=== PATIENT | male | born 1955 | race Caucasian/White ===

== ENCOUNTER → 2020-01-27 | Outpatient (CLI) | payer MEDICARE | END | disposition home or self-care (01) | LOC: LABWHC1 12:41 | PROVIDERS: ATTEND Internal Medicine Cardiovascular Disease | DX: Z53.9 Procedure and treatment not carried out, unspecified reason (principal) ==

== ENCOUNTER → 2020-02-11 | Outpatient (CLI) | payer MEDICARE | END | disposition home or self-care (01) | LOC: LABWHC1 11:15 | PROVIDERS: ATTEND Internal Medicine Cardiovascular Disease | DX: Z11.59 Encounter for screening for other viral diseases (principal) ==

== ENCOUNTER 2020-02-13 06:25 | Day surgery (SDC) | payer MEDICARE ==
[~2020-02-13 06:25] MED LIST: ALPRAZolam 0.25 MG TAB PO PRN; ALPRAZolam 0.5 MG TAB PO PRN; NITROGLYCERIN SL TABS 0.4 MG TAB SUBLINGUAL PRN; SODIUM CHLORIDE 0.9% 1,000 ML in EMPTY BAG 1 BAG IV ONE
[2020-02-13 06:54] LABS: Glucose,Whole Blood 145 mg/dL (75-99)
[2020-02-13] MEDS ORDERED: ATORVASTATIN 80 MG TAB PO ONE (07:00)
[2020-02-13] MEDS ORDERED: ASPIRIN 325 MG TAB PO ONE (07:00)
[2020-02-13 07:05] LABS: Basophils % (A) 1 %; Eosinophils # (A) 0.3 k/uL (0-0.7); Eosinophils % (A) 6 %; HCT 46.1 % (39.0-53.0); HGB 15.1 gm/dL (13.0-17.5); Lymphocytes # (A) 1.5 k/uL (1.0-4.8); Lymphocytes % (A) 26 %; MCH 31.2 pg (25.0-35.0); MCHC 32.8 g/dL (31.0-37.0); MCV 95.1 fL (80.0-100.0); Mean Platelet Volume 7.6; Monocytes # (A) 0.4 k/uL (0-1.0); Monocytes % (A) 8 %; Neutrophils # (A) 3.1 k/uL (1.3-7.7); Neutrophils % (A) 57 %; Platelet Count 200 k/uL (150-450); RBC 4.85 m/uL (4.30-5.90); WBC 5.5 k/uL (3.8-10.6)
[2020-02-13 07:13] LABS: African American GFR (CKD) >90 (>60 ml/min/1.73 sqM); Anion Gap 4 mmol/L; Blood Urea Nitrogen 14 mg/dL (9-20); Calcium 9.2 mg/dL (8.4-10.2); Carbon Dioxide 26 mmol/L (22-30); Chloride 107 mmol/L (98-107); Glucose 143 mg/dL (74-99); Non-African American GFR(CKD) >90 (>60 ml/min/1.73 sqM); Sodium 137 mmol/L (137-145)
[2020-02-13] MEDS ORDERED: LIDOCAINE 1% INJ 10MG/ML (20 ML MDV) ONE (07:38)
[2020-02-13] MEDS ORDERED: fentaNYL (PF) 50 MCG/ML 2 ML AMP ONE (07:38)
[2020-02-13] MEDS ORDERED: fentaNYL (PF) 50 MCG/ML 2 ML AMP IV ONE (07:50)
[2020-02-13] MEDS ORDERED: MIDAZOLAM 2 MG/2 ML VIAL IV ONE (07:50)
[2020-02-13] MEDS ORDERED: LIDOCAINE 1% INJ 10MG/ML (20 ML MDV) SQ ONE (07:51)
[2020-02-13] MEDS ORDERED: CLOPIDOGREL 75 MG TAB ONE (08:17)
[2020-02-13] MEDS ORDERED: BIVALIRUDIN BOLUS 250 MG/50 ML IV ONE (08:55)
[2020-02-13] MEDS ORDERED: BIVALIRUDIN 250 MG in SODIUM CHLORIDE 0.9% 37 ML IV ONE (08:56)
[2020-02-13] MEDS ORDERED: CLOPIDOGREL 75 MG TAB PO ONE (08:56)
[2020-02-13] MEDS ORDERED: NITROGLYCERIN 1000MCG/10ML SYRINGE INTRACORON ONE (09:03)
[2020-02-13] MEDS ORDERED: IOPAMIDOL-370 125ML BTL INJ ONE (09:03)
[2020-02-13] MEDS ORDERED: IOPAMIDOL-370 100ML BTL INJ ONE ×2 (09:19→09:45)
--- NOTE | 2020-02-13 09:35 | LTR ---
DATE OF SERVICE: 02/13/2020 RE: Torin Daily Dear Adam; I performed cardiac catheterization on Torin Daily, a detailed catheterization note is enclosed for your records. In brief, the cardiac catheterization revealed severe 2-vessel coronary artery disease and patient will undergo angioplasty with stent placement of the same. Thank you for giving us the privilege of participate in the care of the aoy gentleman. Sincerely, MD MAURICIO Goodwin / RADHA: [id number] /
--- NOTE | 2020-02-13 09:35 | CC ---
CARDIAC CATHETERIZATION REPORT INDICATION: Ischemic cardiomyopathy in a patient with known CAD, status post prior angioplasty. PROCEDURE NOTE: After obtaining informed consent, left heart catheterization and coronary angiogram were performed with the right femoral artery using standard Liam catheters. Patient tolerated the procedure well without any obvious immediate complications. The patient has evidence of peripheral arterial disease and we had to use a Glidewire to traverse the iliac vessels. FINDINGS: 1. HEMODYNAMICS: Central aortic pressure is 130/70 mm. 2. LEFT VENTRICULOGRAM: Left ventriculogram is not performed. 3. ANGIOGRAPHIC DATA: LEFT MAIN CORONARY ARTERY: Left main coronary artery is a normal-sized vessel and is free of stenosis. Divides into left anterior descending coronary artery and circumflex coronary artery. LAD: LAD shows mild nonobstructive coronary artery disease. Circumflex coronary artery which is a codominant palpable shows a focal 95% stenosis. Right coronary artery shows a 70%-80% mid RCA stenosis. CONCLUSION: 1. Severe 2-vessel coronary artery disease. 2. Ischemic cardiomyopathy. PLAN: I am going to ask Dr. Singh to perform a two-vessel angioplasty. MMODL / IJN: [id number] /
[2020-02-13] MEDS ORDERED: ZOLPIDEM 5 MG TAB PO PRN (09:50)
[2020-02-13] MEDS ORDERED: ATROPINE SULFATE 0.1 MG/ML 10ML SYRINGE IV PRN (09:50)
[2020-02-13] MEDS ORDERED: NITROGLYCERIN SL TABS 0.4 MG TAB SUBLINGUAL PRN (09:50)
[2020-02-13] MEDS ORDERED: MAG HYDROX/AL HYDROX/SIMETH 30 ML CUP PO PRN (09:50)
[2020-02-13] MEDS ORDERED: RX INFO: IV CONTRAST WAS GIVEN 1 EACH MISC MISCELLANE PRN (09:50)
[2020-02-13] MEDS ORDERED: SODIUM CHLORIDE 0.9% 1,000 ML IV SCH (10:00)
--- NOTE | 2020-02-13 11:49 | PTCA ---
PERCUTANEOUSTRANS CORORONARY ANGIOGRAPHY Mr. Daily is a 64-year-old male who is followed by Dr. Singh, has a history of coronary artery disease, status post percutaneous revascularization in 2005 of the left circumflex, who recently was found to have evidence of cardiomyopathy. He underwent cardiac catheterization, was found to have subtotally occluded left circumflex and significant stenosis in the RCA. In view of that, recommendation made regarding angioplasty and stenting. The procedures, risks, and complication were discussed with the patient who is in full understanding and agreement PROCEDURE: A 6-Hungarian FR4 guiding catheter introduced into the system after cannulating the left main, a 0.014 balanced medium weight J-wire was advanced across the lesion positioned distally. Subsequently, 2.25 x 12 mm Trek balloon was advanced and multiple inflations were done at a maximum of 10 atmospheres. Following that, the balloon was removed and a 2.5 x 12 mm Trek balloon was advanced and multiple inflation at 8 atmospheres were done. Following that, the balloon was removed and a 3.0 x 23 mm Xience Michelle stent was deployed distally, postdilated at 16 atmospheres. After removing the balloon, a 3.0 x 33 mm Xience Michelle stent was deployed proximal to the first one postdilated at 16 atmospheres and after removing that balloon, a 3.25 x 15 mm Xience Michelle stent was deployed proximally, postdilated at 16 atmospheres. After removing the balloon, the last inflation, a 3.5 x 18mm NC Trek balloon was advanced and inflation of proximal stent was performed at a maximum 14 atmospheres. After the last inflation, after appropriate wait the balloon and the guidewire were withdrawn back in the guiding catheter. Images were obtained repeated those images reveal stable successful stenting. At that point, the guiding catheter, the balloon and the guidewire were removed. The sheath was sutured in place the patient was returned to his room in stable condition. Of note, the patient had no chest discomfort or EKG changes with the inflations. He received Angiomax per protocol as well as oral loading dose of clopidogrel. RESULTS: Successful stenting of a long segment of the mid and distal left circumflex with reduction of stenosis from 99% to 0%. RECOMMENDATION: Patient be continued on aspirin, Plavix, beta hanane, LINDSEY inhibitor, statin. He will be readmitted at a later time to undergo staged angioplasty and stenting of his right coronary artery. Those findings and recommendation were discussed with the patient and his family and they are in full understanding and agreement. Duration of procedure is 47 minutes. MAURICIO / STACYN: [id number] / DAVID
--- NOTE | 2020-02-13 12:28 | LTR ---
DATE OF SERVICE: 02/13/2020 RE: Abimbola Torin Dear Dr. Frazier; I had a pleasure to perform coronary angioplasty and stenting on Mr. Daily at [facility] on February 12 and a full copy of the procedure note will be forwarded to you. In brief, he was found to have significant disease involving the distal left circumflex, underwent successful stenting of that vessel using a 3 drug-eluting stent. He will be readmitted electively to undergo stenting of his right coronary artery. I will keep you updated on his progress and thank you again for allowing me to participate in this patient's care. Please feel free to call for any questions. Sincerely yours, MD HUANG PatrickL / RADHA: [id number] /
[2020-02-13 14:39] VITALS: BMI 29.1
[2020-02-13] MEDS: glipiZIDE 5 MG TAB PO SCH (17:09)
[2020-02-13 20:37] VITALS: RESP 16
[2020-02-14 07:15] LABS: African American GFR (CKD) >90 (>60 ml/min/1.73 sqM); Anion Gap 4 mmol/L; Blood Urea Nitrogen 10 mg/dL (9-20); Carbon Dioxide 27 mmol/L (22-30); Chloride 106 mmol/L (98-107); Glucose 106 mg/dL (74-99); Non-African American GFR(CKD) >90 (>60 ml/min/1.73 sqM); Potassium 4.4 mmol/L (3.5-5.1); Sodium 137 mmol/L (137-145)
[2020-02-14] MEDS ORDERED: amLODIPine 5 MG TAB PO SCH (09:00)
[2020-02-14] MEDS ORDERED: CLOPIDOGREL 75 MG TAB PO SCH (09:00)
[2020-02-14] MEDS ORDERED: METOPROLOL SUCCINATE (ER) 50 MG TAB.ER.24H PO SCH (09:00)
[2020-02-14] MEDS ORDERED: ATORVASTATIN 40 MG TAB PO SCH (09:00)
[2020-02-14] MEDS ORDERED: ASPIRIN 81 MG PO SCH (09:00)
[2020-02-14] MEDS ORDERED: LISINOPRIL 20 MG TAB PO SCH (09:00)
[2020-02-14] MEDS: glipiZIDE 5 MG TAB PO SCH (09:26)
[2020-02-14 09:33] VITALS: BP 132/73; PULSE 70; TEMP 98.7
--- NOTE | 2020-02-14 10:34 | DS ---
DISCHARGE SUMMARY DATE OF ADMISSION: 02/13/2020 DATE OF DISCHARGE: 02/14/2020. PROCEDURES PERFORMED: 1. Left heart catheterization. 2. Angioplasty of circumflex coronary artery. This is a 64-year-old gentleman who recently presented to us with ischemic cardiomyopathy and was advised to undergo cardiac catheterization. His cardiac catheterization revealed significant two-vessel coronary artery disease. He had a long and complex angioplasty of circumflex coronary artery with excellent angiographic outcome. Still has a lesion in the right coronary artery that will be addressed over the next 2 weeks. The patient has had a fairly uneventful night. Did not have chest pain, difficulty in breathing. His EKG shows sinus rhythm with nonspecific ST-T wave changes. The patient has had some mild oozing in the right groin and required a ( ), but this morning he does not have any hematoma or ecchymosis and his foot pulses are intact. CONDITION AT THE TIME OF DISCHARGE: Comfortable at rest. Vital signs are stable. Chest is clear to auscultation. Heart exam reveals first and second heart sounds. No gallop. Exam of extremities did not reveal any edema. Peripheral pulses are intact. Her groin is free of bleeding, bruit, hematoma. DISCHARGE MEDICATIONS: He will go home on all his home medications plus Plavix 75 mg daily. Follow up: He will be seen back in my office next week and will be scheduled for right coronary angioplasty. MMKRISTIL / IJN: [id number] /
== END 2020-02-14 11:20 | disposition home or self-care (01) ==
LOC: CATHCVL 06:25 → 3SCARD 10:37 → CATHCVL 02-14 11:20
PROVIDERS: ATTEND Internal Medicine Cardiovascular Disease
DX: I25.10 Atherosclerotic heart disease of native coronary artery without angina pectoris (principal); I25.5 Ischemic cardiomyopathy; I73.9 Peripheral vascular disease, unspecified; I10 Essential (primary) hypertension; E78.2 Mixed hyperlipidemia; I65.21 Occlusion and stenosis of right carotid artery; I25.2 Old myocardial infarction; E11.9 Type 2 diabetes mellitus without complications; Z95.5 Presence of coronary angioplasty implant and graft; Z72.0 Tobacco use; Z79.84 Long term (current) use of oral hypoglycemic drugs; Z79.899 Other long term (current) drug therapy; Z79.1 Long term (current) use of non-steroidal anti-inflammatories (NSAID); Z79.82 Long term (current) use of aspirin; Z79.02 Long term (current) use of antithrombotics/antiplatelets; R94.31 Abnormal electrocardiogram [ECG] [EKG]
CPT/HCPCS: 93454; 80048 ×2; 85025; C9600; C1769 ×4; C1887; C1725 ×3; C1894; C1874; J2250; J2001; J3010; J0583; Q9967 ×2

== ENCOUNTER → 2020-02-18 | Outpatient (CLI) | payer MEDICARE ==
--- NOTE | 2020-02-18 09:34 | CT ---
EXAMINATION TYPE: CT abdomen wo con DATE OF EXAM: 02/18/2020 COMPARISON: None HISTORY: 64-year-old male Left sided pain for 2-3 months TECHNIQUE: Contiguous axial scanning of the abdomen without IV contrast. Coronal and sagittal reconst ructions performed. CT DLP: 559 mGycm Automated exposure control for dose reduction was used. FINDINGS: Heart normal size without pericardial effusion. Aortic valvular calcifications and coronary artery ca lcifications. Lung bases are clear without pleural effusion. Small hiatal hernia. Liver mildly enlarged at 18.7 cm. Otherwise, noncontrast appearance of the liver, gallbladder, adrena l glands, left kidney, spleen, and pancreas appear within normal limits. 1 cm hyperdense lesion along the posterior cortex of the upper to mid pole right kidney. 2 mm nonobst ructive right upper pole renal calculus. No hydronephrosis on either side. No dilated small bowel, free fluid, or free air. Scattered mild to moderate stool. Mid descending colon diverticulosis. Of the visualized colon, no pe ricolonic inflammatory change is identified. Prominent but nonenlarged left external iliac chain lymph node measuring 7 mm. Moderate atherosclerotic calcifications infrarenal abdominal aorta and moderate within the visualized iliac arteries. Pelvis not imaged. Bones: Degenerative disc disease greatest at L1-L2 and L2-L3 and facet arthropathy mid to lower lumba r spine. IMPRESSION: 1. SMALL HIATAL HERNIA. 2. A 1 CM HYPERDENSE CORTICAL LESION POSTERIOR UPPER TO MIDPOLE RIGHT KIDNEY, PROBABLE HEMORRHAGIC CY ST. [address] MONTH FOLLOW-UP CT RECOMMENDED TO ENSURE STABILITY. 3. PUNCTATE 2 MM NONOBSTRUCTIVE RIGHT RENAL CALCULUS. 4. DESCENDING CLONIC DIVERTICULOSIS WITHOUT EVIDENCE FOR ACUTE DIVERTICULITIS. PELVIS NOT IMAGED.
== END | disposition home or self-care (01) ==
LOC: RADCTMAIN 08:20
PROVIDERS: ATTEND Internal Medicine
DX: K44.9 Diaphragmatic hernia without obstruction or gangrene (principal); K57.92 Diverticulitis of intestine, part unspecified, without perforation or abscess without bleeding
CPT/HCPCS: 74150

== ENCOUNTER 2020-03-03 07:57 | Day surgery (SDC) | payer MEDICARE ==
[2020-03-02 14:27] VITALS: BMI 29.7
[~2020-03-03 07:57] MED LIST changes: +ASPIRIN 325 MG TAB PO STA; +ATORVASTATIN 80 MG TAB PO STA
[2020-03-03 08:27] LABS: Basophils % (A) 1 %; Eosinophils # (A) 0.4 k/uL (0-0.7); Eosinophils % (A) 7 %; HCT 45.2 % (39.0-53.0); HGB 15.5 gm/dL (13.0-17.5); Lymphocytes # (A) 1.3 k/uL (1.0-4.8); Lymphocytes % (A) 23 %; MCH 32.7 pg (25.0-35.0); MCHC 34.2 g/dL (31.0-37.0); MCV 95.5 fL (80.0-100.0); Mean Platelet Volume 7.5; Monocytes # (A) 0.3 k/uL (0-1.0); Monocytes % (A) 6 %; Neutrophils # (A) 3.6 k/uL (1.3-7.7); Neutrophils % (A) 62 %; Platelet Count 180 k/uL (150-450); RBC 4.74 m/uL (4.30-5.90); RDW 13.2 % (11.5-15.5); WBC 5.8 k/uL (3.8-10.6)
[2020-03-03 08:28] VITALS: RESP 16; TEMP 98.8
[2020-03-03] MEDS ORDERED: SODIUM CHLORIDE 0.9% 1,000 ML IV ONE (08:35)
[2020-03-03 08:40] LABS: African American GFR (CKD) >90 (>60 ml/min/1.73 sqM); Anion Gap 7 mmol/L; Blood Urea Nitrogen 15 mg/dL (9-20); Calcium 9.2 mg/dL (8.4-10.2); Carbon Dioxide 28 mmol/L (22-30); Chloride 106 mmol/L (98-107); Glucose 161 mg/dL (74-99); Non-African American GFR(CKD) >90 (>60 ml/min/1.73 sqM); Potassium 4.2 mmol/L (3.5-5.1); Sodium 141 mmol/L (137-145)
[2020-03-03 08:40] LABS: Glucose,Whole Blood 157 mg/dL (75-99)
[2020-03-03] MEDS ORDERED: VERAPAMIL 2.5 MG/ML 2 ML AMP ONE (08:55)
[2020-03-03] MEDS ORDERED: fentaNYL (PF) 50 MCG/ML 2 ML AMP ONE (08:55)
[2020-03-03] MEDS ORDERED: LIDOCAINE 1% INJ 10MG/ML (20 ML MDV) ONE (08:55)
[2020-03-03] MEDS ORDERED: fentaNYL (PF) 50 MCG/ML 2 ML AMP IV ONE (09:32)
[2020-03-03] MEDS ORDERED: LIDOCAINE 1% INJ 10MG/ML (20 ML MDV) SQ ONE (09:33)
[2020-03-03] MEDS ORDERED: VERAPAMIL SYRINGE (5 MG/10 ML) INTRAARTER ONE (09:36)
[2020-03-03] MEDS ORDERED: BIVALIRUDIN BOLUS 250 MG/50 ML IV ONE (09:40)
[2020-03-03] MEDS ORDERED: BIVALIRUDIN 250 MG in SODIUM CHLORIDE 0.9% 50 ML IV ONE (09:41)
[2020-03-03] MEDS ORDERED: NITROGLYCERIN 1000MCG/10ML SYRINGE INTRACORON ONE (09:46)
[2020-03-03] MEDS ORDERED: IOPAMIDOL-370 125ML BTL INJ ONE ×2 (09:56)
[2020-03-03] MEDS ORDERED: ATROPINE SULFATE 0.1 MG/ML 10ML SYRINGE IV PRN (10:25)
[2020-03-03] MEDS ORDERED: MAG HYDROX/AL HYDROX/SIMETH 30 ML CUP PO PRN (10:25)
[2020-03-03] MEDS ORDERED: NITROGLYCERIN SL TABS 0.4 MG TAB SUBLINGUAL PRN ×2 (10:25→10:26)
[2020-03-03] MEDS ORDERED: RX INFO: IV CONTRAST WAS GIVEN 1 EACH MISC MISCELLANE PRN (10:25)
[2020-03-03] MEDS ORDERED: ZOLPIDEM 5 MG TAB PO PRN (10:25)
[2020-03-03] MEDS ORDERED: SODIUM CHLORIDE 0.9% 1,000 ML IV SCH (10:30)
--- NOTE | 2020-03-03 15:05 | PTCA ---
PERCUTANEOUSTRANS CORORONARY ANGIOGRAPHY Mr. Daily is a 64-year-old male with known history of coronary artery disease, status post percutaneous revascularization who was being followed by Dr. Singh, recently was found a significant decrease in his LV systolic function, underwent cardiac catheterization, was found to have significant disease in the left circumflex and the right coronary artery. He underwent stenting of the left circumflex and was admitted electively to undergo stenting of the right coronary artery. The procedures, risks, and complication were discussed with the patient who is in full understanding and agreement. PROCEDURE: Patient was brought to prosthetic lab technician in a fasting semi-sedated state after receiving fentanyl and Benadryl and achieving moderate conscious sedated state. Using Xylocaine anesthesia and Seldinger technique, a 6-Beninese sheath was introduced in the right radial artery, selective right and left coronary angiography performed using 6-Beninese FR4 guiding catheter, after cannulating the right coronary ostium a 0.014 balanced medium weight J-wire was advanced across the lesion, positioned distally, then a 2.5 x 12 mm Trek balloon was advanced and one inflation 8 atmospheres was done. Following that, the balloon was removed and a 2.5 x 15 mm Xience Michelle stent was deployed, postdilated at 16 atmospheres. Following that the balloon was removed and a 3.0 x 8 mm NC Trek balloon was advanced and two inflations at maximum 14 atmospheres was done. After the last inflation, after appropriate wait, the balloon and the guidewire were withdrawn back in the guiding catheter. Images were obtained and repeated. Those images reveal stable successful stenting. At that point, the guiding catheter, the balloon and the guidewire removed and a 5-Beninese FL 3.5 Liam catheter was introduced into the system and images of the left circumflex system was performed. Following that, catheter and sheath were removed. Hemostasis was obtained with deployment of a TR band. There was no immediate complication. Patient is returned to his room in stable condition. Of note, the patient received Angiomax per protocol and was continued on clopidogrel. RESULTS: 1. Successful stenting of the mid right coronary artery with reduction of stenosis from 80% to 0% in a diffusely diseased vessel. 2. Patent stented segment of the left circumflex with no evidence of thrombosis or artery stenosis. RECOMMENDATION: Patient will be continued on aspirin, Plavix and statin. The importance of dual antiplatelet treatment were discussed with the patient and his family and they are in full understanding and agreement. His LV systolic function will be followed by Dr. Singh for further evaluation. DURATION OF THE PROCEDURE: 33 minutes. MAURICIO / RADHA: [id number] /
--- NOTE | 2020-03-03 15:14 | LTR ---
DATE OF SERVICE: 03/03/2020 RE: Torin Daily Dear Dr. Frazier; I had the pleasure to perform coronary angioplasty and stenting on Mr. Daily at [facility] on March 03 and a full copy of the procedure note will be forwarded to you. In brief, he underwent successful stenting of his right coronary artery. His left coronary system remains patent. I am hopeful that this procedure will stabilize his status and will see improvement in the left ventricular systolic function. Thank you again for allowing me to participate in this patient's care. Please feel free to call for any questions. Sincerely yours, MD MAURICIO Patrick / STACYN: [id number] /
[2020-03-03 15:21] VITALS: BP 148/69; PULSE 69
[2020-03-03] MEDS ORDERED: AMLODIPINE BESYLATE PO SCH (21:00)
[2020-03-03] MEDS ORDERED: BENAZEPRIL PO SCH (21:00)
[2020-03-04] MEDS ORDERED: ATORVASTATIN 40 MG TAB PO SCH (09:00)
[2020-03-04] MEDS ORDERED: CLOPIDOGREL 75 MG TAB PO SCH (09:00)
[2020-03-04] MEDS ORDERED: METOPROLOL SUCCINATE (ER) 50 MG TAB.ER.24H PO SCH (09:00)
[2020-03-04] MEDS ORDERED: ASPIRIN 81 MG PO SCH (09:00)
[2020-03-04] MEDS ORDERED: glipiZIDE 5 MG TAB PO SCH (09:00)
== END 2020-03-03 15:45 | disposition home or self-care (01) ==
LOC: CATHCVL 07:57
PROVIDERS: ATTEND Internal Medicine Interventional Cardiology
DX: I25.10 Atherosclerotic heart disease of native coronary artery without angina pectoris (principal); I65.21 Occlusion and stenosis of right carotid artery; I10 Essential (primary) hypertension; Z72.0 Tobacco use; E78.2 Mixed hyperlipidemia; E11.9 Type 2 diabetes mellitus without complications; Z95.5 Presence of coronary angioplasty implant and graft; Z79.84 Long term (current) use of oral hypoglycemic drugs; Z79.02 Long term (current) use of antithrombotics/antiplatelets; Z79.82 Long term (current) use of aspirin; Z79.899 Other long term (current) drug therapy
CPT/HCPCS: 85347; 80048; 85025; C9600; C1769 ×2; C1887; C1725 ×2; C1874; C1894; J2001; J3010; J0583; Q9967

== ENCOUNTER → 2022-12-21 | Outpatient (CLI) | payer MEDICARE ==
[2022-12-21 18:14] LABS: Chol/HDL Ratio 2.79 Ratio; LDL Cholesterol,Calculated 57.1 mg/dL (0.0-131.0)
[2022-12-21 18:18] LABS: ALT 17 U/L (10-49); AST 19 U/L (14-35); African American GFR (CKD) 84.5 (60.0-200.0); Albumin 3.7 g/dL (3.8-4.9); Albumin/Globulin Ratio 0.92 (1.60-3.17); Alkaline Phosphatase 99 U/L (41-126); BUN/Creat Ratio 10.19 Ratio (12.00-20.00); Blood Urea Nitrogen 10.6 mg/dL (9.0-27.0); Calcium 9.2 mg/dL (8.7-10.3); Carbon Dioxide 20.7 mmol/L (20.0-27.5); Chloride 104 mmol/L (96-109); Globulin 4.1 g/dL (1.6-3.3); Glucose 218 mg/dL (70-110); Non-African American GFR(CKD) 72.9 (60.0-200.0); Potassium 4.3 mmol/L (3.5-5.5); Sodium 139 mmol/L (135-145); Total Protein 7.8 g/dL (6.2-8.2)
== END | disposition home or self-care (01) ==
LOC: LABWHC1 10:22
PROVIDERS: ATTEND Internal Medicine
DX: I10 Essential (primary) hypertension (principal); E11.9 Type 2 diabetes mellitus without complications; I25.10 Atherosclerotic heart disease of native coronary artery without angina pectoris; E78.5 Hyperlipidemia, unspecified; R60.9 Edema, unspecified
CPT/HCPCS: 36415; 80053; 80061; 83036; 83880; 84439; 84443

== ENCOUNTER 2023-01-04 05:51 | Day surgery (SDC) | payer MEDICARE ==
[2023-01-02 12:36] VITALS: BMI 34.4
[2023-01-04] MEDS ORDERED: ALPRAZolam 0.5 MG TAB PO PRN (05:54)
[2023-01-04] MEDS ORDERED: HEPARIN SODIUM,PORCINE 2,500 UNIT in SODIUM CHLORIDE 0.9% 250 ML IRRIGATION PRN (05:54)
[2023-01-04] MEDS ORDERED: SODIUM CHLORIDE 0.9% 1,000 ML in EMPTY BAG 1 BAG IV SCH (05:54)
[2023-01-04] MEDS ORDERED: ASPIRIN 325 MG TAB PO STA (05:54)
[2023-01-04] MEDS ORDERED: NITROGLYCERIN SL TABS 0.4 MG TAB SUBLINGUAL PRN (05:54)
[2023-01-04] MEDS ORDERED: ALPRAZolam 0.25 MG TAB PO PRN (05:54)
[2023-01-04] MEDS ORDERED: HEPARIN SODIUM,PORCINE 10,000 UNIT in SODIUM CHLORIDE 0.9% 1,000 ML IRRIGATION PRN (05:54)
[2023-01-04] MEDS ORDERED: ATORVASTATIN 80 MG TAB PO STA (05:54)
[2023-01-04] MEDS ORDERED: SODIUM CHLORIDE 0.9% 1,000 ML IV ONE (06:06)
[2023-01-04 06:22] LABS: Glucose,Whole Blood 152 mg/dL (70-110)
[2023-01-04 06:29] VITALS: RESP 16; TEMP 97.9
[2023-01-04 06:35] LABS: Basophils % (A) 0 %; Eosinophils # (A) 0.7 k/uL (0-0.7); Eosinophils % (A) 11 %; HCT 34.8 % (39.0-53.0); HGB 11.3 gm/dL (13.0-17.5); Hypochromasia Slight; Lymphocytes # (A) 1.1 k/uL (1.0-4.8); Lymphocytes % (A) 18 %; MCH 28.9 pg (25.0-35.0); MCHC 32.6 g/dL (31.0-37.0); MCV 88.8 fL (80.0-100.0); Mean Platelet Volume 7.9; Monocytes # (A) 0.5 k/uL (0-1.0); Monocytes % (A) 7 %; Neutrophils # (A) 3.8 k/uL (1.3-7.7); Neutrophils % (A) 61 %; Platelet Count 219 k/uL (150-450); Poikilocytosis Slight; RBC 3.92 m/uL (4.30-5.90); RDW 15.1 % (11.5-15.5); WBC 6.2 k/uL (3.8-10.6)
[2023-01-04] MEDS ORDERED: VERAPAMIL 2.5 MG/ML 2 ML AMP ONE (07:09)
[2023-01-04] MEDS ORDERED: fentaNYL (PF) 50 MCG/ML 2 ML AMP ONE (07:25)
[2023-01-04] MEDS ORDERED: IV FLUID CONTINUATION 1,000 ML IV ONE (07:29)
[2023-01-04] MEDS ORDERED: BENZOCAINE SPRAY 1 CAN MUCOUS MEM ONE (07:33)
[2023-01-04] MEDS ORDERED: fentaNYL (PF) 50 MCG/ML 2 ML AMP IV ONE (07:35)
[2023-01-04] MEDS ORDERED: MIDAZOLAM 2 MG/2 ML VIAL IV ONE (07:35)
[2023-01-04] MEDS ORDERED: LIDOCAINE 1% INJ 10MG/ML (5 ML VIAL-PF) SQ ONE (07:50)
[2023-01-04] MEDS ORDERED: LIDOCAINE 1% INJ 10MG/ML (20 ML MDV) ONE (07:59)
[2023-01-04] MEDS ORDERED: LIDOCAINE 2% (PF) 20 MG/ML 10 ML AMP SQ ONE (08:06)
[2023-01-04] MEDS ORDERED: IOPAMIDOL-370 100ML BTL INJ ONE (08:33)
[2023-01-04] MEDS ORDERED: RX INFO: IV CONTRAST WAS GIVEN 1 EACH MISC MISCELLANE PRN (12:17)
[2023-01-04 13:27] VITALS: BP 144/65; PULSE 71
[2023-01-04] MEDS ORDERED: hydrALAZINE HCL 50 MG TAB PO SCH (16:00)
--- NOTE | 2023-01-05 06:00 | ECHOT ---
TRANSESOPHAGEAL ECHOCARDIOGRAM INDICATION: Aortic stenosis. PROCEDURE NOTE: After obtaining informed consent, transesophageal echocardiogram was performed in left lateral position using an Omniplane probe. Local and IV sedation were obtained. Total sedation time was 12 minutes. FINDINGS: The aortic valve is a tricuspid valve that is heavily calcified with severe restriction in leaflet mobility. Ascending aorta appears mildly dilated. There is mild aortic regurgitation noted. By planimetry, the valve area is 0.6 squared centimeters. The tap and die maker technician helping with this study was inexperienced. He has not stored the measurement data. Mitral valve appears anatomically normal. There is mitral annular calcification with xdmj-of-ipqafuop mitral regurgitation. Tricuspid valve shows mild tricuspid regurgitation. There is no evidence of npdd-gb-rutzh shunt by color-flow Doppler or qzpuc-mp-gayx shunt by agitated saline contrast study. Left atrium appears enlarged. Left ventricle has normal size and systolic function. CONCLUSIONS: 1. Severe aortic stenosis involving a tricuspid aortic valve with a planimetry area of around 0.4 to 0.6 squared centimeters. 2. Normal LV systolic function. 3. Kwhz-fh-btbaeznp mitral regurgitation. 4. Technically suboptimal study secondary to inexperienced tap and die maker technician. MMODL / IJN: [id number] /
--- NOTE | 2023-01-05 08:16 | CC ---
CARDIAC CATHETERIZATION REPORT CARDIAC CATHETERIZATION: PROCEDURE NOTE: After obtaining informed consent, left heart catheterization, coronary angiogram and aortogram were performed via the left femoral artery using standard Liam catheters. The patient tolerated the procedure well without any obvious immediate complications. INDICATIONS: Aortic stenosis in the patient with known CAD. I initially attempted right radial artery access. I was unsuccessful. Right femoral pulses are weak. Hence, I performed the cardiac catheterization from the left side. Left femoral and iliac vessels have significant disease. Hence, Angio-Seal could not be done. FINDINGS: HEMODYNAMICS: 1. Central aortic pressure is 150/60 mm. 2. Left ventriculogram: Left ventriculogram was not performed. ANGIOGRAPHIC DATA: Right coronary artery: Right coronary artery is a codominant vessel that was previously stented extensively. The mid RCA shows a focal 90% stenosis. Left main coronary artery appears calcified but is free of significant stenosis. It divides into left anterior descending coronary artery and circumflex coronary artery. Circumflex coronary artery was previously stented. There is 80% to 90% ostial stenosis involving a large caliber, OM branch and AV groove circ also has an 80% stenosis. LAD shows kcnr-eb-xdlayjuy diffuse nonfocal atherosclerotic block. CONCLUSIONS: Severe 2-vessel coronary artery disease. Severe aortic stenosis based on the noninvasive studies. Known carotid stenosis and known peripheral arterial disease. PLAN: I will refer the patient to Dr. Jensen for evaluation for aortic valve replacement with 2-vessel bypass surgery. MMODL / IJN: [id number] /
== END 2023-01-04 15:29 | disposition home or self-care (01) ==
LOC: CATHCVL 05:51
PROVIDERS: ATTEND Internal Medicine Cardiovascular Disease
DX: I25.10 Atherosclerotic heart disease of native coronary artery without angina pectoris (principal); I35.0 Nonrheumatic aortic (valve) stenosis; I34.0 Nonrheumatic mitral (valve) insufficiency
CPT/HCPCS: 93312; 93320; 93325; 93458; 93567; 85025; C1769 ×3; C1894 ×2; J2250; J2001 ×2; J3010; Q9967

== ENCOUNTER → 2023-01-18 | Outpatient (CLI) | payer MEDICARE ==
--- NOTE | 2023-01-18 10:42 | CT ---
EXAMINATION TYPE: CT chest wo con DATE OF EXAM: 01/18/2023 COMPARISON: HISTORY: Nonrheumatic aortic valve replacement. CT DLP: 749 mGycm. Automated Exposure Control for Dose Reduction was Utilized. TECHNIQUE: CT scan of the thorax is performed without IV contrast. FINDINGS: LUNGS: No consolidative pneumonia. There is a 4 mm subpleural nodule superior segment right lower lob e axial image 26. Additional sub-5 mm subpleural nodularity noted.. There is no pleural effusion or pneumothorax seen. The tracheobronchial tree is patent. Subsegmental consolidation in both lung bas es most atelectasis mild hypertrophic and degenerative changes small hiatal hernia. Interlobular sept al thickening at the lung bases. MEDIASTINUM: Lack of IV contrast is noted to limit evaluation for mediastinal and especially hilar ad enopathy. There 1 cm subcarinal lymph node compatible with borderline adenopathy. There are numerous shotty lymph nodes within the mediastinum the largest measuring short axis IX mm. No cardiomegaly o r pericardial effusion is seen. There is dense calcification at the root of the aorta and at the leve l aortic valve. There is coronary artery calcification. OTHER: No additional significant abnormality is seen. IMPRESSION: 1. There is dense calcification at the level of the aortic valve, correlate clinically. 2. There is dense coronary artery calcifications 3. There is mediastinal borderline lymphadenopathy which is nonspecific. Correlate clinically. 4. Findings are suggestive of mild chronic interstitial pulmonary fibrosis at the lung bases, UIP typ e. 5. There is sub-5 mm subpleural nodularity is noted within the right lower lobe superior segment too small to characterize likely benign. 12 month follow up recommended
--- NOTE | 2023-01-18 13:28 | US ---
EXAMINATION TYPE: US carotid duplex BILAT DATE OF EXAM: 01/18/2023 COMPARISON: NONE CLINICAL INDICATION: Male, 67 years old with history of TAVR PROCEDURES; Pre op CABG. TECHNIQUE: Carotid duplex ultrasound examination. Indirect Doppler criteria was utilized. FINDINGS: EXAM MEASUREMENTS: RIGHT: Peak Systolic Velocity (PSV) cm/sec ----- Right CCA: 34.0 ----- Right ICA: no flow seen ----- Right ECA: 84.2 ICA/CCA ratio: RIGHT: End Diastole cm/sec ----- Right CCA: 0.0 ----- Right ICA: no flow seen ----- Right ECA: 7.3 LEFT: Peak Systolic Velocity (PSV) cm/sec ----- Left CCA: 61.6 ----- Left ICA: 168.6 ----- Left ECA: 113.4 ICA/CCA ratio: 2.7 LEFT: End Diastole cm/sec ----- Left CCA: 14.0 ----- Left ICA: 52.4 ----- Left ECA: 0.0 VERTEBRALS (direction of flow): Right Vertebral: Antegrade Left Vertebral: Antegrade Rhythm: Normal HOUSE REGISTRY RN NOTES: Unable to detect flow in the right ICA. Elevated velocities within the left ICA. Great amount of plaque seen within the left bifurcation. Called Dr. Jensen's office and was directed to Brennan Butler. Findings given to Brennan Butler at time of exam. IMPRESSION: 1. Nonvisualization of flow within the right internal carotid artery. Correlate for occlusion. Order ing provider was notified. 2. 50-69% stenosis of the left carotid bifurcation by peak systolic velocity and ratio. Criteria for Assigning % of Stenosis / Diameter reduction (Estimation based on the indirect measurements of the internal carotid artery velocities (ICA PSV). 1. Normal (no stenosis)=ICA PSV < 125 cm/s: ratio < 2.0: ICA EDV<40 cm/s. 2. Less than 50% stenosis=ICA PSV < 125 cm/s: ratio < 2.0: ICA EDV<40 cm/s. 3. 50 to 69% stenosis=ICA PSV of 125 to 230 cm/s: ration 2.0 ? 4.0: ICA EDV 40-100 cm/s. 4. Greater than 70% stenosis to near occlusion= ICA PSV > 230 cm/s: ratio > 4.0: ICA EDV > 100 cm/s. 5. Near occlusion= ICA PSV velocities may be low or undetectable: variable ratio and ICA EDV. 6. Total occlusion=unable to detect flow.
--- NOTE | 2023-01-19 07:27 | US ---
EXAMINATION TYPE: US vein mapping BILAT DATE OF EXAM: 01/18/2023 12:33 PM COMPARISON: NONE CLINICAL INDICATION: Male, 67 years old with history of TAVR PROCEDURES; No vein stripping. No hx of DVT. SIDE PERFORMED: Bilateral TECHNIQUE: Lower extremity saphenous vein is examined and measured utilizing real time linear array sonography. Patient History: Smoker: Yes Heart Disease: Previous DVT: No Vascular Surgery: No Discoloration: No Hypertension: Yes Diabetes: Yes Paralysis: Varicosities: Edema: Yes. Edema noted in imaging at left ankle DUPLEX FINDINGS: Greater Saphenous: Color flow seen Measurements in mm: Right Greater Saphenous: Groin: 9.7 x 8.0 mm High Thigh: 5.9 x 4.7 mm Mid Thigh: 4.4 x 4.0 mm Above Knee: 6.0 x 3.5 mm Knee: 4.9 x 3.0 mm Below Knee: 3.8 x 2.7 mm Mid Calf: 5.8 x 4.0 mm At Ankle: 5.3 x 4.1 mm Left Greater Saphenous: Groin: 8.8 x 6.6 mm High Thigh: 4.1 x 3.9 mm Mid Thigh: 5.3 x 3.9 mm Above Knee: 4.5 x 3.6 mm Knee: 3.7 x 3.1 mm Below Knee: 4.0 x 2.7 mm Mid Calf: 4.0 x 3.0 mm At Ankle: 4.9 x 3.4 mm IMPRESSION: 1. Bilateral GSV measurements listed above. 2. Performing surgeon to determine viability as conduit.
== END | disposition home or self-care (01) ==
LOC: LABWHC1 09:28
PROVIDERS: ATTEND Surgery
DX: Z01.818 Encounter for other preprocedural examination (principal); I35.1 Nonrheumatic aortic (valve) insufficiency; I25.10 Atherosclerotic heart disease of native coronary artery without angina pectoris; R91.8 Other nonspecific abnormal finding of lung field; I65.22 Occlusion and stenosis of left carotid artery
CPT/HCPCS: 71250; 93005; 93880; 93970; 94150

== ENCOUNTER 2023-02-20 11:39 | Inpatient (IN) | payer MEDICARE ==
[2023-02-20] MEDS ORDERED: IPRATROPIUM-ALBUTEROL 3 ML NEB INHALATION STA (12:12)
[2023-02-20] MEDS ORDERED: SODIUM CHLORIDE 0.9% 500 ML 500 ML IV ONE (12:12)
--- NOTE | 2023-02-20 12:14 | ED ---
General Adult HPI - General Chief complaint: Shortness of Breath Stated complaint: CLYDE,abd pain Time Seen by Provider: 02/20/23 12:03 Source: patient, RN notes reviewed Mode of arrival: wheelchair Limitations: no limitations - History of Present Illness Initial comments: 67-year-old male with a past medical history significant for hypertension, hyperlipidemia presents emergency department with a chief complaint of shortness of breath. Patient reports worsening shortness of breath upon exertion. He is also complaining of accompanying symptoms of nausea, vomiting, abdominal pain. she reports a bout of chest pain earlier however denies active chest pain during the time of obtaining the history. He describes his abdominal pain as generalized and dull ache. He reports that he takes Plavix. He is currently smoking tobacco. he reports that he did not take his hypertension medications this morning. - Related Data Home Medications Medication Instructions Recorded Confirmed hydrALAZINE HCL [Apresoline] 50 mg PO TID 01/02/23 02/20/23 Furosemide [Lasix] 20 mg PO DAILY 01/04/23 02/20/23 Levocetirizine Dihydrochloride 5 mg PO DAILY 01/04/23 02/20/23 Metoprolol Succinate (ER) [Toprol 100 mg PO DAILY 02/20/23 02/20/23 Xl] glipiZIDE XL [Glucotrol Xl] 10 mg PO BID 02/20/23 02/20/23 Previous Rx's Medication Instructions Recorded Aspirin 81 mg PO DAILY #30 chew 02/14/20 Atorvastatin [Lipitor] 40 mg PO DAILY #30 tab 02/14/20 Clopidogrel [Plavix] 75 mg PO DAILY #30 tab 02/14/20 metFORMIN HCL [Glucophage] 500 mg PO BID #0 02/14/20 Allergies Allergy/AdvReac Type Severity Reaction Status Date / Time No Known Allergies Allergy Verified 02/20/23 15:54 Review of Systems ROS Statement: Those systems with pertinent positive or pertinent negative responses have been documented in the HPI. ROS Other: All systems not noted in ROS Statement are negative. Past Medical History Past Medical History: Coronary Artery Disease (CAD), Diabetes Mellitus, Hyperlipidemia, Hypertension History of Any Multi-Drug Resistant Organisms: None Reported Past Surgical History: Appendectomy, Heart Catheterization With Stent, Orthopedic Surgery Additional Past Surgical History / Comment(s): ORIF RT TIB/FIB. COLONOSCOPY Past Anesthesia/Blood Transfusion Reactions: No Reported Reaction Date of Last Stent Placement:: 02/13/20 Past Psychological History: No Psychological Hx Reported Smoking Status: Current every day smoker Past Alcohol Use History: Occasional Past Drug Use History: Marijuana - Past Family History Father Family Medical History: Cancer General Exam - General Exam Comments Initial Comments: General: Alert, in no acute distress Head: atraumatic normocephalic. Eyes PERRL, EOMI intact, mucous membranes moist Respiratory: expiratory wheeze, patient is conversationally dyspneic upon initial history and physical exam Cardiovascular: rate regular rate and rhythm Abdominal: Soft without guarding or rebound Extremities: Normal inspection with full range of motion and normal capillary refill Neuroogic: alert and oriented 3, CN II-XII intact, able to ambulate with steady gait Skin: warm dry and intact with normal color Limitations: no limitations Course Vital Signs 02/20/23 02/20/23 02/20/23 11:51 12:11 12:18 Temperature 98.3 F 98.7 F Pulse Rate 73 70 Respiratory 24 25 H 24 Rate Blood Pressure 129/75 211/107 O2 Sat by Pulse 92 L 97 Oximetry 02/20/23 02/20/23 02/20/23 12:47 13:05 13:09 Temperature Pulse Rate 73 61 84 Respiratory 21 20 Rate Blood Pressure 213/102 197/103 O2 Sat by Pulse 97 98 Oximetry 02/20/23 02/20/23 02/20/23 13:22 14:33 15:15 Temperature 97.8 F 97.7 F Pulse Rate 84 77 80 Respiratory 20 19 Rate Blood Pressure 201/111 195/92 O2 Sat by Pulse 98 96 Oximetry 02/20/23 02/20/23 16:42 17:25 Temperature Pulse Rate 83 84 Respiratory 20 18 Rate Blood Pressure 186/90 180/95 O2 Sat by Pulse 97 98 Oximetry - Reevaluation(s) Reevaluation #1: 02/20/23 12:18 initial history and physical exam performed. patient's oxygen saturation 97% on 2 L. Reevaluation #2: 02/20/23 12:57 notified of elevated d-dimer result: D-dimer 2.63 Reevaluation #3: 02/20/23 18:25 case discussed with [facility] who agrees and accepts the patient for admission. EKG Findings - EKG Comments: EKG Findings:: 49.I interpreted the following: EKG at 12:02. rate 81 bpm normal sinus rhythm. LA interval 176, QRS duration 108, QT/QTc 426/494 Medical Decision Making - Medical Decision Making Was pt. sent in by a medical professional or institution (GIANLUCA Gomez, SUBSCRIPTION AGENT, urgent care, hospital, or long term...) When possible be specific @ -[No] Did you speak to anyone other than the patient for history (EMS, parent, family, police, friend...)? What history was obtained from this source @ -[No] Did you review nursing and triage notes (agree or disagree)? Why? @ -[I reviewed and agree with nursing and triage notes] Were old charts reviewed (outside hosp., previous admission, EMS record, old EKG, old radiological studies, urgent care reports/EKG's, long term records)? Report findings @ -[No old charts were reviewed] Differential Diagnosis (chest pain, altered mental status, abdominal pain women, abdominal pain men, vaginal bleeding, weakness, fever, dyspnea, syncope, headache, dizziness, GI bleed, back pain, seizure, CVA, palpatations, mental health, musculoskeletal)? @ -[not applicable] EKG interpreted by me (3pts min.). @ -[As above] X-rays interpreted by me (1pt min.). @ -[None done] CT interpreted by me (1pt min.). @ -[None done] U/S interpreted by me (1pt. min.). @ -[None done] What testing was considered but not performed or refused? (CT, X-rays, U/S, labs)? Why? @ -[None] What meds were considered but not given or refused? Why? @ -[None] Did you discuss the management of the patient with other professionals (professionals i.e. GIANLUCA Gomez, SUBSCRIPTION AGENT, lab, RT, psych nurse, psychologist social, flour tester, teacher, commanding officer traffic division, telephonic case manager)? Give summary @ -East discussed with [facility] who agrees and accepts the patient for admission. Was smoking cessation discussed for >3mins.? @ -yes Was critical care preformed (if so, how long)? @ -[No] Were there social determinants of health that impacted care today? How? (Homelessness, low income, unemployed, alcoholism, drug addiction, trans portation, low edu. Level, literacy, decrease access to med. care, retirement, rehab)? @ -[No] Was there de-escalation of care discussed even if they declined (Discuss DNR or withdrawal of care, Hospice)? DNR status @ -[No] What co-morbidities impacted this encounter? (DM, HTN, Smoking, COPD, CAD, Cancer, CVA, ARF, Chemo, Hep., AIDS, mental health diagnosis, sleep apnea, morbid obesity)? @ -[None] Was patient admitted / discharged? Hospital course, mention meds given and route, prescriptions, significant lab abnormalities, going to OR and other pertinent info. @ Admission. 67 -year-old male who presents to the emergency department with shortness of breath. Patient had a thorough history and physical exam performed on the ED. Physical exam reveals an obese male who upon initial physical is conversationally dyspneic. His oxygen saturation is 92% on room air. Patient was placed on 2 L oxygen and oxygen saturation ranging from 96-98%. Patient had an expiratory wheeze. Heart rate regular. Abdomen with generalized distention and tenderness. Walker sign negative. Patient had a lab work and imaging which revealed: WBC 6.0, hemoglobin 10.3 d-dimer 9.3 sodium 140, potassium 4.1 BUN 23, creatinine 1.30 initial lactic acid is 2.1 total bili 1.4 initial troponin is 0.12 secondary troponin 0.016 during negative. Covid influenza and RSV negativ e. CT angiogram of both negative for any evidence of PE. CT of the abdomen and pelvis reveals mild bladder wall thickening there is heterogeneous enhancement of the liver suggestive hepatocellular disease with a small amount of ascites. There is anasarca and nonobstructing right renal . Bilateral pleural effusions greater on the right.patient was given aspirin, Toradol, Zofran symptomatic relief. He was given 20 mg of hydralazine. He was given 20 mg of Lasix. I discussed the results in detail with the patient and the patient's family members who accompanied him verbalized understanding. All questions were addressed. They're agreeable with the plan for admission at this time. Case discussed with [facility] who agrees to accept the patient for admission with recommended cardiology consult. East discussed with [facility] who agrees with plan of care Undiagnosed new problem with uncertain prognosis? @ -[No] Drug Therapy requiring intensive monitoring for toxicity (Heparin, Nitro, Insulin, Cardizem)? @ -[No] Were any procedures done? @ -[No] Diagnosis/symptom? @ -Shortness of Breath - Abdominal Pain - Nausea and Vomiting - Hx of HTN - Pleural effusions Acute, or Chronic, or Acute on Chronic? @ -Acute Uncomplicated (without systemic symptoms) or Complicated (systemic symptoms)? @ Complicated Side effects of treatment? @ -[No] Exacerbation, Progression, or Severe Exacerbation? @ -[No] Poses a threat to life or bodily function? How? (Chest pain, USA, SD, pneumonia, PE, COPD, DKA, ARF, appy, cholecystitis, CVA, Diverticulitis, Homicidal, Suicidal, threat to staff... and all critical care pts) @ -High likelihood, respiratory arrest. - Lab Data Result diagrams: 02/20/23 12:14 02/20/23 12:14 Lab Results 02/20/23 02/20/23 02/20/23 Range/Units 12:14 12:14 12:14 WBC 6.0 (3.8-10.6) k/uL RBC 3.78 L (4.30-5.90) m/uL Hgb 10.3 L (13.0-17.5) gm/dL Hct 32.7 L (39.0-53.0) % MCV 86.7 (80.0-100.0) fL MCH 27.2 (25.0-35.0) pg MCHC 31.4 (31.0-37.0) g/dL RDW 16.8 H (11.5-15.5) % Plt Count 181 (150-450) k/uL MPV 9.3 Neutrophils % 79 % Lymphocytes % 12 % Monocytes % 7 % Eosinophils % 1 % Basophils % 0 % Neutrophils # 4.8 (1.3-7.7) k/uL Lymphocytes # 0.7 L (1.0-4.8) k/uL Monocytes # 0.4 (0-1.0) k/uL Eosinophils # 0.1 (0-0.7) k/uL Basophils # 0.0 (0-0.2) k/uL Hypochromasia Moderate Poikilocytosis Slight Anisocytosis Slight PT 13.0 H (9.0-12.0) sec INR 1.3 H (<1.2) APTT 24.5 (22.0-30.0) sec D-Dimer 2.93 H (<0.60) mg/L FEU Sodium 140 (137-145) mmol/L Potassium 4.1 (3.5-5.1) mmol/L Chloride 104 (98-107) mmol/L Carbon Dioxide 25 (22-30) mmol/L Anion Gap 11 mmol/L BUN 23 H (9-20) mg/dL Creatinine 1.30 H (0.66-1.25) mg/dL Est GFR (CKD-EPI)AfAm 65 (>60 ml/min/1.73 sqM) Est GFR (CKD-EPI)NonAf 56 (>60 ml/min/1.73 sqM) Glucose 186 H (74-99) mg/dL Lactic Ac Sepsis Rflx Plasma Lactic Acid Francisco (0.7-2.0) mmol/L Calcium 8.6 (8.4-10.2) mg/dL Total Bilirubin 1.4 H (0.2-1.3) mg/dL AST 34 (17-59) U/L ALT 26 (4-49) U/L Alkaline Phosphatase 96 (38-126) U/L Troponin I (0.000-0.034) ng/mL Total Protein 7.6 (6.3-8.2) g/dL Albumin 3.7 (3.5-5.0) g/dL Amylase 50 (30-110) U/L Urine Color Urine Appearance (Clear) Urine pH (5.0-8.0) Ur Specific [place] (1.001-1.035) Urine Protein (Negative) Urine Glucose (UA) (Negative) Urine Ketones (Negative) Urine Blood (Negative) Urine Nitrite (Negative) Urine Bilirubin (Negative) Urine Urobilinogen (<2.0) mg/dL Ur Leukocyte Esterase (Negative) Urine RBC (0-5) /hpf Urine WBC (0-5) /hpf Ur Squamous Epith Cells (0-4) /hpf Influenza Type A (PCR) (Not Detectd) Influenza Type B (PCR) (Not Detectd) RSV (PCR) (Not Detectd) SARS-CoV-2 (PCR) (Not Detectd) 06/03/0902/20/23 02/20/23 Range/Units 12:14 12:14 12:14 WBC (3.8-10.6) k/uL RBC (4.30-5.90) m/uL Hgb (13.0-17.5) gm/dL Hct (39.0-53.0) % MCV (80.0-100.0) fL MCH (25.0-35.0) pg MCHC (31.0-37.0) g/dL RDW (11.5-15.5) % Plt Count (150-450) k/uL MPV Neutrophils % % Lymphocytes % % Monocytes % % Eosinophils % % Basophils % % Neutrophils # (1.3-7.7) k/uL Lymphocytes # (1.0-4.8) k/uL Monocytes # (0-1.0) k/uL Eosinophils # (0-0.7) k/uL Basophils # (0-0.2) k/uL Hypochromasia Poikilocytosis Anisocytosis PT (9.0-12.0) sec INR (<1.2) APTT (22.0-30.0) sec D-Dimer (<0.60) mg/L FEU Sodium (137-145) mmol/L Potassium (3.5-5.1) mmol/L Chloride (98-107) mmol/L Carbon Dioxide (22-30) mmol/L Anion Gap mmol/L BUN (9-20) mg/dL Creatinine (0.66-1.25) mg/dL Est GFR (CKD-EPI)AfAm (>60 ml/min/1.73 sqM) Est GFR (CKD-EPI)NonAf (>60 ml/min/1.73 sqM) Glucose (74-99) mg/dL Lactic Ac Sepsis Rflx Plasma Lactic Acid Francisco 2.1 H* (0.7-2.0) mmol/L Calcium (8.4-10.2) mg/dL Total Bilirubin (0.2-1.3) mg/dL AST (17-59) U/L ALT (4-49) U/L Alkaline Phosphatase (38-126) U/L Troponin I 0.012 (0.000-0.034) ng/mL Total Protein (6.3-8.2) g/dL Albumin (3.5-5.0) g/dL Amylase (30-110) U/L Urine Color Light Yellow Urine Appearance Clear (Clear) Urine pH 7.5 (5.0-8.0) Ur Specific [place] 1.026 (1.001-1.035) Urine Protein 2+ H (Negative) Urine Glucose (UA) Negative (Negative) Urine Ketones Negative (Negative) Urine Blood Negative (Negative) Urine Nitrite Negative (Negative) Urine Bilirubin Negative (Negative) Urine Urobilinogen <2.0 (<2.0) mg/dL Ur Leukocyte Esterase Trace H (Negative) Urine RBC 2 (0-5) /hpf Urine WBC 4 (0-5) /hpf Ur Squamous Epith Cells 1 (0-4) /hpf Influenza Type A (PCR) (Not Detectd) Influenza Type B (PCR) (Not Detectd) RSV (PCR) (Not Detectd) SARS-CoV-2 (PCR) (Not Detectd) 02/20/23 02/20/23 02/20/23 Range/Units 12:46 12:48 14:05 WBC (3.8-10.6) k/uL RBC (4.30-5.90) m/uL Hgb (13.0-17.5) gm/dL Hct (39.0-53.0) % MCV (80.0-100.0) fL MCH (25.0-35.0) pg MCHC (31.0-37.0) g/dL RDW (11.5-15.5) % Plt Count (150-450) k/uL MPV Neutrophils % % Lymphocytes % % Monocytes % % Eosinophils % % Basophils % % Neutrophils # (1.3-7.7) k/uL Lymphocytes # (1.0-4.8) k/uL Monocytes # (0-1.0) k/uL Eosinophils # (0-0.7) k/uL Basophils # (0-0.2) k/uL Hypochromasia Poikilocytosis Anisocytosis PT (9.0-12.0) sec INR (<1.2) APTT (22.0-30.0) sec D-Dimer (<0.60) mg/L FEU Sodium (137-145) mmol/L Potassium (3.5-5.1) mmol/L Chloride (98-107) mmol/L Carbon Dioxide (22-30) mmol/L Anion Gap mmol/L BUN (9-20) mg/dL Creatinine (0.66-1.25) mg/dL Est GFR (CKD-EPI)AfAm (>60 ml/min/1.73 sqM) Est GFR (CKD-EPI)NonAf (>60 ml/min/1.73 sqM) Glucose (74-99) mg/dL Lactic Ac Sepsis Rflx Y Plasma Lactic Acid Francisco (0.7-2.0) mmol/L Calcium (8.4-10.2) mg/dL Total Bilirubin (0.2-1.3) mg/dL AST (17-59) U/L ALT (4-49) U/L Alkaline Phosphatase (38-126) U/L Troponin I 0.016 (0.000-0.034) ng/mL Total Protein (6.3-8.2) g/dL Albumin (3.5-5.0) g/dL Amylase (30-110) U/L Urine Color Urine Appearance (Clear) Urine pH (5.0-8.0) Ur Specific [place] (1.001-1.035) Urine Protein (Negative) Urine Glucose (UA) (Negative) Urine Ketones (Negative) Urine Blood (Negative) Urine Nitrite (Negative) Urine Bilirubin (Negative) Urine Urobilinogen (<2.0) mg/dL Ur Leukocyte Esterase (Negative) Urine RBC (0-5) /hpf Urine WBC (0-5) /hpf Ur Squamous Epith Cells (0-4) /hpf Influenza Type A (PCR) Not Detected (Not Detectd) Influenza Type B (PCR) Not Detected (Not Detectd) RSV (PCR) Not Detected (Not Detectd) SARS-CoV-2 (PCR) Not Detected (Not Detectd) Disposition Clinical Impression: HTN (hypertension), Shortness of breath, Abdominal pain, Pleural effusion Disposition: ADMITTED IP TO THIS HOSP Condition: Fair Is patient prescribed a controlled substance at d/c from ED?: No Time of Disposition: 13:01
[2023-02-20] MEDS ORDERED: ONDANSETRON 4 MG/2 ML VIAL IVP STA (12:19)
[2023-02-20] MEDS ORDERED: ASPIRIN 325 MG TAB PO STA (12:19)
[2023-02-20 12:32] LABS: Anisocytosis Slight; Basophils % (A) 0 %; Eosinophils # (A) 0.1 k/uL (0-0.7); Eosinophils % (A) 1 %; HCT 32.7 % (39.0-53.0); HGB 10.3 gm/dL (13.0-17.5); Hypochromasia Moderate; Lymphocytes # (A) 0.7 k/uL (1.0-4.8); Lymphocytes % (A) 12 %; MCH 27.2 pg (25.0-35.0); MCHC 31.4 g/dL (31.0-37.0); MCV 86.7 fL (80.0-100.0); Mean Platelet Volume 9.3; Monocytes # (A) 0.4 k/uL (0-1.0); Monocytes % (A) 7 %; Neutrophils # (A) 4.8 k/uL (1.3-7.7); Neutrophils % (A) 79 %; Platelet Count 181 k/uL (150-450); Poikilocytosis Slight; RBC 3.78 m/uL (4.30-5.90); RDW 16.8 % (11.5-15.5)
[2023-02-20 12:42] LABS: ALT 26 U/L (4-49); AST 34 U/L (17-59); African American GFR (CKD) 65 (>60 ml/min/1.73 sqM); Albumin 3.7 g/dL (3.5-5.0); Alkaline Phosphatase 96 U/L (38-126); Amylase 50 U/L (30-110); Anion Gap 11 mmol/L; Blood Urea Nitrogen 23 mg/dL (9-20); Calcium 8.6 mg/dL (8.4-10.2); Carbon Dioxide 25 mmol/L (22-30); Chloride 104 mmol/L (98-107); Glucose 186 mg/dL (74-99); Non-African American GFR(CKD) 56 (>60 ml/min/1.73 sqM); Potassium 4.1 mmol/L (3.5-5.1); Sodium 140 mmol/L (137-145); Total Bilirubin 1.4 mg/dL (0.2-1.3); Total Protein 7.6 g/dL (6.3-8.2)
[2023-02-20] MEDS ORDERED: hydrALAZINE HCL 20 MG/ML 1 ML VIAL IVP STA ×2 (12:44→14:34)
[2023-02-20] MEDS ORDERED: KETOROLAC 15 MG/ML 1 ML VIAL IVP STA (12:44)
[2023-02-20 12:50] LABS: INR 1.3 (<1.2); Partial Thromboplastin Time 24.5 sec (22.0-30.0)
--- NOTE | 2023-02-20 12:59 | XR ---
EXAMINATION TYPE: XR chest 2V DATE OF EXAM: 02/20/2023 COMPARISON: 12/24/2011 HISTORY: Shortness of breath TECHNIQUE: Frontal and lateral views of the chest are obtained. FINDINGS: Scattered senescent parenchymal changes noted. Hyperinflation compatible with COPD. No evidence for infiltrate. No evidence for atelectasis. Heart size is stable. Mediastinal structures are stable and grossly unremarkable. No evidence for hilar prominence. Degenerative changes dorsal spine. IMPRESSION: 1. No evidence for acute pulmonary disease.
--- NOTE | 2023-02-20 14:28 | CT ---
EXAMINATION TYPE: CT chest angio for PE DATE OF EXAM: 02/20/2023 COMPARISON: 01/18/2023 HISTORY: Elevated d-dimer, SOB. Pt states he is scheduled for heart sx. CT DLP: 597.5 mGycm CONTRAST: CT chest with contrast and 3D reconstruction with MIP imaging is performed with IV Contrast, patient injected with 80 mL of Isovue 370. Contrast-enhanced CT of the chest was performed through the course of the pulmonary arteries with finesse g and mediastinal window settings submitted. 3D reconstruction with MIP imaging was also performed. PULMONARY ARTERIES: The pulmonary arteries and their major tributaries are patent. I do not see sonia dence for sizable filling defect to suggest pulmonary embolic process. LUNGS: Interval bilateral pleural effusions right greater than left small in size. Mild basilar subpl eural fibrosis. MEDIASTINUM: Thoracic aorta is of normal caliber. The heart is mildly enlarged. Coronary artery jag cifications seen. Mediastinal adenopathy is unchanged with multiple enlarged lymph nodes measuring up to 1.4 cm. No evidence for mediastinal mass. No mediastinal lymph nodes greater than 1cm. HILAR STRUCTURES: No evidence for mass. No hilar lymph nodes greater than 1 cm. UPPER ABDOMEN: No significant abnormality is seen. IMPRESSION: 1. No evidence for Pulmonary embolism at this time. 2. Bilateral pleural effusions new finding since prior examination. 3. Mediastinal adenopathy which is nonspecific.
--- NOTE | 2023-02-20 14:42 | CT ---
EXAMINATION TYPE: CT abdomen pelvis w con DATE OF EXAM: 02/20/2023 COMPARISON: 02/18/2020 HISTORY: Abdominal pain and distension CT DLP: 2001.7 mGycm Automated exposure control for dose reduction was used. CONTRAST: CT scan of the abdomen pelvis is performed with IV Contrast, patient injected with 80 mL of Isovue 37 0. FINDINGS- LUNG BASES- there are bilateral pleural effusions with cardiomegaly. Coronary artery calcifications seen. There is calcification in the aortic valve. Correlate for venous congestion. LIVER/GB- there is reduced in attenuation. There is a small amount of fluid surrounding the gallbla dder. Gallbladder sludge not excluded. PANCREAS- No gross abnormality is seen. SPLEEN- No gross abnormality is seen. ADRENALS- No gross abnormality is seen. KIDNEYS/BLADDER-no hydronephrosis. There is a 3 mm nonobstructing right renal calculus. 3 mm indeterm inate right renal lesion too small to characterize but statistically most likely related to a cyst BOWEL- appendix not seen with certainty. There is diverticulosis of the colon. No evidence of bowel obstruction. LYMPH NODES- No greater than 1cm abdominal or pelvic lymph nodes are appreciated. OSSEOUS STRUCTURES- hypertrophic and degenerative changes of the spine. There is arthropathy of the hips. OTHER- There is a very small amount of ascites. Atherosclerotic changes aorta with no evidence of an eurysm. There is subcutaneous edema along the anterior abdominal wall correlate for anasarca There are small fat-containing inguinal hernias and there appears to be bladder wall thickening with increased attenuation surrounding the bladder. The prostate is also enlarged. Measuring 5.7 cm. IMPRESSION- 1. Bladder wall thickening with inflammatory changes surrounding the bladder, correlate for cystitis. Prostate is also enlarged correlate with PSA. 2. Heterogeneous enhancement of the liver suggesting hepatocellular disease and there is a small amou nt of ascites. 3. Small amount of pericholecystic fluid. Recommend correlation for acute cholecystitis. Intermediate density within the gallbladder could represent tiny stones or sludge. No obvious biliary obstruction 4. Anasarca. 5. Nonobstructing right renal calculus. 6. Bilateral pleural effusion greater on the right. Correlate for venous congestion and CHF.
[2023-02-20] MEDS ORDERED: FUROSEMIDE 10 MG/ML 2 ML VIAL IV ONE (15:09)
[2023-02-20 16:21] LABS: Appearance,Urine Clear (Clear); Bilirubin,Urine Negative (Negative); Blood,Urine Negative (Negative); Color,Urine Light Yellow; Glucose,Urine (UA) Negative (Negative); Ketones,Urine Negative (Negative); Leukocyte Esterase,Urine Trace (Negative); Nitrite,Urine Negative (Negative); PH, Urine 7.5 (5.0-8.0); Protein,Urine 2+ (Negative); RBC,Urine 2 /hpf (0-5); Specific Gravity,Urine 1.026 (1.001-1.035); Squamous Epithelial Cell,Urine 1 /hpf (0-4); Urobilinogen,Urine <2.0 mg/dL (<2.0); WBC,Urine 4 /hpf (0-5)
[2023-02-20] MEDS ORDERED: NALOXONE 0.4 MG/ML 1 ML VIAL IV PRN ×2 (16:21→16:50)
[2023-02-20] MEDS ORDERED: hydrALAZINE HCL 20 MG/ML 1 ML VIAL IVP PRN (16:44)
[2023-02-20] MEDS ORDERED: ONDANSETRON 4 MG/2 ML VIAL IVP PRN (16:50)
[2023-02-20] MEDS ORDERED: Acetaminophen-Codeine 300-30mg TAB PO PRN (16:50)
[2023-02-20] MEDS: CLOPIDOGREL 75 MG TAB PO SCH (17:23)
[2023-02-20] MEDS: hydrALAZINE HCL 50 MG TAB PO SCH ×2 (17:23→23:11)
[2023-02-20] MEDS: METOPROLOL SUCCINATE (ER) 100 MG TAB.ER.24H PO SCH (17:23)
[2023-02-20] MEDS: metFORMIN 500 MG TAB PO SCH (20:07)
[2023-02-20] MEDS: FUROSEMIDE 10 MG/ML 4 ML VIAL IV SCH (20:08)
[2023-02-20] MEDS: HEPARIN SODIUM,PORCINE/PF 5,000 UNIT/0.5 ML SYRINGE SQ SCH (23:10)
[2023-02-21 06:29] LABS: Glucose,Whole Blood 126 mg/dL (70-110)
[2023-02-21] MEDS ORDERED: CLOPIDOGREL 75 MG TAB PO SCH (09:00)
[2023-02-21] MEDS: hydrALAZINE HCL 50 MG TAB PO SCH ×3 (09:57→19:58)
[2023-02-21] MEDS: ASPIRIN 81 MG PO SCH (09:57)
[2023-02-21] MEDS: HEPARIN SODIUM,PORCINE/PF 5,000 UNIT/0.5 ML SYRINGE SQ SCH ×2 (09:57→17:06)
[2023-02-21] MEDS: METOPROLOL SUCCINATE (ER) 100 MG TAB.ER.24H PO SCH (09:57)
[2023-02-21] MEDS: ATORVASTATIN 40 MG TAB PO SCH (09:57)
[2023-02-21] MEDS: CLOPIDOGREL 75 MG TAB PO SCH (09:58)
[2023-02-21] MEDS: metFORMIN 500 MG TAB PO SCH ×2 (09:58→19:58)
[2023-02-21] MEDS: FUROSEMIDE 10 MG/ML 4 ML VIAL IV SCH ×2 (09:58→19:58)
--- NOTE | 2023-02-21 10:38 | CA ---
Transthoracic Echo Report Name: Torin Daily Age: 67 Gender: M : 1955 Exam Date: 02/21/2023 08:51 Exam Location: [facility] Ht (in): 67 Wt (lb): 236 Ordering Physician: Alexsandra Fischer MD Attending/Referring Phys: Control Systems Drafting Officer Mary Santamaria RDCS Procedure CPT: Indications: chf Cardiac Hx: Technical Quality: Technically difficult study Contrast 1: Lumason Total Dose (mL): 3 Contrast 2: Total Dose (mL): MEASUREMENTS (Male / Female) Normal Values 2D ECHO LV Diastolic Diameter PLAX 5.3 cm 4.2 - 5.9 / 3.9 - 5.3 cm LV Systolic Diameter PLAX 3.5 cm IVS Diastolic Thickness 1.6 cm 0.6 - 1.0 / 0.6 - 0.9 cm LVPW Diastolic Thickness 1.4 cm 0.6 - 1.0 / 0.6 - 0.9 cm LV Relative Wall Thickness 0.6 RV Internal Dim ED PLAX 4.4 cm LVOT Diameter 2.5 cm LA Systolic Diameter LX 4.1 cm 3.0 - 4.0 / 2.7 - 3.8 cm LV Diastolic Volume MOD BP 140.2 cm??? 67 - 155 / 56 - 104 cm??? LV Systolic Volume MOD BP 59.8 cm??? 22 - 58 / 19 - 49 cm??? LV Ejection Fraction MOD BP 57.3 % >= 55 % LV Diastolic Volume MOD 4C 156.8 cm??? LV Systolic Volume MOD 4C 49.8 cm??? LV Ejection Fraction MOD 4C 68.3 % LV Diastolic Length 4C 10.3 cm LV Systolic Length 4C 8.2 cm LV Diastolic Volume MOD 2C 125.9 cm??? LV Systolic Volume MOD 2C 66.8 cm??? LV Ejection Fraction MOD 2C 47.0 % LV Diastolic Length 2C 10.2 cm LV Systolic Length 2C 9.0 cm LA Volume 107.8 cm??? 18 - 58 / 22 - 52 cm??? M-MODE Aortic Root Diameter MM 3.6 cm MV E Point Septal Separation 0.9 cm DOPPLER AV Peak Velocity 357.9 cm/s AV Peak Gradient 51.2 mmHg AV Mean Velocity 273.1 cm/s AV Mean Gradient 32.0 mmHg AV Velocity Time Integral 93.2 cm LVOT Peak Velocity 113.5 cm/s LVOT Peak Gradient 5.1 mmHg AV Area Cont Eq pk 1.5 cm??? MV Peak Velocity 164.1 cm/s MV Peak Gradient 10.8 mmHg MV Mean Velocity 81.0 cm/s MV Mean Gradient 3.2 mmHg MV Velocity Time Integral 44.9 cm MV Area PHT 3.9 cm??? Mitral E Point Velocity 152.8 cm/s Mitral A Point Velocity 81.2 cm/s Mitral E to A Ratio 1.9 MV Deceleration Time 195.3 ms MV E' Velocity 7.1 cm/s Mitral E to MV E' Ratio 21.4 TR Peak Velocity 330.9 cm/s TR Peak Gradient 43.8 mmHg Right Ventricular Systolic Press 48.8 mmHg FINDINGS Left Ventricle Left ventricular ejection fraction is estimated at 40-45 %. Left ventricular cavity size normal. Moderately increased septal wall thickness. Mildly increased left ventricular systolic volume. Right Ventricle Severe right ventricular dilatation. Moderate pulmonary hypertension. Right Atrium Normal right atrial size. Left Atrium Severely increased left atrial volume. Mildly increased left atrial area. Mitral Valve Mitral valve thickened. Mild mitral annular calcification. Mild mitral regurgitation. Aortic Valve Severe Aortic valve sclerosis. [id number]-[id number] aortic stenosis with a peak gradient of 51 mmHg and a mean gradient of 32 mmHg. Tricuspid Valve Structurally normal tricuspid valve. [id number] tricuspid regurgitation. Pulmonic Valve Structurally normal pulmonic valve. Trace pulmonic regurgitation. Pericardium Normal pericardium. No pericardial effusion. Aorta Normal size aortic root and proximal ascending aorta. CONCLUSIONS Mildly impaired LV function with EF around 40-45% Moderate aortic stenosis. The mean gradient is 32 mmHg. The aortic valve is calcified and appears to be trileaflet Previewed by: Dr. Zhou Toure MD (Electronically Signed) Final Date: 21 February 2023 10:37
[2023-02-21 11:44] LABS: Anisocytosis Slight; HCT 31.8 % (39.0-53.0); HGB 9.6 gm/dL (13.0-17.5); Hypochromasia Marked; MCH 26.5 pg (25.0-35.0); MCHC 30.1 g/dL (31.0-37.0); Mean Platelet Volume 8.4; Platelet Count 165 k/uL (150-450); Poikilocytosis Slight; RBC 3.62 m/uL (4.30-5.90); RDW 16.7 % (11.5-15.5); WBC 5.9 k/uL (3.8-10.6)
[2023-02-21 11:57] LABS: Glucose,Whole Blood 101 mg/dL (70-110)
[2023-02-21 12:06] LABS: African American GFR (CKD) 49 (>60 ml/min/1.73 sqM); Anion Gap 11 mmol/L; Blood Urea Nitrogen 24 mg/dL (9-20); Calcium 8.3 mg/dL (8.4-10.2); Carbon Dioxide 29 mmol/L (22-30); Chloride 102 mmol/L (98-107); Glucose 125 mg/dL (74-99); Non-African American GFR(CKD) 43 (>60 ml/min/1.73 sqM); Potassium 4.3 mmol/L (3.5-5.1); Sodium 142 mmol/L (137-145)
--- NOTE | 2023-02-21 12:25 | P.HPIM ---
History of Present Illness H&P Date: 02/21/23 Chief Complaint: Shortness of breath * 67-year-old gentleman with past medical history significant for hypertension, hyperlipidemia, history of aortic stenosis presented to the emergency department with complaints of shortness of breath * Patient has previously followed up with cardiology for severe aortic stenosis and had a RAE completed. Patient said he had sudden onset of shortness of breath accompanied by nausea vomiting abdominal pain he also reported intermittent chest discomfort * Workup initiated in ER included comprehensive panel including renal profile which showed Normal 1.62. CBC obtained showed hemoglobin of 9.6 platelet count of 165 white cell count within normal limits * Patient had CT chest done which was negative for pulmonary embolism, CT abdomen and pelvis was done which showed bladder wall thickening, nonobstructive right renal calculus bilateral pleural effusions were noted as well * Patient to be admitted to medical floor with consultations from cardiology and workup initiated including repeat echo cardiac Review of Systems REVIEW OF SYSTEMS: Shortness of breath, chest pain CONSTITUTIONAL: No fever, no malaise, no fatigue. HEENT: No recent visual problems or hearing problems. Denied any sore throat. CARDIOVASCULAR: Positive for chest pain, shortness of breath, lower extremity edema PULMONARY: No shortness of breath, no cough, no hemoptysis. GASTROINTESTINAL: No diarrhea, no nausea, no vomiting, no abdominal pain. NEUROLOGICAL: No headaches, no weakness, no numbness. HEMATOLOGICAL: Denies any bleeding or petechiae. GENITOURINARY: Denies any burning micturition, frequency, or urgency. MUSCULOSKELETAL/RHEUMATOLOGICAL: Denies any joint pain, swelling, or any muscle pain. ENDOCRINE: Denies any polyuria or polydipsia. Past Medical History Past Medical History: Coronary Artery Disease (CAD), Heart Failure, Diabetes M ellitus, Hyperlipidemia, Hypertension History of Any Multi-Drug Resistant Organisms: None Reported Past Surgical History: Appendectomy, Heart Catheterization With Stent, Orthopedic Surgery Additional Past Surgical History / Comment(s): ORIF RT TIB/FIB. COLONOSCOPY Past Anesthesia/Blood Transfusion Reactions: No Reported Reaction Date of Last Stent Placement:: 02/13/20 Past Psychological History: No Psychological Hx Reported Smoking Status: Current every day smoker Past Alcohol Use History: Occasional Additional Past Alcohol Use History / Comment(s): SMOKES 1/2 PPD SINCE AGE 17 Past Drug Use History: Marijuana Additional Drug Use History / Comment(s): OCCASIONAL MARIJUANA USE - Past Family History Father Family Medical History: Cancer Medications and Allergies Home Medications Medication Instructions Recorded Confirmed Type Aspirin 81 mg PO DAILY #30 chew 02/14/20 02/20/23 Rx Atorvastatin [Lipitor] 40 mg PO DAILY #30 tab 02/14/20 02/20/23 Rx Clopidogrel [Plavix] 75 mg PO DAILY #30 tab 02/14/20 02/20/23 Rx metFORMIN HCL [Glucophage] 500 mg PO BID #0 02/14/20 02/20/23 Rx hydrALAZINE HCL [Apresoline] 50 mg PO TID 01/02/23 02/20/23 History Furosemide [Lasix] 20 mg PO DAILY 01/04/23 02/20/23 History Levocetirizine Dihydrochloride 5 mg PO DAILY 01/04/23 02/20/23 History Metoprolol Succinate (ER) [Toprol 100 mg PO DAILY 02/20/23 02/20/23 History Xl] glipiZIDE XL [Glucotrol Xl] 10 mg PO BID 02/20/23 02/20/23 History Allergies Allergy/AdvReac Type Severity Reaction Status Date / Time No Known Allergies Allergy Verified 02/20/23 15:54 Physical Exam Vitals: Vital Signs Temp Pulse Pulse Resp BP BP Pulse Ox 02/21/23 08:00 97.6 F 78 22 129/73 94 L 02/21/23 04:00 98.1 F 60 20 169/71 94 L 02/20/23 23:20 97.8 F 70 18 168/78 92 L 02/20/23 20:40 97.6 F 72 18 168/86 92 L 02/20/23 20:06 97.6 F 71 19 178/95 96 02/20/23 19:04 97.6 F 79 19 176/85 96 02/20/23 17:25 84 18 180/95 98 02/20/23 16:42 83 20 186/90 97 02/20/23 15:15 97.7 F 80 19 195/92 96 02/20/23 14:33 97.8 F 77 20 201/111 98 02/20/23 13:22 84 02/20/23 13:09 84 02/20/23 13:05 61 20 197/103 98 02/20/23 12:47 73 21 213/102 97 02/20/23 12:18 98.7 F 70 24 211/107 97 Intake and Output 02/20/23 02/21/23 02/21/23 22:59 06:59 14:59 Output Total 400 225 Balance -400 -225 Output: Urine 400 225 Other: Voiding Method Urinal Urinal Urinal Weight 102.058 kg 107.3 kg PHYSICAL EXAMINATION: GENERAL: The patient is alert and oriented x3, not in any acute distress. Well developed, well nourished. Obese, ill appearance HEENT: Pupils are round and equally reacting to light. EOMI. No scleral icterus. No conjunctival pallor. Normocephalic, atraumatic. No pharyngeal erythema. No thyromegaly. CARDIOVASCULAR: Systolic murmur appreciated lotion with edema noted bilaterally PULMONARY: Chest is clear to auscultation, no wheezing or crackles. ABDOMEN: Soft, nontender, nondistended, normoactive bowel sounds. No palpable organomegaly. MUSCULOSKELETAL: No joint swelling or deformity. EXTREMITIES: No cyanosis, clubbing, or pedal edema. NEUROLOGICAL: Gross neurological examination did not reveal any focal deficits. SKIN: No rashes. Results CBC & Chem 7: 02/21/23 11:06 02/21/23 11:06 Labs: Abnormal Lab Results - Last 24 Hours (Table) 02/20/23 02/20/23 02/20/23 Range/Units 12:14 12:14 12:14 RBC 3.78 L (4.30-5.90) m/uL Hgb 10.3 L (13.0-17.5) gm/dL Hct 32.7 L (39.0-53.0) % MCHC (31.0-37.0) g/dL RDW 16.8 H (11.5-15.5) % Lymphocytes # 0.7 L (1.0-4.8) k/uL PT 13.0 H (9.0-12.0) sec INR 1.3 H (<1.2) D-Dimer 2.93 H (<0.60) mg/L FEU BUN 23 H (9-20) mg/dL Creatinine 1.30 H (0.66-1.25) mg/dL Glucose 186 H (74-99) mg/dL POC Glucose (mg/dL) (70-110) mg/dL Plasma Lactic Acid Francisco (0.7-2.0) mmol/L Calcium (8.4-10.2) mg/dL Total Bilirubin 1.4 H (0.2-1.3) mg/dL Urine Protein (Negative) Ur Leukocyte Esterase (Negative) 02/20/23 02/20/23 02/21/23 Range/Units 12:14 12:14 06:18 RBC (4.30-5.90) m/uL Hgb (13.0-17.5) gm/dL Hct (39.0-53.0) % MCHC (31.0-37.0) g/dL RDW (11.5-15.5) % Lymphocytes # (1.0-4.8) k/uL PT (9.0-12.0) sec INR (<1.2) D-Dimer (<0.60) mg/L FEU BUN (9-20) mg/dL Creatinine (0.66-1.25) mg/dL Glucose (74-99) mg/dL POC Glucose (mg/dL) 126 H (70-110) mg/dL Plasma Lactic Acid Francisco 2.1 H* (0.7-2.0) mmol/L Calcium (8.4-10.2) mg/dL Total Bilirubin (0.2-1.3) mg/dL Urine Protein 2+ H (Negative) Ur Leukocyte Esterase Trace H (Negative) 02/21/23 02/21/23 Range/Units 11:06 11:06 RBC 3.62 L (4.30-5.90) m/uL Hgb 9.6 L (13.0-17.5) gm/dL Hct 31.8 L (39.0-53.0) % MCHC 30.1 L (31.0-37.0) g/dL RDW 16.7 H (11.5-15.5) % Lymphocytes # (1.0-4.8) k/uL PT (9.0-12.0) sec INR (<1.2) D-Dimer (<0.60) mg/L FEU BUN 24 H (9-20) mg/dL Creatinine 1.62 H (0.66-1.25) mg/dL Glucose 125 H (74-99) mg/dL POC Glucose (mg/dL) (70-110) mg/dL Plasma Lactic Acid Francisco (0.7-2.0) mmol/L Calcium 8.3 L (8.4-10.2) mg/dL Total Bilirubin (0.2-1.3) mg/dL Urine Protein (Negative) Ur Leukocyte Esterase (Negative) Thrombosis Risk Factor Assmnt - Choose All That Apply Each Risk Factor Represents 2 Points: Age 61-74 years Other congenital or acquired thrombophilia - If yes, enter type in comment: No Thrombosis Risk Factor Assessment Total Risk Factor Score: 2 Thrombosis Risk Factor Assessment Level: Low Risk Assessment and Plan Assessment: Assesement * Acute and chronic congestive heart failure systolic dysfunction * Severe aortic stenosis * Diabetes mellitus type 2 * Hypertension * Coronary artery disease status post PCI Plan * Cardiology consult and echocardiogram ordered continue patient on Lasix * In regards to coronary artery disease continue aspirin and Plavix, troponin obtained negative * Cardiology/cardiac surgery following course of aortic stenosis * In regards to diabetes mellitus continue patient on sequential insulin and glipizide * STATUS is full code Time with Patient: Greater than 30
[2023-02-21] MEDS: INSULIN ASPART (NovoLOG) 100 UNIT/ML VIAL SQ SCH ×3 (12:48→19:55)
[2023-02-21 12:55] VITALS: BMI 37.0
[2023-02-21 13:33] LABS: C Reactive Protein 1.7 mg/dL (<1.0)
--- NOTE | 2023-02-21 13:42 | P.GSCN ---
History of Present Illness Consult date: 02/21/23 Reason for Consult: Known history of aortic valve stenosis and coronary artery disease Requesting physician: Fernando Truong History of present illness: This is a 67-year-old gentleman who follows on an outpatient basis with Dr. Frazier for his primary care service and with Dr. Salvatore Singh for his cardiology care. He has a past medical history significant for severe aortic valve stenosis with history of lower extremity edema, coronary artery disease with previous PCI, on Plavix for anticoagulation, hypertension, hyperlipidemia, diabetes mellitus type 2, obesity with a BMI of 37.0 kg/m, chronic ongoing tobacco dependence, occasional marijuana use, EtOH use drinking 7-8 beers a week, and obstructive sleep apnea with no home CPAP use. On 02/20/2023 the patient presented to the emergency department here at [facility] with complaints of feeling bloated and shortness of breath. He denies any recent fever, chills, nausea, vomiting, diarrhea, constipation, palpitations, cough, chest pain/pressure pressure, presyncope or syncope. He also reports when taking his medications for the day he usually takes them all at once in the morning it does not take as directed if needed to be taken twice a day, or 3 times a day. Initial laboratory results showed a WBC count 6.0, hemoglobin 10.3, hematocrit 32.7, platelets 181, PT 13.0, INR 1.3, PTT 24.5, d-dimer 2.93, sodium 140, potassium 4.1, BUN 23, creatinine 1.30, glucose 186, plasma lactic acid 2.1, total bilirubin 1.4, and serial troponins were as high as 0.024. Due to the patient's presentation of shortness of breath a chest x-ray was completed which showed no evidence for acute pulmonary disease. Due to the patient's elevated d-dimer a CTA of the chest was completed which showed no evidence for pulmonary embolism, bilateral pleural effusions and nonspecific mediastinal adenopathy. Due to the patient's complaints of bloating a computed tomography scan of his abdomen/pelvis was completed which demonstrated bladder wall thickening with inflammatory changes surrounding the bladder, heterogeneous enhancement of the liver suggesting hepatocellular disease and a small amount of ascites, a small amount of pericholecystic fluid, possible acute only cystitis, anasarca, nonobstructing right renal calculus and bilateral pleural effusions greater on the right. Due to the patient's presenting symptoms and history of severe aortic valve stenosis and coronary artery disease a consult was placed to cardiology for further evaluation and treatment recommendations. A transthoracic 2-D echocardiogram was completed which demonstrated a mildly impaired LV function with an ejection fraction of around 40-45%, moderate aortic valve stenosis with a mean gradient of 32 mmHg, mild mitral valve regurgitation, trace pulmonic valve regurgitation and mild to moderate tricuspid valve regurgitation. The patient has a history of undergoing a transesophageal echocardiogram on 01/04/2023 which showed severe aortic valve stenosis involving a tricuspid aortic valve with a planimetry area of around 0.4-0.6 cm, normal LV systolic function, and [id number] mitral valve regurgitation. Also on 01/04/2023 the patient underwent a cardiac catheterization which showed a 90% focal stenosis to the mid right coronary artery, and 80-90% ostial stenosis involving a large caliber OM branch, and an 80%-90% stenosis involving the AV groove circumflex coronary artery, and mild to moderate diffuse nonfocal disease to the left anterior descending coronary artery. Subsequently, due to the findings on the RAE study and cardiac catheterization study completed on 01/04/2023 the patient was seen by Dr. Sung Jensen for further evaluation and treatment recommendations. Also of mention the patient on 01/18/2023 underwent a carotid duplex study which demonstrated nonvisualization of flow within the right internal carotid artery, and a 50-69% stenosis of the left carotid bifurcation by peak systolic velocity and ratio. During the office visit with Dr. Jensen the transesophageal echocardiogram and cardiac catheterization results were reviewed with the patient, treatment options were discussed including risks and benefits of surgical aortic valve replacement and coronary artery bypass grafting surgery. Knowing and understanding the risks of surgery the patient wished to proceed with the surgical option. Due to the findings on the carotid duplex study the patient has been scheduled for a CTA of the neck which is scheduled on 02/28/2023 for further evaluation of his carotid artery disease. It had been discussed with the patient once the preoperative workup had been completed he would be scheduled for surgery on an elective basis. He was also discussed with the patient that he would need to hold his Plavix for 5-7 days preoperatively. Review of Systems A 14 point review of systems was completed was negative except as mentioned in the HPI. Past Medical History Past Medical History: Coronary Artery Disease (CAD), Heart Failure, Diabetes Mellitus, Hyperlipidemia, Hypertension, Sleep Apnea/CPAP/BIPAP (Without home CPAP use) History of Any Multi-Drug Resistant Organisms: None Reported Past Surgical History: Appendectomy, Heart Catheterization With Stent, Orthopedic Surgery Additional Past Surgical History / Comment(s): ORIF RT TIB/FIB, right ankle surgery. COLONOSCOPY Past Anesthesia/Blood Transfusion Reactions: No Reported Reaction Date of Last Stent Placement:: 02/13/20 Past Psychological History: No Psychological Hx Reported Smoking Status: Current every day smoker Past Alcohol Use History: Occasional (Drinks 7-8 beers a week) Additional Past Alcohol Use History / Comment(s): SMOKES 1/2 PPD SINCE AGE 17 Past Drug Use History: Marijuana Additional Drug Use History / Comment(s): OCCASIONAL MARIJUANA USE, smokes 1 joint per week - Past Family History Father Family Medical History: Cancer Medications and Allergies Home Medications Medication Instructions Recorded Confirmed Type Aspirin 81 mg PO DAILY #30 chew 02/14/20 02/20/23 Rx Atorvastatin [Lipitor] 40 mg PO DAILY #30 tab 02/14/20 02/20/23 Rx Clopidogrel [Plavix] 75 mg PO DAILY #30 tab 02/14/20 02/20/23 Rx metFORMIN HCL [Glucophage] 500 mg PO BID #0 02/14/20 02/20/23 Rx hydrALAZINE HCL [Apresoline] 50 mg PO TID 01/02/23 02/20/23 History Furosemide [Lasix] 20 mg PO DAILY 01/04/23 02/20/23 History Levocetirizine Dihydrochloride 5 mg PO DAILY 01/04/23 02/20/23 History Metoprolol Succinate (ER) [Toprol 100 mg PO DAILY 02/20/23 02/20/23 History Xl] glipiZIDE XL [Glucotrol Xl] 10 mg PO BID 02/20/23 02/20/23 History Allergies Allergy/AdvReac Type Severity Reaction Status Date / Time No Known Allergies Allergy Verified 02/20/23 15:54 Surgical - Exam Vital Signs Temp Pulse Resp BP Pulse Ox 98.3 F 73 24 129/75 92 L 02/20/23 11:51 02/20/23 11:51 02/20/23 11:51 02/20/23 11:51 02/20/23 11:51 - General well developed, well nourished, no distress, no pain, obese - Eyes PERRL, normal ocular movement, no pale, no icteric - ENT normal pinna, normal nares, normal mucosa, no hearing loss, no congestion, poor senior care - Neck Neck is supple, no lymphadenopathy. no masses, no bruits, trachea midline, no venous distension - Respiratory Lung sounds essentially clear to his upper lobes bilaterally, few scattered crackles to his bilateral bases. Respirations are symmetrical and nonlabored. No wheezes or rhonchi. - Cardiovascular Regular rhythm and rate. S1 and S2 present, negative for S3, or gallop. Positive systolic murmur heard best to his left sternal border 3/6. +1-2 edema to his bilateral lower extremities. - Abdomen Abdomen is soft, nontender and nondistended. Active bowel sounds present in all 4 abdominal quadrants. No guarding or rigidity. No organomegaly appreciated. - Genitourinary Deferred - Rectum Deferred - Integumentary Skin is warm and dry. No clubbing or cyanosis is present. no rash, no growths, no abnormal pigmentation - Neurologic Cranial nerves II through XII intact. normal coordination, normal sensation - Musculoskeletal Moves all 4 extremities with equal strength bilaterally. normal gait, normal posture - Psychiatric oriented to time, oriented to person, oriented to place, speech is normal, mem ory intact Results - Labs 02/21/23 11:06 02/21/23 11:06 Abnormal Lab Results - Last 24 Hours (Table) 02/20/23 02/20/23 02/20/23 Range/Units 12:14 12:14 12:14 RBC (4.30-5.90) m/uL Hgb (13.0-17.5) gm/dL Hct (39.0-53.0) % MCHC (31.0-37.0) g/dL RDW (11.5-15.5) % PT 13.0 H (9.0-12.0) sec INR 1.3 H (<1.2) D-Dimer 2.93 H (<0.60) mg/L FEU BUN 23 H (9-20) mg/dL Creatinine 1.30 H (0.66-1.25) mg/dL Glucose 186 H (74-99) mg/dL POC Glucose (mg/dL) (70-110) mg/dL Plasma Lactic Acid Francisco (0.7-2.0) mmol/L Calcium (8.4-10.2) mg/dL Total Bilirubin 1.4 H (0.2-1.3) mg/dL Urine Protein 2+ H (Negative) Ur Leukocyte Esterase Trace H (Negative) 02/20/23 02/21/23 02/21/23 Range/Units 12:14 06:18 11:06 RBC 3.62 L (4.30-5.90) m/uL Hgb 9.6 L (13.0-17.5) gm/dL Hct 31.8 L (39.0-53.0) % MCHC 30.1 L (31.0-37.0) g/dL RDW 16.7 H (11.5-15.5) % PT (9.0-12.0) sec INR (<1.2) D-Dimer (<0.60) mg/L FEU BUN (9-20) mg/dL Creatinine (0.66-1.25) mg/dL Glucose (74-99) mg/dL POC Glucose (mg/dL) 126 H (70-110) mg/dL Plasma Lactic Acid Francisco 2.1 H* (0.7-2.0) mmol/L Calcium (8.4-10.2) mg/dL Total Bilirubin (0.2-1.3) mg/dL Urine Protein (Negative) Ur Leukocyte Esterase (Negative) 02/21/23 Range/Units 11:06 RBC (4.30-5.90) m/uL Hgb (13.0-17.5) gm/dL Hct (39.0-53.0) % MCHC (31.0-37.0) g/dL RDW (11.5-15.5) % PT (9.0-12.0) sec INR (<1.2) D-Dimer (<0.60) mg/L FEU BUN 24 H (9-20) mg/dL Creatinine 1.62 H (0.66-1.25) mg/dL Glucose 125 H (74-99) mg/dL POC Glucose (mg/dL) (70-110) mg/dL Plasma Lactic Acid Francisco (0.7-2.0) mmol/L Calcium 8.3 L (8.4-10.2) mg/dL Total Bilirubin (0.2-1.3) mg/dL Urine Protein (Negative) Ur Leukocyte Esterase (Negative) Diabetes panel 02/20/23 02/21/23 Range/Units 12:14 11:06 Sodium 140 142 (137-145) mmol/L Potassium 4.1 4.3 (3.5-5.1) mmol/L Chloride 104 102 (98-107) mmol/L Carbon Dioxide 25 29 (22-30) mmol/L BUN 23 H 24 H (9-20) mg/dL Creatinine 1.30 H 1.62 H (0.66-1.25) mg/dL Glucose 186 H 125 H (74-99) mg/dL Calcium 8.6 8.3 L (8.4-10.2) mg/dL AST 34 (17-59) U/L ALT 26 (4-49) U/L Alkaline Phosphatase 96 (38-126) U/L Total Protein 7.6 (6.3-8.2) g/dL Albumin 3.7 (3.5-5.0) g/dL Calcium panel 02/20/23 02/21/23 Range/Units 12:14 11:06 Calcium 8.6 8.3 L (8.4-10.2) mg/dL Albumin 3.7 (3.5-5.0) g/dL Pituitary panel 02/20/23 02/21/23 Range/Units 12:14 11:06 Sodium 140 142 (137-145) mmol/L Potassium 4.1 4.3 (3.5-5.1) mmol/L Chloride 104 102 (98-107) mmol/L Carbon Dioxide 25 29 (22-30) mmol/L BUN 23 H 24 H (9-20) mg/dL Creatinine 1.30 H 1.62 H (0.66-1.25) mg/dL Glucose 186 H 125 H (74-99) mg/dL Calcium 8.6 8.3 L (8.4-10.2) mg/dL Adrenal panel 02/20/23 02/21/23 Range/Units 12:14 11:06 Sodium 140 142 (137-145) mmol/L Potassium 4.1 4.3 (3.5-5.1) mmol/L Chloride 104 102 (98-107) mmol/L Carbon Dioxide 25 29 (22-30) mmol/L BUN 23 H 24 H (9-20) mg/dL Creatinine 1.30 H 1.62 H (0.66-1.25) mg/dL Glucose 186 H 125 H (74-99) mg/dL Calcium 8.6 8.3 L (8.4-10.2) mg/dL Total Bilirubin 1.4 H (0.2-1.3) mg/dL AST 34 (17-59) U/L ALT 26 (4-49) U/L Alkaline Phosphatase 96 (38-126) U/L Total Protein 7.6 (6.3-8.2) g/dL Albumin 3.7 (3.5-5.0) g/dL - Imaging Chest x-ray: report reviewed, image reviewed CT scan - abdomen: report reviewed CT scan - chest: report reviewed, image reviewed CT scan - pelvis: report reviewed EKG: image reviewed Assessment and Plan Assessment: Severe aortic valve stenosis Multivessel coronary artery disease with history of previous PCI, on Plavix for anticoagulation Hypertension Hyperlipidemia Diabetes mellitus type 2, with a recent hemoglobin A1c 6.6% Carotid stenosis with a recent carotid duplex study showing a 50-69% stenosis of the left carotid bifurcation by technique systolic velocity and ratio and nonvisualization of flow within the right internal carotid artery with CTA of th e neck scheduled on 02/28/2023 Chronic ongoing tobacco dependence Obstructive sleep apnea without home CPAP use Occasional marijuana use, smokes 1-2 joints per week Occasional EtOH use, drinks 7-8 beers per week Acute kidney injury with a creatinine of 1.62 Plan: The patient was seen and examined at his bedside on the cardiac stepdown unit. His chart and diagnostics were reviewed. His case was discussed in detail with Dr. Sung Jensen from cardiothoracic surgery. The patient is scheduled for a CTA of the carotids on 02/28/2023 at 10 AM. Once the CTA of the carotids has been completed timing of surgical aortic valve replacement and coronary artery bypass grafting surgery will be discussed. He will need to be off his Plavix for 5-7 days prior to surgery. The importance of risk modification including smoking cessation has been discussed in detail with the patient. Continue to optimize medical management with aspirin, statin and beta hanane. Discussed with the patient the importance of taking his medications as prescribed. Medical management and other comorbidities per primary care and cardiology services. More recommendations to follow based on patient's clinical course. Thank you for this consult Dr. Truong and we look for to working with you in the care of this patient. I have personally seen and examined the patient, performed the documentation and the assessment and plan as written. 30 minutes spent on the visit . Brennan HUMPHREYS
[2023-02-21] MEDS ORDERED: IPRATROPIUM-ALBUTEROL 3 ML NEB INHALATION PRN (15:22)
--- NOTE | 2023-02-21 16:19 | P.CRDCN ---
History of Present Illness Consult date: 02/21/23 Reason for Consult (text): SOB History of present illness: History of present illness: This is a 67-year-old male patient of Dr. Rachelle Singh with past medical history of congestive heart failure, severe aortic stenosis, known 2 vessel coronary artery disease, chronic occlusion of the right internal carotid artery and moderate stenosis involving the left carotid artery, diabetes, hypertension, hyperlipidemia. Patient recently underwent cardiac catheterization that revealed two-vessel CAD and RAE revealed severe aortic stenosis. Patient was subsequently referred to cardiothoracic surgeon for aortic valve replacement and bypass surgery. Patient and his state that he has been cleared by pulmonary medicine, 3TC been pulled in preparation for surgery and he is waiting for a carotid study. Patient states he developed shortness of breath increased weight and lower extremity edema and abdominal edema that started on Sunday. Patient's states that he was in the bathroom having dry heaves and finally agreed to come in the hospital for evaluation. He states he did not take his medications yesterday and he presented with a blood pressure of 211/107. Patient due to having teeth pulled, has been eating a lot of chicken noodle soup which is high in sodium. Patient was started on IV diuretics and feels some improvement at this time. Patient's also noticed that over the past month he has been very tired and worsening. EKG sinus rhythm Chest x-ray: No acute process CTA of the chest was negative for pulmonary embolism. WBC 5.9, hemoglobin 9.6, platelet count 165. Sodium 142, potassium 4.3, BUN 24 and creatinine 1.62. Patient presented with creatinine of 1.3. Influenza A, influenza B, RSV, Covid 19 not detected. Home cardiac medications: Aspirin 81 mg daily, atorvastatin 40 mg daily, Plavix 75 mg daily, Lasix 20 mg daily, hydralazine 50 mg 3 times daily, Toprol-XL 100 mg daily Echocardiogram 07/2021 revealed normal LV size with EF of 40%. Grade 3 diastolic dysfunction. Mild left ventricular hypertrophy. Mildly dilated left atrium. Trace aortic regurgitation and moderate aortic stenosis. Moderate m itral regurgitation. Myxomatous mitral valve. Mild tricuspid regurgitation. [id number] pulmonic regurgitation. Echocardiogram 02/21/2023 reveals mildly impaired LV function with EF of 40-45%. Moderate aortic stenosis with mean gradient 32 mmHg. Aortic valve is calcified and appears to be in leaflet. RAE 01/04/2023 reveals severe aortic stenosis involving a tricuspid aortic valve with planimetry area of around 0.4-0.6 squared centimeters. Normal LV systolic function. Mild to moderate mitral regurgitation. Cardiac catheterization 01/04/2023 reveals mid RCA 90% stenosis. Circumflex prev iously stented is 80-90% ostial stenosis involving a large caliber, OM branch and AV groove circumflex also has an 80% stenosis. LAD shows mild to moderate diffuse nonfocal atherosclerotic block. Review Of Systems: At the time of my evaluation: Constitutional: No fever, no chills. Reports weakness, Reports fatigue. EENT: No headache. No dizziness. Lungs: Reports shortness of breath, cough, no sputum production. No wheezing. Reports dyspnea on exertion Cardiovascular: No chest pain, Reports lower extremity edema. No palpitations. No paroxysmal nocturnal dyspnea. No orthopnea. No lightheadedness or dizziness. No syncopal episodes. Abdominal: No abdominal pain. No nausea, vomiting. No diarrhea. No constipation. No bloody or tarry stools. Genitourinary: No dysuria.. No urinary retention. Musculoskeletal: No myalgias. No muscle weakness, no frequent falls. No back pain. No neck pain. Integumentary: No wounds. No rash. No unusual bruising. Neurologic: No aphasia. No facial droop. No change in mentation. No head injury. No headache. Physical examination: Gen: This is a obese 67-year-old male. He is resting in bed and appears to be comfortable at rest. VS: reviewed HEENT: Head is atraumatic, normocephalic. Pupils equal, round. Sclerae is anicteric. NECK: Supple. No JVD. LUNGS: Clear to auscultation. No wheezes or rhonchi. No intercostal retractions. HEART: Regular rate and rhythm. Systolic murmur. ABDOMEN: Soft No tenderness. EXTREMITIES: 1+ right, trace left pedal edema. No calf tenderness. NEUROLOGICAL: Patient is awake, alert and oriented x3. Assessment: Acute on chronic systolic heart failure Coronary artery disease Severe aortic stenosis Carotid artery disease Diabetes Hypertension Hyperlipidemia Plan: Continue Lasix 40 mg IV every 12 hours Monitor I&O, daily weights electrolytes and renal function Continue home cardiac medications Add consult for cardiothoracic team Further recommendations to follow based upon clinical course Thank you kindly for this consultation. Nurse practitioner note has been reviewed, I agree with documented findings and plan of care. Patient was seen and examined. Past Medical History Past Medical History: Coronary Artery Disease (CAD), Heart Failure, Diabetes Mellitus, Hyperlipidemia, Hypertension History of Any Multi-Drug Resistant Organisms: None Reported Past Surgical History: Appendectomy, Heart Catheterization With Stent, Orthopedic Surgery Additional Past Surgical History / Comment(s): ORIF RT TIB/FIB. COLONOSCOPY Past Anesthesia/Blood Transfusion Reactions: No Reported Reaction Date of Last Stent Placement:: 02/13/20 Past Psychological History: No Psychological Hx Reported Smoking Status: Current every day smoker Past Alcohol Use History: Occasional Additional Past Alcohol Use History / Comment(s): SMOKES 1/2 PPD SINCE AGE 17 Past Drug Use History: Marijuana Additional Drug Use History / Comment(s): OCCASIONAL MARIJUANA USE - Past Family History Father Family Medical History: Cancer Medications and Allergies Home Medications Medication Instructions Recorded Confirmed Type Aspirin 81 mg PO DAILY #30 chew 02/14/20 02/20/23 Rx Atorvastatin [Lipitor] 40 mg PO DAILY #30 tab 02/14/20 02/20/23 Rx Clopidogrel [Plavix] 75 mg PO DAILY #30 tab 02/14/20 02/20/23 Rx metFORMIN HCL [Glucophage] 500 mg PO BID #0 02/14/20 02/20/23 Rx hydrALAZINE HCL [Apresoline] 50 mg PO TID 01/02/23 02/20/23 History Furosemide [Lasix] 20 mg PO DAILY 01/04/23 02/20/23 History Levocetirizine Dihydrochloride 5 mg PO DAILY 01/04/23 02/20/23 History Metoprolol Succinate (ER) [Toprol 100 mg PO DAILY 02/20/23 02/20/23 History Xl] glipiZIDE XL [Glucotrol Xl] 10 mg PO BID 02/20/23 02/20/23 History Allergies Allergy/AdvReac Type Severity Reaction Status Date / Time No Known Allergies Allergy Verified 02/20/23 15:54 Physical Exam Vitals: Vital Signs Temp Pulse Pulse Resp BP BP Pulse Ox 02/21/23 08:00 97.6 F 78 22 129/73 94 L 02/21/23 04:00 98.1 F 60 20 169/71 94 L 02/20/23 23:20 97.8 F 70 18 168/78 92 L 02/20/23 20:40 97.6 F 72 18 168/86 92 L 02/20/23 20:06 97.6 F 71 19 178/95 96 02/20/23 19:04 97.6 F 79 19 176/85 96 02/20/23 17:25 84 18 180/95 98 02/20/23 16:42 83 20 186/90 97 02/20/23 15:15 97.7 F 80 19 195/92 96 02/20/23 14:33 97.8 F 77 20 201/111 98 02/20/23 13:22 84 02/20/23 13:09 84 02/20/23 13:05 61 20 197/103 98 02/20/23 12:47 73 21 213/102 97 02/20/23 12:18 98.7 F 70 24 211/107 97 02/20/23 12:11 25 H 02/20/23 11:51 98.3 F 73 24 129/75 92 L Intake and Output 02/20/23 02/21/23 02/21/23 22:59 06:59 14:59 Output Total 400 225 Balance -400 -225 Output: Urine 400 225 Other: Voiding Method Urinal Urinal Weight 102.058 kg 107.3 kg Results 02/21/23 11:06 02/21/23 11:06 Cardiac Enzymes 02/20/23 02/20/23 02/20/23 Range/Units 12:14 12:14 14:05 AST 34 (17-59) U/L Troponin I 0.012 0.016 (0.000-0.034) ng/mL 02/20/23 02/20/23 Range/Units 16:46 19:40 AST (17-59) U/L Troponin I 0.024 0.026 (0.000-0.034) ng/mL Coagulation 02/20/23 Range/Units 12:14 PT 13.0 H (9.0-12.0) sec APTT 24.5 (22.0-30.0) sec CBC 02/20/23 Range/Units 12:14 WBC 6.0 (3.8-10.6) k/uL RBC 3.78 L (4.30-5.90) m/uL Hgb 10.3 L (13.0-17.5) gm/dL Hct 32.7 L (39.0-53.0) % Plt Count 181 (150-450) k/uL Comprehensive Metabolic Panel 02/20/23 Range/Units 12:14 Sodium 140 (137-145) mmol/L Potassium 4.1 (3.5-5.1) mmol/L Chloride 104 (98-107) mmol/L Carbon Dioxide 25 (22-30) mmol/L BUN 23 H (9-20) mg/dL Creatinine 1.30 H (0.66-1.25) mg/dL Glucose 186 H (74-99) mg/dL Calcium 8.6 (8.4-10.2) mg/dL AST 34 (17-59) U/L ALT 26 (4-49) U/L Alkaline Phosphatase 96 (38-126) U/L Total Protein 7.6 (6.3-8.2) g/dL Albumin 3.7 (3.5-5.0) g/dL Current Medications Generic Name Dose Route Start Last Admin Trade Name Freq PRN Reason Stop Dose Admin Acetaminophen/Codeine Phosphate 1 each 02/20/23 16:50 Acetaminophen-Codeine 300-30mg Tab PO Q4HR PRN Moderate Pain (Scale 4 to 6) Aspirin 81 mg 02/21/23 09:00 Aspirin 81 Mg PO DAILY [facility]1983 Atorvastatin Calcium 40 mg 02/21/23 09:00 Atorvastatin 40 Mg Tab PO DAILY [facility]1983 Clopidogrel Bisulfate 75 mg 02/20/23 17:30 02/20/23 17:23 Clopidogrel 75 Mg Tab PO 75 mg DAILY ANGELA Administration Furosemide 40 mg 02/20/23 21:00 02/20/23 20:08 Furosemide 10 Mg/Ml 4 Ml Vial IV 40 mg Q12HR ANGELA Administration Heparin Sodium (Porcine) 5,000 unit 02/21/23 00:00 02/20/23 23:10 Heparin Sodium,Porcine/Pf 5,000 Unit/0.5 Ml Syringe SQ 5,000 unit Q8HR ANGELA Administration Hydralazine HCl 50 mg 02/20/23 17:30 02/20/23 23:11 Hydralazine Hcl 50 Mg Tab PO 50 mg TID ANGELA Administration Hydralazine HCl 10 mg 02/20/23 16:44 Hydralazine Hcl 20 Mg/Ml 1 Ml Vial IVP Q4HR PRN Blood Pressure - High Metformin HCl 500 mg 02/20/23 21:00 02/20/23 20:07 Metformin 500 Mg Tab PO 500 mg BID ANGELA Administration Metoprolol Succinate 100 mg 02/20/23 17:30 02/20/23 17:23 Metoprolol Succinate (Er) 100 Mg Tab.Er.24h PO 100 mg DAILY ANGELA Administration Naloxone HCl 0.2 mg 02/20/23 16:21 Naloxone 0.4 Mg/Ml 1 Ml Vial IV Q2M PRN Opioid Reversal Ondansetron HCl 4 mg 02/20/23 16:50 Ondansetron 4 Mg/2 Ml Vial IVP Q8HR PRN Nausea And Vomiting Intake and Output 02/20/23 02/21/23 02/21/23 22:59 06:59 14:59 Output Total 400 225 Balance -400 -225 Output: Urine 400 225 Other: Voiding Method Urinal Urinal Weight 102.058 kg 107.3 kg 02/20/23 12:14 02/20/23 12:14
[2023-02-21 16:56] LABS: Glucose,Whole Blood 101 mg/dL (70-110)
[2023-02-21 19:54] LABS: Glucose,Whole Blood 154 mg/dL (70-110)
[2023-02-21] MEDS: glipiZIDE 10 MG TAB PO SCH (19:58)
[2023-02-22] MEDS: HEPARIN SODIUM,PORCINE/PF 5,000 UNIT/0.5 ML SYRINGE SQ SCH ×4 (00:16→23:48)
[2023-02-22 06:10] LABS: Glucose,Whole Blood 142 mg/dL (70-110)
[2023-02-22] MEDS: INSULIN ASPART (NovoLOG) 100 UNIT/ML VIAL SQ SCH ×4 (06:13→20:47)
[2023-02-22] MEDS: hydrALAZINE HCL 50 MG TAB PO SCH ×3 (09:09→20:46)
[2023-02-22] MEDS: CLOPIDOGREL 75 MG TAB PO SCH (09:09)
[2023-02-22] MEDS: ASPIRIN 81 MG PO SCH (09:09)
[2023-02-22] MEDS: metFORMIN 500 MG TAB PO SCH (09:09)
[2023-02-22] MEDS: glipiZIDE 10 MG TAB PO SCH ×2 (09:09→20:46)
[2023-02-22] MEDS: ATORVASTATIN 40 MG TAB PO SCH (09:09)
[2023-02-22] MEDS: METOPROLOL SUCCINATE (ER) 100 MG TAB.ER.24H PO SCH (09:09)
[2023-02-22] MEDS: FUROSEMIDE 10 MG/ML 4 ML VIAL IV SCH ×2 (09:10→20:46)
--- NOTE | 2023-02-22 09:34 | P.PN ---
Subjective Progress Note Date: 02/22/23 Principal diagnosis: Shortness of breath and bloating on admission, acute on chronic congestive heart failure systolic dysfunction. Past medical history significant for known hist ory of severe aortic valve stenosis and coronary artery disease with history of PCI and is on Plavix for anticoagulation, lower extremity edema, hypertension, hyperlipidemia, diabetes mellitus type 2, chronic anemia, obesity with a BMI of 37.0 kg/m, chronic ongoing tobacco dependence, occasional marijuana use, EtOH use drinking 7-8 beers a week, and obstructive sleep apnea with no home CPAP use. The patient was seen and examined in follow-up today 02/22/2023 at his bedside on the cardiac stepdown unit. Currently he is lying in bed, is awake, alert, oriented 3 and is in no acute apparent distress. Denies any complaints of pain or shortness of breath at this time and reports he feels somewhat improved today from when he came in to the hospital. Oxygen saturations are 97% on 2 L nasal cannula. Remote telemetry showing sinus bradycardia with heart rate of 58 BPM. He remained hemodynamically stable and is currently on no inotropic pressor support. The patient is scheduled for an outpatient CTA of his carotids on 02/28/2023 as part of his preoperative workup for surgical aortic valve replacement and myocardial revascularization surgery. Laboratory results yesterday 02/21/2023 showed a WBC count of 5.9, hemoglobin trending down at 9.6, hematocrit 31.8, platelets 165, sodium 142, potassium 4.3, BUN 24, creatinine 1.62, glucose 125, calcium 8.3 and C-reactive protein 1.7. Objective - Vital Signs Vital signs: Vital Signs Temp 98 F 02/22/23 08:00 Pulse 65 02/22/23 08:00 Resp 16 02/22/23 08:00 BP 179/81 02/22/23 08:00 Pulse Ox 96 02/22/23 08:00 FiO2 Intake & Output 02/21/23 02/22/23 02/22/23 18:59 06:59 18:59 Intake Total 240 590 Output Total 225 1000 Balance 15 -1000 590 Weight 107.3 kg 106.5 kg Intake: Oral 240 590 Output: Urine 225 1000 Other: Voiding Method Urinal Urinal # Voids 1 1 - Exam CONSTITUTIONAL: Sitting up in bed on the cardiac stepdown unit, appears comfo rtable, cooperative, no apparent acute distress. HEENT: Neck is supple, no JVD, no lymphadenopathy. RESPIRATORY: Lungs sounds essentially clear throughout, diminished to his bilateral bases, with few scattered crackles to his bilateral bases. Respirations are symmetrical and nonlabored. Currently on 2 L nasal cannula with oxygen saturations 97%. Strong cough. CARDIOVASCULAR: Regular rhythm and rate. S1 and S2 present, negative for S3, gallop or murmur. Palpable peripheral pulses bilaterally, +1 edema to his bilateral lower extremities, left leg greater than right. No calf pain or tend erness noted. GASTROINTESTINAL: Abdomen soft, nontender, nondistended. Active bowel sounds present 4 quadrants. Tolerating diet. Passing flatus. No guarding or rigidity. GENITOURINARY: Continues to void. INTEGUMENTARY: Skin is warm and dry with no evidence of clubbing or cyanosis. NEUROLOGIC: Cranial nerves II through XII intact. No focal deficits. MUSKULOSKELETAL: Able to move all extremities, strength equal bilaterally. PSYCHIATRIC: Alert and oriented to person place and time, appropriate affect, intact judgment and insight. - Allied health notes Allied health notes reviewed: nursing - Labs CBC & Chem 7: 02/21/23 11:06 02/21/23 11:06 Labs: Abnormal Lab Results - Last 24 Hours (Table) 02/21/23 02/21/23 02/21/23 Range/Units 11:06 11:06 19:53 RBC 3.62 L (4.30-5.90) m/uL Hgb 9.6 L (13.0-17.5) gm/dL Hct 31.8 L (39.0-53.0) % MCHC 30.1 L (31.0-37.0) g/dL RDW 16.7 H (11.5-15.5) % BUN 24 H (9-20) mg/dL Creatinine 1.62 H (0.66-1.25) mg/dL Glucose 125 H (74-99) mg/dL POC Glucose (mg/dL) 154 H (70-110) mg/dL Calcium 8.3 L (8.4-10.2) mg/dL C-Reactive Protein 1.7 H (<1.0) mg/dL 02/22/23 Range/Units 06:09 RBC (4.30-5.90) m/uL Hgb (13.0-17.5) gm/dL Hct (39.0-53.0) % MCHC (31.0-37.0) g/dL RDW (11.5-15.5) % BUN (9-20) mg/dL Creatinine (0.66-1.25) mg/dL Glucose (74-99) mg/dL POC Glucose (mg/dL) 142 H (70-110) mg/dL Calcium (8.4-10.2) mg/dL C-Reactive Protein (<1.0) mg/dL Assessment and Plan Assessment: Severe aortic valve stenosis Multivessel coronary artery disease with history of previous PCI, on Plavix for anticoagulation Hypertension Hyperlipidemia Diabetes mellitus type 2, with a recent hemoglobin A1c 6.6% Carotid stenosis with a recent carotid duplex study showing a 50-69% stenosis of the left carotid bifurcation by technique systolic velocity and ratio and nonvisualization of flow within the right internal carotid artery with CTA of the neck scheduled on 02/28/2023 Chronic ongoing tobacco dependence Obstructive sleep apnea without home CPAP use Occasional marijuana use, smokes 1-2 joints per week Occasional EtOH use, drinks 7-8 beers per week Acute kidney injury with a creatinine of 1.62 02/21/2023 Chronic anemia, hemoglobin 9.6 yesterday 02/21/2023. Plan: The patient is scheduled for a CTA of his carotids on 02/28/2023, continue to monitor BUN and creatinine. Incentive spirometry ordered, encourage use of incentive spirometry 10 times every hour while awake. Once his preoperative testing has been completed further discussion and timing regarding surgical aortic valve replacement and myocardial revascularization surgery will be discussed with the patient. The patient is also taking Plavix which will need to be held 5-7 days prior to surgery. Ferrous sulfate and vitamin C started for his hemoglobin of 9.6, follow CBC results. Importance of risk modification including smoking cessation and discussed with the patient. Importance of taking his medications as prescribed also discussed with the patient. Medical management and other comorbidities per primary care and urology services. More recommendations to follow based on patient's clinical course. Time with Patient: Greater than 30
[2023-02-22] MEDS: ASCORBIC ACID 500 MG TAB PO SCH ×2 (09:51→20:47)
[2023-02-22] MEDS: FERROUS SULFATE 325 MG TAB PO SCH ×2 (09:51→15:24)
[2023-02-22 11:00] LABS: Anisocytosis Slight; HCT 31.4 % (39.0-53.0); HGB 9.7 gm/dL (13.0-17.5); Hypochromasia Marked; MCH 27.6 pg (25.0-35.0); Mean Platelet Volume 8.4; Platelet Count 168 k/uL (150-450); RBC 3.53 m/uL (4.30-5.90); RDW 16.6 % (11.5-15.5); WBC 5.2 k/uL (3.8-10.6)
[2023-02-22 11:16] LABS: African American GFR (CKD) 60 (>60 ml/min/1.73 sqM); Anion Gap 9 mmol/L; Blood Urea Nitrogen 25 mg/dL (9-20); Calcium 8.2 mg/dL (8.4-10.2); Carbon Dioxide 29 mmol/L (22-30); Chloride 103 mmol/L (98-107); Glucose 160 mg/dL (74-99); Non-African American GFR(CKD) 52 (>60 ml/min/1.73 sqM); Potassium 4.1 mmol/L (3.5-5.1); Sodium 141 mmol/L (137-145)
[2023-02-22 11:42] LABS: Glucose,Whole Blood 158 mg/dL (70-110)
--- NOTE | 2023-02-22 12:41 | P.PN ---
Subjective Progress Note Date: 02/22/23 * 67-year-old male patient of Dr. Rachelle Singh with past medical history of congestive heart failure, severe aortic stenosis, known 2 vessel coronary artery disease, chronic occlusion of the right internal carotid artery and moderate stenosis involving the left carotid artery, diabetes, hypertension, hyperlipidemia. Patient recently underwent cardiac catheterization that revealed two-vessel CAD and RAE revealed severe aortic stenosis. Patient was subsequently referred to cardiothoracic surgeon for aortic valve replacement and bypass surgery. He presented with shortness of breath and chest pain * Consult obtained from cardiology, cardiac surgery * CTA of the chest was negative for pulmonary embolism. 02/22 >> patient seen and evaluated and bedside, patient appears on 2 L of oxygen states breathing has improved continue patient on diuresis, renal function elevated, discussed need for CTA neck that should be deferred to outpatient detail renal function is optimized. Transthoracic Echocardiogram shows ejection fraction of 40% moderate aortic stenosis REVIEW OF SYSTEMS: Shortness of breath CONSTITUTIONAL: No fever, no malaise, no fatigue. HEENT: No recent visual problems or hearing problems. Denied any sore throat. CARDIOVASCULAR: Lower symmetry edema, dizziness PULMONARY: No shortness of breath, no cough, no hemoptysis. GASTROINTESTINAL: No diarrhea, no nausea, no vomiting, no abdominal pain. NEUROLOGICAL: No headaches, no weakness, no numbness. HEMATOLOGICAL: Denies any bleeding or petechiae. GENITOURINARY: Denies any burning micturition, frequency, or urgency. MUSCULOSKELETAL/RHEUMATOLOGICAL: Denies any joint pain, swelling, or any muscle pain. ENDOCRINE: Denies any polyuria or polydipsia. Objective - Vital Signs Vital signs: Vital Signs Temp 97.8 F 02/22/23 12:00 Pulse 61 02/22/23 12:00 Resp 16 02/22/23 12:00 BP 154/70 02/22/23 12:00 Pulse Ox 98 02/22/23 12:00 FiO2 Intake & Output 02/21/23 02/22/23 02/22/23 18:59 06:59 18:59 Intake Total 240 590 Output Total 225 1000 850 Balance 15 -1000 -260 Weight 107.3 kg 106.5 kg Intake: Oral 240 590 Output: Urine 225 1000 850 Other: Voiding Method Urinal Urinal Urinal # Voids 1 1 - Labs CBC & Chem 7: 02/22/23 09:49 02/22/23 09:49 Labs: Abnormal Lab Results - Last 24 Hours (Table) 02/21/23 02/21/23 02/22/23 Range/Units 11:06 19:53 06:09 RBC (4.30-5.90) m/uL Hgb (13.0-17.5) gm/dL Hct (39.0-53.0) % RDW (11.5-15.5) % BUN (9-20) mg/dL Creatinine (0.66-1.25) mg/dL Glucose (74-99) mg/dL POC Glucose (mg/dL) 154 H 142 H (70-110) mg/dL Calcium (8.4-10.2) mg/dL C-Reactive Protein 1.7 H (<1.0) mg/dL 02/22/23 02/22/23 02/22/23 Range/Units 09:49 09:49 11:39 RBC 3.53 L (4.30-5.90) m/uL Hgb 9.7 L (13.0-17.5) gm/dL Hct 31.4 L (39.0-53.0) % RDW 16.6 H (11.5-15.5) % BUN 25 H (9-20) mg/dL Creatinine 1.38 H (0.66-1.25) mg/dL Glucose 160 H (74-99) mg/dL POC Glucose (mg/dL) 158 H (70-110) mg/dL Calcium 8.2 L (8.4-10.2) mg/dL C-Reactive Protein (<1.0) mg/dL Assessment and Plan Assessment: Assesement * Acute and chronic congestive heart failure systolic dysfunction * Severe aortic stenosis * History of carotid stenosis * Acute renal injury * Diabetes mellitus type 2 * Hypertension * Coronary artery disease status post PCI Plan * In regards to congestive heart failure and severe aortic stenosis >>Cardiology consulted and following>> continue patient on Lasix, further workup including CTA of neck focality stenosis to be deferred to outpatient * In regards to coronary artery disease continue aspirin and Plavix, troponin obtained negative * Cardiology/cardiac surgery following course of aortic stenosis * In regards to acute renal failure, monitor renal function while on diuresis. Patient had received contrast for CTA chest and CT abdomen and pelvis as well * In regards to diabetes mellitus continue patient on sequential insulin and glipizide, metformin on hold while renal function is impaired * STATUS is full code
--- NOTE | 2023-02-22 15:00 | P.PN ---
Subjective Progress Note Date: 02/22/23 History of present illness: This is a 67-year-old male patient of Dr. Rachelle Singh with past medical history of congestive heart failure, severe aortic stenosis, known 2 vessel coronary artery disease, chronic occlusion of the right internal carotid artery and moderate stenosis involving the left carotid artery, diabetes, hypertension, hyperlipidemia. Patient recently underwent cardiac catheterization that revealed two-vessel CAD and RAE revealed severe aortic stenosis. Patient was subsequently referred to cardiothoracic surgeon for aortic valve replacement and bypass surgery. Patient and his state that he has been cleared by pulmonary medicine, 3TC been pulled in preparation for surgery and he is waiting for a carotid study. Patient states he developed shortness of breath increased weight and lower extremity edema and abdominal edema that started on Sunday. Patient's states that he was in the bathroom having dry heaves and finally agreed to come in the hospital for evaluation. He states he did not take his medications yesterday and he presented with a blood pressure of 211/107. Patient due to having teeth pulled, has been eating a lot of chicken noodle soup which is high in sodium. Patient was started on IV diuretics and feels some improvement at this time. Patient's also noticed that over the past month he has been very tired and worsening. EKG sinus rhythm Chest x-ray: No acute process CTA of the chest was negative for pulmonary embolism. WBC 5.9, hemoglobin 9.6, platelet count 165. Sodium 142, potassium 4.3, BUN 24 and creatinine 1.62. Patient presented with creatinine of 1.3. Influenza A, influenza B, RSV, Covid 19 not detected. Home cardiac medications: Aspirin 81 mg daily, atorvastatin 40 mg daily, Plavix 75 mg daily, Lasix 20 mg daily, hydralazine 50 mg 3 times daily, Toprol-XL 100 mg daily Echocardiogram 07/2021 revealed normal LV size with EF of 40%. Grade 3 diastolic dysfunction. Mild left ventricular hypertrophy. Mildly dilated left atrium. Trace aortic regurgitation and moderate aortic stenosis. Moderate mitral regurgitation. Myxomatous mitral valve. Mild tricuspid regurgitation. [id number] pulmonic regurgitation. Echocardiogram 02/21/2023 reveals mildly impaired LV function with EF of 40-45%. Moderate aortic stenosis with mean gradient 32 mmHg. Aortic valve is calcified and appears to be in leaflet. RAE 01/04/2023 reveals severe aortic stenosis involving a tricuspid aortic valve with planimetry area of around 0.4-0.6 squared centimeters. Normal LV systolic function. Mild to moderate mitral regurgitation. Cardiac catheterization 01/04/2023 reveals mid RCA 90% stenosis. Circumflex previously stented is 80-90% ostial stenosis involving a large caliber, OM branch and AV groove circumflex also has an 80% stenosis. LAD shows mild to moderate diffuse nonfocal atherosclerotic block. 02/22 Patient is seen today in follow-up. He has been seen by cardiothoracic surgery and scheduled for carotid ultrasound on 02/28. He has been maintained on Lasix 40 mg IV every 12 hours. He states when he got up to the bathroom to take a shower and shave he was having some dizziness and weakness. Echocardiogram reveals EF of 40-45% moderate a with mean gradient 32, aortic valve calcified and appears trileaflet. Output is down 1 L and weight is down 0.8 kg. Patient states that today was a first time he has had dizziness and weakness. Physical examination: Gen: This is a obese 67-year-old male. He is resting in bed and appears to be comfortable at rest. VS: reviewed HEENT: Head is atraumatic, normocephalic. Pupils equal, round. Sclerae is anicteric. NECK: Supple. No JVD. LUNGS: Clear to auscultation. No wheezes or rhonchi. No intercostal retractions. HEART: Regular rate and rhythm. Systolic murmur. ABDOMEN: Soft No tenderness. EXTREMITIES: 1+ right, trace left pedal edema. No calf tenderness. NEUROLOGICAL: Patient is awake, alert and oriented x3. Assessment: Acute on chronic systolic heart failure Coronary artery disease Severe aortic stenosis Carotid artery disease Diabetes Hypertension Hyperlipidemia Plan: Continue Lasix 40 mg IV every 12 hours for another day Monitor I&O, daily weights electrolytes and renal function Continue home cardiac medications Further recommendations to follow based upon clinical course Nurse practitioner note has been reviewed, I agree with documented findings and plan of care. Patient was seen and examined. Objective - Vital Signs Vital signs: Vital Signs Temp 97.8 F 02/22/23 12:00 Pulse 61 02/22/23 12:00 Resp 16 02/22/23 12:00 BP 154/70 02/22/23 12:00 Pulse Ox 98 02/22/23 12:00 FiO2 Intake & Output 02/21/23 02/22/23 02/22/23 18:59 06:59 18:59 Intake Total 240 590 Output Total 225 1000 850 Balance 15 -1000 -260 Weight 107.3 kg 106.5 kg Intake: Oral 240 590 Output: Urine 225 1000 850 Other: Voiding Method Urinal Urinal Urinal # Voids 1 1 - Labs CBC & Chem 7: 02/22/23 09:49 02/22/23 09:49 Labs: Abnormal Lab Results - Last 24 Hours (Table) 02/21/23 02/21/23 02/22/23 Range/Units 11:06 19:53 06:09 RBC (4.30-5.90) m/uL Hgb (13.0-17.5) gm/dL Hct (39.0-53.0) % RDW (11.5-15.5) % BUN (9-20) mg/dL Creatinine (0.66-1.25) mg/dL Glucose (74-99) mg/dL POC Glucose (mg/dL) 154 H 142 H (70-110) mg/dL Calcium (8.4-10.2) mg/dL C-Reactive Protein 1.7 H (<1.0) mg/dL 02/22/23 02/22/23 02/22/23 Range/Units 09:49 09:49 11:39 RBC 3.53 L (4.30-5.90) m/uL Hgb 9.7 L (13.0-17.5) gm/dL Hct 31.4 L (39.0-53.0) % RDW 16.6 H (11.5-15.5) % BUN 25 H (9-20) mg/dL Creatinine 1.38 H (0.66-1.25) mg/dL Glucose 160 H (74-99) mg/dL POC Glucose (mg/dL) 158 H (70-110) mg/dL Calcium 8.2 L (8.4-10.2) mg/dL C-Reactive Protein (<1.0) mg/dL
[2023-02-22 16:32] LABS: Glucose,Whole Blood 90 mg/dL (70-110)
[2023-02-22 20:26] LABS: Glucose,Whole Blood 151 mg/dL (70-110)
[2023-02-23 05:57] LABS: Glucose,Whole Blood 149 mg/dL (70-110)
[2023-02-23] MEDS: FERROUS SULFATE 325 MG TAB PO SCH ×2 (05:57→17:12)
[2023-02-23] MEDS: INSULIN ASPART (NovoLOG) 100 UNIT/ML VIAL SQ SCH ×4 (06:01→20:47)
--- NOTE | 2023-02-23 08:48 | P.PN ---
Subjective Progress Note Date: 02/23/23 Principal diagnosis: Shortness of breath and bloating on admission, acute on chronic congestive heart failure systolic dysfunction. Past medical history significant for known hist ory of severe aortic valve stenosis and coronary artery disease with history of PCI and is on Plavix for anticoagulation, lower extremity edema, hypertension, hyperlipidemia, diabetes mellitus type 2, chronic anemia, obesity with a BMI of 37.0 kg/m, chronic ongoing tobacco dependence, occasional marijuana use, EtOH use drinking 7-8 beers a week, and obstructive sleep apnea with no home CPAP use. The patient was seen and examined in follow-up today 02/23/2023 at his bedside on the cardiac stepdown unit. He is sitting up to the bedside edge, is awake, alert, oriented 3 and is in no acute apparent distress. He is tolerating his breakfast, reports he feels better today and denies any complaints of pain or shortness of breath at this time. He continues to have some edema to his bilateral lower extremities left leg greater than the right leg. He continues to receive Lasix 40 mg IV every 12 hours managed by cardiology. The patient's blood pressure was elevated as high as 186/86 last evening. Oxygen saturations are 100% on 2 L nasal cannula, and he is achieving 2250 mL on his incentive spirometry with encouragement. Remote telemetry this morning showing normal sinus rhythm heart rate 65 BPM. He has been afebrile in the last 24 hours. No new concerns. Objective - Vital Signs Vital signs: Vital Signs Temp 98.5 F 02/23/23 05:00 Pulse 62 02/23/23 05:00 Resp 16 02/23/23 05:00 BP 178/88 02/23/23 05:00 Pulse Ox 100 02/23/23 05:00 FiO2 Intake & Output 02/22/23 02/23/23 02/23/23 18:59 06:59 18:59 Intake Total 700 480 240 Output Total 850 1150 Balance -150 -670 240 Weight 106.8 kg Intake: Oral 700 480 240 Output: Urine 850 1150 Other: Voiding Method Urinal Urinal - Exam CONSTITUTIONAL: Sitting up on the bedside edge on the cardiac stepdown unit, appears comfortable, cooperative, no apparent acute distress. HEENT: Neck is supple, no JVD, no lymphadenopathy. RESPIRATORY: Lungs sounds essentially clear throughout, diminished to his bilateral bases. Respirations are symmetrical and nonlabored. Currently on 2 L nasal cannula with oxygen saturations 100%. Strong cough. CARDIOVASCULAR: Regular rhythm and rate. S1 and S2 present, negative for S3, gallop or murmur. Palpable peripheral pulses bilaterally, +1 edema to his bilateral lower extremities, left leg greater than right. No calf pain or tenderness noted. GASTROINTESTINAL: Abdomen soft, nontender, nondistended. Active bowel sounds present 4 quadrants. Tolerating diet. Passing flatus. No guarding or rigi dity. GENITOURINARY: Continues to void. INTEGUMENTARY: Skin is warm and dry with no evidence of clubbing or cyanosis. NEUROLOGIC: Cranial nerves II through XII intact. No focal deficits. MUSKULOSKELETAL: Able to move all extremities, strength equal bilaterally. PSYCHIATRIC: Alert and oriented to person place and time, appropriate affect, intact judgment and insight. - Allied health notes Allied health notes reviewed: nursing - Labs CBC & Chem 7: 02/22/23 09:49 02/22/23 09:49 Labs: Abnormal Lab Results - Last 24 Hours (Table) 02/22/23 02/22/23 02/22/23 Range/Units 09:49 09:49 11:39 RBC 3.53 L (4.30-5.90) m/uL Hgb 9.7 L (13.0-17.5) gm/dL Hct 31.4 L (39.0-53.0) % RDW 16.6 H (11.5-15.5) % BUN 25 H (9-20) mg/dL Creatinine 1.38 H (0.66-1.25) mg/dL Glucose 160 H (74-99) mg/dL POC Glucose (mg/dL) 158 H (70-110) mg/dL Calcium 8.2 L (8.4-10.2) mg/dL 02/22/23 02/23/23 Range/Units 20:24 05:55 RBC (4.30-5.90) m/uL Hgb (13.0-17.5) gm/dL Hct (39.0-53.0) % RDW (11.5-15.5) % BUN (9-20) mg/dL Creatinine (0.66-1.25) mg/dL Glucose (74-99) mg/dL POC Glucose (mg/dL) 151 H 149 H (70-110) mg/dL Calcium (8.4-10.2) mg/dL Assessment and Plan Assessment: Severe aortic valve stenosis Multivessel coronary artery disease with history of previous PCI, on Plavix for anticoagulation Hypertension Hyperlipidemia Diabetes mellitus type 2, with a recent hemoglobin A1c 6.6% Carotid stenosis with a recent carotid duplex study showing a 50-69% stenosis of the left carotid bifurcation by technique systolic velocity and ratio and nonvisualization of flow within the right internal carotid artery with CTA of the neck scheduled on 02/28/2023 Chronic ongoing tobacco dependence Obstructive sleep apnea without home CPAP use Occasional marijuana use, smokes 1-2 joints per week Occasional EtOH use, drinks 7-8 beers per week Acute kidney injury with a creatinine trending down and was 1.38 yesterday 02/22/2023 Chronic anemia Plan: The patient is scheduled for a CTA of his carotids on 02/28/2023 as an outpatient, continue to monitor BUN and creatinine. Incentive spirometry ordered, encourage use of incentive spirometry 10 times every hour while awake. Once his preoperative testing has been completed further discussion and timing regarding surgical aortic valve replacement and myocardial revascularization surgery will be discussed with the patient. The patient is also taking Plavix which will need to be held 5-7 days prior to surgery. Continue Ferrous sulfate and vitamin C started for his hemoglobin of 9.7, follow CBC results. Importance of risk modification including smoking cessation and discussed with the patient. Importance of taking his medications as prescribed also discussed with the patient. Medical management and other comorbidities per primary care and cardiology services. More recommendations to follow based on patient's clinical course. Time with Patient: Greater than 30
[2023-02-23] MEDS: ASCORBIC ACID 500 MG TAB PO SCH ×2 (08:56→20:46)
[2023-02-23] MEDS: CLOPIDOGREL 75 MG TAB PO SCH (08:56)
[2023-02-23] MEDS: ATORVASTATIN 40 MG TAB PO SCH (08:56)
[2023-02-23] MEDS: FUROSEMIDE 10 MG/ML 4 ML VIAL IV SCH ×2 (08:56→20:46)
[2023-02-23] MEDS: HEPARIN SODIUM,PORCINE/PF 5,000 UNIT/0.5 ML SYRINGE SQ SCH ×2 (08:56→15:44)
[2023-02-23] MEDS: amLODIPine 5 MG TAB PO SCH (08:56)
[2023-02-23] MEDS: glipiZIDE 10 MG TAB PO SCH ×2 (08:56→20:46)
[2023-02-23] MEDS: ASPIRIN 81 MG PO SCH (08:56)
[2023-02-23] MEDS: METOPROLOL SUCCINATE (ER) 100 MG TAB.ER.24H PO SCH (08:56)
[2023-02-23] MEDS: hydrALAZINE HCL 25 MG TAB PO SCH ×3 (09:01→20:46)
[2023-02-23 09:09] LABS: Anisocytosis Slight; HCT 32.2 % (39.0-53.0); HGB 9.8 gm/dL (13.0-17.5); Hypochromasia Marked; MCH 26.8 pg (25.0-35.0); MCHC 30.5 g/dL (31.0-37.0); MCV 87.9 fL (80.0-100.0); Mean Platelet Volume 9.1; Platelet Count 170 k/uL (150-450); Poikilocytosis Slight; RBC 3.66 m/uL (4.30-5.90); RDW 16.6 % (11.5-15.5); WBC 5.4 k/uL (3.8-10.6)
--- NOTE | 2023-02-23 09:27 | P.PN ---
Subjective Progress Note Date: 02/23/23 History of present illness: This is a 67-year-old male patient of Dr. Rachelle Singh with past medical history of congestive heart failure, severe aortic stenosis, known 2 vessel coronary artery disease, chronic occlusion of the right internal carotid artery and moderate stenosis involving the left carotid artery, diabetes, hypertension, hyperlipidemia. Patient recently underwent cardiac catheterization that revealed two-vessel CAD and RAE revealed severe aortic stenosis. Patient was subsequently referred to cardiothoracic surgeon for aortic valve replacement and bypass surgery. Patient and his state that he has been cleared by pulmonary medicine, 3TC been pulled in preparation for surgery and he is waiting for a carotid study. Patient states he developed shortness of breath increased weight and lower extremity edema and abdominal edema that started on Sunday. Patient's states that he was in the bathroom having dry heaves and finally agreed to come in the hospital for evaluation. He states he did not take his medications yesterday and he presented with a blood pressure of 211/107. Patient due to having teeth pulled, has been eating a lot of chicken noodle soup which is high in sodium. Patient was started on IV diuretics and feels some improvement at this time. Patient's also noticed that over the past month he has been very tired and worsening. EKG sinus rhythm Chest x-ray: No acute process CTA of the chest was negative for pulmonary embolism. WBC 5.9, hemoglobin 9.6, platelet count 165. Sodium 142, potassium 4.3, BUN 24 and creatinine 1.62. Patient presented with creatinine of 1.3. Influenza A, influenza B, RSV, Covid 19 not detected. Home cardiac medications: Aspirin 81 mg daily, atorvastatin 40 mg daily, Plavix 75 mg daily, Lasix 20 mg daily, hydralazine 50 mg 3 times daily, Toprol-XL 100 mg daily Echocardiogram 07/2021 revealed normal LV size with EF of 40%. Grade 3 diastolic dysfunction. Mild left ventricular hypertrophy. Mildly dilated left atrium. Trace aortic regurgitation and moderate aortic stenosis. Moderate mitral regurgitation. Myxomatous mitral valve. Mild tricuspid regurgitation. [id number] pulmonic regurgitation. Echocardiogram 02/21/2023 reveals mildly impaired LV function with EF of 40-45%. Moderate aortic stenosis with mean gradient 32 mmHg. Aortic valve is calcified and appears to be in leaflet. RAE 01/04/2023 reveals severe aortic stenosis involving a tricuspid aortic valve with planimetry area of around 0.4-0.6 squared centimeters. Normal LV systolic function. Mild to moderate mitral regurgitation. Cardiac catheterization 01/04/2023 reveals mid RCA 90% stenosis. Circumflex previously stented is 80-90% ostial stenosis involving a large caliber, OM branch and AV groove circumflex also has an 80% stenosis. LAD shows mild to moderate diffuse nonfocal atherosclerotic block. 02/22 Patient is seen today in follow-up. He has been seen by cardiothoracic surgery and scheduled for carotid ultrasound on 02/28. He has been maintained on Lasix 40 mg IV every 12 hours. He states when he got up to the bathroom to take a shower and shave he was having some dizziness and weakness. Echocardiogram reveals EF of 40-45% moderate a with mean gradient 32, aortic valve calcified and appears trileaflet. Output is down 1 L and weight is down 0.8 kg. Patient states that today was a first time he has had dizziness and weakness. 02/23 Patient is seen today in follow-up. He states he has not had any more episodes of lightheadedness or dizziness. He has been walking in his room only to the bathroom and back. His breathing is okay. He is off oxygen and feeling much better in general. Blood pressure remains elevated. Lab work available this morning is hemoglobin of 9.8. Chemistry is pending. Physical examination: Gen: This is a obese 67-year-old male. He is resting in bed and appears to be comfortable at rest. VS: reviewed HEENT: Head is atraumatic, normocephalic. Pupils equal, round. Sclerae is anicteric. NECK: Supple. No JVD. LUNGS: Clear to auscultation. No wheezes or rhonchi. No intercostal retractions. HEART: Regular rate and rhythm. Systolic murmur. ABDOMEN: Soft No tenderness. EXTREMITIES: Minimal r pedal edema. No calf tenderness. NEUROLOGICAL: Patient is awake, alert and oriented x3. Assessment: Acute on chronic systolic heart failure Coronary artery disease Severe aortic stenosis Carotid artery disease Diabetes Hypertension Hyperlipidemia Plan: Transition IV Lasix to oral 40 mg daily If electrolytes and renal function are stable, patient is cleared for discharge from cardiology may follow-up in the office with Dr. Rachelle Singh in follow-up with cardiothoracic surgery as planned. Nurse practitioner note has been reviewed, I agree with documented findings and plan of care. Patient was seen and examined. Objective - Vital Signs Vital signs: Vital Signs Temp 98.5 F 02/23/23 05:00 Pulse 62 02/23/23 05:00 Resp 16 02/23/23 05:00 BP 178/88 02/23/23 05:00 Pulse Ox 100 02/23/23 05:00 FiO2 Intake & Output 02/22/23 02/23/23 02/23/23 18:59 06:59 18:59 Intake Total 700 480 Output Total 850 1150 Balance -150 -670 Weight 106.8 kg Intake: Oral 700 480 Output: Urine 850 1150 Other: Voiding Method Urinal Urinal - Labs CBC & Chem 7: 02/23/23 08:36 02/22/23 09:49 Labs: Abnormal Lab Results - Last 24 Hours (Table) 02/22/23 02/22/23 02/22/23 Range/Units 09:49 09:49 11:39 RBC 3.53 L (4.30-5.90) m/uL Hgb 9.7 L (13.0-17.5) gm/dL Hct 31.4 L (39.0-53.0) % RDW 16.6 H (11.5-15.5) % BUN 25 H (9-20) mg/dL Creatinine 1.38 H (0.66-1.25) mg/dL Glucose 160 H (74-99) mg/dL POC Glucose (mg/dL) 158 H (70-110) mg/dL Calcium 8.2 L (8.4-10.2) mg/dL 02/22/23 02/23/23 Range/Units 20:24 05:55 RBC (4.30-5.90) m/uL Hgb (13.0-17.5) gm/dL Hct (39.0-53.0) % RDW (11.5-15.5) % BUN (9-20) mg/dL Creatinine (0.66-1.25) mg/dL Glucose (74-99) mg/dL POC Glucose (mg/dL) 151 H 149 H (70-110) mg/dL Calcium (8.4-10.2) mg/dL
[2023-02-23 09:29] LABS: African American GFR (CKD) 63 (>60 ml/min/1.73 sqM); Anion Gap 9 mmol/L; Blood Urea Nitrogen 23 mg/dL (9-20); Calcium 8.7 mg/dL (8.4-10.2); Carbon Dioxide 34 mmol/L (22-30); Chloride 98 mmol/L (98-107); Glucose 174 mg/dL (74-99); Non-African American GFR(CKD) 55 (>60 ml/min/1.73 sqM); Sodium 141 mmol/L (137-145)
[2023-02-23 11:37] LABS: Glucose,Whole Blood 195 mg/dL (70-110)
--- NOTE | 2023-02-23 12:23 | P.PN ---
Subjective Progress Note Date: 02/23/23 * 67-year-old male patient of Dr. Rachelle Singh with past medical history of congestive heart failure, severe aortic stenosis, known 2 vessel coronary artery disease, chronic occlusion of the right internal carotid artery and moderate stenosis involving the left carotid artery, diabetes, hypertension, hyperlipidemia. Patient recently underwent cardiac catheterization that revealed two-vessel CAD and RAE revealed severe aortic stenosis. Patient was subsequently referred to cardiothoracic surgeon for aortic valve replacement and bypass surgery. He presented with shortness of breath and chest pain * Consult obtained from cardiology, cardiac surgery * CTA of the chest was negative for pulmonary embolism. * 02/22 >> patient seen and evaluated and bedside, patient appears on 2 L of oxygen states breathing has improved continue patient on diuresis, renal function elevated, discussed need for CTA neck that should be deferred to outpatient detail renal function is optimized. Transthoracic Echocardiogram shows ejection fraction of 40% moderate aortic stenosis * 02/23> Care plan discussed with cardiology at bedside from cardiology standpoint days. Patient is stable however Care plan discussed with patient and at bedside they would like to monitor for another day patient states he just got off oxygen and does complain of shortness of breath we will ambulate patient RN instructed, noted to have systolic blood pressure in 190's, not a safe discharge at this point does of hydralazine increased cardiology started amlodipine as well will monitor for another 24 hours REVIEW OF SYSTEMS: Shortness of breath improved CONSTITUTIONAL: No fever, no malaise, no fatigue. HEENT: No recent visual problems or hearing problems. Denied any sore throat. CARDIOVASCULAR: Lower symmetry edema, dizziness improved PULMONARY: No shortness of breath, no cough, no hemoptysis. GASTROINTESTINAL: No diarrhea, no nausea, no vomiting, no abdominal pain. NEUROLOGICAL: No headaches, no weakness, no numbness. HEMATOLOGICAL: Denies any bleeding or petechiae. GENITOURINARY: Denies any burning micturition, frequency, or urgency. MUSCULOSKELETAL/RHEUMATOLOGICAL: Denies any joint pain, swelling, or any muscle pain. ENDOCRINE: Denies any polyuria or polydipsia. Objective - Vital Signs Vital signs: Vital Signs Temp 98.2 F 02/23/23 12:00 Pulse 66 02/23/23 12:00 Resp 16 02/23/23 12:00 BP 175/89 02/23/23 12:00 Pulse Ox 97 02/23/23 12:00 FiO2 Intake & Output 02/22/23 02/23/23 02/23/23 18:59 06:59 18:59 Intake Total 700 480 240 Output Total 850 1150 950 Balance -150 670 -710 Weight 106.8 kg Intake: Oral 700 480 240 Output: Urine 850 1150 950 Other: Voiding Method Urinal Urinal Urinal - Exam GENERAL: The patient is alert and oriented x3, not in any acute distress. Well developed, well nourished. Obese, ill appearance, weaned off oxygen HEENT: Pupils are round and equally reacting to light. EOMI. No scleral icterus. No conjunctival pallor. Normocephalic, atraumatic. No pharyngeal erythema. No thyromegaly. CARDIOVASCULAR: Systolic murmur appreciated , bilateral, lower extremity edema noted PULMONARY: Chest is clear to auscultation, no wheezing or crackles. ABDOMEN: Soft, nontender, nondistended, normoactive bowel sounds. No palpable organomegaly. MUSCULOSKELETAL: No joint swelling or deformity. EXTREMITIES: No cyanosis, clubbing, or pedal edema. NEUROLOGICAL: Gross neurological examination did not reveal any focal deficits. - Labs CBC & Chem 7: 02/23/23 08:36 02/23/23 08:36 Labs: Abnormal Lab Results - Last 24 Hours (Table) 02/22/23 02/23/23 02/23/23 Range/Units 20:24 05:55 08:36 RBC 3.66 L (4.30-5.90) m/uL Hgb 9.8 L (13.0-17.5) gm/dL Hct 32.2 L (39.0-53.0) % MCHC 30.5 L (31.0-37.0) g/dL RDW 16.6 H (11.5-15.5) % Carbon Dioxide (22-30) mmol/L BUN (9-20) mg/dL Creatinine (0.66-1.25) mg/dL Glucose (74-99) mg/dL POC Glucose (mg/dL) 151 H 149 H (70-110) mg/dL 02/23/23 02/23/23 Range/Units 08:36 11:35 RBC (4.30-5.90) m/uL Hgb (13.0-17.5) gm/dL Hct (39.0-53.0) % MCHC (31.0-37.0) g/dL RDW (11.5-15.5) % Carbon Dioxide 34 H (22-30) mmol/L BUN 23 H (9-20) mg/dL Creatinine 1.33 H (0.66-1.25) mg/dL Glucose 174 H (74-99) mg/dL POC Glucose (mg/dL) 195 H (70-110) mg/dL Assessment and Plan Assessment: Assesement * Acute and chronic congestive heart failure systolic dysfunction * Severe aortic stenosis * History of carotid stenosis * Accelerated hypertension * Acute renal injury * Diabetes mellitus type 2 * Hypertension * Coronary artery disease status post PCI Plan * In regards to congestive heart failure and severe aortic stenosis >>Cardiology consulted and following>> continue patient on Lasix, further workup including CTA of neck for carotid stenosis to be deferred to outpatient, continue IV Lasix * In regards to coronary artery disease continue aspirin and Plavix, troponin obtained negative * Cardiology/cardiac surgery following course of aortic stenosis>> outpatient follow-up * In regards to acute renal failure, monitor renal function while on diuresis. Patient had received contrast for CTA chest and CT abdomen and pelvis as well * In regards to diabetes mellitus continue patient on sequential insulin and glipizide, metformin on hold while renal function is impaired * In regards to hypertension continue amlodipine, dose of hydralazine increased as well * Potential discharge in next 24 hour
[2023-02-23 16:23] LABS: Glucose,Whole Blood 121 mg/dL (70-110)
[2023-02-23 20:25] LABS: Glucose,Whole Blood 178 mg/dL (70-110)
[2023-02-24] MEDS: HEPARIN SODIUM,PORCINE/PF 5,000 UNIT/0.5 ML SYRINGE SQ SCH ×3 (00:36→16:25)
[2023-02-24 02:47] VITALS: TEMP 98
[2023-02-24 05:42] LABS: Anisocytosis Slight; HCT 32.9 % (39.0-53.0); Hypochromasia Marked; MCH 26.6 pg (25.0-35.0); MCHC 30.3 g/dL (31.0-37.0); Platelet Count 190 k/uL (150-450); Poikilocytosis Slight; RBC 3.74 m/uL (4.30-5.90); RDW 16.9 % (11.5-15.5); WBC 9.7 k/uL (3.8-10.6)
[2023-02-24 05:44] LABS: Glucose,Whole Blood 122 mg/dL (70-110)
[2023-02-24] MEDS: INSULIN ASPART (NovoLOG) 100 UNIT/ML VIAL SQ SCH ×2 (06:31→12:03)
[2023-02-24 06:33] LABS: African American GFR (CKD) 76 (>60 ml/min/1.73 sqM); Anion Gap 10 mmol/L; Blood Urea Nitrogen 20 mg/dL (9-20); Calcium 8.7 mg/dL (8.4-10.2); Carbon Dioxide 28 mmol/L (22-30); Chloride 102 mmol/L (98-107); Glucose 112 mg/dL (74-99); Magnesium 1.4 mg/dL (1.6-2.3); Non-African American GFR(CKD) 66 (>60 ml/min/1.73 sqM); Potassium 3.5 mmol/L (3.5-5.1); Sodium 140 mmol/L (137-145)
[2023-02-24] MEDS: FERROUS SULFATE 325 MG TAB PO SCH (06:36)
[2023-02-24] MEDS ORDERED: POTASSIUM CHLORIDE ER 20 MEQ TAB.ER PO SCH (08:00)
[2023-02-24] MEDS ORDERED: Potassium Replacement Protocol 1 EACH MISC MISCELLANE PRN (08:17)
[2023-02-24] MEDS: FUROSEMIDE 10 MG/ML 4 ML VIAL IV SCH (08:49)
[2023-02-24] MEDS: MAGNESIUM SULFATE-D5W PMX 1 GM in DEXTROSE/WATER 1 100ML.BAG IVPB SCH ×2 (08:49→10:38)
[2023-02-24] MEDS: CLOPIDOGREL 75 MG TAB PO SCH (08:50)
[2023-02-24] MEDS: POTASSIUM CHLORIDE ER 20 MEQ TAB.ER PO SCH ×2 (08:50→10:39)
[2023-02-24] MEDS: amLODIPine 5 MG TAB PO SCH (08:50)
[2023-02-24] MEDS: ASPIRIN 81 MG PO SCH (08:50)
[2023-02-24] MEDS: METOPROLOL SUCCINATE (ER) 100 MG TAB.ER.24H PO SCH (08:50)
[2023-02-24] MEDS: hydrALAZINE HCL 25 MG TAB PO SCH ×2 (08:50→16:29)
[2023-02-24] MEDS: glipiZIDE 10 MG TAB PO SCH (08:50)
[2023-02-24] MEDS: ATORVASTATIN 40 MG TAB PO SCH (08:50)
[2023-02-24] MEDS: ASCORBIC ACID 500 MG TAB PO SCH (08:51)
--- NOTE | 2023-02-24 09:54 | US ---
EXAMINATION TYPE: US venous doppler duplex LE RT DATE OF EXAM: 02/24/2023 9:14 AM COMPARISON: NONE CLINICAL INDICATION: Male, 67 years old with history of Rt calf pain; Pain in rt calf. SIDE PERFORMED: Right TECHNIQUE: The lower extremity deep venous system is examined utilizing real time linear array sonog jeromy with graded compression, doppler sonography and color-flow sonography. VESSELS IMAGED: Common Femoral Vein Deep Femoral Vein Greater Saphenous Vein * Femoral Vein Popliteal Vein Small Saphenous Vein * Proximal Calf Veins (* superficial vessels) Right Leg: Negative for DVT IMPRESSION: No evidence for DVT within the right lower extremity imaged from the groin to the upper calf.
--- NOTE | 2023-02-24 10:06 | P.PN ---
Subjective Progress Note Date: 02/24/23 Principal diagnosis: Shortness of breath and bloating on admission, acute on chronic congestive heart failure systolic dysfunction. Past medical history significant for known hist ory of severe aortic valve stenosis and coronary artery disease with history of PCI and is on Plavix for anticoagulation, lower extremity edema, hypertension, hyperlipidemia, diabetes mellitus type 2, chronic anemia, obesity with a BMI of 37.0 kg/m, chronic ongoing tobacco dependence, occasional marijuana use, EtOH use drinking 7-8 beers a week, and obstructive sleep apnea with no home CPAP use. Patient was seen and examined in follow-up today 02/24/2023 at his bedside on the cardiac stepdown unit. He is sitting up to bedside chair, is awake, alert, oriented 3 in no acute apparent distress. Denies any complaints of shortness of breath, although was complaining of some cramping to his right calf throughout the night states and feels his right calf feels tight. Oxygen saturations are 95% on room air and he is achieving 2500 mL on his incentive spirometry with encouragement. Remote telemetry showing normal sinus rhythm heart rate 63 BPM. His blood pressure throughout the night was as high as 189/90 mmHg and his blood pressure medications were adjusted yesterday by cardiology. The patient is scheduled for an outpatient CTA of his carotids on 02/28/2023. The patient has been receiving Lasix 40 mg IV every 12 hours and diuresed 2.2 L in the last 8 hours. Laboratory results reviewed. Objective - Vital Signs Vital signs: Vital Signs Temp 98 F 02/23/23 20:00 Pulse 63 02/24/23 02:00 Resp 16 02/24/23 02:00 BP 189/90 02/24/23 05:00 Pulse Ox 94 L 02/24/23 00:00 FiO2 Intake & Output 02/23/23 02/24/23 02/24/23 18:59 06:59 18:59 Intake Total 590 Output Total 1325 2275 Balance -735 -2275 Weight 105.1 kg Intake: Oral 590 Output: Urine 1325 2275 Other: Voiding Method Urinal Urinal - Exam CONSTITUTIONAL: Sitting up on the bedside chair on the cardiac stepdown unit, appears comfortable, cooperative, no apparent acute distress. HEENT: Neck is supple, no JVD, no lymphadenopathy. RESPIRATORY: Lungs sounds essentially clear throughout, diminished to his bilateral bases. Respirations are symmetrical and nonlabored. Currently on room air with oxygen saturations 95%. Strong cough. CARDIOVASCULAR: Regular rhythm and rate. S1 and S2 present, negative for S3, gallop or murmur. Palpable peripheral pulses bilaterally, +1 edema to his bilateral lower extremities, left leg greater than right. No calf pain or tenderness noted. GASTROINTESTINAL: Abdomen soft, nontender, nondistended. Active bowel sounds present 4 quadrants. Tolerating diet. Passing flatus. No guarding or rigidity. GENITOURINARY: Continues to void. INTEGUMENTARY: Skin is warm and dry with no evidence of clubbing or cyanosis. NEUROLOGIC: Cranial nerves II through XII intact. No focal deficits. MUSKULOSKELETAL: Able to move all extremities, strength equal bilaterally. PSYCHIATRIC: Alert and oriented to person place and time, appropriate affect, intact judgment and insight. - Allied health notes Allied health notes reviewed: nursing - Labs CBC & Chem 7: 02/24/23 05:27 02/24/23 05:27 Labs: Abnormal Lab Results - Last 24 Hours (Table) 02/23/23 02/23/23 02/23/23 Range/Units 08:36 08:36 11:35 RBC 3.66 L (4.30-5.90) m/uL Hgb 9.8 L (13.0-17.5) gm/dL Hct 32.2 L (39.0-53.0) % MCHC 30.5 L (31.0-37.0) g/dL RDW 16.6 H (11.5-15.5) % Carbon Dioxide 34 H (22-30) mmol/L BUN 23 H (9-20) mg/dL Creatinine 1.33 H (0.66-1.25) mg/dL Glucose 174 H (74-99) mg/dL POC Glucose (mg/dL) 195 H (70-110) mg/dL Magnesium (1.6-2.3) mg/dL 02/23/23 02/23/23 02/24/23 Range/Units 16:21 20:24 05:27 RBC 3.74 L (4.30-5.90) m/uL Hgb 10.0 L (13.0-17.5) gm/dL Hct 32.9 L (39.0-53.0) % MCHC 30.3 L (31.0-37.0) g/dL RDW 16.9 H (11.5-15.5) % Carbon Dioxide (22-30) mmol/L BUN (9-20) mg/dL Creatinine (0.66-1.25) mg/dL Glucose (74-99) mg/dL POC Glucose (mg/dL) 121 H 178 H (70-110) mg/dL Magnesium (1.6-2.3) mg/dL 02/24/23 02/24/23 Range/Units 05:27 05:43 RBC (4.30-5.90) m/uL Hgb (13.0-17.5) gm/dL Hct (39.0-53.0) % MCHC (31.0-37.0) g/dL RDW (11.5-15.5) % Carbon Dioxide (22-30) mmol/L BUN (9-20) mg/dL Creatinine (0.66-1.25) mg/dL Glucose 112 H (74-99) mg/dL POC Glucose (mg/dL) 122 H (70-110) mg/dL Magnesium 1.4 L (1.6-2.3) mg/dL - Imaging and Cardiology Venous duplex ultrasound results reviewed. Negative for DVT. Assessment and Plan Assessment: Severe aortic valve stenosis Multivessel coronary artery disease with history of previous PCI, on Plavix for anticoagulation Hypertension Hyperlipidemia Diabetes mellitus type 2, with a recent hemoglobin A1c 6.6% Carotid stenosis with a recent carotid duplex study showing a 50-69% stenosis of the left carotid bifurcation by technique systolic velocity and ratio and nonvisualization of flow within the right internal carotid artery with CTA of the neck scheduled on 02/28/2023 Chronic ongoing tobacco dependence Obstructive sleep apnea without home CPAP use Occasional marijuana use, smokes 1-2 joints per week Occasional EtOH use, drinks 7-8 beers per week Acute kidney injury with a creatinine trending down and was 1.38 yesterday 02/22/2023 Chronic anemia Plan: The patient is scheduled for a CTA of his carotids on 02/28/2023 as an outpatient, continue to monitor BUN and creatinine. BUN 20 and creatinine 1.1 for today continue to trend down. Incentive spirometry ordered, encourage use of incentive spirometry 10 times every hour while awake. Once his preoperative testing has been completed further discussion and timing regarding surgical aortic valve replacement and myocardial revascularization surgery will be discussed with the patient. The patient is also taking Plavix which will need to be held 5-7 days prior to surgery. Continue Ferrous sulfate and vitamin C started for his hemoglobin of 10.0 today, continue to follow CBC results. Importance of risk modification including smoking cessation and discussed with the patient. Importance of taking his medications as prescribed also discussed with the patient. Medical management and other comorbidities per primary care and cardiology services. Venous duplex study of his right leg has been ordered stat due to his complaints of pain and tightness to his right lower extremity, rule out DVT. More recommendations to follow based on patient's clinical course. Time with Patient: Greater than 30
[2023-02-24 11:39] LABS: Glucose,Whole Blood 300 mg/dL (70-110)
[2023-02-24 13:32] VITALS: BP 179/87; PULSE 69; RESP 18
[2023-02-24] MEDS ORDERED: MAGNESIUM OXIDE 400 MG TAB PO STA (14:49)
[2023-02-24] MEDS ORDERED: FUROSEMIDE 40 MG TAB PO SCH (16:00)
[2023-02-24 16:22] LABS: Glucose,Whole Blood 115 mg/dL (70-110)
--- NOTE | 2023-02-24 16:34 | P.PN ---
Subjective Progress Note Date: 02/24/23 History of present illness: This is a 67-year-old male patient of Dr. Rachelle Singh with past medical history of congestive heart failure, severe aortic stenosis, known 2 vessel coronary artery disease, chronic occlusion of the right internal carotid artery and moderate stenosis involving the left carotid artery, diabetes, hypertension, hyperlipidemia. Patient recently underwent cardiac catheterization that revealed two-vessel CAD and RAE revealed severe aortic stenosis. Patient was subsequently referred to cardiothoracic surgeon for aortic valve replacement and bypass surgery. Patient and his state that he has been cleared by pulmonary medicine, 3TC been pulled in preparation for surgery and he is waiting for a carotid study. Patient states he developed shortness of breath increased weight and lower extremity edema and abdominal edema that started on Sunday. Patient's states that he was in the bathroom having dry heaves and finally agreed to come in the hospital for evaluation. He states he did not take his medications yesterday and he presented with a blood pressure of 211/107. Patient due to having teeth pulled, has been eating a lot of chicken noodle soup which is high in sodium. Patient was started on IV diuretics and feels some improvement at this time. Patient's also noticed that over the past month he has been very tired and worsening. EKG sinus rhythm Chest x-ray: No acute process CTA of the chest was negative for pulmonary embolism. WBC 5.9, hemoglobin 9.6, platelet count 165. Sodium 142, potassium 4.3, BUN 24 and creatinine 1.62. Patient presented with creatinine of 1.3. Influenza A, influenza B, RSV, Covid 19 not detected. Home cardiac medications: Aspirin 81 mg daily, atorvastatin 40 mg daily, Plavix 75 mg daily, Lasix 20 mg daily, hydralazine 50 mg 3 times daily, Toprol-XL 100 mg daily Echocardiogram 07/2021 revealed normal LV size with EF of 40%. Grade 3 diastolic dysfunction. Mild left ventricular hypertrophy. Mildly dilated left atrium. Trace aortic regurgitation and moderate aortic stenosis. Moderate mitral regurgitation. Myxomatous mitral valve. Mild tricuspid regurgitation. [id number] pulmonic regurgitation. Echocardiogram 02/21/2023 reveals mildly impaired LV function with EF of 40-45%. Moderate aortic stenosis with mean gradient 32 mmHg. Aortic valve is calcified and appears to be in leaflet. RAE 01/04/2023 reveals severe aortic stenosis involving a tricuspid aortic valve with planimetry area of around 0.4-0.6 squared centimeters. Normal LV systolic function. Mild to moderate mitral regurgitation. Cardiac catheterization 01/04/2023 reveals mid RCA 90% stenosis. Circumflex previously stented is 80-90% ostial stenosis involving a large caliber, OM branch and AV groove circumflex also has an 80% stenosis. LAD shows mild to moderate diffuse nonfocal atherosclerotic block. 02/22 Patient is seen today in follow-up. He has been seen by cardiothoracic surgery and scheduled for carotid ultrasound on 02/28. He has been maintained on Lasix 40 mg IV every 12 hours. He states when he got up to the bathroom to take a shower and shave he was having some dizziness and weakness. Echocardiogram reveals EF of 40-45% moderate a with mean gradient 32, aortic valve calcified and appears trileaflet. Output is down 1 L and weight is down 0.8 kg. Patient states that today was a first time he has had dizziness and weakness. 02/23 Patient is seen today in follow-up. He states he has not had any more episodes of lightheadedness or dizziness. He has been walking in his room only to the bathroom and back. His breathing is okay. He is off oxygen and feeling much better in general. Blood pressure remains elevated. Lab work available this morning is hemoglobin of 9.8. Chemistry is pending. 02/24 Patient seen and examined. He is doing well, ambulatory in the room. Venous Doppler ultrasound was negative for right lower extremity DVT. Creatinine improved to 1.14. Denies any lightheadedness or dizziness. Physical examination: Gen: This is a obese 67-year-old male. He is resting in bed and appears to be comfortable at rest. VS: reviewed HEENT: Head is atraumatic, normocephalic. Pupils equal, round. Sclerae is anicteric. NECK: Supple. No JVD. LUNGS: Clear to auscultation. No wheezes or rhonchi. No intercostal retractions. HEART: Regular rate and rhythm. Systolic murmur. ABDOMEN: Soft No tenderness. EXTREMITIES: Minimal r pedal edema. No calf tenderness. NEUROLOGICAL: Patient is awake, alert and oriented x3. Assessment: Acute on chronic systolic heart failure Coronary artery disease Severe aortic stenosis Carotid artery disease Diabetes Hypertension Hyperlipidemia Plan: Continue Lasix 40mg BID. Patient is cleared for discharge from cardiology standpoint, follow-up in the office with Dr. Rachelle Singh and follow-up with cardiothoracic surgery as planned. Nurse practitioner note has been reviewed, I agree with documented findings and plan of care. Patient was seen and examined. Objective - Vital Signs Vital signs: Vital Signs Temp 98 F 02/23/23 20:00 Pulse 69 02/24/23 13:59 Resp 18 02/24/23 13:59 BP 179/87 02/24/23 12:00 Pulse Ox 98 02/24/23 12:00 FiO2 21 02/24/23 08:33 Intake & Output 02/23/23 02/24/23 02/24/23 18:59 06:59 18:59 Intake Total 590 358 Output Total 1325 2275 1375 Balance -195 -8986 -1011 Weight 105.1 kg Intake: Oral 590 358 Output: Urine 1325 2275 1375 Other: Voiding Method Urinal Urinal Urinal # Voids 2 - Labs CBC & Chem 7: 02/24/23 05:27 02/24/23 05:27 Labs: Abnormal Lab Results - Last 24 Hours (Table) 02/23/23 02/24/23 02/24/23 Range/Units 20:24 05:27 05:27 RBC 3.74 L (4.30-5.90) m/uL Hgb 10.0 L (13.0-17.5) gm/dL Hct 32.9 L (39.0-53.0) % MCHC 30.3 L (31.0-37.0) g/dL RDW 16.9 H (11.5-15.5) % Glucose 112 H (74-99) mg/dL POC Glucose (mg/dL) 178 H (70-110) mg/dL Magnesium 1.4 L (1.6-2.3) mg/dL 02/24/23 02/24/23 02/24/23 Range/Units 05:43 11:37 16:19 RBC (4.30-5.90) m/uL Hgb (13.0-17.5) gm/dL Hct (39.0-53.0) % MCHC (31.0-37.0) g/dL RDW (11.5-15.5) % Glucose (74-99) mg/dL POC Glucose (mg/dL) 122 H 300 H 115 H (70-110) mg/dL Magnesium (1.6-2.3) mg/dL
== END 2023-02-24 18:11 | disposition home or self-care (01) | DRG 291 ==
LOC: EC 11:39 → 3SCARD 15:20 → OBSVTOIN 02-24 06:35 → UNDODISOB 02-24 18:11
PROVIDERS: ADMIT Internal Medicine; ATTEND Internal Medicine
DX: I11.0 Hypertensive heart disease with heart failure (principal); I50.23 Acute on chronic systolic (congestive) heart failure; N17.9 Acute kidney failure, unspecified; I25.10 Atherosclerotic heart disease of native coronary artery without angina pectoris; E78.5 Hyperlipidemia, unspecified; E11.9 Type 2 diabetes mellitus without complications; D64.9 Anemia, unspecified; E66.9 Obesity, unspecified; R79.1 Abnormal coagulation profile; Z68.36 Body mass index [BMI] 36.0-36.9, adult; G47.33 Obstructive sleep apnea (adult) (pediatric); N20.0 Calculus of kidney; I08.3 Combined rheumatic disorders of mitral, aortic and tricuspid valves; F17.210 Nicotine dependence, cigarettes, uncomplicated; Z20.822 Contact with and (suspected) exposure to COVID-19; Z95.5 Presence of coronary angioplasty implant and graft; Z79.02 Long term (current) use of antithrombotics/antiplatelets; Z79.84 Long term (current) use of oral hypoglycemic drugs; Z79.899 Other long term (current) drug therapy; Z79.82 Long term (current) use of aspirin; Z71.6 Tobacco abuse counseling
CPT/HCPCS: 36415; 71046; 71275; 74177; 80048; 80053; 81001; 82150; 83605; 83735; 83880; 84484; 85025; 85027; 85379; 85610; 85730; 86140; 87636; 93005; 93306; 94640; 94760; 96361; 96375; 96376; 99285; 99406

== ENCOUNTER → 2023-02-28 | Outpatient (CLI) | payer MEDICARE ==
[2023-02-28 10:51] LABS: African American GFR (CKD) 70 (>60 ml/min/1.73 sqM); Blood Urea Nitrogen 13 mg/dL (9-20); Non-African American GFR(CKD) 61 (>60 ml/min/1.73 sqM)
--- NOTE | 2023-02-28 13:35 | CT ---
EXAMINATION TYPE: CT angio neck DATE OF EXAM: 02/28/2023 COMPARISON: HISTORY: carotid stenosis CT DLP: 372.5 mGycm CONTRAST: CTA cervical carotids is performed and with IV Contrast, patient injected with 100 mL of Isovue 370. Contrast CTA of the cervical carotids was performed 3-D reconstruction imaging obtained at a separate workstation. Right carotid system: Mild plaque is seen of the right common carotid artery. There is occlusion of t he right internal carotid artery from the carotid bulb ECA is patent. Right vertebral artery appears unremarkable. Left carotid system: Mild plaque is seen of the left common carotid artery. There is mild to moderat e soft and calcific plaque also noted at the carotid bulb. Estimated diameter reduction is 60%. EC A is patent. Left vertebral artery appears unremarkable. There is nonspecific mediastinal adenopathy with prevascular space lymph node measuring 1.5 cm in mike rt axis in right paratracheal lymph node measuring 1.4 cm. IMPRESSION: 1. Occlusion right ICA. 2. Estimated diameter reduction Left ICA 60% NASCET criteria was used in interpretation of this exam?
== END | disposition home or self-care (01) ==
LOC: RADCTMAIN 09:55
PROVIDERS: ATTEND Surgery
DX: I65.21 Occlusion and stenosis of right carotid artery (principal)
CPT/HCPCS: 82565; 84520; 70498; 36415; Q9967

== ENCOUNTER → 2023-03-14 | Outpatient (CLI) | payer MEDICARE ==
[2023-03-14 09:30] LABS: INR 1.1 (<1.2); Partial Thromboplastin Time 25.1 sec (22.0-30.0); Prothrombin Time 11.2 sec (9.0-12.0)
--- NOTE | 2023-03-14 09:51 | P.PN ---
Progress Note - Text Progress Note Date: 03/14/23 5 meter walk test completed: #1 3.70 sec #2 3.27 sec #3 3.28 sec STS risk score was calculated and discussed with the patient and his family.
[2023-03-14 16:01] LABS: HCT 39.6 % (39.6-50.0); HGB 11.5 d/dL (12.0-15.0); MCH 26.7 pg (27.0-32.0); MCV 91.9 FL (80.0-97.0); Mean Platelet Volume 10.1 FL (9.5-12.2); NRBC Per 100 WBC 0 X 10*3/uL (0.00-0.01); Platelet Count 201 X 10*3/uL (140-440); RBC 4.31 X 10*6/uL (4.40-5.60); RDW 18.9 % (11.5-14.5); WBC 5.25 X 10*3/uL (4.50-10.00)
[2023-03-14 16:36] LABS: Magnesium 1.6 mg/dL (1.5-2.4)
[2023-03-14 16:37] LABS: ALT 20 U/L (10-49); AST 23 U/L (14-35); Albumin 4.1 d/dL (3.8-4.9); Albumin/Globulin Ratio 1.02 Ratio (1.60-3.17); Alkaline Phosphatase 91 U/L (41-126); BUN/Creat Ratio 12.33 Ratio (12.00-20.00); Blood Urea Nitrogen 14.8 mg/dL (9.0-27.0); Calcium 9.2 mg/dL (8.7-10.3); Carbon Dioxide 24.8 mmol/L (21.6-31.8); Chloride 101 mmol/L (96-109); Glucose 163 mg/dL (70-110); Potassium 4.4 mmol/L (3.5-5.5); Sodium 139 mmol/L (135-145); Total Bilirubin 0.6 mg/dL (0.3-1.2); Total Protein 8.1 d/dL (6.2-8.2)
[2023-03-14 17:52] LABS: Hepatitis A Antibody IgM Nonreactive; Hepatitis B Core IgM Nonreactive; Hepatitis B Surface Antigen Nonreactive; Hepatitis C IgG Antibody Nonreactive
[2023-03-14 21:09] LABS: Appearance,Urine Clear (Clear); Bilirubin,Urine Negative (Negative); Blood,Urine Negative (Negative); Color,Urine Yellow (Yellow); Ketones,Urine Negative (Negative); Nitrite,Urine Negative (Negative); PH, Urine 7.5; Specific Gravity,Urine 1.008 (1.001-1.030); Urobilinogen,Urine 0.2 E.U./DL
== END | disposition home or self-care (01) ==
LOC: LABWHC1 08:59
PROVIDERS: ATTEND Surgery
DX: I35.0 Nonrheumatic aortic (valve) stenosis (principal)
CPT/HCPCS: 36415; 80053; 80074; 81001; 83735; 85027; 85610; 85730; 87070; 87086

== ENCOUNTER 2023-03-22 05:35 | Inpatient (IN) | payer MEDICARE ==
[~2023-03-22 05:35] MED LIST changes: +ALBUMIN HUMAN 25% 50 ML IV ONE; +ALBUMIN HUMAN 5% 500 ML IVPB ONE; -ALPRAZolam 0.25 MG TAB PO PRN; -ALPRAZolam 0.5 MG TAB PO PRN; +ASPIRIN 325 MG TAB PO ONE; -ASPIRIN 325 MG TAB PO STA; +ATORVASTATIN 10 MG TAB PO ONE; -ATORVASTATIN 80 MG TAB PO STA; +CALCIUM CHLORIDE 100 MG/ML 10 ML SYRINGE IV ONE; +CHLORHEXIDINE GLUCONATE 15 ML CUP MUCOUS MEM ONE; +CLEVIDIPINE BUTYRATE 25 MG in EMPTY BAG 1 BAG IV ONE; +DILTIAZEM 125 MG in SODIUM CHLORIDE 0.9% 100 ML IV ONE; +ELECTROLYTE-A SOLUTION 1,000 ML with POTASSIUM CHLORIDE 100 MEQ, MAGNESIUM SULFATE 16 M... IV ONE; +ELECTROLYTE-A SOLUTION 1,000 ML with POTASSIUM CHLORIDE 40 MEQ, MAGNESIUM SULFATE 16 ME... IV ONE; +HEPARIN SODIUM 1,000 UN/ML (10ML VL) IV ONE; +HEPARIN SODIUM,PORCINE 5,000 UNIT in SODIUM CHLORIDE 0.9% 500 ML 500 ML IV ONE; +INSULIN REGULAR 100 UNIT in SODIUM CHLORIDE 0.9% 100 ML IV ONE; +LACTATED RINGERS 1,000 ML IV ONE; +MAGNESIUM SULFATE 16.24 MEQ in EMPTY SYRINGE 1 SYR IV ONE; +MANNITOL 25% 12.5 GM/50 ML VIAL IV ONE; +METOPROLOL TARTRATE 12.5 MG TAB PO ONE; +NITROGLYCERIN SL TABS 0.4 MG TAB SUBLINGUAL ONE; -NITROGLYCERIN SL TABS 0.4 MG TAB SUBLINGUAL PRN; +NITROGLYCERIN-D5W PMX 25 MG/250 ML BTL IV ONE; +NITROGLYCERIN-D5W PMX 50 MG in DEXTROSE/WATER 1 250ML.BAG IV ONE; +NOREPINEPHRINE 4 MG in SODIUM CHLORIDE 0.9% 250 ML IV ONE; +PAPAVERINE 360 MG in SODIUM CHLORIDE 0.9% 90 ML IV ONE; +PHENYLEPHRINE 10 MG/ML VIAL IV ONE; +PHENYLEPHRINE 40 MG in SODIUM CHLORIDE 0.9% 250 ML IV ONE; +PROTAMINE SULFATE 10 MG/ML 25 ML VIAL IV ONE; +PROTAMINE SULFATE 250 MG in EMPTY BAG 1 BAG IV ONE; +SODIUM BICARB 8.4% 50 ML SYR (1 MEQ/ML) IV ONE; +SODIUM CHLORIDE 0.9% 1,000 ML IV ONE; -SODIUM CHLORIDE 0.9% 1,000 ML in EMPTY BAG 1 BAG IV ONE; +TRANEXAMIC ACID 2,000 MG in SODIUM CHLORIDE 0.9% 80 ML IV ONE; +ceFAZolin 1,000 MG in SODIUM CHLORIDE 0.9% IRRIGATIO 1,000 ML IRRIGATION ONE; +propofoL 1,000 MG/100 ML VIAL IV ONE
[2023-03-22 06:24] LABS: Glucose,Whole Blood 123 mg/dL (70-110)
[2023-03-22] MEDS ORDERED: PROPOFOL 10 MG/ML 20 ML VIAL IV ONE (07:36)
[2023-03-22] MEDS ORDERED: fentaNYL (PF) 50 MCG/ML 50 ML VIAL ONE (07:36)
[2023-03-22] MEDS ORDERED: WATER FOR INJECTION, STERILE 10 ML VIAL IV ONE (07:36)
[2023-03-22] MEDS ORDERED: PROTAMINE SULFATE 10 MG/ML 25 ML VIAL IV ONE (07:36)
[2023-03-22] MEDS ORDERED: ELECTROLYTE-R (PH 7.4) 1,000 ML IV.SOLN IV ONE (07:36)
[2023-03-22] MEDS ORDERED: MIDAZOLAM HCL 10 MG/10 ML VIAL ONE (07:36)
[2023-03-22] MEDS ORDERED: MAGNESIUM SULFATE 4 MEQ/ML 10ML VIAL ONE (07:36)
[2023-03-22] MEDS ORDERED: MILRINONE 1 MG/ML 20 ML VIAL IV ONE (07:36)
[2023-03-22] MEDS ORDERED: ePHEDrine 50 MG/ML 1 ML VIAL ONE (07:36)
[2023-03-22] MEDS ORDERED: SODIUM CHLORIDE 0.9% IRRIG 1,000 ML BTL IRRIGATION ONE (07:36)
[2023-03-22] MEDS ORDERED: HEPARIN SODIUM,PORCINE 10,000 UNIT/ML 1 ML VIAL ONE (07:36)
[2023-03-22] MEDS ORDERED: VECURONIUM 10 MG VIAL IV ONE (07:36)
[2023-03-22] MEDS ORDERED: HEPARIN SODIUM,PORCINE 5,000 UNIT/ML 1 ML VIAL ONE (07:36)
[2023-03-22] MEDS ORDERED: LIDOCAINE 2% SYG (PF) 100 MG/5 ML ONE (07:36)
[2023-03-22 08:40] LABS: ABG Base Excess 1.8 mmol/L; ABG Glucose Whole Blood 126 mg/dL (75-99); ABG HCO3 27 mmol/L (21-25); ABG Hematocrit 34 % (34.0-46.0); ABG Ionized Calcium 4.6 mg/dL (4.5-5.3); ABG Lactic Acid Whole Blood 1.4 mmol/L (0.5-1.6); ABG Oxygen Saturation 98.1 % (94-97); ABG PCO2 44 mmHg (35-45); ABG PO2 104 mmHg (83-108); ABG Potassium Whole Blood 3.8 mmol/L (3.4-4.5); ABG Sodium Whole Blood 143 mmol/L (135-146); ABG TCO2 28 mmol/L (19-24)
[2023-03-22 09:40] LABS: ABG Base Excess 0.7 mmol/L; ABG Glucose Whole Blood 144 mg/dL (75-99); ABG HCO3 27 mmol/L (21-25); ABG Hematocrit 33 % (34.0-46.0); ABG Ionized Calcium 4.6 mg/dL (4.5-5.3); ABG Lactic Acid Whole Blood 1.5 mmol/L (0.5-1.6); ABG Oxygen Saturation 99.6 % (94-97); ABG PCO2 47 mmHg (35-45); ABG PH 7.36 (7.35-7.45); ABG PO2 222 mmHg (83-108); ABG Sodium Whole Blood 142 mmol/L (135-146); ABG TCO2 28 mmol/L (19-24)
--- NOTE | 2023-03-22 10:07 | P.ANPRN ---
Procedure Note - Anesthesia - RAE Intraop Pre Bypass RAE Intraop - Anesthesia Indication: aortic stenosis, AVR, CABG Date of Procedure: 03/22/23 Pre-operative Diagnosis: aortic stenosis, CAD Post-operative Diagnosis: same Surgeon: Sung Jensen Left Ventricle: wnl Ejection Fraction: Normal Regional Wall Motion Abnormalities: None Left Ventricle Hypertrophy: No R. Ventricle Function: Normal Aortic Valve: area 0.4-0.6cm2, LVOT 24mm, Annulus 24mm. peak mid fifties and mean low thirties Anatomy: Trileaflet (with) Aortic Stenosis: Severe Aortic Regurgitation: Trace Mitral Stenosis: None Mitral Regurgitation: Trace Tricuspid Stenosis: None Tricuspid Regurgitation: None Pulmonic Stenosis: None Pulmonic Regurgitation: None R. Atrial Dilation: No R. Atrial PFO: No L. Atrial Dilation: No Aortic Dissection: No Aortic Calcification: None Plural Effusion: None
[2023-03-22 10:28] LABS: ABG Base Excess 0.5 mmol/L; ABG Glucose Whole Blood 135 mg/dL (75-99); ABG HCO3 26 mmol/L (21-25); ABG Hematocrit 25 % (34.0-46.0); ABG Lactic Acid Whole Blood 1.6 mmol/L (0.5-1.6); ABG PCO2 43 mmHg (35-45); ABG PH 7.38 (7.35-7.45); ABG PO2 373 mmHg (83-108); ABG Potassium Whole Blood 4.8 mmol/L (3.4-4.5); ABG Sodium Whole Blood 139 mmol/L (135-146); ABG TCO2 27 mmol/L (19-24)
--- NOTE | 2023-03-22 10:57 | P.ANPRN ---
Procedure Note - Anesthesia - Invasive Line Right [place] Rosa Time Out Performed: Yes Date of Procedure: 03/22/23 Time of Procedure: 07:36 Location of Patient: PreOp Preparation: Sterile Prep, Sterile Dressing Central Line Location: Internal Jugular Ultrasound Used: No Purpose - Visualization and Identification of Vasculature: No Image Stored and Saved: No Narrative: Central line placement per sterile protocol utilized.
[2023-03-22 11:00] LABS: ABG Base Excess 0.7 mmol/L; ABG Glucose Whole Blood 145 mg/dL (75-99); ABG HCO3 26 mmol/L (21-25); ABG Hematocrit 26 % (34.0-46.0); ABG Ionized Calcium 4.2 mg/dL (4.5-5.3); ABG Lactic Acid Whole Blood 1.9 mmol/L (0.5-1.6); ABG PCO2 47 mmHg (35-45); ABG PH 7.36 (7.35-7.45); ABG PO2 384 mmHg (83-108); ABG Potassium Whole Blood 4.5 mmol/L (3.4-4.5); ABG Sodium Whole Blood 140 mmol/L (135-146); ABG TCO2 28 mmol/L (19-24)
[2023-03-22 11:27] LABS: ABG Base Excess 0.2 mmol/L; ABG Glucose Whole Blood 150 mg/dL (75-99); ABG HCO3 27 mmol/L (21-25); ABG Hematocrit 26 % (34.0-46.0); ABG Ionized Calcium 4.2 mg/dL (4.5-5.3); ABG PCO2 52 mmHg (35-45); ABG PH 7.32 (7.35-7.45); ABG PO2 315 mmHg (83-108); ABG Potassium Whole Blood 4.6 mmol/L (3.4-4.5); ABG Sodium Whole Blood 141 mmol/L (135-146); ABG TCO2 28 mmol/L (19-24)
[2023-03-22 11:52] LABS: ABG Base Excess 0.4 mmol/L; ABG Glucose Whole Blood 147 mg/dL (75-99); ABG HCO3 26 mmol/L (21-25); ABG Hematocrit 26 % (34.0-46.0); ABG Ionized Calcium 4.2 mg/dL (4.5-5.3); ABG PCO2 44 mmHg (35-45); ABG PH 7.37 (7.35-7.45); ABG PO2 391 mmHg (83-108); ABG Potassium Whole Blood 4.6 mmol/L (3.4-4.5); ABG Sodium Whole Blood 140 mmol/L (135-146); ABG TCO2 27 mmol/L (19-24)
[2023-03-22 12:20] LABS: ABG Base Excess 0.5 mmol/L; ABG Glucose Whole Blood 139 mg/dL (75-99); ABG HCO3 25 mmol/L (21-25); ABG Hematocrit 26 % (34.0-46.0); ABG Ionized Calcium 4.2 mg/dL (4.5-5.3); ABG PCO2 41 mmHg (35-45); ABG PO2 362 mmHg (83-108); ABG Potassium Whole Blood 4.8 mmol/L (3.4-4.5); ABG Sodium Whole Blood 141 mmol/L (135-146); ABG TCO2 27 mmol/L (19-24)
[2023-03-22 13:05] LABS: Allen Test Performed? No
[2023-03-22] MEDS ORDERED: IPRATROPIUM-ALBUTEROL 3 ML NEB INHALATION PRN (13:07)
[2023-03-22] MEDS ORDERED: DEXTROSE 5% IN WATER 100 ML with AMIODARONE 150 MG IV PRN (13:07)
[2023-03-22] MEDS ORDERED: DILTIAZEM 125 MG in SODIUM CHLORIDE 0.9% 100 ML IV SCH (13:07)
[2023-03-22] MEDS ORDERED: hydrALAZINE HCL 20 MG/ML 1 ML VIAL IVP PRN (13:07)
[2023-03-22] MEDS ORDERED: DEXMEDETOMIDINE/0.9% NACL(PMX) 400 MCG in EMPTY BAG 1 BAG IV SCH (13:07)
[2023-03-22] MEDS ORDERED: NITROGLYCERIN-D5W PMX 50 MG in DEXTROSE/WATER 1 250ML.BAG IV SCH (13:07)
[2023-03-22] MEDS ORDERED: diphenhydrAMINE 2% CREAM 28.4 GM TUBE TOPICAL PRN (13:07)
[2023-03-22] MEDS ORDERED: DEXTROSE 50% SYRINGE 50 ML IVP PRN ×3 (13:07→16:17)
[2023-03-22] MEDS ORDERED: Potassium Replacement Protocol 1 EACH MISC MISCELLANE PRN (13:07)
[2023-03-22] MEDS ORDERED: Magnesium Replacement Protocol 1 EACH MISC MISCELLANE PRN (13:07)
[2023-03-22] MEDS ORDERED: ONDANSETRON 4 MG/2 ML VIAL IVP PRN (13:07)
[2023-03-22] MEDS ORDERED: LORazepam 2 MG/ML INJ IV PRN ×3 (13:07)
[2023-03-22] MEDS ORDERED: AMIODARONE 450 MG in DEXTROSE 5% IN WATER 250 ML IV PRN ×2 (13:07)
[2023-03-22] MEDS ORDERED: METOCLOPRAMIDE 5 MG/ML 2 ML VIAL IVP PRN (13:07)
[2023-03-22] MEDS ORDERED: AMIODARONE 360 MG in DEXTROSE 5% IN WATER 200 ML IV PRN ×2 (13:07)
[2023-03-22 13:08] LABS: ABG Lactic Acid Whole Blood 2.2 mmol/L (0.5-1.6)
[2023-03-22 13:09] LABS: ABG Lactic Acid Whole Blood 2.2 mmol/L (0.5-1.6)
[2023-03-22 13:10] LABS: ABG Lactic Acid Whole Blood 2.4 mmol/L (0.5-1.6)
[2023-03-22] MEDS ORDERED: CLEVIDIPINE BUTYRATE 25 MG in EMPTY BAG 1 BAG IV SCH (13:30)
[2023-03-22 14:14] LABS: Glucose,Whole Blood 108 mg/dL (70-110)
[2023-03-22] MEDS: MILRINONE-D5W PMX 20 MG in DEXTROSE/WATER 1 100ML.BAG IV SCH (14:15)
[2023-03-22] MEDS: ALBUMIN HUMAN 5% 250 ML in EMPTY BAG 1 BAG IVPB PRN ×5 (14:15→16:54)
[2023-03-22] MEDS: NOREPINEPHRINE 4 MG in SODIUM CHLORIDE 0.9% 250 ML IV SCH ×2 (14:25→19:45)
[2023-03-22] MEDS: LACTATED RINGERS 1,000 ML IV SCH (14:30)
[2023-03-22 14:36] LABS: Ionized Calcium 4.8 mg/dL (4.5-5.3)
--- NOTE | 2023-03-22 14:40 | XR ---
EXAMINATION TYPE: XR chest 1V portable DATE OF EXAM: 03/22/2023 COMPARISON: 02/20/2023 HISTORY: Postop TECHNIQUE: Single frontal view of the chest is obtained. FINDINGS: ET tube approximately 3.5 cm above the dari. NG tube course in the abdomen. Mediastinal drain and chest tube seen with no sizable pneumothorax. Heart size is normal there is postsurgical changes with aortic valve replacement surgery. Mild inters titial prominence and there is bilateral lower lobe infiltrate and small effusion greater on the left . Chronic deformity of the right clavicle. IMPRESSION: 1. Postoperative changes with no sizable pneumothorax. 2. Correlate for mild venous congestion with bilateral infiltrate and small effusion.
[2023-03-22 14:41] LABS: ABG Base Excess 0.4 mmol/L; ABG HCO3 25 mmol/L (21-25); ABG Oxygen Saturation 92.1 % (94-97); ABG PCO2 41 mmHg (35-45); ABG PO2 64 mmHg (83-108); ABG TCO2 27 mmol/L (19-24); Allen Test Performed? Yes
[2023-03-22 14:41] LABS: ALT 18 U/L (4-49); AST 43 U/L (17-59); African American GFR (CKD) 69 (>60 ml/min/1.73 sqM); Albumin 2.6 g/dL (3.5-5.0); Alkaline Phosphatase 59 U/L (38-126); Anion Gap 6 mmol/L; Blood Urea Nitrogen 21 mg/dL (9-20); Calcium 7.4 mg/dL (8.4-10.2); Carbon Dioxide 24 mmol/L (22-30); Chloride 108 mmol/L (98-107); Glucose 111 mg/dL (74-99); INR 1.2 (<1.2); Magnesium 2.5 mg/dL (1.6-2.3); Non-African American GFR(CKD) 60 (>60 ml/min/1.73 sqM); Partial Thromboplastin Time 27.7 sec (22.0-30.0); Potassium 4.3 mmol/L (3.5-5.1); Prothrombin Time 12.5 sec (9.0-12.0); Sodium 138 mmol/L (137-145); Total Bilirubin 0.7 mg/dL (0.2-1.3); Total Protein 5.3 g/dL (6.3-8.2)
[2023-03-22] MEDS ORDERED: MUPIROCIN 2% OINT 22 GM TUBE NASAL ONE (14:45)
[2023-03-22 14:46] LABS: Anisocytosis Slight; Basophils % (A) 0 %; Eosinophils # (A) 0.1 k/uL (0-0.7); Eosinophils % (A) 1 %; HCT 32.8 % (39.0-53.0); HGB 10.4 gm/dL (13.0-17.5); Hypochromasia Slight; Lymphocytes # (A) 0.6 k/uL (1.0-4.8); Lymphocytes % (A) 8 %; MCH 28.4 pg (25.0-35.0); MCHC 31.9 g/dL (31.0-37.0); MCV 89.2 fL (80.0-100.0); Mean Platelet Volume 9.4; Monocytes # (A) 0.5 k/uL (0-1.0); Monocytes % (A) 6 %; Neutrophils # (A) 7.2 k/uL (1.3-7.7); Neutrophils % (A) 85 %; Platelet Count 105 k/uL (150-450); RBC 3.67 m/uL (4.30-5.90); RDW 18.4 % (11.5-15.5); WBC 8.5 k/uL (3.8-10.6)
[2023-03-22] MEDS: IPRATROPIUM-ALBUTEROL 3 ML NEB INHALATION SCH ×2 (14:55→20:20)
[2023-03-22 15:25] LABS: Glucose,Whole Blood 111 mg/dL (70-110)
[2023-03-22 16:08] LABS: Glucose,Whole Blood 138 mg/dL (70-110)
[2023-03-22 16:48] LABS: ABG Base Excess -2.2 mmol/L; ABG HCO3 23 mmol/L (21-25); ABG Oxygen Saturation 90.5 % (94-97); ABG PCO2 43 mmHg (35-45); ABG PH 7.35 (7.35-7.45); ABG PO2 65 mmHg (83-108); ABG TCO2 25 mmol/L (19-24); Allen Test Performed? Yes
[2023-03-22] MEDS: VASOPRESSIN 60 UNIT in SODIUM CHLORIDE 0.9% 150 ML IV SCH (16:52)
[2023-03-22] MEDS ORDERED: SODIUM BICARB 8.4% 50 ML SYR (1 MEQ/ML) IV STA (16:56)
[2023-03-22] MEDS: INSULIN REGULAR 100 UNIT in SODIUM CHLORIDE 0.9% 100 ML IV SCH (17:00)
[2023-03-22 17:23] LABS: Glucose,Whole Blood 181 mg/dL (70-110)
[2023-03-22 17:23] LABS: Anisocytosis Slight; Basophils % (A) 0 %; Eosinophils % (A) 0 %; HCT 26.6 % (39.0-53.0); Hypochromasia Moderate; Lymphocytes # (A) 0.8 k/uL (1.0-4.8); Lymphocytes % (A) 6 %; MCH 30.8 pg (25.0-35.0); MCHC 33.9 g/dL (31.0-37.0); MCV 90.9 fL (80.0-100.0); Mean Platelet Volume 9.8; Monocytes # (A) 0.8 k/uL (0-1.0); Monocytes % (A) 6 %; Neutrophils # (A) 11.4 k/uL (1.3-7.7); Neutrophils % (A) 87 %; RBC 2.93 m/uL (4.30-5.90); RDW 18.4 % (11.5-15.5); WBC 13.1 k/uL (3.8-10.6)
[2023-03-22 17:34] LABS: African American GFR (CKD) 61 (>60 ml/min/1.73 sqM); Anion Gap 8 mmol/L; Blood Urea Nitrogen 21 mg/dL (9-20); Calcium 7.3 mg/dL (8.4-10.2); Carbon Dioxide 23 mmol/L (22-30); Chloride 107 mmol/L (98-107); Glucose 175 mg/dL (74-99); Magnesium 2.1 mg/dL (1.6-2.3); Non-African American GFR(CKD) 53 (>60 ml/min/1.73 sqM); Potassium 4.4 mmol/L (3.5-5.1); Sodium 138 mmol/L (137-145)
[2023-03-22 17:45] LABS: Platelet Count 98 k/uL (150-450)
[2023-03-22 18:03] LABS: Glucose,Whole Blood 164 mg/dL (70-110)
[2023-03-22] MEDS: ACETAMINOPHEN IV (For NPO) 1,000 MG in EMPTY BAG 1 BAG IVPB SCH (18:13)
[2023-03-22 19:04] LABS: Glucose,Whole Blood 180 mg/dL (70-110)
[2023-03-22] MEDS ORDERED: [UNRECOGNIZED DRUG - OTHER] IV SCH ×2 (20:00)
[2023-03-22] MEDS ORDERED: HUMAN IV SCH ×2 (20:00)
[2023-03-22] MEDS ORDERED: SODIUM CHLORIDE 0.9% IV SCH ×2 (20:00)
[2023-03-22 20:08] LABS: ABG Base Excess -2.1 mmol/L; ABG HCO3 23 mmol/L (21-25); ABG PCO2 40 mmHg (35-45); ABG PH 7.37 (7.35-7.45); ABG PO2 90 mmHg (83-108); ABG TCO2 25 mmol/L (19-24); Allen Test Performed? Yes
[2023-03-22 20:14] LABS: Glucose,Whole Blood 203 mg/dL (70-110)
[2023-03-22 20:29] LABS: Anisocytosis Slight; Basophils % (A) 0 %; Eosinophils % (A) 0 %; HCT 26.7 % (39.0-53.0); HGB 8.7 gm/dL (13.0-17.5); Hypochromasia Moderate; Lymphocytes # (A) 0.4 k/uL (1.0-4.8); Lymphocytes % (A) 3 %; MCH 29.7 pg (25.0-35.0); MCHC 32.5 g/dL (31.0-37.0); MCV 91.6 fL (80.0-100.0); Monocytes # (A) 0.6 k/uL (0-1.0); Monocytes % (A) 5 %; Neutrophils # (A) 10.4 k/uL (1.3-7.7); Neutrophils % (A) 91 %; Platelet Count 93 k/uL (150-450); RBC 2.91 m/uL (4.30-5.90); RDW 18.5 % (11.5-15.5); WBC 11.5 k/uL (3.8-10.6)
[2023-03-22] MEDS ORDERED: DESMOPRESSIN ACETATE 32 MCG in SODIUM CHLORIDE 0.9% 50 ML IVPB ONE (20:30)
[2023-03-22] MEDS: HEPARIN SODIUM,PORCINE/PF 5,000 UNIT/0.5 ML SYRINGE SQ SCH (20:41)
[2023-03-22] MEDS ORDERED: Kcentra PER PHARMACY 1 EACH MISC MISCELLANE PRN ×2 (21:02→22:33)
[2023-03-22 21:10] LABS: Glucose,Whole Blood 196 mg/dL (70-110)
[2023-03-22] MEDS ORDERED: HUMAN PROTHROMBIN COMPLX 500 UNIT/16 ML VIAL IV ONE ×2 (21:16→23:21)
--- NOTE | 2023-03-22 21:21 | OP ---
OPERATIVE REPORT DATE OF SERVICE : 03/22/2023 PREOPERATIVE DIAGNOSES: 1. Coronary artery disease. 2. Severe aortic valve stenosis. POSTOPERATIVE DIAGNOSES: 1. Coronary artery disease. 2. Severe aortic valve stenosis. PROCEDURES PERFORMED: 1. Coronary artery bypass grafting x2 vessels (radial artery to obtuse marginal artery, saphenous vein graft to posterior descending artery). 2. Endoscopic harvest of left greater saphenous vein. 3. Endoscopic harvest of left radial artery. 4. Ligation of left atrial appendage using 35 mm AtriClip. 5. Aortic valve replacement using 25 mm Rosario Inspiris bioprosthetic valve. 6. Epiaortic ultrasound. 7. Transesophageal echocardiogram. ASSISTANTS: 1. Nishant Yang PA-C. 2. Delmer Butler NP. ANESTHESIOLOGIST: Dr. Paul. SPECIMEN: Aortic valve leaflets. COMPLICATIONS: None. INDICATIONS FOR PROCEDURE: The patient is a 67-year-old male with a past medical history significant for lower extremity edema, coronary artery disease status post previous PCI on Plavix, hypertension, hyperlipidemia, diabetes mellitus, obesity, alcohol use, obstructive sleep apnea, and ongoing tobacco dependence, who presented to the emergency department originally with shortness of breath and bloating. Echocardiogram was performed and revealed severe aortic valve stenosis. Cardiac catheterization revealed multivessel coronary artery disease including a mid RCA lesion and ostial OM lesion. Coronary artery bypass along with aortic valve replacement were recommended. The risks, benefits, alternatives to these procedures were discussed with the patient. All of his questions were answered. Consent was obtained. Of note, as part of his preoperative workup, he was found to have nonvisualization of flow in the right internal carotid artery. Followup CTA did reveal complete occlusion of this vessel with the contralateral side having 50% to 69% stenosis. FINDINGS: The radial artery was a good conduit. The saphenous vein was a good conduit. The obtuse marginal artery measured 1.5 mm. The PDA measured 1.5 mm. The aortic valve was trileaflet in nature and heavily calcified. DESCRIPTION OF PROCEDURE: The patient was taken to the operating room and placed supine on the operating table. After the induction of the general anesthesia, he was prepped and draped in the usual sterile fashion. His pulmonary artery pressures were significantly elevated upon induction. Preoperative transesophageal cardiogram confirmed severe aortic valve stenosis with an ejection fraction of about 40%. There was [id number] central mitral regurgitation as well as [id number] tricuspid valve regurgitation. A median sternotomy was performed. A pericardial cradle was created. Intravenous heparin was administered. The ascending aorta was palpated. There was no significant calcific plaque noted. Epiaortic ultrasound was also performed on the ascending aorta. Again, no significant calcific plaque or atheromatous disease was identified. An arterial cannula was placed in the distal ascending aorta. A venous cannula was placed through the right atrial appendage and directed into the IVC. Both antegrade and retrograde catheters were placed as well. Simultaneously, radial artery was harvested from the left upper extremity using endoscopic technique. All branches were tied. In addition, saphenous vein was harvested from the left lower extremity using endoscopic technique. All branches were tied. The patient was then placed on cardiopulmonary bypass with good decompression of the heart. The aortic cross-clamp was applied. Cold blood potassium cardioplegia was delivered in both antegrade and retrograde fashion to achieve arrest of the heart. Of note, cardioplegia was delivered every 15 to 20 minutes while the patient remained under crossclamp. An LV sump was placed into the left ventricle via the right superior pulmonary vein. I began by identifying the left atrial appendage. A 35 mm AtriClip was placed across its base to ensure ligation. Next, attention was turned to the inferior wall. The posterior descending artery was identified and dissected free. A small arteriotomy was created. This vessel accepted a 1.5 mm probe. Using saphenous vein in a reverse fashion, an end-to-side anastomosis was created. This was performed using a running 7-0 Prolene suture. The graft was hemostatic and had great flow. Next, attention was turned to the lateral wall. The obtuse marginal artery was identified. A small arteriotomy was created. This vessel accepted a 1.5 mm probe. Using the radial artery, an end-to-side anastomosis was created. This was performed using a running 7-0 Prolene suture. The graft was hemostatic and had great flow. Attention was then turned to the aortic valve. A standard hockey-stick incision was created in the proximal ascending aorta. CO2 was delivered across the operative field. The aortic valve was identified. It appeared to be trileaflet in nature and heavily calcified. Both the left and right coronary ostia were identified and appeared to be remote from the annulus. The aortic valve leaflets were then sharply excised using scissors. Residual calcium was removed using a rongeur. The aortic root was copiously irrigated with cold saline solution. Using a sizing device, a 25 mm Rosario Inspiris bioprosthetic valve was chosen. Interrupted pledgeted sutures were placed circumferentially around the annulus. The sutures were then passed through the sewing ring of the bioprosthetic valve. The valve was then lowered into position and appeared to seat nicely. The sutures were tied using Cor-Knots. Again, both coronary ostia appeared to be free of obstruction. All 3 leaflets opened and closed without obstruction. The aortotomy was then closed in 2 layers using a running 4-0 Prolene suture. Attention was then turned to the proximal anastomoses. These were both performed in end-to-side fashion using running 6-0 Prolene suture. 1 L of warm blood was delivered in retrograde fashion. Both lidocaine and magnesium were administered as well. Standard de-airing maneuvers were performed. The aortic cross-clamp was removed. Distal anastomoses were inspected and appeared to be hemostatic. Temporary atrial and ventricular pacing wires were placed and brought through the skin. Transesophageal echocardiogram confirmed no evidence of intracardiac air. The patient was then weaned off cardioplegia bypass. He without difficulty. Followup RAE confirmed that the bioprosthetic valve was seated well. There was no evidence of perivalvular leak. All 3 leaflets opened and closed without obstruction. Protamine was administered. There were no adverse reactions. The remaining cannulas were removed. The mediastinum was then copiously irrigated with warm saline solution. All surgical sites were inspected and appeared to be hemostatic. Soft tissue was reapproximated over the ascending aorta as well as over the apex of the heart. A chest tube was placed in the left pleural space. A chest tube and a Griffin drain were placed in the mediastinum. The Griffin drain was directed behind the heart. A Griffin drain was placed in the right pleural space. All drains were secured to the skin using sutures. The sternum was then reapproximated using the Flushing cable system. The cables were placed in a [id number] fashion. At the completion of closure, the sternum was well aligned. The remainder of the wound was closed in multiple layers. A sterile dressing was applied. The patient appeared to tolerate the procedure well. There were no immediate complications. He returned to the ICU in critical but stable condition. He did not receive any intraoperative blood products. MMODL / IJN: [id number] / MTDD
[2023-03-22] MEDS ORDERED: HUMAN PROTHROMBIN COMPLX IV ONE ×2 (21:30→23:15)
[2023-03-22 22:15] LABS: ABG Base Excess -2.2 mmol/L; ABG HCO3 23 mmol/L (21-25); ABG Oxygen Saturation 99.7 % (94-97); ABG PCO2 40 mmHg (35-45); ABG PH 7.37 (7.35-7.45); ABG PO2 150 mmHg (83-108); ABG TCO2 24 mmol/L (19-24); Allen Test Performed? Yes
[2023-03-22 22:24] LABS: Glucose,Whole Blood 182 mg/dL (70-110)
--- NOTE | 2023-03-22 22:31 | XR ---
EXAM: XR Chest, 1 View CLINICAL HISTORY: ITS.REASON XR Reason: new chest tube air leak TECHNIQUE: Frontal view of the chest. COMPARISON: CXR, March 22, 2023. FINDINGS: Lungs: Unremarkable. No consolidation. Pleural space: Unremarkable. No pneumothorax. Heart: Atrial appendage clip. Prosthetic aortic valve. Mediastinum: Unremarkable. Bones/joints: Unremarkable. Tubes, lines and devices: Endotracheal tube terminates 4 cm above the dari. Feeding tube terminates in the stomach. [place]Rosa catheter terminates in the main home in the artery. Bilateral chest tubes. IMPRESSION: Pneumothorax.
[2023-03-22 22:40] LABS: Anisocytosis Slight; Basophils % (A) 0 %; Eosinophils % (A) 0 %; HCT 23.7 % (39.0-53.0); HGB 7.6 gm/dL (13.0-17.5); Hypochromasia Moderate; Lymphocytes # (A) 0.5 k/uL (1.0-4.8); Lymphocytes % (A) 5 %; MCH 29.1 pg (25.0-35.0); MCHC 31.9 g/dL (31.0-37.0); MCV 91.3 fL (80.0-100.0); Mean Platelet Volume 9.9; Monocytes # (A) 0.6 k/uL (0-1.0); Monocytes % (A) 6 %; Neutrophils # (A) 8.9 k/uL (1.3-7.7); Neutrophils % (A) 89 %; Platelet Count 120 k/uL (150-450); RDW 18.5 % (11.5-15.5)
[2023-03-22 22:56] LABS: Partial Thromboplastin Time 24.4 sec (22.0-30.0); Prothrombin Time 10.7 sec (9.0-12.0)
--- NOTE | 2023-03-22 23:00 | P.CONS ---
History of Present Illness - Reason for Consult Consult date: 03/22/23 Medical management - Chief Complaint Status post aortic valve replacement and two-vessel coronary artery bypass - History of Present Illness Patient is a 65-year-old male with a known history of hypertension, hyperlipidemia, diabetes type 2 [id number], obstructive sleep apnea not on CPAP, coronary artery disease, severe aortic stenosis, chronic occlusion of the right ICA and moderate stenosis involving the left ICA was to the hospital for elective aortic valve replacement and myocardial revascularization. Patient underwent IL-12 replacement and two-vessel bypass LRA to OM and SVG to PDA. Patient had RAE on 01/05/2023 showed severe aortic stenosis involving tricuspid aortic valve with planimetry area of around 0.4 2.6 cm. Normal LV systolic function. Mild to moderate MR. Patient had cardiac catheterization on 01/04/2023 showed right coronary artery is a codominant vessel that was previously stented extensively. Mid RCA showed focal 90% stenosis. Left main coronary artery appears to be calcified but is free of significant stenosis. Circumflex artery showed 80 to 90% ostial stenosis, LAD showed mild to moderate diffuse mild nonfocal atherosclerotic block. Severe two-vessel coronary disease. Patient was referred to Dr. Jensen for evaluation of aortic valve replacement with two-vessel bypass surgery. Patient was intubated perioperatively and was transferred to MICU postprocedure. Laboratory data showed WBC 8.5 hemoglobin 10.4 and platelets 105. ABG showed pH 7.4 PCO2 41 PO2 64. Sodium 138 potassium 4.3 chloride 108 bicarb is 24 BUN 21 creatinine 1.23 and blood sugar is 111. Patient is currently on milrinone drip, Cardizem and norepinephrine. Patient is also on insulin drip. Review of Systems ROS unobtainable: due to endotracheal tube Past Medical History Past Medical History: Coronary Artery Disease (CAD), Heart Failure, Diabetes Mellitus, Hyperlipidemia, Hypertension, Sleep Apnea/CPAP/BIPAP Additional Past Medical History / Comment(s): aortic stenosis,carotid stenosis,no cpap History of Any Multi-Drug Resistant Organisms: None Reported Past Surgical History: Appendectomy, Heart Catheterization, Heart Catheterization With Stent, Orthopedic Surgery Additional Past Surgical History / Comment(s): ORIF RT TIB/FIB,COLONOSCOPY,heartcath 2-has ? 4 stents Past Anesthesia/Blood Transfusion Reactions: No Reported Reaction Additional Past Anesthesia/Blood Transfusion Reaction / Comm: no hx blood transfusion Date of Last Stent Placement:: 02/13/20 Smoking Status: Current every day smoker - Past Family History Father Family Medical History: Cancer Medications and Allergies Home Medications Medication Instructions Recorded Confirmed Type Atorvastatin [Lipitor] 40 mg PO DAILY #30 tab 02/14/20 03/22/23 Rx Clopidogrel [Plavix] 75 mg PO DAILY #30 tab 02/14/20 03/22/23 Rx metFORMIN HCL [Glucophage] 500 mg PO BID #0 02/14/20 03/22/23 Rx Levocetirizine Dihydrochloride 5 mg PO DAILY 01/04/23 03/22/23 History Metoprolol Succinate (ER) [Toprol 100 mg PO DAILY 02/20/23 03/22/23 History XL] glipiZIDE XL [Glucotrol XL] 10 mg PO BID 02/20/23 03/22/23 History Ferrous Sulfate [Iron (65 MG 325 mg PO BID-W/MEALS 30 Days #60 02/24/23 03/22/23 Rx Elemental)] tab amLODIPine [Norvasc] 5 mg PO DAILY 30 Days #30 tab 02/24/23 03/22/23 Rx hydrALAZINE HCL [Apresoline] 75 mg PO TID 30 Days #90 tab 02/24/23 03/22/23 Rx Furosemide [Lasix] 40 mg PO DAILY 03/14/23 03/22/23 History diphenhydrAMINE & Zinc Cream 1 applic TOPICAL TID PRN 03/21/23 03/22/23 History [Benadryl Cream] diphenhydrAMINE [Benadryl] 25 - 50 mg PO QID PRN 03/21/23 03/22/23 History Aspirin 324 mg PO DAILY 03/22/23 03/22/23 History Allergies Allergy/AdvReac Type Severity Reaction Status Date / Time No Known Allergies Allergy Verified 03/22/23 06:14 Physical Exam Vitals: Vital Signs Temp Pulse Pulse Resp BP BP BP 03/22/23 22:17 03/22/23 21:38 99.5 F 87 16 115/53 03/22/23 21:31 99.5 F 86 16 113/54 03/22/23 20:47 99.7 F H 85 16 108/51 03/22/23 20:39 99.7 F H 84 16 105/51 03/22/23 20:31 82 03/22/23 20:22 82 03/22/23 20:12 03/22/23 20:00 03/22/23 19:00 81 18 03/22/23 18:30 83 17 03/22/23 18:15 82 16 03/22/23 18:00 80 18 03/22/23 17:47 03/22/23 17:45 81 16 03/22/23 17:30 83 22 03/22/23 17:20 03/22/23 17:15 81 16 03/22/23 17:00 79 16 88/50 03/22/23 16:45 79 16 87/51 03/22/23 16:30 79 17 03/22/23 16:25 03/22/23 16:15 74 16 03/22/23 16:00 98.1 F 73 75 22 03/22/23 15:49 03/22/23 15:45 72 16 03/22/23 15:30 71 16 03/22/23 15:16 03/22/23 15:15 97.7 F 71 16 03/22/23 15:06 68 03/22/23 15:00 69 16 03/22/23 14:58 67 03/22/23 14:45 67 16 03/22/23 14:30 69 16 03/22/23 14:20 68 17 03/22/23 14:17 03/22/23 06:13 97.6 F 75 16 170/77 164/65 Pulse Ox FiO2 03/22/23 22:17 60 03/22/23 21:38 100 03/22/23 21:31 100 03/22/23 20:47 99 03/22/23 20:39 03/22/23 20:31 03/22/23 20:22 03/22/23 20:12 80 03/22/23 20:00 80 03/22/23 19:00 96 80 03/22/23 18:30 94 L 80 03/22/23 18:15 03/22/23 18:00 03/22/23 17:47 80 03/22/23 17:45 03/22/23 17:30 91 L 70 03/22/23 17:20 70 03/22/23 17:15 70 03/22/23 17:00 90 L 60 03/22/23 16:45 03/22/23 16:30 94 L 60 03/22/23 16:25 60 03/22/23 16:15 03/22/23 16:00 97 80 03/22/23 15:49 80 03/22/23 15:45 96 80 03/22/23 15:30 99 100 03/22/23 15:16 100 03/22/23 15:15 03/22/23 15:06 03/22/23 15:00 97 100 03/22/23 14:58 03/22/23 14:45 97 100 03/22/23 14:30 03/22/23 14:20 100 03/22/23 14:17 100 03/22/23 06:13 96 Intake and Output 03/22/23 03/22/23 03/22/23 06:59 14:59 22:59 Intake Total 086 028 0601.854 Output Total 2009 1250 Balance 100 -1378 430.854 Intake: IV 100 132 519.0 .9NS Pressure Bag 9 36 Angiotensin II Acetate, 50 Human 0.5 mg In Sodium Chloride 0.9% 50 ml @ 10 NG/KG/MIN 6.024 mls/hr IV .Q8H18M [facility] Rx#: [id number] Cardiac Output .9NS 20 80 Desmopressin Acetate 32 50 mcg In Sodium Chloride 0. 9% 50 ml @ 200 mls/hr IVPB ONCE ONE Rx#: [id number] Lactated Ringers 1,000 ml 50 300 @ 50 mls/hr IV .Q20H [facility] Rx#:[id number] Nitroglycerin-D5w Pmx 50 3.0 mg In Dextrose/Water 1 250ml.bag @ Per Protocol IV ONCE ONE Rx#:[id number] Intake, IV Titration 500 510.854 Amount ACETAMINOPHEN IV (For NPO 100 ) 1,000 mg In Empty Bag 1 bag @ 400 mls/hr IVPB Q6HR [facility] Rx#:[id number] Albumin Human 5% 250 ml 500 In Empty Bag 1 bag @ 250 mls/hr IVPB Q1HR PRN Rx#: [id number] Insulin Regular 100 unit 17.961 In Sodium Chloride 0.9% 100 ml @ Per Protocol IV .Q0M [facility] Rx#:[id number] Norepinephrine 4 mg In 237.484 Sodium Chloride 0.9% 250 ml @ 0.03 MCG/KG/MIN 11. 476 mls/hr IV .Q22H8M [facility] Rx#:[id number] Vasopressin 60 unit In 2.499 Sodium Chloride 0.9% 150 ml @ 0.02 UNITS/MIN 3.06 mls/hr IV .Q24H [facility] Rx#: [id number] ceFAZolin 2 gm In Sodium 50 Chloride 0.9% 50 ml @ 100 mls/hr IVPB Q8HR [facility] Rx# :[id number] propofoL 1,000 mg In 90.862 Empty Bag 1 bag @ 50 MCG/ KG/MIN 30.12 mls/hr IV . Q3H20M [facility] Rx#:[id number] propofoL 1,000 mg In 12.048 Empty Bag 1 bag @ Titrate IV .Q0M [facility] Rx#: [id number] Blood Product 651 Platelet Pheresis Pas 286 Psoralen Unit [id number] Pooled Cryoprecipitate 0 Unit [id number] Output: Chest Tube Drainage 400 1010 Mediastinal X 2 180 420 Right and Left Pleural 220 590 Urine 410 240 Estimated Blood Loss 1200 Other: Voiding Method Indwelling Catheter Weight 100.4 kg ABP, PAP, CO, CI - Last 8 Hours Arterial Blood Pressure 102/47 Arterial Blood Pressure 90/46 Arterial Blood Pressure 88/44 Arterial Blood Pressure 92/43 Arterial Blood Pressure 86/45 Arterial Blood Pressure 91/46 Arterial Blood Pressure 96/45 Arterial Blood Pressure 82/43 Arterial Blood Pressure 91/47 Arterial Blood Pressure 89/44 Arterial Blood Pressure 104/50 Arterial Blood Pressure 99/49 Arterial Blood Pressure 98/49 Arterial Blood Pressure 101/49 Arterial Blood Pressure 92/47 Arterial Blood Pressure 101/49 Pulmonary Artery Pressure 48/29 Pulmonary Artery Pressure 59/27 Pulmonary Artery Pressure 50/28 Pulmonary Artery Pressure 56/25 Pulmonary Artery Pressure 57/31 Pulmonary Artery Pressure 54/30 Pulmonary Artery Pressure 63/30 Pulmonary Artery Pressure 59/31 Pulmonary Artery Pressure 61/33 Pulmonary Artery Pressure 60/32 Pulmonary Artery Pressure 58/30 Pulmonary Artery Pressure 55/28 Pulmonary Artery Pressure 57/30 Pulmonary Artery Pressure 48/27 Pulmonary Artery Pressure 53/27 Pulmonary Artery Pressure 50/28 Pulmonary Artery Pressure 52/28 Cardiac Output 8.2 Cardiac Output 8.3 Cardiac Output 8.4 Cardiac Output 6.4 Cardiac Output 6.4 Cardiac Output 6.4 Cardiac Output 5.6 Cardiac Output 5.4 Cardiac Output 5.4 Cardiac Output 5.4 Cardiac Output 4.5 Cardiac Index 3.9 Cardiac Index 3.9 Cardiac Index 4 Cardiac Index 3 Cardiac Index 3 Cardiac Index 3.0 Cardiac Index 2.7 Cardiac Index 2.6 Cardiac Index 2.6 Cardiac Index 2.6 Cardiac Index 2.1 PHYSICAL EXAMINATION: Patient is on mechanical ventilator. Sedated. HEENT: Normocephalic. Neck is supple. Pupils reactive. Nostrils clear. Oral cavity is moist. Neck reveals no JVD, carotid bruits, or thyromegaly. CHEST EXAMINATION: Trachea is central. Symmetrical expansion. ET tube in place. No wheezing or rhonchi. Mediastinal and pleural chest tubes in place. CARDIAC: Normal S1, S2 with no gallops. No murmurs ABDOMEN: Soft. Bowel sounds present. No organomegaly. No abdominal bruits. Extremities: reveal no edema. No clubbing or cyanosis Neurologically patient is on mechanical ventilator. Sedated.. No gross focal deficits noted Skin: No rash or skin lesions. Psychiatric: Could not be assessed at this time., Musculoskeletal: No joint swelling or deformity Results CBC & Chem 7: 03/22/23 22:20 03/22/23 17:10 Labs: Abnormal Lab Results - Last 24 Hours (Table) 03/14/23 03/22/23 03/22/23 Range/Units 09:00 06:20 08:43 WBC (3.8-10.6) k/uL RBC (4.30-5.90) m/uL Hgb (13.0-17.5) gm/dL Hct (39.0-53.0) % RDW (11.5-15.5) % Plt Count (150-450) k/uL Neutrophils # (1.3-7.7) k/uL Lymphocytes # (1.0-4.8) k/uL PT (9.0-12.0) sec INR (<1.2) ABG pH (7.35-7.45) ABG pCO2 (35-45) mmHg ABG pO2 (83-108) mmHg ABG HCO3 27 H (21-25) mmol/L ABG Total CO2 28 H (19-24) mmol/L ABG O2 Saturation 98.1 H (94-97) % ABG Hematocrit (34.0-46.0) % ABG Potassium (3.4-4.5) mmol/L ABG Ionized Calcium (4.5-5.3) mg/dL ABG Glucose 126 H (75-99) mg/dL ABG Lactic Acid (0.5-1.6) mmol/L Hemoglobin 11.2 L (13.0-17.5) gm/dL Chloride (98-107) mmol/L BUN (9-20) mg/dL Creatinine (0.66-1.25) mg/dL Glucose (74-99) mg/dL POC Glucose (mg/dL) 123 H (70-110) mg/dL Calcium (8.4-10.2) mg/dL Magnesium (1.6-2.3) mg/dL Total Protein (6.3-8.2) g/dL Albumin (3.5-5.0) g/dL Arterial Blood Potassium (3.4-4.5) mmol/L Arterial Blood Glucose 126 H (75-99) mg/dL Crossmatch See Detail 03/22/23 03/22/23 03/22/23 Range/Units 08:43 09:43 10:31 WBC (3.8-10.6) k/uL RBC (4.30-5.90) m/uL Hgb (13.0-17.5) gm/dL Hct (39.0-53.0) % RDW (11.5-15.5) % Plt Count (150-450) k/uL Neutrophils # (1.3-7.7) k/uL Lymphocytes # (1.0-4.8) k/uL PT (9.0-12.0) sec INR (<1.2) ABG pH (7.35-7.45) ABG pCO2 47 H 47 H (35-45) mmHg ABG pO2 222 H 373 H 384 H (83-108) mmHg ABG HCO3 27 H 26 H 26 H (21-25) mmol/L ABG Total CO2 28 H 27 H 28 H (19-24) mmol/L ABG O2 Saturation 99.6 H 100.0 H 100.0 H (94-97) % ABG Hematocrit 33 L 25 L 26 L (34.0-46.0) % ABG Potassium 4.8 H (3.4-4.5) mmol/L ABG Ionized Calcium 4.0 L 4.2 L (4.5-5.3) mg/dL ABG Glucose 144 H 135 H 145 H (75-99) mg/dL ABG Lactic Acid 1.9 H (0.5-1.6) mmol/L Hemoglobin 10.8 L 8.1 L 8.5 L (13.0-17.5) gm/dL Chloride (98-107) mmol/L BUN (9-20) mg/dL Creatinine (0.66-1.25) mg/dL Glucose (74-99) mg/dL POC Glucose (mg/dL) (70-110) mg/dL Calcium (8.4-10.2) mg/dL Magnesium (1.6-2.3) mg/dL Total Protein (6.3-8.2) g/dL Albumin (3.5-5.0) g/dL Arterial Blood Potassium 4.8 H (3.4-4.5) mmol/L Arterial Blood Glucose 144 H 135 H 145 H (75-99) mg/dL Crossmatch 03/22/23 03/22/23 03/22/23 Range/Units 11:03 11:31 11:55 WBC (3.8-10.6) k/uL RBC (4.30-5.90) m/uL Hgb (13.0-17.5) gm/dL Hct (39.0-53.0) % RDW (11.5-15.5) % Plt Count (150-450) k/uL Neutrophils # (1.3-7.7) k/uL Lymphocytes # (1.0-4.8) k/uL PT (9.0-12.0) sec INR (<1.2) ABG pH 7.32 L (7.35-7.45) ABG pCO2 52 H (35-45) mmHg ABG pO2 315 H 391 H 362 H (83-108) mmHg ABG HCO3 27 H 26 H (21-25) mmol/L ABG Total CO2 28 H 27 H 27 H (19-24) mmol/L ABG O2 Saturation 100.0 H 100.0 H 100.0 H (94-97) % ABG Hematocrit 26 L 26 L 26 L (34.0-46.0) % ABG Potassium 4.6 H 4.6 H 4.8 H (3.4-4.5) mmol/L ABG Ionized Calcium 4.2 L 4.2 L 4.2 L (4.5-5.3) mg/dL ABG Glucose 150 H 147 H 139 H (75-99) mg/dL ABG Lactic Acid 2.2 H* 2.2 H* 2.4 H* (0.5-1.6) mmol/L Hemoglobin 8.4 L 8.3 L 8.3 L (13.0-17.5) gm/dL Chloride (98-107) mmol/L BUN (9-20) mg/dL Creatinine (0.66-1.25) mg/dL Glucose (74-99) mg/dL POC Glucose (mg/dL) (70-110) mg/dL Calcium (8.4-10.2) mg/dL Magnesium (1.6-2.3) mg/dL Total Protein (6.3-8.2) g/dL Albumin (3.5-5.0) g/dL Arterial Blood Potassium 4.6 H 4.6 H 4.8 H (3.4-4.5) mmol/L Arterial Blood Glucose 150 H 147 H 139 H (75-99) mg/dL Crossmatch 03/22/23 03/22/23 03/22/23 Range/Units 14:15 14:15 14:15 WBC (3.8-10.6) k/uL RBC 3.67 L (4.30-5.90) m/uL Hgb 10.4 L (13.0-17.5) gm/dL Hct 32.8 L (39.0-53.0) % RDW 18.4 H (11.5-15.5) % Plt Count 105 L (150-450) k/uL Neutrophils # (1.3-7.7) k/uL Lymphocytes # 0.6 L (1.0-4.8) k/uL PT 12.5 H (9.0-12.0) sec INR 1.2 H (<1.2) ABG pH (7.35-7.45) ABG pCO2 (35-45) mmHg ABG pO2 (83-108) mmHg ABG HCO3 (21-25) mmol/L ABG Total CO2 (19-24) mmol/L ABG O2 Saturation (94-97) % ABG Hematocrit (34.0-46.0) % ABG Potassium (3.4-4.5) mmol/L ABG Ionized Calcium (4.5-5.3) mg/dL ABG Glucose (75-99) mg/dL ABG Lactic Acid (0.5-1.6) mmol/L Hemoglobin (13.0-17.5) gm/dL Chloride 108 H (98-107) mmol/L BUN 21 H (9-20) mg/dL Creatinine (0.66-1.25) mg/dL Glucose 111 H (74-99) mg/dL POC Glucose (mg/dL) (70-110) mg/dL Calcium 7.4 L (8.4-10.2) mg/dL Magnesium 2.5 H (1.6-2.3) mg/dL Total Protein 5.3 L (6.3-8.2) g/dL Albumin 2.6 L (3.5-5.0) g/dL Arterial Blood Potassium (3.4-4.5) mmol/L Arterial Blood Glucose (75-99) mg/dL Crossmatch 03/22/23 03/22/23 03/22/23 Range/Units 14:39 15:14 16:06 WBC (3.8-10.6) k/uL RBC (4.30-5.90) m/uL Hgb (13.0-17.5) gm/dL Hct (39.0-53.0) % RDW (11.5-15.5) % Plt Count (150-450) k/uL Neutrophils # (1.3-7.7) k/uL Lymphocytes # (1.0-4.8) k/uL PT (9.0-12.0) sec INR (<1.2) ABG pH (7.35-7.45) ABG pCO2 (35-45) mmHg ABG pO2 64 L (83-108) mmHg ABG HCO3 (21-25) mmol/L ABG Total CO2 27 H (19-24) mmol/L ABG O2 Saturation 92.1 L (94-97) % ABG Hematocrit (34.0-46.0) % ABG Potassium (3.4-4.5) mmol/L ABG Ionized Calcium (4.5-5.3) mg/dL ABG Glucose (75-99) mg/dL ABG Lactic Acid (0.5-1.6) mmol/L Hemoglobin (13.0-17.5) gm/dL Chloride (98-107) mmol/L BUN (9-20) mg/dL Creatinine (0.66-1.25) mg/dL Glucose (74-99) mg/dL POC Glucose (mg/dL) 111 H 138 H (70-110) mg/dL Calcium (8.4-10.2) mg/dL Magnesium (1.6-2.3) mg/dL Total Protein (6.3-8.2) g/dL Albumin (3.5-5.0) g/dL Arterial Blood Potassium (3.4-4.5) mmol/L Arterial Blood Glucose (75-99) mg/dL Crossmatch 03/22/23 03/22/23 03/22/23 Range/Units 16:45 17:10 17:10 WBC 13.1 H (3.8-10.6) k/uL RBC 2.93 L (4.30-5.90) m/uL Hgb 9.0 L (13.0-17.5) gm/dL Hct 26.6 L (39.0-53.0) % RDW 18.4 H (11.5-15.5) % Plt Count 98 L (150-450) k/uL Neutrophils # 11.4 H (1.3-7.7) k/uL Lymphocytes # 0.8 L (1.0-4.8) k/uL PT (9.0-12.0) sec INR (<1.2) ABG pH (7.35-7.45) ABG pCO2 (35-45) mmHg ABG pO2 65 L (83-108) mmHg ABG HCO3 (21-25) mmol/L ABG Total CO2 25 H (19-24) mmol/L ABG O2 Saturation 90.5 L (94-97) % ABG Hematocrit (34.0-46.0) % ABG Potassium (3.4-4.5) mmol/L ABG Ionized Calcium (4.5-5.3) mg/dL ABG Glucose (75-99) mg/dL ABG Lactic Acid (0.5-1.6) mmol/L Hemoglobin (13.0-17.5) gm/dL Chloride (98-107) mmol/L BUN 21 H (9-20) mg/dL Creatinine 1.36 H (0.66-1.25) mg/dL Glucose 175 H (74-99) mg/dL POC Glucose (mg/dL) (70-110) mg/dL Calcium 7.3 L (8.4-10.2) mg/dL Magnesium (1.6-2.3) mg/dL Total Protein (6.3-8.2) g/dL Albumin (3.5-5.0) g/dL Arterial Blood Potassium (3.4-4.5) mmol/L Arterial Blood Glucose (75-99) mg/dL Crossmatch 03/22/23 03/22/23 03/22/23 Range/Units 17:11 18:02 19:03 WBC (3.8-10.6) k/uL RBC (4.30-5.90) m/uL Hgb (13.0-17.5) gm/dL Hct (39.0-53.0) % RDW (11.5-15.5) % Plt Count (150-450) k/uL Neutrophils # (1.3-7.7) k/uL Lymphocytes # (1.0-4.8) k/uL PT (9.0-12.0) sec INR (<1.2) ABG pH (7.35-7.45) ABG pCO2 (35-45) mmHg ABG pO2 (83-108) mmHg ABG HCO3 (21-25) mmol/L ABG Total CO2 (19-24) mmol/L ABG O2 Saturation (94-97) % ABG Hematocrit (34.0-46.0) % ABG Potassium (3.4-4.5) mmol/L ABG Ionized Calcium (4.5-5.3) mg/dL ABG Glucose (75-99) mg/dL ABG Lactic Acid (0.5-1.6) mmol/L Hemoglobin (13.0-17.5) gm/dL Chloride (98-107) mmol/L BUN (9-20) mg/dL Creatinine (0.66-1.25) mg/dL Glucose (74-99) mg/dL POC Glucose (mg/dL) 181 H 164 H 180 H (70-110) mg/dL Calcium (8.4-10.2) mg/dL Magnesium (1.6-2.3) mg/dL Total Protein (6.3-8.2) g/dL Albumin (3.5-5.0) g/dL Arterial Blood Potassium (3.4-4.5) mmol/L Arterial Blood Glucose (75-99) mg/dL Crossmatch 03/22/23 03/22/23 03/22/23 Range/Units 20:03 20:03 20:21 WBC 11.5 H (3.8-10.6) k/uL RBC 2.91 L (4.30-5.90) m/uL Hgb 8.7 L (13.0-17.5) gm/dL Hct 26.7 L (39.0-53.0) % RDW 18.5 H (11.5-15.5) % Plt Count 93 L (150-450) k/uL Neutrophils # 10.4 H (1.3-7.7) k/uL Lymphocytes # 0.4 L (1.0-4.8) k/uL PT (9.0-12.0) sec INR (<1.2) ABG pH (7.35-7.45) ABG pCO2 (35-45) mmHg ABG pO2 (83-108) mmHg ABG HCO3 (21-25) mmol/L ABG Total CO2 25 H (19-24) mmol/L ABG O2 Saturation (94-97) % ABG Hematocrit (34.0-46.0) % ABG Potassium (3.4-4.5) mmol/L ABG Ionized Calcium (4.5-5.3) mg/dL ABG Glucose (75-99) mg/dL ABG Lactic Acid (0.5-1.6) mmol/L Hemoglobin (13.0-17.5) gm/dL Chloride (98-107) mmol/L BUN (9-20) mg/dL Creatinine (0.66-1.25) mg/dL Glucose (74-99) mg/dL POC Glucose (mg/dL) 203 H (70-110) mg/dL Calcium (8.4-10.2) mg/dL Magnesium (1.6-2.3) mg/dL Total Protein (6.3-8.2) g/dL Albumin (3.5-5.0) g/dL Arterial Blood Potassium (3.4-4.5) mmol/L Arterial Blood Glucose (75-99) mg/dL Crossmatch 03/22/23 03/22/23 03/22/23 Range/Units 20:59 22:12 22:14 WBC (3.8-10.6) k/uL RBC (4.30-5.90) m/uL Hgb (13.0-17.5) gm/dL Hct (39.0-53.0) % RDW (11.5-15.5) % Plt Count (150-450) k/uL Neutrophils # (1.3-7.7) k/uL Lymphocytes # (1.0-4.8) k/uL PT (9.0-12.0) sec INR (<1.2) ABG pH (7.35-7.45) ABG pCO2 (35-45) mmHg ABG pO2 150 H (83-108) mmHg ABG HCO3 (21-25) mmol/L ABG Total CO2 (19-24) mmol/L ABG O2 Saturation 99.7 H (94-97) % ABG Hematocrit (34.0-46.0) % ABG Potassium (3.4-4.5) mmol/L ABG Ionized Calcium (4.5-5.3) mg/dL ABG Glucose (75-99) mg/dL ABG Lactic Acid (0.5-1.6) mmol/L Hemoglobin (13.0-17.5) gm/dL Chloride (98-107) mmol/L BUN (9-20) mg/dL Creatinine (0.66-1.25) mg/dL Glucose (74-99) mg/dL POC Glucose (mg/dL) 196 H 182 H (70-110) mg/dL Calcium (8.4-10.2) mg/dL Magnesium (1.6-2.3) mg/dL Total Protein (6.3-8.2) g/dL Albumin (3.5-5.0) g/dL Arterial Blood Potassium (3.4-4.5) mmol/L Arterial Blood Glucose (75-99) mg/dL Crossmatch Assessment and Plan Assessment: Status post elective aortic valve replacement and two-vessel coronary artery bypass graft, LRA to OM and SVG to PDA. Postoperative day 0 Patient is intubated and on mechanical ventilator perioperatively. Severe aortic stenosis Severe two-vessel coronary disease Chronic CHF with preserved ejection fraction Coronary artery disease with history of multiple stent placement Diabetes type 2 [id number] Hypertension Hyperlipidemia Obstructive sleep apnea not on CPAP Obesity with BMI 34.7 Currently everyday smoker GI and DVT prophylaxis. On PPI and heparin subcu Plan: Patient is currently in the MICU. Patient is intubated and sedated. Chest x- ray showed postoperative changes and correlate for mild vascular congestion with bilateral infiltrate and small effusion. Patient is being continued on milrinone drip, Cardizem drip and norepinephrine. Patient is also on insulin drip for better blood sugar control. Critical care team is on board. Patient will be continued on aspirin, statins and metoprolol, Plavix. will continue to follow closely and further recommendations based on clinical course. Thank you for your consult.. Time with Patient: Greater than 30
[2023-03-22 23:05] LABS: Glucose,Whole Blood 182 mg/dL (70-110)
[2023-03-23 00:17] LABS: Glucose,Whole Blood 173 mg/dL (70-110)
[2023-03-23] MEDS: ACETAMINOPHEN IV (For NPO) 1,000 MG in EMPTY BAG 1 BAG IVPB SCH ×3 (00:18→21:31)
[2023-03-23 01:10] LABS: Glucose,Whole Blood 163 mg/dL (70-110)
[2023-03-23] MEDS: HEPARIN SODIUM,PORCINE/PF 5,000 UNIT/0.5 ML SYRINGE SQ SCH ×3 (01:33→16:59)
[2023-03-23] MEDS: MILRINONE-D5W PMX 20 MG in DEXTROSE/WATER 1 100ML.BAG IV SCH ×2 (01:35→12:29)
[2023-03-23 02:13] LABS: Glucose,Whole Blood 153 mg/dL (70-110)
[2023-03-23 03:05] LABS: Glucose,Whole Blood 149 mg/dL (70-110)
[2023-03-23] MEDS: INSULIN REGULAR 100 UNIT in SODIUM CHLORIDE 0.9% 100 ML IV SCH ×2 (03:25→17:33)
[2023-03-23 03:36] LABS: Anisocytosis Slight; Basophils % (A) 0 %; Eosinophils % (A) 0 %; HCT 24.9 % (39.0-53.0); HGB 8.1 gm/dL (13.0-17.5); Hypochromasia Slight; Lymphocytes # (A) 0.9 k/uL (1.0-4.8); Lymphocytes % (A) 9 %; MCH 29.4 pg (25.0-35.0); MCHC 32.4 g/dL (31.0-37.0); MCV 90.5 fL (80.0-100.0); Mean Platelet Volume 9.2; Monocytes # (A) 0.7 k/uL (0-1.0); Monocytes % (A) 7 %; Neutrophils # (A) 8.2 k/uL (1.3-7.7); Neutrophils % (A) 83 %; Platelet Count 123 k/uL (150-450); RBC 2.76 m/uL (4.30-5.90); RDW 17.8 % (11.5-15.5); WBC 9.9 k/uL (3.8-10.6)
[2023-03-23 03:40] LABS: Partial Thromboplastin Time 25.2 sec (22.0-30.0); Prothrombin Time 10.8 sec (9.0-12.0)
[2023-03-23 03:42] LABS: Ionized Calcium 4.4 mg/dL (4.5-5.3)
[2023-03-23 03:47] LABS: ALT 15 U/L (4-49); AST 41 U/L (17-59); African American GFR (CKD) 39 (>60 ml/min/1.73 sqM); Albumin 2.7 g/dL (3.5-5.0); Alkaline Phosphatase 34 U/L (38-126); Anion Gap 7 mmol/L; Blood Urea Nitrogen 24 mg/dL (9-20); Calcium 7.2 mg/dL (8.4-10.2); Carbon Dioxide 22 mmol/L (22-30); Chloride 108 mmol/L (98-107); Glucose 135 mg/dL (74-99); Non-African American GFR(CKD) 33 (>60 ml/min/1.73 sqM); Potassium 4.5 mmol/L (3.5-5.1); Sodium 137 mmol/L (137-145); Total Bilirubin 0.9 mg/dL (0.2-1.3); Total Protein 4.8 g/dL (6.3-8.2)
[2023-03-23 04:23] LABS: Glucose,Whole Blood 137 mg/dL (70-110)
[2023-03-23] MEDS: NOREPINEPHRINE 4 MG in SODIUM CHLORIDE 0.9% 250 ML IV SCH ×3 (04:31→21:32)
[2023-03-23 05:10] LABS: Glucose,Whole Blood 138 mg/dL (70-110)
[2023-03-23 05:58] LABS: Glucose,Whole Blood 141 mg/dL (70-110)
[2023-03-23 05:59] LABS: ABG Base Excess -2.8 mmol/L; ABG HCO3 22 mmol/L (21-25); ABG Oxygen Saturation 99.9 % (94-97); ABG PCO2 37 mmHg (35-45); ABG PH 7.39 (7.35-7.45); ABG PO2 206 mmHg (83-108); ABG TCO2 23 mmol/L (19-24); Allen Test Performed? Yes
[2023-03-23 06:55] LABS: Glucose,Whole Blood 139 mg/dL (70-110)
[2023-03-23] MEDS ORDERED: FERROUS SULFATE 325 MG TAB PO SCH (07:30)
[2023-03-23] MEDS ORDERED: CALCIUM GLUCONATE IN NACL 1 GM in SALINE 1 100ML.BAG IVPB ONE (07:35)
[2023-03-23] MEDS: PANTOPRAZOLE 40 MG/10 ML VIAL IVP SCH (07:48)
[2023-03-23 08:32] LABS: Glucose,Whole Blood 128 mg/dL (70-110)
--- NOTE | 2023-03-23 08:37 | XR ---
EXAMINATION TYPE: XR chest 1V portable DATE OF EXAM: 03/23/2023 COMPARISON: 03/22/2023 HISTORY: Postop TECHNIQUE: Single frontal view of the chest is obtained. FINDINGS: ET tube approximately 3.5 cm above the dari. NG tube course in the abdomen. Mediastinal drain and chest tube seen with no sizable pneumothorax. Heart size is normal there is postsurgical ch anges with aortic valve replacement surgery. Mild interstitial prominence and there is bilateral lowe r lobe infiltrate and small effusion greater on the left. Chronic deformity of the right clavicle. Sw an-Rosa catheter seen with the tip overlying the proximal pulmonary tract. IMPRESSION: 1. Postoperative changes with stable areas of consolidation tiny bilateral effusion. Correlate for mi ld venous congestion.
[2023-03-23] MEDS: IPRATROPIUM-ALBUTEROL 3 ML NEB INHALATION SCH ×4 (08:57→20:36)
[2023-03-23] MEDS: THIAMINE 100 MG TAB PO SCH (08:59)
[2023-03-23] MEDS: FOLIC ACID 1 MG TAB PO SCH (08:59)
[2023-03-23] MEDS: MULTIVITAMINS, THERA 1 EACH TAB PO SCH (08:59)
[2023-03-23] MEDS: ATORVASTATIN 40 MG TAB PO SCH (09:00)
[2023-03-23] MEDS ORDERED: bisacodyL 10 MG SUPP RECTAL PRN (09:00)
[2023-03-23 09:37] LABS: Glucose,Whole Blood 126 mg/dL (70-110)
--- NOTE | 2023-03-23 10:23 | P.PN ---
Subjective Progress Note Date: 03/23/23 Principal diagnosis: Severe aortic valve stenosis, coronary artery disease. Past medical history significant for coronary artery disease with previous PCI, on Plavix for anticoagulation as an outpatient, hypertension, hyperlipidemia, diabetes mellitus type 2, obesity with a BMI of 35.2 kg/m, chronic ongoing tobacco dependence, occasional marijuana use, EtOH use drinking 7-8 beers a week, noncompliance with proper medication use and obstructive sleep apnea with noncompliance with home CPAP use. POD #1 coronary artery bypass grafting 2 vessels with radial artery to the ob tuse marginal coronary artery, and a saphenous vein graft to the posterior descending coronary artery. Endoscopic harvesting of the left greater saphenous vein, endoscopic harvesting of the left radial artery, ligation of the left atrial appendage using a 35 mm Atriclip, aortic valve replacement using a 25 mm Rosario Inspiris bioprosthetic valve, epi-aortic ultrasound and intraoperative transesophageal echocardiogram. Postoperative acute blood loss anemia, expected given hemodilution and cardi opulmonary bypass. The patient was seen and examined in follow-up today 03/23/2023 at his bedside i n the intensive care unit. Currently the patient is lying in bed, remain sedated on propofol drip at 50 mcg/kg/m, remains intubated with mechanical ventilator support, current mechanical ventilator settings are assist control 16, TV 600, FiO2 40% and a PEEP of 10. Oxygen saturations on current mechanical ventilator settings are 100%. ABG results this morning show a pH of 7.39, pCO2 37, pO2 206, HCO3 22, oxygen saturation 99.9% and a base excess of -2.8. Right IJ Cordis and [place]-Rosa catheter remains in place with current hemodynamic showing a cardiac output of 3.7, cardiac index 1.8, PA pressures 39/26 and a CVP of 13 mmHg. Primacor drip has been increased to 0.03 mcg/kg/m, and the patient also remains on norepinephrine drip at 0.08 mcg/kg/m and vasopressin 0.04 units per minute for blood pressure support. Mediastinal and left/right pleural chest tubes remain in place to low continuous wall suction -20 cm H2O. Draining thin serosanguineous drainage with the mediastinal chest tubes draining 345 mL of serosanguineous drainage in the last 8 hours and 900 mL since surgery. The ri ght/left pleural chest tubes draining 925 mL of serosanguineous drainage in the last 8 hours and 2925 mL of output since surgery. The patient has received 3 units of packed red blood cells, 1 unit of platelets and 1 unit of pooled cryoprecipitate. Chest x-ray and laboratory results reviewed. Objective - Vital Signs Vital signs: Vital Signs Temp 99.0 F 03/23/23 08:41 Pulse 82 03/23/23 09:07 Resp 17 03/23/23 09:00 BP 98/53 03/23/23 08:41 Pulse Ox 100 03/23/23 08:41 FiO2 40 03/23/23 09:00 Intake & Output 03/22/23 03/23/23 03/23/23 18:59 06:59 18:59 Intake Total 2754.026 0070.950 408.912 Output Total 2555 2375 45 Balance -997.308 0622.950 363.912 Weight 102 kg Intake: IV 1140 1030.0 138 .9NS Pressure Bag 27 108 18 Albumin Human 5% 250 ml 750 In Empty Bag 1 bag @ 250 mls/hr IVPB Q1HR PRN Rx#: [id number] Angiotensin II Acetate, 50 Human 0.5 mg In Sodium Chloride 0.9% 50 ml @ 10 NG/KG/MIN 6.024 mls/hr IV .Q8H18M [facility] Rx#: [id number] Cardiac Output .9NS 60 260 30 Desmopressin Acetate 32 50 mcg In Sodium Chloride 0. 9% 50 ml @ 200 mls/hr IVPB ONCE ONE Rx#: [id number] Lactated Ringers 1,000 ml 250 550 90 @ 50 mls/hr IV .Q20H [facility] Rx#:[id number] Nitroglycerin-D5w Pmx 50 12.0 mg In Dextrose/Water 1 250ml.bag @ Per Protocol IV ONCE ONE Rx#:[id number] Intake, IV Titration 684.476 849.950 270.912 Amount ACETAMINOPHEN IV (For NPO 100 ) 1,000 mg In Empty Bag 1 bag @ 400 mls/hr IVPB Q6HR [facility] Rx#:[id number] Albumin Human 5% 250 ml 500 In Empty Bag 1 bag @ 250 mls/hr IVPB Q1HR PRN Rx#: [id number] Calcium Gluconate in NaCl 100 1 gm In Saline 1 100ml. bag @ 100 mls/hr IVPB ONCE ONE Rx#:[id number] Insulin Regular 100 unit 4.309 69.168 30.401 In Sodium Chloride 0.9% 100 ml @ Per Protocol IV .Q0M [facility] Rx#:[id number] Lactated Ringers 1,000 ml 50 @ 50 mls/hr IV .Q20H [facility] Rx#:[id number] Norepinephrine 4 mg In 15.62 399.360 Sodium Chloride 0.9% 250 ml @ 0.03 MCG/KG/MIN 11. 476 mls/hr IV .Q22H8M [facility] Rx#:[id number] Vasopressin 60 unit In 2.499 Sodium Chloride 0.9% 150 ml @ 0.02 UNITS/MIN 3.06 mls/hr IV .Q24H [facility] Rx#: [id number] ceFAZolin 2 gm In Sodium 50 50 Chloride 0.9% 50 ml @ 100 mls/hr IVPB Q8HR [facility] Rx# :[id number] propofoL 1,000 mg In 331.422 90.511 Empty Bag 1 bag @ 50 MCG/ KG/MIN 30.12 mls/hr IV . Q3H20M [facility] Rx#:[id number] propofoL 1,000 mg In 12.048 Empty Bag 1 bag @ Titrate IV .Q0M [facility] Rx#: [id number] Blood Product 1960 0 Unit 0 Platelet Pheresis Pas 286 Psoralen Unit [id number] Pooled Cryoprecipitate 79 Unit [id number] Rc As-1 Unit 310 [id number] Rc As-1 Unit 310 [id number] Output: Chest Tube Drainage 800 2060 20 Mediastinal X 2 470 515 10 Right and Left Pleural 330 1545 10 Urine 555 315 25 Estimated Blood Loss 1200 Other: Voiding Method Indwelling Catheter Indwelling Catheter ABP, PAP, CO, CI - Last Documented Arterial Blood Pressure 102/53 Pulmonary Artery Pressure 41/27 Cardiac Output 3.7 Cardiac Index 1.8 - Exam CONSTITUTIONAL: Laying in bed in the intensive care unit, remain sedated on propofol drip, remains intubated with mechanical ventilator support. HEENT: Neck is supple, no JVD, no lymphadenopathy. Right IJ Cordis and [place]- Rosa catheter in place and functioning. RESPIRATORY: Lungs sounds essentially clear throughout, diminished to his bilateral bases, few scattered crackles to his bilateral bases. Respirations are symmetrical and nonlabored with mechanical ventilator support. Mechanical ventilator settings are assist control 16, TV 600, FiO2 40% and PEEP of 10 with oxygen saturations 100%. Strong cough. CARDIOVASCULAR: Regular rhythm and rate. S1 and S2 present, negative for S3, gallop or murmur. Sternum is stable. Palpable peripheral pulses bilaterally, +1 edema to his bilateral lower extremities. Heart hugger in place. Knee-high ESTEFANI hose and sequential compression devices in place to his bilateral lower extremities. GASTROINTESTINAL: Abdomen soft, nontender, nondistended. Hypoactive bowel sounds present 4 quadrants. OG tube in place to low intermittent wall suction. No guarding or rigidity. GENITOURINARY: Pavon present draining clear, yellow urine. Urine Output 200 mL in the last 8 hours INTEGUMENTARY: Skin is warm and dry with no evidence of clubbing or cyanosis. Midline sternal incision clean dry and well approximated, covered with dry intact dressing. lower extremity EVH sites well approximated without redness or drainage. Left arm radial artery harvest sites clean, dry and approximated. No drainage or redness is present. NEUROLOGIC: Unable to accurately assess at this time as the patient remains sedated on propofol drip. MUSKULOSKELETAL: Unable to accurately assess at this time as the patient remains sedated on propofol drip. PSYCHIATRIC: Unable to accurately assess at this time as the patient remains sedated on propofol drip. INVASIVE LINES AND TUBES: Mediastinal/left/right pleural chest tubes present and connected to low continuous wall suction, no air leaks present. Mediastinal tube with 345 mL of thin serosanguineous drainage overnight, 900 mL output in the last 24 hours. Left/right pleural chest tube with 925 mL of thin serosanguineous drainage overnight, 2925 mL output in the last 24 hours. Atrial and ventricular epicardial pacemaker wires present, connected to generator, VVI backup rate 50 bpm. Right internal jugular Louisburg/Cordis, right radial arterial line present. Current CO 3.7, CI 1.8, PA 39/26 and CVP 13 mmHg. - Allied health notes Allied health notes reviewed: nursing - Labs CBC & Chem 7: 03/23/23 03:00 03/23/23 03:00 Labs: Abnormal Lab Results - Last 24 Hours (Table) 03/14/23 03/22/23 03/22/23 Range/Units 09:00 08:43 08:43 WBC (3.8-10.6) k/uL RBC (4.30-5.90) m/uL Hgb (13.0-17.5) gm/dL Hct (39.0-53.0) % RDW (11.5-15.5) % Plt Count (150-450) k/uL Neutrophils # (1.3-7.7) k/uL Lymphocytes # (1.0-4.8) k/uL PT (9.0-12.0) sec INR (<1.2) ABG pH (7.35-7.45) ABG pCO2 47 H (35-45) mmHg ABG pO2 222 H (83-108) mmHg ABG HCO3 27 H 27 H (21-25) mmol/L ABG Total CO2 28 H 28 H (19-24) mmol/L ABG O2 Saturation 98.1 H 99.6 H (94-97) % ABG Hematocrit 33 L (34.0-46.0) % ABG Potassium (3.4-4.5) mmol/L ABG Ionized Calcium (4.5-5.3) mg/dL ABG Glucose 126 H 144 H (75-99) mg/dL ABG Lactic Acid (0.5-1.6) mmol/L Hemoglobin 11.2 L 10.8 L (13.0-17.5) gm/dL Chloride (98-107) mmol/L BUN (9-20) mg/dL Creatinine (0.66-1.25) mg/dL Glucose (74-99) mg/dL POC Glucose (mg/dL) (70-110) mg/dL Calcium (8.4-10.2) mg/dL Ionized Calcium Wojciech (4.5-5.3) mg/dL Magnesium (1.6-2.3) mg/dL Alkaline Phosphatase (38-126) U/L Total Protein (6.3-8.2) g/dL Albumin (3.5-5.0) g/dL Arterial Blood Potassium (3.4-4.5) mmol/L Arterial Blood Glucose 126 H 144 H (75-99) mg/dL Crossmatch See Detail 07/06/23 07/06/23 07/06/23 Range/Units 09:43 10:31 11:03 WBC (3.8-10.6) k/uL RBC (4.30-5.90) m/uL Hgb (13.0-17.5) gm/dL Hct (39.0-53.0) % RDW (11.5-15.5) % Plt Count (150-450) k/uL Neutrophils # (1.3-7.7) k/uL Lymphocytes # (1.0-4.8) k/uL PT (9.0-12.0) sec INR (<1.2) ABG pH 7.32 L (7.35-7.45) ABG pCO2 47 H 52 H (35-45) mmHg ABG pO2 373 H 384 H 315 H (83-108) mmHg ABG HCO3 26 H 26 H 27 H (21-25) mmol/L ABG Total CO2 27 H 28 H 28 H (19-24) mmol/L ABG O2 Saturation 100.0 H 100.0 H 100.0 H (94-97) % ABG Hematocrit 25 L 26 L 26 L (34.0-46.0) % ABG Potassium 4.8 H 4.6 H (3.4-4.5) mmol/L ABG Ionized Calcium 4.0 L 4.2 L 4.2 L (4.5-5.3) mg/dL ABG Glucose 135 H 145 H 150 H (75-99) mg/dL ABG Lactic Acid 1.9 H 2.2 H* (0.5-1.6) mmol/L Hemoglobin 8.1 L 8.5 L 8.4 L (13.0-17.5) gm/dL Chloride (98-107) mmol/L BUN (9-20) mg/dL Creatinine (0.66-1.25) mg/dL Glucose (74-99) mg/dL POC Glucose (mg/dL) (70-110) mg/dL Calcium (8.4-10.2) mg/dL Ionized Calcium Wojciech (4.5-5.3) mg/dL Magnesium (1.6-2.3) mg/dL Alkaline Phosphatase (38-126) U/L Total Protein (6.3-8.2) g/dL Albumin (3.5-5.0) g/dL Arterial Blood Potassium 4.8 H 4.6 H (3.4-4.5) mmol/L Arterial Blood Glucose 135 H 145 H 150 H (75-99) mg/dL Crossmatch 03/22/23 03/22/23 03/22/23 Range/Units 11:31 11:55 14:15 WBC (3.8-10.6) k/uL RBC 3.67 L (4.30-5.90) m/uL Hgb 10.4 L (13.0-17.5) gm/dL Hct 32.8 L (39.0-53.0) % RDW 18.4 H (11.5-15.5) % Plt Count 105 L (150-450) k/uL Neutrophils # (1.3-7.7) k/uL Lymphocytes # 0.6 L (1.0-4.8) k/uL PT (9.0-12.0) sec INR (<1.2) ABG pH (7.35-7.45) ABG pCO2 (35-45) mmHg ABG pO2 391 H 362 H (83-108) mmHg ABG HCO3 26 H (21-25) mmol/L ABG Total CO2 27 H 27 H (19-24) mmol/L ABG O2 Saturation 100.0 H 100.0 H (94-97) % ABG Hematocrit 26 L 26 L (34.0-46.0) % ABG Potassium 4.6 H 4.8 H (3.4-4.5) mmol/L ABG Ionized Calcium 4.2 L 4.2 L (4.5-5.3) mg/dL ABG Glucose 147 H 139 H (75-99) mg/dL ABG Lactic Acid 2.2 H* 2.4 H* (0.5-1.6) mmol/L Hemoglobin 8.3 L 8.3 L (13.0-17.5) gm/dL Chloride (98-107) mmol/L BUN (9-20) mg/dL Creatinine (0.66-1.25) mg/dL Glucose (74-99) mg/dL POC Glucose (mg/dL) (70-110) mg/dL Calcium (8.4-10.2) mg/dL Ionized Calcium Wojciech (4.5-5.3) mg/dL Magnesium (1.6-2.3) mg/dL Alkaline Phosphatase (38-126) U/L Total Protein (6.3-8.2) g/dL Albumin (3.5-5.0) g/dL Arterial Blood Potassium 4.6 H 4.8 H (3.4-4.5) mmol/L Arterial Blood Glucose 147 H 139 H (75-99) mg/dL Crossmatch 03/22/23 03/22/23 03/22/23 Range/Units 14:15 14:15 14:39 WBC (3.8-10.6) k/uL RBC (4.30-5.90) m/uL Hgb (13.0-17.5) gm/dL Hct (39.0-53.0) % RDW (11.5-15.5) % Plt Count (150-450) k/uL Neutrophils # (1.3-7.7) k/uL Lymphocytes # (1.0-4.8) k/uL PT 12.5 H (9.0-12.0) sec INR 1.2 H (<1.2) ABG pH (7.35-7.45) ABG pCO2 (35-45) mmHg ABG pO2 64 L (83-108) mmHg ABG HCO3 (21-25) mmol/L ABG Total CO2 27 H (19-24) mmol/L ABG O2 Saturation 92.1 L (94-97) % ABG Hematocrit (34.0-46.0) % ABG Potassium (3.4-4.5) mmol/L ABG Ionized Calcium (4.5-5.3) mg/dL ABG Glucose (75-99) mg/dL ABG Lactic Acid (0.5-1.6) mmol/L Hemoglobin (13.0-17.5) gm/dL Chloride 108 H (98-107) mmol/L BUN 21 H (9-20) mg/dL Creatinine (0.66-1.25) mg/dL Glucose 111 H (74-99) mg/dL POC Glucose (mg/dL) (70-110) mg/dL Calcium 7.4 L (8.4-10.2) mg/dL Ionized Calcium Wojciech (4.5-5.3) mg/dL Magnesium 2.5 H (1.6-2.3) mg/dL Alkaline Phosphatase (38-126) U/L Total Protein 5.3 L (6.3-8.2) g/dL Albumin 2.6 L (3.5-5.0) g/dL Arterial Blood Potassium (3.4-4.5) mmol/L Arterial Blood Glucose (75-99) mg/dL Crossmatch 03/22/23 03/22/23 03/22/23 Range/Units 15:14 16:06 16:45 WBC (3.8-10.6) k/uL RBC (4.30-5.90) m/uL Hgb (13.0-17.5) gm/dL Hct (39.0-53.0) % RDW (11.5-15.5) % Plt Count (150-450) k/uL Neutrophils # (1.3-7.7) k/uL Lymphocytes # (1.0-4.8) k/uL PT (9.0-12.0) sec INR (<1.2) ABG pH (7.35-7.45) ABG pCO2 (35-45) mmHg ABG pO2 65 L (83-108) mmHg ABG HCO3 (21-25) mmol/L ABG Total CO2 25 H (19-24) mmol/L ABG O2 Saturation 90.5 L (94-97) % ABG Hematocrit (34.0-46.0) % ABG Potassium (3.4-4.5) mmol/L ABG Ionized Calcium (4.5-5.3) mg/dL ABG Glucose (75-99) mg/dL ABG Lactic Acid (0.5-1.6) mmol/L Hemoglobin (13.0-17.5) gm/dL Chloride (98-107) mmol/L BUN (9-20) mg/dL Creatinine (0.66-1.25) mg/dL Glucose (74-99) mg/dL POC Glucose (mg/dL) 111 H 138 H (70-110) mg/dL Calcium (8.4-10.2) mg/dL Ionized Calcium Wojicech (4.5-5.3) mg/dL Magnesium (1.6-2.3) mg/dL Alkaline Phosphatase (38-126) U/L Total Protein (6.3-8.2) g/dL Albumin (3.5-5.0) g/dL Arterial Blood Potassium (3.4-4.5) mmol/L Arterial Blood Glucose (75-99) mg/dL Crossmatch 03/22/23 03/22/23 03/22/23 Range/Units 17:10 17:10 17:11 WBC 13.1 H (3.8-10.6) k/uL RBC 2.93 L (4.30-5.90) m/uL Hgb 9.0 L (13.0-17.5) gm/dL Hct 26.6 L (39.0-53.0) % RDW 18.4 H (11.5-15.5) % Plt Count 98 L (150-450) k/uL Neutrophils # 11.4 H (1.3-7.7) k/uL Lymphocytes # 0.8 L (1.0-4.8) k/uL PT (9.0-12.0) sec INR (<1.2) ABG pH (7.35-7.45) ABG pCO2 (35-45) mmHg ABG pO2 (83-108) mmHg ABG HCO3 (21-25) mmol/L ABG Total CO2 (19-24) mmol/L ABG O2 Saturation (94-97) % ABG Hematocrit (34.0-46.0) % ABG Potassium (3.4-4.5) mmol/L ABG Ionized Calcium (4.5-5.3) mg/dL ABG Glucose (75-99) mg/dL ABG Lactic Acid (0.5-1.6) mmol/L Hemoglobin (13.0-17.5) gm/dL Chloride (98-107) mmol/L BUN 21 H (9-20) mg/dL Creatinine 1.36 H (0.66-1.25) mg/dL Glucose 175 H (74-99) mg/dL POC Glucose (mg/dL) 181 H (70-110) mg/dL Calcium 7.3 L (8.4-10.2) mg/dL Ionized Calcium Wojciech (4.5-5.3) mg/dL Magnesium (1.6-2.3) mg/dL Alkaline Phosphatase (38-126) U/L Total Protein (6.3-8.2) g/dL Albumin (3.5-5.0) g/dL Arterial Blood Potassium (3.4-4.5) mmol/L Arterial Blood Glucose (75-99) mg/dL Crossmatch 03/22/23 03/22/23 03/22/23 Range/Units 18:02 19:03 20:03 WBC (3.8-10.6) k/uL RBC (4.30-5.90) m/uL Hgb (13.0-17.5) gm/dL Hct (39.0-53.0) % RDW (11.5-15.5) % Plt Count (150-450) k/uL Neutrophils # (1.3-7.7) k/uL Lymphocytes # (1.0-4.8) k/uL PT (9.0-12.0) sec INR (<1.2) ABG pH (7.35-7.45) ABG pCO2 (35-45) mmHg ABG pO2 (83-108) mmHg ABG HCO3 (21-25) mmol/L ABG Total CO2 25 H (19-24) mmol/L ABG O2 Saturation (94-97) % ABG Hematocrit (34.0-46.0) % ABG Potassium (3.4-4.5) mmol/L ABG Ionized Calcium (4.5-5.3) mg/dL ABG Glucose (75-99) mg/dL ABG Lactic Acid (0.5-1.6) mmol/L Hemoglobin (13.0-17.5) gm/dL Chloride (98-107) mmol/L BUN (9-20) mg/dL Creatinine (0.66-1.25) mg/dL Glucose (74-99) mg/dL POC Glucose (mg/dL) 164 H 180 H (70-110) mg/dL Calcium (8.4-10.2) mg/dL Ionized Calcium Wojciech (4.5-5.3) mg/dL Magnesium (1.6-2.3) mg/dL Alkaline Phosphatase (38-126) U/L Total Protein (6.3-8.2) g/dL Albumin (3.5-5.0) g/dL Arterial Blood Potassium (3.4-4.5) mmol/L Arterial Blood Glucose (75-99) mg/dL Crossmatch 03/22/23 03/22/23 03/22/23 Range/Units 20:03 20:21 20:59 WBC 11.5 H (3.8-10.6) k/uL RBC 2.91 L (4.30-5.90) m/uL Hgb 8.7 L (13.0-17.5) gm/dL Hct 26.7 L (39.0-53.0) % RDW 18.5 H (11.5-15.5) % Plt Count 93 L (150-450) k/uL Neutrophils # 10.4 H (1.3-7.7) k/uL Lymphocytes # 0.4 L (1.0-4.8) k/uL PT (9.0-12.0) sec INR (<1.2) ABG pH (7.35-7.45) ABG pCO2 (35-45) mmHg ABG pO2 (83-108) mmHg ABG HCO3 (21-25) mmol/L ABG Total CO2 (19-24) mmol/L ABG O2 Saturation (94-97) % ABG Hematocrit (34.0-46.0) % ABG Potassium (3.4-4.5) mmol/L ABG Ionized Calcium (4.5-5.3) mg/dL ABG Glucose (75-99) mg/dL ABG Lactic Acid (0.5-1.6) mmol/L Hemoglobin (13.0-17.5) gm/dL Chloride (98-107) mmol/L BUN (9-20) mg/dL Creatinine (0.66-1.25) mg/dL Glucose (74-99) mg/dL POC Glucose (mg/dL) 203 H 196 H (70-110) mg/dL Calcium (8.4-10.2) mg/dL Ionized Calcium Wojciech (4.5-5.3) mg/dL Magnesium (1.6-2.3) mg/dL Alkaline Phosphatase (38-126) U/L Total Protein (6.3-8.2) g/dL Albumin (3.5-5.0) g/dL Arterial Blood Potassium (3.4-4.5) mmol/L Arterial Blood Glucose (75-99) mg/dL Crossmatch 03/22/23 03/22/23 03/22/23 Range/Units 22:12 22:14 22:20 WBC (3.8-10.6) k/uL RBC 2.60 L (4.30-5.90) m/uL Hgb 7.6 L (13.0-17.5) gm/dL Hct 23.7 L (39.0-53.0) % RDW 18.5 H (11.5-15.5) % Plt Count 120 L (150-450) k/uL Neutrophils # 8.9 H (1.3-7.7) k/uL Lymphocytes # 0.5 L (1.0-4.8) k/uL PT (9.0-12.0) sec INR (<1.2) ABG pH (7.35-7.45) ABG pCO2 (35-45) mmHg ABG pO2 150 H (83-108) mmHg ABG HCO3 (21-25) mmol/L ABG Total CO2 (19-24) mmol/L ABG O2 Saturation 99.7 H (94-97) % ABG Hematocrit (34.0-46.0) % ABG Potassium (3.4-4.5) mmol/L ABG Ionized Calcium (4.5-5.3) mg/dL ABG Glucose (75-99) mg/dL ABG Lactic Acid (0.5-1.6) mmol/L Hemoglobin (13.0-17.5) gm/dL Chloride (98-107) mmol/L BUN (9-20) mg/dL Creatinine (0.66-1.25) mg/dL Glucose (74-99) mg/dL POC Glucose (mg/dL) 182 H (70-110) mg/dL Calcium (8.4-10.2) mg/dL Ionized Calcium Wojciech (4.5-5.3) mg/dL Magnesium (1.6-2.3) mg/dL Alkaline Phosphatase (38-126) U/L Total Protein (6.3-8.2) g/dL Albumin (3.5-5.0) g/dL Arterial Blood Potassium (3.4-4.5) mmol/L Arterial Blood Glucose (75-99) mg/dL Crossmatch 03/22/23 03/23/23 03/23/23 Range/Units 23:04 00:10 01:09 WBC (3.8-10.6) k/uL RBC (4.30-5.90) m/uL Hgb (13.0-17.5) gm/dL Hct (39.0-53.0) % RDW (11.5-15.5) % Plt Count (150-450) k/uL Neutrophils # (1.3-7.7) k/uL Lymphocytes # (1.0-4.8) k/uL PT (9.0-12.0) sec INR (<1.2) ABG pH (7.35-7.45) ABG pCO2 (35-45) mmHg ABG pO2 (83-108) mmHg ABG HCO3 (21-25) mmol/L ABG Total CO2 (19-24) mmol/L ABG O2 Saturation (94-97) % ABG Hematocrit (34.0-46.0) % ABG Potassium (3.4-4.5) mmol/L ABG Ionized Calcium (4.5-5.3) mg/dL ABG Glucose (75-99) mg/dL ABG Lactic Acid (0.5-1.6) mmol/L Hemoglobin (13.0-17.5) gm/dL Chloride (98-107) mmol/L BUN (9-20) mg/dL Creatinine (0.66-1.25) mg/dL Glucose (74-99) mg/dL POC Glucose (mg/dL) 182 H 173 H 163 H (70-110) mg/dL Calcium (8.4-10.2) mg/dL Ionized Calcium Wojciech (4.5-5.3) mg/dL Magnesium (1.6-2.3) mg/dL Alkaline Phosphatase (38-126) U/L Total Protein (6.3-8.2) g/dL Albumin (3.5-5.0) g/dL Arterial Blood Potassium (3.4-4.5) mmol/L Arterial Blood Glucose (75-99) mg/dL Crossmatch 03/23/23 03/23/23 03/23/23 Range/Units 02:11 02:54 03:00 WBC (3.8-10.6) k/uL RBC 2.76 L (4.30-5.90) m/uL Hgb 8.1 L (13.0-17.5) gm/dL Hct 24.9 L (39.0-53.0) % RDW 17.8 H (11.5-15.5) % Plt Count 123 L (150-450) k/uL Neutrophils # 8.2 H (1.3-7.7) k/uL Lymphocytes # 0.9 L (1.0-4.8) k/uL PT (9.0-12.0) sec INR (<1.2) ABG pH (7.35-7.45) ABG pCO2 (35-45) mmHg ABG pO2 (83-108) mmHg ABG HCO3 (21-25) mmol/L ABG Total CO2 (19-24) mmol/L ABG O2 Saturation (94-97) % ABG Hematocrit (34.0-46.0) % ABG Potassium (3.4-4.5) mmol/L ABG Ionized Calcium (4.5-5.3) mg/dL ABG Glucose (75-99) mg/dL ABG Lactic Acid (0.5-1.6) mmol/L Hemoglobin (13.0-17.5) gm/dL Chloride (98-107) mmol/L BUN (9-20) mg/dL Creatinine (0.66-1.25) mg/dL Glucose (74-99) mg/dL POC Glucose (mg/dL) 153 H 149 H (70-110) mg/dL Calcium (8.4-10.2) mg/dL Ionized Calcium Wojciech (4.5-5.3) mg/dL Magnesium (1.6-2.3) mg/dL Alkaline Phosphatase (38-126) U/L Total Protein (6.3-8.2) g/dL Albumin (3.5-5.0) g/dL Arterial Blood Potassium (3.4-4.5) mmol/L Arterial Blood Glucose (75-99) mg/dL Crossmatch 03/23/23 03/23/23 03/23/23 Range/Units 03:00 04:13 05:06 WBC (3.8-10.6) k/uL RBC (4.30-5.90) m/uL Hgb (13.0-17.5) gm/dL Hct (39.0-53.0) % RDW (11.5-15.5) % Plt Count (150-450) k/uL Neutrophils # (1.3-7.7) k/uL Lymphocytes # (1.0-4.8) k/uL PT (9.0-12.0) sec INR (<1.2) ABG pH (7.35-7.45) ABG pCO2 (35-45) mmHg ABG pO2 (83-108) mmHg ABG HCO3 (21-25) mmol/L ABG Total CO2 (19-24) mmol/L ABG O2 Saturation (94-97) % ABG Hematocrit (34.0-46.0) % ABG Potassium (3.4-4.5) mmol/L ABG Ionized Calcium (4.5-5.3) mg/dL ABG Glucose (75-99) mg/dL ABG Lactic Acid (0.5-1.6) mmol/L Hemoglobin (13.0-17.5) gm/dL Chloride 108 H (98-107) mmol/L BUN 24 H (9-20) mg/dL Creatinine 1.98 H (0.66-1.25) mg/dL Glucose 135 H (74-99) mg/dL POC Glucose (mg/dL) 137 H 138 H (70-110) mg/dL Calcium 7.2 L (8.4-10.2) mg/dL Ionized Calcium Wojciech 4.4 L (4.5-5.3) mg/dL Magnesium (1.6-2.3) mg/dL Alkaline Phosphatase 34 L (38-126) U/L Total Protein 4.8 L (6.3-8.2) g/dL Albumin 2.7 L (3.5-5.0) g/dL Arterial Blood Potassium (3.4-4.5) mmol/L Arterial Blood Glucose (75-99) mg/dL Crossmatch 03/23/23 03/23/23 03/23/23 Range/Units 05:55 05:57 06:54 WBC (3.8-10.6) k/uL RBC (4.30-5.90) m/uL Hgb (13.0-17.5) gm/dL Hct (39.0-53.0) % RDW (11.5-15.5) % Plt Count (150-450) k/uL Neutrophils # (1.3-7.7) k/uL Lymphocytes # (1.0-4.8) k/uL PT (9.0-12.0) sec INR (<1.2) ABG pH (7.35-7.45) ABG pCO2 (35-45) mmHg ABG pO2 206 H (83-108) mmHg ABG HCO3 (21-25) mmol/L ABG Total CO2 (19-24) mmol/L ABG O2 Saturation 99.9 H (94-97) % ABG Hematocrit (34.0-46.0) % ABG Potassium (3.4-4.5) mmol/L ABG Ionized Calcium (4.5-5.3) mg/dL ABG Glucose (75-99) mg/dL ABG Lactic Acid (0.5-1.6) mmol/L Hemoglobin (13.0-17.5) gm/dL Chloride (98-107) mmol/L BUN (9-20) mg/dL Creatinine (0.66-1.25) mg/dL Glucose (74-99) mg/dL POC Glucose (mg/dL) 141 H 139 H (70-110) mg/dL Calcium (8.4-10.2) mg/dL Ionized Calcium Wojciech (4.5-5.3) mg/dL Magnesium (1.6-2.3) mg/dL Alkaline Phosphatase (38-126) U/L Total Protein (6.3-8.2) g/dL Albumin (3.5-5.0) g/dL Arterial Blood Potassium (3.4-4.5) mmol/L Arterial Blood Glucose (75-99) mg/dL Crossmatch 03/23/23 Range/Units 08:30 WBC (3.8-10.6) k/uL RBC (4.30-5.90) m/uL Hgb (13.0-17.5) gm/dL Hct (39.0-53.0) % RDW (11.5-15.5) % Plt Count (150-450) k/uL Neutrophils # (1.3-7.7) k/uL Lymphocytes # (1.0-4.8) k/uL PT (9.0-12.0) sec INR (<1.2) ABG pH (7.35-7.45) ABG pCO2 (35-45) mmHg ABG pO2 (83-108) mmHg ABG HCO3 (21-25) mmol/L ABG Total CO2 (19-24) mmol/L ABG O2 Saturation (94-97) % ABG Hematocrit (34.0-46.0) % ABG Potassium (3.4-4.5) mmol/L ABG Ionized Calcium (4.5-5.3) mg/dL ABG Glucose (75-99) mg/dL ABG Lactic Acid (0.5-1.6) mmol/L Hemoglobin (13.0-17.5) gm/dL Chloride (98-107) mmol/L BUN (9-20) mg/dL Creatinine (0.66-1.25) mg/dL Glucose (74-99) mg/dL POC Glucose (mg/dL) 128 H (70-110) mg/dL Calcium (8.4-10.2) mg/dL Ionized Calcium Wojciech (4.5-5.3) mg/dL Magnesium (1.6-2.3) mg/dL Alkaline Phosphatase (38-126) U/L Total Protein (6.3-8.2) g/dL Albumin (3.5-5.0) g/dL Arterial Blood Potassium (3.4-4.5) mmol/L Arterial Blood Glucose (75-99) mg/dL Crossmatch - Imaging and Cardiology Chest x-ray: report reviewed, image reviewed Assessment and Plan Assessment: Severe aortic valve stenosis, status post aortic valve replacement with a 25 mm Rosario Inspiris bioprosthetic valve Coronary artery disease with history of previous PCI, on Plavix for anticoagulation as an outpatient, status post 2 vessel coronary artery bypass grafting surgery Hypertension, currently hypotensive requiring norepinephrine and vasopressin support Hyperlipidemia Diabetes mellitus type 2, with a preoperative hemoglobin A1c 6.6% Carotid stenosis with a recent carotid duplex study showing a 50-69% stenosis of the left carotid bifurcation by technique systolic velocity and ratio and nonvisualization of flow within the right internal carotid artery with CTA of the neck showing occlusion of the right ICA and an estimated diameter reduction of 60% to the left ICA Chronic ongoing tobacco dependence Obstructive sleep apnea with noncompliance of home CPAP use Occasional marijuana use, smokes 1-2 joints per week Occasional EtOH use, drinks 7-8 beers per week History of noncompliance with taking his medications History of Acute kidney injury with a creatinine of 1.62 on 02/21/2023 Postoperative acute blood loss anemia, expected given hemodilution and cardiopulmonary bypass Plan: Continue to maximize medical therapy with aspirin, statin, Plavix, and beta hanane. Will increase beta hanane therapy as tolerated, hold parameters on beta hanane. Discontinue nitroglycerin drip We will start calcium channel hanane for radial artery spasm prophylaxis when blood pressure is able to tolerate. Wean to extubate per protocol. Mechanical ventilator management per pulmonary medicine/critical care recommendations. Once extubated encourage incentive spirometry use 10 times every hour while awake. Bronchodilators per pulmonology/critical care recommendations. Wean propofol drip to help wean patient from mechanical ventilator. Once extubated increase activity, ambulate as tolerated. PT/OT/cardiac rehab consulted. Will monitor daily labs and chest x-rays. Electrolyte replacement per protocol. Calcium gluconate 1 g IV piggyback 1 now. GI/DVT prophylaxis. Pain control per current medication regimen. Insulin management per internal medicine. Patient is diabetic with hemoglobin A1c 6.6%, needs tight blood sugar control to prevent infection and promote healing Continue Cordis/[place]-Rosa catheter, continue to record hemodynamics. Continue mediastinal/left/right pleural chest tubes for another 24 hours. Continue Pavon catheter for another 24 hours for strict accurate intake and output Daily weights. Once the patient is extubated we will discussed risks modifications including smoking cessation counseling and education. Wean norepinephrine and vasopressin drips as tolerated to maintain a map of 70 mmHg. Transfuse 1 unit of packed red blood cells 1 now. Keep atrial and ventricular epicardial pacemaker wires in place and connected to backup bedside pacemaker generator on a VVI 50 BPM. Keep Primacor drip infusing at 0.03 mcg/kg/m. More recommendations to follow based on patient's clinical course. Time with Patient: Greater than 30
[2023-03-23] MEDS: CLOPIDOGREL 75 MG TAB PO SCH ×2 (10:28→13:02)
[2023-03-23] MEDS: ASPIRIN 325 MG TAB PO SCH ×2 (10:28→10:42)
[2023-03-23 11:07] LABS: Glucose,Whole Blood 130 mg/dL (70-110)
[2023-03-23 11:40] LABS: ALT 12 U/L (4-49); AST 46 U/L (17-59); African American GFR (CKD) 30 (>60 ml/min/1.73 sqM); Albumin 2.5 g/dL (3.5-5.0); Alkaline Phosphatase 38 U/L (38-126); Anion Gap 8 mmol/L; Blood Urea Nitrogen 27 mg/dL (9-20); Calcium 7.1 mg/dL (8.4-10.2); Carbon Dioxide 21 mmol/L (22-30); Chloride 109 mmol/L (98-107); Glucose 132 mg/dL (74-99); Non-African American GFR(CKD) 26 (>60 ml/min/1.73 sqM); Potassium 4.6 mmol/L (3.5-5.1); Sodium 138 mmol/L (137-145); Total Protein 4.6 g/dL (6.3-8.2)
[2023-03-23 11:43] LABS: INR 1.1 (<1.2); Partial Thromboplastin Time 25.3 sec (22.0-30.0); Prothrombin Time 11.2 sec (9.0-12.0)
[2023-03-23 11:52] LABS: Anisocytosis Slight; Basophils % (A) 0 %; Eosinophils % (A) 0 %; HCT 27.6 % (39.0-53.0); HGB 8.7 gm/dL (13.0-17.5); Hypochromasia Slight; Lymphocytes # (A) 1.2 k/uL (1.0-4.8); Lymphocytes % (A) 10 %; MCH 28.2 pg (25.0-35.0); MCHC 31.5 g/dL (31.0-37.0); MCV 89.5 fL (80.0-100.0); Monocytes # (A) 0.9 k/uL (0-1.0); Monocytes % (A) 8 %; Neutrophils # (A) 9.6 k/uL (1.3-7.7); Neutrophils % (A) 81 %; Poikilocytosis Slight; RBC 3.08 m/uL (4.30-5.90); RDW 17.8 % (11.5-15.5); WBC 11.9 k/uL (3.8-10.6)
[2023-03-23 11:53] LABS: Mean Platelet Volume 9.6; Platelet Count 99 k/uL (150-450)
--- NOTE | 2023-03-23 11:59 | P.CNPUL ---
History of Present Illness Consult date: 03/23/23 Requesting physician: Sung Jensen Reason for consult: other (Ventilator/critical care management) Chief complaint: Severe aortic stenosis, multivessel coronary artery disease History of present illness: This is a 67-year-old male patient with a known history of hypertension, hyperlipidemia, diabetes mellitus, carotid stenosis, chronic tobacco dependence, obstructive sleep apnea not utilizing CPAP, marijuana use, alcohol use. He was recently found to have multivessel coronary artery disease and history of previous PCI and was on Plavix. He was also noted to have severe aortic valve stenosis. He was brought in yesterday electively for coronary artery bypass grafting 2 utilizing a radial artery to the obtuse marginal artery, saphenous vein graft to the posterior descending artery. Aortic valve replacement using a 25 mm Rosario Inspiris bioprosthetic valve. He is seen today in consultation in the intensive care unit. He remains intubated on mechanical ventilator and assist control mode with a rate of 16, tidal volume 600, FiO2 40% and a PEEP of 10. Arterial blood gases revealed a pO2 of 206, pCO2 37 and a PEEP age of 7.39 on 60% FiO2. The patient did have a significant amount of hypotension and output from his sternal chest tube was a combined total of 2.8 L since surgery. Including the mediastinal, right and left pleural chest tubes. This has slowed down significantly and stabilized. He remains on nitroglycerin drip at 5 mcg/m. Primacor at 0.3 mcg/kg/m. Vasopressin at 0.04 units per minute. Norepinephrine at 8 mcg/m. Insulin drip at 6.5 units per hour. Propofol at 50 mcg/kg/m. Lactated Ringer's at 50 MLS per hour. Heparin for DVT prophylaxis. Remains on bronchodilators. He has received 3 unit of packed red blood cells. One unit of platelets. 1 pooled cryoprecipitate. Current cardiac output 4.2. Cardiac index 2.0. PA pressures 38/26. CVP 13 mmHg. Blood pressure 101/55. White count 9.9. Hemoglobin 8.1. Platelets 123. Sodium 138. Potassium 4.6. Bicarb 21. BUN 27. Creatinine 2.44. Glucose 132. Total protein 4.6. Albumin 2.5. Magnesium 2.0. Ionized calcium 4.4 which has been replaced. His x-ray reveals postoperative changes with stable areas of consolidation with tiny bilateral effusions. Mild venous congestion. He is currently in a positive balance. Review of Systems ROS unobtainable: due to endotracheal tube Past Medical History Past Medical History: Coronary Artery Disease (CAD), Heart Failure, Diabetes Mellitus, Hyperlipidemia, Hypertension, Sleep Apnea/CPAP/BIPAP Additional Past Medical History / Comment(s): aortic stenosis,carotid stenosis,no cpap History of Any Multi-Drug Resistant Organisms: None Reported Past Surgical History: Appendectomy, Heart Catheterization, Heart Catheterization With Stent, Orthopedic Surgery Additional Past Surgical History / Comment(s): ORIF RT TIB/FIB,COLONOSCOPY,heartcath 2-has ? 4 stents Past Anesthesia/Blood Transfusion Reactions: No Reported Reaction Additional Past Anesthesia/Blood Transfusion Reaction / Comment(s): no hx blood transfusion Date of Last Stent Placement:: 02/13/20 Smoking Status: Current every day smoker - Past Family History Father Family Medical History: Cancer Medications and Allergies Home Medications Medication Instructions Recorded Confirmed Type Atorvastatin [Lipitor] 40 mg PO DAILY #30 tab 02/14/20 03/22/23 Rx Clopidogrel [Plavix] 75 mg PO DAILY #30 tab 02/14/20 03/22/23 Rx metFORMIN HCL [Glucophage] 500 mg PO BID #0 02/14/20 03/22/23 Rx Levocetirizine Dihydrochloride 5 mg PO DAILY 01/04/23 03/22/23 History Metoprolol Succinate (ER) [Toprol 100 mg PO DAILY 02/20/23 03/22/23 History XL] glipiZIDE XL [Glucotrol XL] 10 mg PO BID 02/20/23 03/22/23 History Ferrous Sulfate [Iron (65 MG 325 mg PO BID-W/MEALS 30 Days #60 02/24/23 03/22/23 Rx Elemental)] tab amLODIPine [Norvasc] 5 mg PO DAILY 30 Days #30 tab 02/24/23 03/22/23 Rx hydrALAZINE HCL [Apresoline] 75 mg PO TID 30 Days #90 tab 02/24/23 03/22/23 Rx Furosemide [Lasix] 40 mg PO DAILY 03/14/23 03/22/23 History diphenhydrAMINE & Zinc Cream 1 applic TOPICAL TID PRN 03/21/23 03/22/23 History [Benadryl Cream] diphenhydrAMINE [Benadryl] 25 - 50 mg PO QID PRN 03/21/23 03/22/23 History Aspirin 324 mg PO DAILY 03/22/23 03/22/23 History Allergies Allergy/AdvReac Type Severity Reaction Status Date / Time No Known Allergies Allergy Verified 03/22/23 06:14 Physical Exam Vitals: Vital Signs Temp Pulse Pulse Resp BP Pulse Ox FiO2 03/23/23 11:00 92 18 99 40 03/23/23 10:43 40 03/23/23 10:30 91 18 03/23/23 10:20 98.8 F 90 19 113/50 99 03/23/23 10:00 92 16 100 40 03/23/23 09:30 93 17 03/23/23 09:07 82 03/23/23 09:00 94 17 40 03/23/23 08:57 82 03/23/23 08:41 99.0 F 95 17 98/53 100 03/23/23 08:30 96 17 40 03/23/23 08:21 99.1 F 95 17 97/51 100 03/23/23 08:11 99.1 F 96 16 101/54 99 03/23/23 08:00 95 17 99 40 03/23/23 07:31 40 03/23/23 07:30 92 18 03/23/23 07:01 99.1 F 92 16 112/57 100 03/23/23 07:00 92 16 103/60 100 03/23/23 06:30 90 17 03/23/23 06:02 40 03/23/23 06:00 89 16 03/23/23 05:43 99.3 F 88 18 97/52 99 03/23/23 05:30 89 19 03/23/23 05:23 37.5 F L 89 18 104/54 100 03/23/23 05:14 99.7 F H 91 17 94/55 100 03/23/23 05:00 91 16 03/23/23 04:30 90 16 03/23/23 04:14 60 03/23/23 04:00 99.7 F H 90 17 100 03/23/23 03:56 89 17 60 03/23/23 03:30 89 16 117/61 03/23/23 03:00 88 16 117/61 03/23/23 02:30 89 16 117/61 03/23/23 02:00 89 16 117/61 03/23/23 01:45 99.4 F 87 17 102/58 100 03/23/23 01:30 89 16 03/23/23 01:00 87 16 03/23/23 00:30 87 17 03/23/23 00:00 99.3 F 88 87 17 60 03/22/23 23:56 60 03/22/23 23:42 99.5 F 89 17 97/51 100 03/22/23 23:36 99.5 F 89 17 101/51 100 03/22/23 23:30 89 16 03/22/23 23:00 88 17 03/22/23 22:30 88 16 60 03/22/23 22:17 60 03/22/23 22:00 99.5 F 86 16 117/61 100 03/22/23 21:38 99.5 F 87 16 115/53 100 03/22/23 21:31 99.5 F 86 16 113/54 100 03/22/23 21:30 86 16 03/22/23 21:00 86 16 03/22/23 20:47 99.7 F H 85 16 108/51 99 03/22/23 20:39 99.7 F H 84 16 105/51 03/22/23 20:31 82 03/22/23 20:30 82 16 88/50 03/22/23 20:22 82 03/22/23 20:12 80 03/22/23 20:00 99.7 F H 84 85 16 88/50 80 03/22/23 19:30 81 17 03/22/23 19:00 81 18 96 80 03/22/23 18:30 83 17 94 L 80 03/22/23 18:15 82 16 03/22/23 18:00 80 18 03/22/23 17:47 80 03/22/23 17:45 81 16 03/22/23 17:30 83 22 91 L 70 03/22/23 17:20 70 03/22/23 17:15 81 16 70 03/22/23 17:00 79 16 88/50 90 L 60 03/22/23 16:45 79 16 87/51 03/22/23 16:30 79 17 94 L 60 03/22/23 16:25 60 03/22/23 16:15 74 16 07/06/23 16:00 98.1 F 73 75 22 97 80 03/22/23 15:49 80 03/22/23 15:45 72 16 96 80 03/22/23 15:30 71 16 99 100 03/22/23 15:16 100 03/22/23 15:15 97.7 F 71 16 03/22/23 15:06 68 03/22/23 15:00 69 16 97 100 03/22/23 14:58 67 03/22/23 14:45 67 16 97 100 03/22/23 14:30 69 16 03/22/23 14:20 68 17 100 03/22/23 14:17 100 Intake and Output 03/22/23 03/23/23 03/23/23 22:59 06:59 14:59 Intake Total 2590.354 2442.072 1200.309 Output Total 1475 1445 175 Balance 1115.354 808.976 6198.309 Intake: IV 1349.5 688.5 266 .9NS Pressure Bag 45 81 36 Albumin Human 5% 250 ml 750 In Empty Bag 1 bag @ 250 mls/hr IVPB Q1HR PRN Rx#: [id number] Angiotensin II Acetate, 50 Human 0.5 mg In Sodium Chloride 0.9% 50 ml @ 10 NG/KG/MIN 6.024 mls/hr IV .Q8H18M [facility] Rx#: [id number] Cardiac Output .9NS 100 200 50 Desmopressin Acetate 32 50 mcg In Sodium Chloride 0. 9% 50 ml @ 200 mls/hr IVPB ONCE ONE Rx#: [id number] Lactated Ringers 1,000 ml 350 400 180 @ 50 mls/hr IV .Q20H [facility] Rx#:[id number] Nitroglycerin-D5w Pmx 50 4.5 7.5 mg In Dextrose/Water 1 250ml.bag @ Per Protocol IV ONCE ONE Rx#:[id number] Intake, IV Titration 510.854 523.572 624.309 Amount ACETAMINOPHEN IV (For NPO 100 ) 1,000 mg In Empty Bag 1 bag @ 400 mls/hr IVPB Q6HR [facility] Rx#:[id number] Calcium Gluconate in NaCl 100 1 gm In Saline 1 100ml. bag @ 100 mls/hr IVPB ONCE ONE Rx#:[id number] Insulin Regular 100 unit 17.961 55.516 30.401 In Sodium Chloride 0.9% 100 ml @ Per Protocol IV .Q0M [facility] Rx#:[id number] Lactated Ringers 1,000 ml 50 @ 50 mls/hr IV .Q20H [facility] Rx#:[id number] Norepinephrine 4 mg In 237.484 177.496 195.024 Sodium Chloride 0.9% 250 ml @ 0.03 MCG/KG/MIN 11. 476 mls/hr IV .Q22H8M [facility] Rx#:[id number] Vasopressin 60 unit In 2.499 101.898 Sodium Chloride 0.9% 150 ml @ 0.02 UNITS/MIN 3.06 mls/hr IV .Q24H [facility] Rx#: [id number] ceFAZolin 2 gm In Sodium 50 50 Chloride 0.9% 50 ml @ 100 mls/hr IVPB Q8HR [facility] Rx# :[id number] propofoL 1,000 mg In 90.862 240.560 146.986 Empty Bag 1 bag @ 50 MCG/ KG/MIN 30.12 mls/hr IV . Q3H20M [facility] Rx#:[id number] propofoL 1,000 mg In 12.048 Empty Bag 1 bag @ Titrate IV .Q0M [facility] Rx#: [id number] Blood Product 730 1230 310 Platelet Pheresis Pas 286 Psoralen Unit [id number] Pooled Cryoprecipitate 79 Unit [id number] Rc As-1 Unit 310 [id number] Rc As-1 Unit 310 [id number] Rc As-1 Unit 310 [id number] Output: Chest Tube Drainage 1190 1270 110 Mediastinal Chest Tube X 20 1 Mediastinal X 2 460 345 10 Right and Left Pleural 730 925 80 Urine 285 175 65 Other: Voiding Method Indwelling Catheter Indwelling Catheter Weight 102 kg 102 kg ABP, PAP, CO, CI - Last 8 Hours Arterial Blood Pressure 109/50 Arterial Blood Pressure 113/53 Arterial Blood Pressure 100/55 Arterial Blood Pressure 119/58 Arterial Blood Pressure 102/53 Arterial Blood Pressure 94/52 Arterial Blood Pressure 89/51 Arterial Blood Pressure 103/55 Arterial Blood Pressure 109/58 Arterial Blood Pressure 113/58 Arterial Blood Pressure 106/56 Arterial Blood Pressure 96/53 Arterial Blood Pressure 105/57 Arterial Blood Pressure 90/52 Arterial Blood Pressure 98/54 Pulmonary Artery Pressure 36/22 Pulmonary Artery Pressure 37/24 Pulmonary Artery Pressure 39/26 Pulmonary Artery Pressure 39/26 Pulmonary Artery Pressure 41/27 Pulmonary Artery Pressure 38/25 Pulmonary Artery Pressure 37/25 Pulmonary Artery Pressure 38/25 Pulmonary Artery Pressure 40/27 Pulmonary Artery Pressure 41/28 Pulmonary Artery Pressure 40/26 Pulmonary Artery Pressure 40/27 Pulmonary Artery Pressure 39/27 Pulmonary Artery Pressure 41/27 Cardiac Output 4.5 Cardiac Output 4.5 Cardiac Output 3.7 Cardiac Output 4.0 Cardiac Output 3.7 Cardiac Output 3.7 Cardiac Output 3.6 Cardiac Output 3.5 Cardiac Output 3.4 Cardiac Output 3.6 Cardiac Index 2.1 Cardiac Index 2.1 Cardiac Index 1.8 Cardiac Index 2.0 Cardiac Index 1.8 Cardiac Index 1.8 Cardiac Index 1.7 Cardiac Index 1.7 Cardiac Index 1.6 Cardiac Index 1.7 GENERAL EXAM: Intubated, sedated 67-year-old male patient, comfortable in no apparent distress. HEAD: Normocephalic. EYES: Sluggish reaction of pupils, equal size. NOSE: Clear with pink turbinates. THROAT: Oral endotracheal and gastric tube secured in place. No erythema or exudates. NECK: Right [place]-Rosa catheter in place. No masses, no JVD. CHEST: Sternal dressing dry and intact. Mediastinal right and left pleural chest tubes in place to Pleur-evac and low continuous suction. No air leaks noted. AV epicardial pacemaker wires present. Back up pacing at 50 bpm. LUNGS: Equal air entry with crackles in the bilateral bases. CVS: S1 and S2 normal with no audible murmur, regular rhythm. ABDOMEN: No hepatosplenomegaly, hypoactive bowel sounds, no guarding or rigidity. SPINE: No scoliosis or deformity SKIN: No rashes CENTRAL NERVOUS SYSTEM: No focal deficits, tone is normal in all 4 extremities. EXTREMITIES: Right radial arterial line in place. There is no peripheral edema. No clubbing, no cyanosis. Peripheral pulses are intact. Results - Laboratory Findings CBC and BMP: 03/23/23 03:00 03/23/23 03:00 ABG ABG pH 7.39 (7.35-7.45) 03/23/23 05:55 ABG pCO2 37 mmHg (35-45) 03/23/23 05:55 ABG pO2 206 mmHg (83-108) H 03/23/23 05:55 ABG O2 Saturation 99.9 % (94-97) H 03/23/23 05:55 PT/INR, D-dimer PT 10.8 sec (9.0-12.0) 03/23/23 03:00 INR 1.0 (<1.2) 03/23/23 03:00 Abnormal lab findings: Abnormal Labs 03/14/23 03/22/23 03/22/23 09:00 06:20 08:43 WBC RBC Hgb Hct RDW Plt Count Neutrophils # Lymphocytes # PT INR ABG pH ABG pCO2 ABG pO2 ABG HCO3 27 H ABG Total CO2 28 H ABG O2 Saturation 98.1 H ABG Hematocrit ABG Potassium ABG Ionized Calcium ABG Glucose 126 H ABG Lactic Acid Hemoglobin 11.2 L Chloride BUN Creatinine Glucose POC Glucose (mg/dL) 123 H Calcium Ionized Calcium Wojciech Magnesium Alkaline Phosphatase Total Protein Albumin Arterial Blood Potassium Arterial Blood Glucose 126 H Crossmatch See Detail 03/22/23 03/22/23 03/22/23 08:43 09:43 10:31 WBC RBC Hgb Hct RDW Plt Count Neutrophils # Lymphocytes # PT INR ABG pH ABG pCO2 47 H 47 H ABG pO2 222 H 373 H 384 H ABG HCO3 27 H 26 H 26 H ABG Total CO2 28 H 27 H 28 H ABG O2 Saturation 99.6 H 100.0 H 100.0 H ABG Hematocrit 33 L 25 L 26 L ABG Potassium 4.8 H ABG Ionized Calcium 4.0 L 4.2 L ABG Glucose 144 H 135 H 145 H ABG Lactic Acid 1.9 H Hemoglobin 10.8 L 8.1 L 8.5 L Chloride BUN Creatinine Glucose POC Glucose (mg/dL) Calcium Ionized Calcium Wojciech Magnesium Alkaline Phosphatase Total Protein Albumin Arterial Blood Potassium 4.8 H Arterial Blood Glucose 144 H 135 H 145 H Crossmatch 03/22/23 03/22/23 03/22/23 11:03 11:31 11:55 WBC RBC Hgb Hct RDW Plt Count Neutrophils # Lymphocytes # PT INR ABG pH 7.32 L ABG pCO2 52 H ABG pO2 315 H 391 H 362 H ABG HCO3 27 H 26 H ABG Total CO2 28 H 27 H 27 H ABG O2 Saturation 100.0 H 100.0 H 100.0 H ABG Hematocrit 26 L 26 L 26 L ABG Potassium 4.6 H 4.6 H 4.8 H ABG Ionized Calcium 4.2 L 4.2 L 4.2 L ABG Glucose 150 H 147 H 139 H ABG Lactic Acid 2.2 H* 2.2 H* 2.4 H* Hemoglobin 8.4 L 8.3 L 8.3 L Chloride BUN Creatinine Glucose POC Glucose (mg/dL) Calcium Ionized Calcium Wojciech Magnesium Alkaline Phosphatase Total Protein Albumin Arterial Blood Potassium 4.6 H 4.6 H 4.8 H Arterial Blood Glucose 150 H 147 H 139 H Crossmatch 03/22/23 03/22/23 03/22/23 14:15 14:15 14:15 WBC RBC 3.67 L Hgb 10.4 L Hct 32.8 L RDW 18.4 H Plt Count 105 L Neutrophils # Lymphocytes # 0.6 L PT 12.5 H INR 1.2 H ABG pH ABG pCO2 ABG pO2 ABG HCO3 ABG Total CO2 ABG O2 Saturation ABG Hematocrit ABG Potassium ABG Ionized Calcium ABG Glucose ABG Lactic Acid Hemoglobin Chloride 108 H BUN 21 H Creatinine Glucose 111 H POC Glucose (mg/dL) Calcium 7.4 L Ionized Calcium Wojciech Magnesium 2.5 H Alkaline Phosphatase Total Protein 5.3 L Albumin 2.6 L Arterial Blood Potassium Arterial Blood Glucose Crossmatch 03/22/23 03/22/23 03/22/23 14:39 15:14 16:06 WBC RBC Hgb Hct RDW Plt Count Neutrophils # Lymphocytes # PT INR ABG pH ABG pCO2 ABG pO2 64 L ABG HCO3 ABG Total CO2 27 H ABG O2 Saturation 92.1 L ABG Hematocrit ABG Potassium ABG Ionized Calcium ABG Glucose ABG Lactic Acid Hemoglobin Chloride BUN Creatinine Glucose POC Glucose (mg/dL) 111 H 138 H Calcium Ionized Calcium Wojciech Magnesium Alkaline Phosphatase Total Protein Albumin Arterial Blood Potassium Arterial Blood Glucose Crossmatch 03/22/23 03/22/23 03/22/23 16:45 17:10 17:10 WBC 13.1 H RBC 2.93 L Hgb 9.0 L Hct 26.6 L RDW 18.4 H Plt Count 98 L Neutrophils # 11.4 H Lymphocytes # 0.8 L PT INR ABG pH ABG pCO2 ABG pO2 65 L ABG HCO3 ABG Total CO2 25 H ABG O2 Saturation 90.5 L ABG Hematocrit ABG Potassium ABG Ionized Calcium ABG Glucose ABG Lactic Acid Hemoglobin Chloride BUN 21 H Creatinine 1.36 H Glucose 175 H POC Glucose (mg/dL) Calcium 7.3 L Ionized Calcium Wojciech Magnesium Alkaline Phosphatase Total Protein Albumin Arterial Blood Potassium Arterial Blood Glucose Crossmatch 03/22/23 03/22/23 03/22/23 17:11 18:02 19:03 WBC RBC Hgb Hct RDW Plt Count Neutrophils # Lymphocytes # PT INR ABG pH ABG pCO2 ABG pO2 ABG HCO3 ABG Total CO2 ABG O2 Saturation ABG Hematocrit ABG Potassium ABG Ionized Calcium ABG Glucose ABG Lactic Acid Hemoglobin Chloride BUN Creatinine Glucose POC Glucose (mg/dL) 181 H 164 H 180 H Calcium Ionized Calcium Wojciech Magnesium Alkaline Phosphatase Total Protein Albumin Arterial Blood Potassium Arterial Blood Glucose Crossmatch 03/22/23 03/22/23 03/22/23 20:03 20:03 20:21 WBC 11.5 H RBC 2.91 L Hgb 8.7 L Hct 26.7 L RDW 18.5 H Plt Count 93 L Neutrophils # 10.4 H Lymphocytes # 0.4 L PT INR ABG pH ABG pCO2 ABG pO2 ABG HCO3 ABG Total CO2 25 H ABG O2 Saturation ABG Hematocrit ABG Potassium ABG Ionized Calcium ABG Glucose ABG Lactic Acid Hemoglobin Chloride BUN Creatinine Glucose POC Glucose (mg/dL) 203 H Calcium Ionized Calcium Wojciech Magnesium Alkaline Phosphatase Total Protein Albumin Arterial Blood Potassium Arterial Blood Glucose Crossmatch 03/22/23 03/22/23 03/22/23 20:59 22:12 22:14 WBC RBC Hgb Hct RDW Plt Count Neutrophils # Lymphocytes # PT INR ABG pH ABG pCO2 ABG pO2 150 H ABG HCO3 ABG Total CO2 ABG O2 Saturation 99.7 H ABG Hematocrit ABG Potassium ABG Ionized Calcium ABG Glucose ABG Lactic Acid Hemoglobin Chloride BUN Creatinine Glucose POC Glucose (mg/dL) 196 H 182 H Calcium Ionized Calcium Wojciech Magnesium Alkaline Phosphatase Total Protein Albumin Arterial Blood Potassium Arterial Blood Glucose Crossmatch 03/22/23 03/22/23 03/23/23 22:20 23:04 00:10 WBC RBC 2.60 L Hgb 7.6 L Hct 23.7 L RDW 18.5 H Plt Count 120 L Neutrophils # 8.9 H Lymphocytes # 0.5 L PT INR ABG pH ABG pCO2 ABG pO2 ABG HCO3 ABG Total CO2 ABG O2 Saturation ABG Hematocrit ABG Potassium ABG Ionized Calcium ABG Glucose ABG Lactic Acid Hemoglobin Chloride BUN Creatinine Glucose POC Glucose (mg/dL) 182 H 173 H Calcium Ionized Calcium Wojciech Magnesium Alkaline Phosphatase Total Protein Albumin Arterial Blood Potassium Arterial Blood Glucose Crossmatch 03/23/23 03/23/23 03/23/23 01:09 02:11 02:54 WBC RBC Hgb Hct RDW Plt Count Neutrophils # Lymphocytes # PT INR ABG pH ABG pCO2 ABG pO2 ABG HCO3 ABG Total CO2 ABG O2 Saturation ABG Hematocrit ABG Potassium ABG Ionized Calcium ABG Glucose ABG Lactic Acid Hemoglobin Chloride BUN Creatinine Glucose POC Glucose (mg/dL) 163 H 153 H 149 H Calcium Ionized Calcium Wojciech Magnesium Alkaline Phosphatase Total Protein Albumin Arterial Blood Potassium Arterial Blood Glucose Crossmatch 03/23/23 03/23/23 03/23/23 03:00 03:00 04:13 WBC RBC 2.76 L Hgb 8.1 L Hct 24.9 L RDW 17.8 H Plt Count 123 L Neutrophils # 8.2 H Lymphocytes # 0.9 L PT INR ABG pH ABG pCO2 ABG pO2 ABG HCO3 ABG Total CO2 ABG O2 Saturation ABG Hematocrit ABG Potassium ABG Ionized Calcium ABG Glucose ABG Lactic Acid Hemoglobin Chloride 108 H BUN 24 H Creatinine 1.98 H Glucose 135 H POC Glucose (mg/dL) 137 H Calcium 7.2 L Ionized Calcium Wojciech 4.4 L Magnesium Alkaline Phosphatase 34 L Total Protein 4.8 L Albumin 2.7 L Arterial Blood Potassium Arterial Blood Glucose Crossmatch 03/23/23 03/23/23 03/23/23 05:06 05:55 05:57 WBC RBC Hgb Hct RDW Plt Count Neutrophils # Lymphocytes # PT INR ABG pH ABG pCO2 ABG pO2 206 H ABG HCO3 ABG Total CO2 ABG O2 Saturation 99.9 H ABG Hematocrit ABG Potassium ABG Ionized Calcium ABG Glucose ABG Lactic Acid Hemoglobin Chloride BUN Creatinine Glucose POC Glucose (mg/dL) 138 H 141 H Calcium Ionized Calcium Wojciech Magnesium Alkaline Phosphatase Total Protein Albumin Arterial Blood Potassium Arterial Blood Glucose Crossmatch 03/23/23 03/23/23 03/23/23 06:54 08:30 09:31 WBC RBC Hgb Hct RDW Plt Count Neutrophils # Lymphocytes # PT INR ABG pH ABG pCO2 ABG pO2 ABG HCO3 ABG Total CO2 ABG O2 Saturation ABG Hematocrit ABG Potassium ABG Ionized Calcium ABG Glucose ABG Lactic Acid Hemoglobin Chloride BUN Creatinine Glucose POC Glucose (mg/dL) 139 H 128 H 126 H Calcium Ionized Calcium Wojciech Magnesium Alkaline Phosphatase Total Protein Albumin Arterial Blood Potassium Arterial Blood Glucose Crossmatch 03/23/23 11:05 WBC RBC Hgb Hct RDW Plt Count Neutrophils # Lymphocytes # PT INR ABG pH ABG pCO2 ABG pO2 ABG HCO3 ABG Total CO2 ABG O2 Saturation ABG Hematocrit ABG Potassium ABG Ionized Calcium ABG Glucose ABG Lactic Acid Hemoglobin Chloride BUN Creatinine Glucose POC Glucose (mg/dL) 130 H Calcium Ionized Calcium Wojciech Magnesium Alkaline Phosphatase Total Protein Albumin Arterial Blood Potassium Arterial Blood Glucose Crossmatch - Diagnostic Findings Chest x-ray: image reviewed Assessment and Plan Assessment: Coronary artery disease status post two-vessel coronary artery bypass grafting. Postoperative day #1 Severe aortic stenosis, status post aortic valve replacement with a 25 mm Rosario expressed bioprosthetic valve. Postoperative day #1 Postoperative hypotension requiring norepinephrine and vasopressin Acute kidney injury, current creatinine 2.44 History of coronary artery disease with previous PCI History of hypertension Hyperlipidemia Diabetes mellitus Chronic and ongoing tobacco dependence Carotid stenosis History of marijuana use Obstructive sleep apnea not utilizing CPAP History of alcohol use Plan: The patient was seen and evaluated Chest x-ray, ABGs, labs and medications reviewed Titrated down the FiO2 to 40% Continue bronchodilators Continue heparin for DVT prophylaxis Continue pressor support Continue the current ventilator settings for now No plans for weaning trials at this point We will continue to follow and make further recommendations based on his clinical status I have personally seen and examined the patient, performed the documentation and the assessment and plan as written. Number of minutes spent on the visit: 20.
[2023-03-23 12:02] LABS: Glucose,Whole Blood 127 mg/dL (70-110)
[2023-03-23] MEDS: ALBUMIN HUMAN 5% 250 ML in EMPTY BAG 1 BAG IVPB PRN ×4 (12:20→17:20)
[2023-03-23] MEDS: LACTATED RINGERS 1,000 ML IV SCH (13:02)
[2023-03-23] MEDS: METOPROLOL TARTRATE 12.5 MG TAB PO SCH ×2 (13:02→20:30)
[2023-03-23 13:59] LABS: Glucose,Whole Blood 142 mg/dL (70-110)
[2023-03-23] MEDS: VASOPRESSIN 60 UNIT in SODIUM CHLORIDE 0.9% 150 ML IV SCH (14:12)
[2023-03-23 15:58] LABS: Glucose,Whole Blood 149 mg/dL (70-110)
[2023-03-23 16:20] LABS: ABG Base Excess -2.1 mmol/L; ABG HCO3 23 mmol/L (21-25); ABG PCO2 37 mmHg (35-45); ABG PO2 73 mmHg (83-108); ABG TCO2 24 mmol/L (19-24)
[2023-03-23 16:21] LABS: Anisocytosis Slight; Basophils % (A) 0 %; Eosinophils # (A) 0.1 k/uL (0-0.7); Eosinophils % (A) 0 %; HGB 7.6 gm/dL (13.0-17.5); Hypochromasia Slight; Lymphocytes % (A) 9 %; MCH 29.6 pg (25.0-35.0); MCHC 33.1 g/dL (31.0-37.0); MCV 89.4 fL (80.0-100.0); Mean Platelet Volume 9.5; Monocytes # (A) 0.9 k/uL (0-1.0); Monocytes % (A) 8 %; Neutrophils # (A) 9.3 k/uL (1.3-7.7); Neutrophils % (A) 81 %; Poikilocytosis Slight; RBC 2.57 m/uL (4.30-5.90); RDW 18.3 % (11.5-15.5); WBC 11.5 k/uL (3.8-10.6)
[2023-03-23 16:22] LABS: Allen Test Performed? no
[2023-03-23 16:59] LABS: Platelet Count 81 k/uL (150-450)
[2023-03-23] MEDS: FERROUS SULFATE ORAL ELIXIR 300 MG/5 ML CUP PO SCH (16:59)
[2023-03-23 17:30] LABS: Glucose,Whole Blood 141 mg/dL (70-110)
[2023-03-23 18:06] LABS: Glucose,Whole Blood 149 mg/dL (70-110)
[2023-03-23 19:03] LABS: Glucose,Whole Blood 136 mg/dL (70-110)
[2023-03-23 20:20] LABS: Glucose,Whole Blood 142 mg/dL (70-110)
[2023-03-23] MEDS: SENNOSIDES-DOCUSATE SODIUM 1 EACH TAB PO SCH (21:30)
[2023-03-23 22:01] LABS: Glucose,Whole Blood 143 mg/dL (70-110)
[2023-03-23 23:10] LABS: Glucose,Whole Blood 136 mg/dL (70-110)
--- NOTE | 2023-03-23 23:32 | P.PN ---
Subjective Progress Note Date: 03/23/23 Patient is a 65-year-old male with a known history of hypertension, hyperlipidemia, diabetes type 2 [id number]-useurgihn, obstructive sleep apnea not on CPAP, coronary artery disease, severe aortic stenosis, chronic occlusion of the right ICA and moderate stenosis involving the left ICA was to the [facility] for elective aortic valve replacement and myocardial revascularization. Patient underwent IL-12 replacement and two-vessel bypass LRA to OM and SVG to PDA. Patient had RAE on 01/05/2023 showed severe aortic stenosis involving tricuspid aortic valve with planimetry area of around 0.4 2.6 cm. Normal LV systolic function. Mild to moderate MR. Patient had cardiac catheterization on 01/04/2023 showed right coronary artery is a codominant vessel that was previously stented extensively. Mid RCA showed focal 90% stenosis. Left main coronary artery appears to be calcified but is free of significant stenosis. Circumflex artery showed 80 to 90% ostial stenosis, LAD showed mild to moderate diffuse mild nonfocal atherosclerotic block. Severe two-vessel coronary disease. Patient was referred to Dr. Jensen for evaluation of aortic valve replacement with two-vessel bypass surgery. Patient was intubated perioperatively and was transferred to MICU postprocedure. Laboratory data showed WBC 8.5 hemoglobin 10.4 and platelets 105. ABG showed pH 7.4 PCO2 41 PO2 64. Sodium 138 potassium 4.3 chloride 108 bicarb is 24 BUN 21 creatinine 1.23 and blood sugar is 111. Patient is currently on milrinone drip, Cardizem and norepinephrine. Patient is also on insulin drip. 03/23/2023 Patient is currently in the MICU. Remains on mechanical ventilator. Patient is also sedated with propofol. On assist control 16 with FiO2 40% and PEEP of 10 and tidal volume 600. ABGs this morning showed pH 7.39 PCO2 37 PO2 206 bicarb is 22 Patient is being cannula pressor support with norepinephrine and vasopressin. Patient is also IV albumin. Mediastinal and right and left pleural chest tubes in place with low suction. Was also noted to have serosanguineous drainage from the mediastinal chest tubes. Hemoglobin 8.7 today dropped to 7.6. Patient did receive 3 units of PRBCs and 1 unit of platelet and 1 L of fold cryoprecipitate. Chest x-ray this morning showed postoperative changes with stable areas of c onsolidation tiny bilateral effusion. Correlate for mild venous congestion. Other laboratory data showed WBC 11.9 hemoglobin 8.7 and platelets 99 sodium 138 potassium 4.6 chloride 109 bicarb is 21 BUN 27 creatinine 2.44 and blood sugar is 133. Patient remained on insulin drip. Current medications reviewed. Objective - Vital Signs Vital signs: Vital Signs Temp 99.3 F 03/23/23 17:00 Pulse 93 03/23/23 23:00 Resp 17 03/23/23 23:00 BP 135/59 03/23/23 23:00 Pulse Ox 98 03/23/23 22:00 FiO2 40 03/23/23 20:28 Intake & Output 03/23/23 03/23/23 03/24/23 06:59 18:59 06:59 Intake Total 3939.950 3007.395 749.238 Output Total 2375 645 386 Balance 5601.905 5197.395 363.238 Weight 102 kg 102 kg Intake: IV 1030.0 1719 495 .9NS Pressure Bag 108 99 45 ACETAMINOPHEN IV (For NPO 100 ) 1,000 mg In Empty Bag 1 bag @ 400 mls/hr IVPB Q6H [facility] Rx#:[id number] Albumin Human 5% 250 ml 1000 In Empty Bag 1 bag @ 250 mls/hr IVPB Q1HR PRN Rx#: [id number] Angiotensin II Acetate, 50 Human 0.5 mg In Sodium Chloride 0.9% 50 ml @ 10 NG/KG/MIN 6.024 mls/hr IV .Q8H18M [facility] Rx#: [id number] Cardiac Output .9NS 260 100 100 Desmopressin Acetate 32 50 mcg In Sodium Chloride 0. 9% 50 ml @ 200 mls/hr IVPB ONCE ONE Rx#: [id number] Lactated Ringers 1,000 ml 550 520 250 @ 50 mls/hr IV .Q20H [facility] Rx#:[id number] Nitroglycerin-D5w Pmx 50 12.0 mg In Dextrose/Water 1 250ml.bag @ Per Protocol IV ONCE ONE Rx#:[id number] Intake, IV Titration 949.950 978.395 254.238 Amount Calcium Gluconate in NaCl 100 1 gm In Saline 1 100ml. bag @ 100 mls/hr IVPB ONCE ONE Rx#:[id number] Dexmedetomidine/0.9% NaCl 1.966 (Pmx) 400 mcg In Empty Bag 1 bag @ Titrate IV . Q0M [facility] Rx#:[id number] Insulin Regular 100 unit 69.168 97.179 34.231 In Sodium Chloride 0.9% 100 ml @ Per Protocol IV .Q0M [facility] Rx#:[id number] Lactated Ringers 1,000 ml 50 @ 50 mls/hr IV .Q20H [facility] Rx#:[id number] Milrinone-D5w Pmx 20 mg 100 46.234 9.739 In Dextrose/Water 1 100ml .bag @ 0.3 MCG/KG/MIN 9. 036 mls/hr IV .Q11H5M [facility] Rx#:[id number] Norepinephrine 4 mg In 399.360 361.294 50.430 Sodium Chloride 0.9% 250 ml @ 0.03 MCG/KG/MIN 11. 476 mls/hr IV .Q22H8M [facility] Rx#:[id number] Vasopressin 60 unit In 140.199 Sodium Chloride 0.9% 150 ml @ 0.02 UNITS/MIN 3.06 mls/hr IV .Q24H [facility] Rx#: [id number] ceFAZolin 2 gm In Sodium 50 Chloride 0.9% 50 ml @ 100 mls/hr IVPB Q8HR [facility] Rx# :[id number] propofoL 1,000 mg In 331.422 181.523 159.838 Empty Bag 1 bag @ 50 MCG/ KG/MIN 30.12 mls/hr IV . Q3H20M [facility] Rx#:[id number] Blood Product 1960 310 Platelet Pheresis Pas 286 Psoralen Unit [id number] Pooled Cryoprecipitate 79 Unit [id number] Rc As-1 Unit 310 [id number] Rc As-1 Unit 310 [id number] Rc As-1 Unit 310 [id number] Output: Chest Tube Drainage 2060 330 176 Mediastinal Chest Tube X 110 76 1 Mediastinal X 2 515 10 Right and Left Pleural 1545 210 100 Urine 315 315 210 Other: Voiding Method Indwelling Catheter Indwelling Catheter Indwelling Catheter ABP, PAP, CO, CI - Last Documented Arterial Blood Pressure 129/52 Pulmonary Artery Pressure 44/20 Cardiac Output 9.6 Cardiac Index 4.1 - Exam PHYSICAL EXAMINATION: Patient is on mechanical ventilator. Sedated. HEENT: Normocephalic. Neck is supple. Pupils reactive. Nostrils clear. Oral cavity is moist. Neck reveals no JVD, carotid bruits, or thyromegaly. CHEST EXAMINATION: Trachea is central. Symmetrical expansion. ET tube in place. No wheezing or rhonchi. Mediastinal and pleural chest tubes in place. CARDIAC: Normal S1, S2 with no gallops. No murmurs ABDOMEN: Soft. Bowel sounds present. No organomegaly. No abdominal bruits. Extremities: reveal no edema. No clubbing or cyanosis Neurologically patient is on mechanical ventilator. Sedated.. No gross focal deficits noted Skin: No rash or skin lesions. Psychiatric: Could not be assessed at this time., Musculoskeletal: No joint swelling or deformity - Labs CBC & Chem 7: 03/23/23 15:57 03/23/23 11:02 Labs: Abnormal Lab Results - Last 24 Hours (Table) 03/14/23 03/23/23 03/23/23 Range/Units 09:00 00:10 01:09 WBC (3.8-10.6) k/uL RBC (4.30-5.90) m/uL Hgb (13.0-17.5) gm/dL Hct (39.0-53.0) % RDW (11.5-15.5) % Plt Count (150-450) k/uL Neutrophils # (1.3-7.7) k/uL Lymphocytes # (1.0-4.8) k/uL ABG pO2 (83-108) mmHg ABG O2 Saturation (94-97) % Chloride (98-107) mmol/L Carbon Dioxide (22-30) mmol/L BUN (9-20) mg/dL Creatinine (0.66-1.25) mg/dL Glucose (74-99) mg/dL POC Glucose (mg/dL) 173 H 163 H (70-110) mg/dL Calcium (8.4-10.2) mg/dL Ionized Calcium Wojciech (4.5-5.3) mg/dL Alkaline Phosphatase (38-126) U/L Total Protein (6.3-8.2) g/dL Albumin (3.5-5.0) g/dL Crossmatch See Detail 03/23/23 03/23/23 03/23/23 Range/Units 02:11 02:54 03:00 WBC (3.8-10.6) k/uL RBC 2.76 L (4.30-5.90) m/uL Hgb 8.1 L (13.0-17.5) gm/dL Hct 24.9 L (39.0-53.0) % RDW 17.8 H (11.5-15.5) % Plt Count 123 L (150-450) k/uL Neutrophils # 8.2 H (1.3-7.7) k/uL Lymphocytes # 0.9 L (1.0-4.8) k/uL ABG pO2 (83-108) mmHg ABG O2 Saturation (94-97) % Chloride (98-107) mmol/L Carbon Dioxide (22-30) mmol/L BUN (9-20) mg/dL Creatinine (0.66-1.25) mg/dL Glucose (74-99) mg/dL POC Glucose (mg/dL) 153 H 149 H (70-110) mg/dL Calcium (8.4-10.2) mg/dL Ionized Calcium Wojciech (4.5-5.3) mg/dL Alkaline Phosphatase (38-126) U/L Total Protein (6.3-8.2) g/dL Albumin (3.5-5.0) g/dL Crossmatch 03/23/23 03/23/23 03/23/23 Range/Units 03:00 04:13 05:06 WBC (3.8-10.6) k/uL RBC (4.30-5.90) m/uL Hgb (13.0-17.5) gm/dL Hct (39.0-53.0) % RDW (11.5-15.5) % Plt Count (150-450) k/uL Neutrophils # (1.3-7.7) k/uL Lymphocytes # (1.0-4.8) k/uL ABG pO2 (83-108) mmHg ABG O2 Saturation (94-97) % Chloride 108 H (98-107) mmol/L Carbon Dioxide (22-30) mmol/L BUN 24 H (9-20) mg/dL Creatinine 1.98 H (0.66-1.25) mg/dL Glucose 135 H (74-99) mg/dL POC Glucose (mg/dL) 137 H 138 H (70-110) mg/dL Calcium 7.2 L (8.4-10.2) mg/dL Ionized Calcium Wojciech 4.4 L (4.5-5.3) mg/dL Alkaline Phosphatase 34 L (38-126) U/L Total Protein 4.8 L (6.3-8.2) g/dL Albumin 2.7 L (3.5-5.0) g/dL Crossmatch 03/23/23 03/23/23 03/23/23 Range/Units 05:55 05:57 06:54 WBC (3.8-10.6) k/uL RBC (4.30-5.90) m/uL Hgb (13.0-17.5) gm/dL Hct (39.0-53.0) % RDW (11.5-15.5) % Plt Count (150-450) k/uL Neutrophils # (1.3-7.7) k/uL Lymphocytes # (1.0-4.8) k/uL ABG pO2 206 H (83-108) mmHg ABG O2 Saturation 99.9 H (94-97) % Chloride (98-107) mmol/L Carbon Dioxide (22-30) mmol/L BUN (9-20) mg/dL Creatinine (0.66-1.25) mg/dL Glucose (74-99) mg/dL POC Glucose (mg/dL) 141 H 139 H (70-110) mg/dL Calcium (8.4-10.2) mg/dL Ionized Calcium Wojciech (4.5-5.3) mg/dL Alkaline Phosphatase (38-126) U/L Total Protein (6.3-8.2) g/dL Albumin (3.5-5.0) g/dL Crossmatch 03/23/23 03/23/23 03/23/23 Range/Units 08:30 09:31 11:02 WBC 11.9 H (3.8-10.6) k/uL RBC 3.08 L (4.30-5.90) m/uL Hgb 8.7 L (13.0-17.5) gm/dL Hct 27.6 L (39.0-53.0) % RDW 17.8 H (11.5-15.5) % Plt Count 99 L (150-450) k/uL Neutrophils # 9.6 H (1.3-7.7) k/uL Lymphocytes # (1.0-4.8) k/uL ABG pO2 (83-108) mmHg ABG O2 Saturation (94-97) % Chloride (98-107) mmol/L Carbon Dioxide (22-30) mmol/L BUN (9-20) mg/dL Creatinine (0.66-1.25) mg/dL Glucose (74-99) mg/dL POC Glucose (mg/dL) 128 H 126 H (70-110) mg/dL Calcium (8.4-10.2) mg/dL Ionized Calcium Wojciech (4.5-5.3) mg/dL Alkaline Phosphatase (38-126) U/L Total Protein (6.3-8.2) g/dL Albumin (3.5-5.0) g/dL Crossmatch 03/23/23 03/23/23 03/23/23 Range/Units 11:02 11:05 12:00 WBC (3.8-10.6) k/uL RBC (4.30-5.90) m/uL Hgb (13.0-17.5) gm/dL Hct (39.0-53.0) % RDW (11.5-15.5) % Plt Count (150-450) k/uL Neutrophils # (1.3-7.7) k/uL Lymphocytes # (1.0-4.8) k/uL ABG pO2 (83-108) mmHg ABG O2 Saturation (94-97) % Chloride 109 H (98-107) mmol/L Carbon Dioxide 21 L (22-30) mmol/L BUN 27 H (9-20) mg/dL Creatinine 2.44 H (0.66-1.25) mg/dL Glucose 132 H (74-99) mg/dL POC Glucose (mg/dL) 130 H 127 H (70-110) mg/dL Calcium 7.1 L (8.4-10.2) mg/dL Ionized Calcium Wojciech (4.5-5.3) mg/dL Alkaline Phosphatase (38-126) U/L Total Protein 4.6 L (6.3-8.2) g/dL Albumin 2.5 L (3.5-5.0) g/dL Crossmatch 03/23/23 03/23/23 03/23/23 Range/Units 13:58 15:55 15:57 WBC 11.5 H (3.8-10.6) k/uL RBC 2.57 L (4.30-5.90) m/uL Hgb 7.6 L (13.0-17.5) gm/dL Hct 23.0 L (39.0-53.0) % RDW 18.3 H (11.5-15.5) % Plt Count 81 L (150-450) k/uL Neutrophils # 9.3 H (1.3-7.7) k/uL Lymphocytes # (1.0-4.8) k/uL ABG pO2 (83-108) mmHg ABG O2 Saturation (94-97) % Chloride (98-107) mmol/L Carbon Dioxide (22-30) mmol/L BUN (9-20) mg/dL Creatinine (0.66-1.25) mg/dL Glucose (74-99) mg/dL POC Glucose (mg/dL) 142 H 149 H (70-110) mg/dL Calcium (8.4-10.2) mg/dL Ionized Calcium Wojciech (4.5-5.3) mg/dL Alkaline Phosphatase (38-126) U/L Total Protein (6.3-8.2) g/dL Albumin (3.5-5.0) g/dL Crossmatch 03/23/23 03/23/23 03/23/23 Range/Units 16:18 17:28 18:05 WBC (3.8-10.6) k/uL RBC (4.30-5.90) m/uL Hgb (13.0-17.5) gm/dL Hct (39.0-53.0) % RDW (11.5-15.5) % Plt Count (150-450) k/uL Neutrophils # (1.3-7.7) k/uL Lymphocytes # (1.0-4.8) k/uL ABG pO2 73 L (83-108) mmHg ABG O2 Saturation (94-97) % Chloride (98-107) mmol/L Carbon Dioxide (22-30) mmol/L BUN (9-20) mg/dL Creatinine (0.66-1.25) mg/dL Glucose (74-99) mg/dL POC Glucose (mg/dL) 141 H 149 H (70-110) mg/dL Calcium (8.4-10.2) mg/dL Ionized Calcium Wojciech (4.5-5.3) mg/dL Alkaline Phosphatase (38-126) U/L Total Protein (6.3-8.2) g/dL Albumin (3.5-5.0) g/dL Crossmatch 03/23/23 03/23/23 03/23/23 Range/Units 19:01 20:19 21:59 WBC (3.8-10.6) k/uL RBC (4.30-5.90) m/uL Hgb (13.0-17.5) gm/dL Hct (39.0-53.0) % RDW (11.5-15.5) % Plt Count (150-450) k/uL Neutrophils # (1.3-7.7) k/uL Lymphocytes # (1.0-4.8) k/uL ABG pO2 (83-108) mmHg ABG O2 Saturation (94-97) % Chloride (98-107) mmol/L Carbon Dioxide (22-30) mmol/L BUN (9-20) mg/dL Creatinine (0.66-1.25) mg/dL Glucose (74-99) mg/dL POC Glucose (mg/dL) 136 H 142 H 143 H (70-110) mg/dL Calcium (8.4-10.2) mg/dL Ionized Calcium Wojciech (4.5-5.3) mg/dL Alkaline Phosphatase (38-126) U/L Total Protein (6.3-8.2) g/dL Albumin (3.5-5.0) g/dL Crossmatch 03/23/23 Range/Units 23:09 WBC (3.8-10.6) k/uL RBC (4.30-5.90) m/uL Hgb (13.0-17.5) gm/dL Hct (39.0-53.0) % RDW (11.5-15.5) % Plt Count (150-450) k/uL Neutrophils # (1.3-7.7) k/uL Lymphocytes # (1.0-4.8) k/uL ABG pO2 (83-108) mmHg ABG O2 Saturation (94-97) % Chloride (98-107) mmol/L Carbon Dioxide (22-30) mmol/L BUN (9-20) mg/dL Creatinine (0.66-1.25) mg/dL Glucose (74-99) mg/dL POC Glucose (mg/dL) 136 H (70-110) mg/dL Calcium (8.4-10.2) mg/dL Ionized Calcium Wojciech (4.5-5.3) mg/dL Alkaline Phosphatase (38-126) U/L Total Protein (6.3-8.2) g/dL Albumin (3.5-5.0) g/dL Crossmatch Assessment and Plan Assessment: Status post elective aortic valve replacement with bioprosthetic and two-vessel coronary artery bypass graft, LRA to OM and SVG to PDA. On 03/22/2023. Patient is intubated and on mechanical ventilator perioperatively. Postoperative hypotension requiring pressor support Acute blood loss anemia from the mediastinal chest tube requiring blood transfusion. Acute kidney injury possible ATN due to hemodynamic changes. Severe aortic stenosis Severe two-vessel coronary disease Chronic CHF with preserved ejection fraction Coronary artery disease with history of multiple stent placement Diabetes type 2 ucu-xwzvnau-xkqjrwyka Hypertension Hyperlipidemia Obstructive sleep apnea not on CPAP Obesity with BMI 34.7 Currently everyday smoker GI and DVT prophylaxis. On PPI and heparin subcu Plan: Patient is currently in the MICU. Patient is intubated and sedated. Patient is maintaining pressor support with norepinephrine and vasopressin. No plans for extubation today. Patient was given 3 units of PRBC and platelets and cryoprecipitate. Continue to monitor CBC. Patient is also on insulin drip for better blood sugar control. Critical care team and CT surgery is on board. Patient will be continued on aspirin, statins and metoprolol, Plavix. Continue with supportive care. Continue monitor renal function. Will continue to follow closely and further recommendations based on clinical course. Time with Patient: Greater than 30
[2023-03-24 00:06] LABS: Glucose,Whole Blood 125 mg/dL (70-110)
[2023-03-24 01:06] LABS: Glucose,Whole Blood 108 mg/dL (70-110)
[2023-03-24 02:19] LABS: Glucose,Whole Blood 144 mg/dL (70-110)
[2023-03-24 03:15] LABS: Glucose,Whole Blood 143 mg/dL (70-110)
[2023-03-24] MEDS: HYDROcodone/APAP 10-325MG 1 EACH TAB PO PRN ×3 (03:16→20:39)
[2023-03-24 04:07] LABS: Glucose,Whole Blood 134 mg/dL (70-110)
--- NOTE | 2023-03-24 04:10 | XR ---
EXAMINATION TYPE: XR chest 1V portable DATE OF EXAM: 03/24/2023 4:02 AM COMPARISON: Chest radiographs from 03/23/2023 TECHNIQUE: XR chest 1V portable Portable AP radiograph of the chest. CLINICAL INDICATION:Male, 67 years old with history of Post Operative Cardiac Surgery; FINDINGS: Lungs/Pleura: No pneumothorax. Bibasilar patchy airspace disease redemonstrated. Small left pleural e ffusion suggested. Pulmonary vascularity: Pulmonary vascular congestion. Heart/mediastinum: Cardiomediastinal silhouette is enlarged and stable. Atherosclerotic calcificatio ns are seen in the aorta. Postsurgical changes. Musculoskeletal: No acute osseous pathology. Midline sternotomy wires are noted and stable. Chronic d eformity of the right clavicle. Other findings: None Lines/Tubes: Endotracheal tube with distal tip 4.6 cm above the dari Nasogastric tube with its distal tip and side-port projecting under the diaphragm. Left thoracotomy tube is present without evidence of pneumothorax. Right IJ [place] catheter with distal tip in the region of the main pulmonary artery. Mediastinal drain and similar position. IMPRESSION: 1. Postoperative changes with stable areas of bibasilar airspace opacities which may represent infil trates versus atelectasis. Small left pleural effusion suggested. 2. Pulmonary vascular congestion. 3. Stable support lines and tubes.
[2023-03-24 05:06] LABS: Glucose,Whole Blood 129 mg/dL (70-110)
[2023-03-24 05:15] LABS: Anisocytosis Slight; Basophils % (A) 0 %; Eosinophils % (A) 0 %; Hypochromasia Slight; Lymphocytes # (A) 0.7 k/uL (1.0-4.8); Lymphocytes % (A) 8 %; MCH 28.8 pg (25.0-35.0); MCHC 32.8 g/dL (31.0-37.0); MCV 87.6 fL (80.0-100.0); Mean Platelet Volume 11.4; Monocytes # (A) 0.6 k/uL (0-1.0); Monocytes % (A) 6 %; Neutrophils # (A) 7.3 k/uL (1.3-7.7); Neutrophils % (A) 83 %; Poikilocytosis Slight; RBC 2.26 m/uL (4.30-5.90); RDW 19.1 % (11.5-15.5); WBC 8.8 k/uL (3.8-10.6)
[2023-03-24 05:19] LABS: HCT 19.8 % (39.0-53.0); HGB 6.5 gm/dL (13.0-17.5); Platelet Count 54 k/uL (150-450)
[2023-03-24 06:10] LABS: Glucose,Whole Blood 129 mg/dL (70-110)
[2023-03-24 06:22] LABS: Partial Thromboplastin Time 26.5 sec (22.0-30.0); Prothrombin Time 10.9 sec (9.0-12.0)
[2023-03-24 06:29] LABS: ABG Base Excess -1.6 mmol/L; ABG HCO3 23 mmol/L (21-25); ABG Oxygen Saturation 98.8 % (94-97); ABG PCO2 36 mmHg (35-45); ABG PH 7.41 (7.35-7.45); ABG PO2 107 mmHg (83-108); ABG TCO2 24 mmol/L (19-24); Allen Test Performed? Yes
[2023-03-24 06:53] LABS: Ionized Calcium 4.4 mg/dL (4.5-5.3)
[2023-03-24] MEDS: INSULIN REGULAR 100 UNIT in SODIUM CHLORIDE 0.9% 100 ML IV SCH (06:56)
[2023-03-24] MEDS: MILRINONE-D5W PMX 20 MG in DEXTROSE/WATER 1 100ML.BAG IV SCH ×3 (06:59→22:15)
[2023-03-24] MEDS: LACTATED RINGERS 1,000 ML IV SCH (07:00)
[2023-03-24 07:01] LABS: Glucose,Whole Blood 108 mg/dL (70-110)
[2023-03-24 07:02] LABS: ALT 12 U/L (4-49); AST 45 U/L (17-59); African American GFR (CKD) 33 (>60 ml/min/1.73 sqM); Albumin 2.7 g/dL (3.5-5.0); Alkaline Phosphatase 41 U/L (38-126); Anion Gap 7 mmol/L; Blood Urea Nitrogen 34 mg/dL (9-20); Calcium 7.2 mg/dL (8.4-10.2); Carbon Dioxide 22 mmol/L (22-30); Chloride 109 mmol/L (98-107); Glucose 115 mg/dL (74-99); Non-African American GFR(CKD) 28 (>60 ml/min/1.73 sqM); Potassium 4.2 mmol/L (3.5-5.1); Sodium 138 mmol/L (137-145); Total Bilirubin 0.6 mg/dL (0.2-1.3); Total Protein 4.8 g/dL (6.3-8.2)
[2023-03-24] MEDS ORDERED: CALCIUM GLUCONATE IN NACL 1 GM in SALINE 1 100ML.BAG IVPB ONE (07:10)
[2023-03-24] MEDS: IPRATROPIUM-ALBUTEROL 3 ML NEB INHALATION SCH ×4 (07:54→20:08)
[2023-03-24] MEDS: FERROUS SULFATE ORAL ELIXIR 300 MG/5 ML CUP PO SCH ×2 (08:04→17:12)
[2023-03-24] MEDS: METOPROLOL TARTRATE 12.5 MG TAB PO SCH (08:04)
[2023-03-24] MEDS: ASPIRIN 325 MG TAB PO SCH (08:04)
[2023-03-24] MEDS: THIAMINE 100 MG TAB PO SCH (08:05)
[2023-03-24] MEDS: CLOPIDOGREL 75 MG TAB PO SCH ×2 (08:05→09:50)
[2023-03-24] MEDS: ATORVASTATIN 40 MG TAB PO SCH (08:05)
[2023-03-24] MEDS: FOLIC ACID 1 MG TAB PO SCH (08:05)
[2023-03-24] MEDS: MULTIVITAMINS, THERA 1 EACH TAB PO SCH (08:05)
[2023-03-24] MEDS: PANTOPRAZOLE 40 MG/10 ML VIAL IVP SCH (08:05)
[2023-03-24 08:16] LABS: Glucose,Whole Blood 118 mg/dL (70-110)
--- NOTE | 2023-03-24 08:25 | P.PN ---
Subjective Progress Note Date: 03/24/23 Principal diagnosis: Severe aortic valve stenosis, coronary artery disease. Past medical history significant for coronary artery disease with previous PCI, on Plavix for anticoagulation as an outpatient, hypertension, hyperlipidemia, diabetes mellitus type 2, obesity with a BMI of 35.2 kg/m, chronic ongoing tobacco dependence, occasional marijuana use, EtOH use drinking 7-8 beers a week, noncompliance with proper medication use and obstructive sleep apnea with noncompliance with home CPAP use. POD #2 coronary artery bypass grafting 2 vessels with radial artery to the ob tuse marginal coronary artery, and a saphenous vein graft to the posterior descending coronary artery. Endoscopic harvesting of the left greater saphenous vein, endoscopic harvesting of the left radial artery, ligation of the left atrial appendage using a 35 mm Atriclip, aortic valve replacement using a 25 mm Rosario Inspiris bioprosthetic valve, epi-aortic ultrasound and intraoperative transesophageal echocardiogram. Postoperative acute blood loss anemia, expected given hemodilution and cardi opulmonary bypass. The patient was seen and examined in follow-up today 03/24/2023 at his bedside in the intensive care unit. He remains sedated with propofol drip, remains intubated with mechanical ventilator support, current mechanical ventilator settings are assist control 16, TV 600, FiO2 40% and a PEEP of 8.0. ABG results this morning show a pH of 7.41, pCO2 36, pO2 107, HCO3 23, oxygen saturation 98.8 and a base excess of -1.6. Oxygen saturations on current mechanical ventilator settings are 100%. Bedside telemetry showing normal sinus rhythm heart rate 93 BPM, atrial and ventricular epicardial pacemaker wires remain in place and connected to bedside backup pacemaker generator on a VVI 50 BPM. Right IJ Cordis/[place]-Rosa catheter remained in place with current hemodynamic showing a cardiac output of 7.0, cardiac index 3.3, PA pressures 44/33, CVP 12 mmHg and an SVR of 822. Norepinephrine and vasopressin drips have been weaned off throughout the night. Primacor drip remains infusing at 0.1 mcg/kg/m. Insulin drip is currently running at 8 units per hour. Mediastinal, right and left pleural chest tubes remain in place to low continuous wall suction -20 cm H2O. No air leak is present. Draining thin serosanguineous drainage. Mediastinal chest tubes drained 50 mL over the last 8 hours and 250 mL in the last 24 hours. Right/left pleural chest tubes remain in place and have drained 80 mL in the last 8 hours and 380 mL in the last 24 hours. Chest x-ray and laboratory results have been reviewed. Objective - Vital Signs Vital signs: Vital Signs Temp 99.3 F 03/23/23 17:00 Pulse 93 03/24/23 06:00 Resp 16 03/24/23 06:00 BP 128/64 03/24/23 06:00 Pulse Ox 99 03/24/23 05:00 FiO2 40 03/24/23 04:49 Intake & Output 03/23/23 03/23/23 03/24/23 06:59 18:59 06:59 Intake Total 3939.950 3007.395 1544.335 Output Total 2375 645 891 Balance 2416.251 6225.395 653.335 Weight 102 kg 102 kg 106.7 kg Intake: IV 1030.0 1719 1028 .9NS Pressure Bag 108 99 108 ACETAMINOPHEN IV (For NPO 100 ) 1,000 mg In Empty Bag 1 bag @ 400 mls/hr IVPB Q6H [facility] Rx#:[id number] Albumin Human 5% 250 ml 1000 In Empty Bag 1 bag @ 250 mls/hr IVPB Q1HR PRN Rx#: [id number] Angiotensin II Acetate, 50 Human 0.5 mg In Sodium Chloride 0.9% 50 ml @ 10 NG/KG/MIN 6.024 mls/hr IV .Q8H18M [facility] Rx#: [id number] Cardiac Output .9NS 260 100 220 Desmopressin Acetate 32 50 mcg In Sodium Chloride 0. 9% 50 ml @ 200 mls/hr IVPB ONCE [facility] Rx#: [id number] Lactated Ringers 1,000 ml 550 520 600 @ 50 mls/hr IV .Q20H [facility] Rx#:[id number] Nitroglycerin-D5w Pmx 50 12.0 mg In Dextrose/Water 1 250ml.bag @ Per Protocol IV ONCE ONE Rx#:[id number] Intake, IV Titration 949.950 978.395 516.335 Amount Calcium Gluconate in NaCl 100 1 gm In Saline 1 100ml. bag @ 100 mls/hr IVPB ONCE ONE Rx#:[id number] Dexmedetomidine/0.9% NaCl 1.966 (Pmx) 400 mcg In Empty Bag 1 bag @ Titrate IV . Q0M [facility] Rx#:[id number] Insulin Regular 100 unit 69.168 97.179 96.421 In Sodium Chloride 0.9% 100 ml @ Per Protocol IV .Q0M [facility] Rx#:[id number] Lactated Ringers 1,000 ml 50 @ 50 mls/hr IV .Q20H [facility] Rx#:[id number] Milrinone-D5w Pmx 20 mg 100 46.234 9.739 In Dextrose/Water 1 100ml .bag @ 0.3 MCG/KG/MIN 9. 036 mls/hr IV .Q11H5M [facility] Rx#:[id number] Norepinephrine 4 mg In 399.360 361.294 72.679 Sodium Chloride 0.9% 250 ml @ 0.03 MCG/KG/MIN 11. 476 mls/hr IV .Q22H8M [facility] Rx#:[id number] Vasopressin 60 unit In 140.199 Sodium Chloride 0.9% 150 ml @ 0.02 UNITS/MIN 3.06 mls/hr IV .Q24H [facility] Rx#: [id number] ceFAZolin 2 gm In Sodium 50 Chloride 0.9% 50 ml @ 100 mls/hr IVPB Q8HR [facility] Rx# :[id number] propofoL 1,000 mg In 331.422 181.523 337.496 Empty Bag 1 bag @ 50 MCG/ KG/MIN 30.12 mls/hr IV . Q3H20M [facility] Rx#:[id number] Blood Product 1960 310 Platelet Pheresis Pas 286 Psoralen Unit [id number] Pooled Cryoprecipitate 79 Unit [id number] Rc As-1 Unit 310 [id number] Rc As-1 Unit 310 [id number] Rc As-1 Unit 310 [id number] Output: Chest Tube Drainage 2060 330 286 Mediastinal Chest Tube X 110 116 1 Mediastinal X 2 515 10 Right and Left Pleural 1545 210 170 Urine 315 315 605 Other: Voiding Method Indwelling Catheter Indwelling Catheter Indwelling Catheter ABP, PAP, CO, CI - Last Documented Arterial Blood Pressure 142/58 Pulmonary Artery Pressure 43/23 Cardiac Output 7.0 Cardiac Index 3.3 - Exam CONSTITUTIONAL: Laying in bed in the intensive care unit, remain sedated on propofol drip, remains intubated with mechanical ventilator support. HEENT: Neck is supple, no JVD, no lymphadenopathy. Right IJ Cordis and [place] Rosa catheter in place and functioning. RESPIRATORY: Lungs sounds essentially clear throughout, diminished to his bilateral bases. Respirations are symmetrical and nonlabored with mechanical ventilator support. Mechanical ventilator settings are assist control 16, TV 600, FiO2 40% and PEEP of 8 with oxygen saturations 100%. Strong cough. CARDIOVASCULAR: Regular rhythm and rate. S1 and S2 present, negative for S3, gallop or murmur. Sternum is stable. Palpable peripheral pulses bilaterally, +1 generalized edema. Heart hugger in place. Knee-high ESTEFANI hose and sequential compression devices in place to his bilateral lower extremities. GASTROINTESTINAL: Abdomen soft, nondistended. Hypoactive bowel sounds present 4 quadrants. OG tube in place to low intermittent wall suction. No guarding or rigidity. GENITOURINARY: Pavon present draining clear, yellow urine. Urine Output 445 mL in the last 8 hours INTEGUMENTARY: Skin is warm and dry with no evidence of clubbing or cyanosis. Midline sternal incision clean dry and well approximated, covered with dry intact dressing. Left lower extremity EVH sites well approximated without redness or drainage. Left arm radial artery harvest sites clean, dry and approximated. No drainage or redness is present. NEUROLOGIC: Unable to accurately assess at this time as the patient remains sedated on propofol drip. MUSKULOSKELETAL: Unable to accurately assess at this time as the patient remains sedated on propofol drip. PSYCHIATRIC: Unable to accurately assess at this time as the patient remains sedated on propofol drip. INVASIVE LINES AND TUBES: Mediastinal/left/right pleural chest tubes present and connected to low continuous wall suction, no air leaks present. Mediastinal tube with 50 mL of thin serosanguineous drainage overnight, 250 mL output in the last 24 hours. Left/right pleural chest tube with 80 mL of thin serosanguineous drainage overnight, 380 mL output in the last 24 hours. Atrial and ventricular epicardial pacemaker wires present, connected to generator, VVI backup rate 50 bpm. Right internal jugular [place]/Cordis, right radial arterial line present. Current CO 7.0, CI 3.3, PA 44/33 and CVP 12 mmHg. - Allied health notes Allied health notes reviewed: nursing - Labs CBC & Chem 7: 03/24/23 05:00 03/24/23 05:00 Labs: Abnormal Lab Results - Last 24 Hours (Table) 03/14/23 03/23/23 03/23/23 Range/Units 09:00 08:30 09:31 WBC (3.8-10.6) k/uL RBC (4.30-5.90) m/uL Hgb (13.0-17.5) gm/dL Hct (39.0-53.0) % RDW (11.5-15.5) % Plt Count (150-450) k/uL Neutrophils # (1.3-7.7) k/uL Lymphocytes # (1.0-4.8) k/uL ABG pO2 (83-108) mmHg ABG O2 Saturation (94-97) % Chloride (98-107) mmol/L Carbon Dioxide (22-30) mmol/L BUN (9-20) mg/dL Creatinine (0.66-1.25) mg/dL Glucose (74-99) mg/dL POC Glucose (mg/dL) 128 H 126 H (70-110) mg/dL Calcium (8.4-10.2) mg/dL Ionized Calcium Wojciech (4.5-5.3) mg/dL Total Protein (6.3-8.2) g/dL Albumin (3.5-5.0) g/dL Crossmatch See Detail 03/23/23 03/23/23 03/23/23 Range/Units 11:02 11:02 11:05 WBC 11.9 H (3.8-10.6) k/uL RBC 3.08 L (4.30-5.90) m/uL Hgb 8.7 L (13.0-17.5) gm/dL Hct 27.6 L (39.0-53.0) % RDW 17.8 H (11.5-15.5) % Plt Count 99 L (150-450) k/uL Neutrophils # 9.6 H (1.3-7.7) k/uL Lymphocytes # (1.0-4.8) k/uL ABG pO2 (83-108) mmHg ABG O2 Saturation (94-97) % Chloride 109 H (98-107) mmol/L Carbon Dioxide 21 L (22-30) mmol/L BUN 27 H (9-20) mg/dL Creatinine 2.44 H (0.66-1.25) mg/dL Glucose 132 H (74-99) mg/dL POC Glucose (mg/dL) 130 H (70-110) mg/dL Calcium 7.1 L (8.4-10.2) mg/dL Ionized Calcium Wojciech (4.5-5.3) mg/dL Total Protein 4.6 L (6.3-8.2) g/dL Albumin 2.5 L (3.5-5.0) g/dL Crossmatch 03/23/23 03/23/23 03/23/23 Range/Units 12:00 13:58 15:55 WBC (3.8-10.6) k/uL RBC (4.30-5.90) m/uL Hgb (13.0-17.5) gm/dL Hct (39.0-53.0) % RDW (11.5-15.5) % Plt Count (150-450) k/uL Neutrophils # (1.3-7.7) k/uL Lymphocytes # (1.0-4.8) k/uL ABG pO2 (83-108) mmHg ABG O2 Saturation (94-97) % Chloride (98-107) mmol/L Carbon Dioxide (22-30) mmol/L BUN (9-20) mg/dL Creatinine (0.66-1.25) mg/dL Glucose (74-99) mg/dL POC Glucose (mg/dL) 127 H 142 H 149 H (70-110) mg/dL Calcium (8.4-10.2) mg/dL Ionized Calcium Wojciech (4.5-5.3) mg/dL Total Protein (6.3-8.2) g/dL Albumin (3.5-5.0) g/dL Crossmatch 03/23/23 03/23/23 03/23/23 Range/Units 15:57 16:18 17:28 WBC 11.5 H (3.8-10.6) k/uL RBC 2.57 L (4.30-5.90) m/uL Hgb 7.6 L (13.0-17.5) gm/dL Hct 23.0 L (39.0-53.0) % RDW 18.3 H (11.5-15.5) % Plt Count 81 L (150-450) k/uL Neutrophils # 9.3 H (1.3-7.7) k/uL Lymphocytes # (1.0-4.8) k/uL ABG pO2 73 L (83-108) mmHg ABG O2 Saturation (94-97) % Chloride (98-107) mmol/L Carbon Dioxide (22-30) mmol/L BUN (9-20) mg/dL Creatinine (0.66-1.25) mg/dL Glucose (74-99) mg/dL POC Glucose (mg/dL) 141 H (70-110) mg/dL Calcium (8.4-10.2) mg/dL Ionized Calcium Wojciech (4.5-5.3) mg/dL Total Protein (6.3-8.2) g/dL Albumin (3.5-5.0) g/dL Crossmatch 03/23/23 03/23/23 03/23/23 Range/Units 18:05 19:01 20:19 WBC (3.8-10.6) k/uL RBC (4.30-5.90) m/uL Hgb (13.0-17.5) gm/dL Hct (39.0-53.0) % RDW (11.5-15.5) % Plt Count (150-450) k/uL Neutrophils # (1.3-7.7) k/uL Lymphocytes # (1.0-4.8) k/uL ABG pO2 (83-108) mmHg ABG O2 Saturation (94-97) % Chloride (98-107) mmol/L Carbon Dioxide (22-30) mmol/L BUN (9-20) mg/dL Creatinine (0.66-1.25) mg/dL Glucose (74-99) mg/dL POC Glucose (mg/dL) 149 H 136 H 142 H (70-110) mg/dL Calcium (8.4-10.2) mg/dL Ionized Calcium Wojciech (4.5-5.3) mg/dL Total Protein (6.3-8.2) g/dL Albumin (3.5-5.0) g/dL Crossmatch 03/23/23 03/23/23 03/24/23 Range/Units 21:59 23:09 00:06 WBC (3.8-10.6) k/uL RBC (4.30-5.90) m/uL Hgb (13.0-17.5) gm/dL Hct (39.0-53.0) % RDW (11.5-15.5) % Plt Count (150-450) k/uL Neutrophils # (1.3-7.7) k/uL Lymphocytes # (1.0-4.8) k/uL ABG pO2 (83-108) mmHg ABG O2 Saturation (94-97) % Chloride (98-107) mmol/L Carbon Dioxide (22-30) mmol/L BUN (9-20) mg/dL Creatinine (0.66-1.25) mg/dL Glucose (74-99) mg/dL POC Glucose (mg/dL) 143 H 136 H 125 H (70-110) mg/dL Calcium (8.4-10.2) mg/dL Ionized Calcium Wojciech (4.5-5.3) mg/dL Total Protein (6.3-8.2) g/dL Albumin (3.5-5.0) g/dL Crossmatch 03/24/23 03/24/23 03/24/23 Range/Units 02:17 03:14 04:06 WBC (3.8-10.6) k/uL RBC (4.30-5.90) m/uL Hgb (13.0-17.5) gm/dL Hct (39.0-53.0) % RDW (11.5-15.5) % Plt Count (150-450) k/uL Neutrophils # (1.3-7.7) k/uL Lymphocytes # (1.0-4.8) k/uL ABG pO2 (83-108) mmHg ABG O2 Saturation (94-97) % Chloride (98-107) mmol/L Carbon Dioxide (22-30) mmol/L BUN (9-20) mg/dL Creatinine (0.66-1.25) mg/dL Glucose (74-99) mg/dL POC Glucose (mg/dL) 144 H 143 H 134 H (70-110) mg/dL Calcium (8.4-10.2) mg/dL Ionized Calcium Wojciech (4.5-5.3) mg/dL Total Protein (6.3-8.2) g/dL Albumin (3.5-5.0) g/dL Crossmatch 03/24/23 03/24/23 03/24/23 Range/Units 05:00 05:00 05:04 WBC (3.8-10.6) k/uL RBC 2.26 L (4.30-5.90) m/uL Hgb 6.5 L* (13.0-17.5) gm/dL Hct 19.8 L* (39.0-53.0) % RDW 19.1 H (11.5-15.5) % Plt Count 54 L (150-450) k/uL Neutrophils # (1.3-7.7) k/uL Lymphocytes # 0.7 L (1.0-4.8) k/uL ABG pO2 (83-108) mmHg ABG O2 Saturation (94-97) % Chloride (98-107) mmol/L Carbon Dioxide (22-30) mmol/L BUN (9-20) mg/dL Creatinine (0.66-1.25) mg/dL Glucose (74-99) mg/dL POC Glucose (mg/dL) 129 H (70-110) mg/dL Calcium (8.4-10.2) mg/dL Ionized Calcium Wojciech 4.4 L (4.5-5.3) mg/dL Total Protein (6.3-8.2) g/dL Albumin (3.5-5.0) g/dL Crossmatch 03/24/23 03/24/23 03/24/23 Range/Units 05:50 06:08 06:26 WBC (3.8-10.6) k/uL RBC (4.30-5.90) m/uL Hgb (13.0-17.5) gm/dL Hct (39.0-53.0) % RDW (11.5-15.5) % Plt Count (150-450) k/uL Neutrophils # (1.3-7.7) k/uL Lymphocytes # (1.0-4.8) k/uL ABG pO2 (83-108) mmHg ABG O2 Saturation 98.8 H (94-97) % Chloride (98-107) mmol/L Carbon Dioxide (22-30) mmol/L BUN (9-20) mg/dL Creatinine (0.66-1.25) mg/dL Glucose (74-99) mg/dL POC Glucose (mg/dL) 129 H (70-110) mg/dL Calcium (8.4-10.2) mg/dL Ionized Calcium Wojciech (4.5-5.3) mg/dL Total Protein (6.3-8.2) g/dL Albumin (3.5-5.0) g/dL Crossmatch See Detail - Imaging and Cardiology Chest x-ray: report reviewed, image reviewed Assessment and Plan Assessment: Severe aortic valve stenosis, status post aortic valve replacement with a 25 mm Rosario Inspiris bioprosthetic valve Coronary artery disease with history of previous PCI, on Plavix for anticoagulation as an outpatient, status post 2 vessel coronary artery bypass grafting surgery Hypertension Hyperlipidemia Diabetes mellitus type 2, with a preoperative hemoglobin A1c 6.6% Carotid stenosis with a recent carotid duplex study showing a 50-69% stenosis of the left carotid bifurcation by technique systolic velocity and ratio and nonvisualization of flow within the right internal carotid artery with CTA of the neck showing occlusion of the right ICA and an estimated diameter reduction of 60% to the left ICA Chronic ongoing tobacco dependence Obstructive sleep apnea with noncompliance of home CPAP use Occasional marijuana use, smokes 1-2 joints per week Occasional EtOH use, drinks 7-8 beers per week History of noncompliance with taking his medications History of Acute kidney injury with a creatinine of 1.62 on 02/21/2023 Postoperative acute blood loss anemia, expected given hemodilution and cardiopulmonary bypass Acute hypoxic respiratory failure, requiring prolonged mechanical ventilation Hypotension resolved, currently off vasopressors Plan: Continue to maximize medical therapy with statin and beta hanane. Will increase beta hanane therapy as tolerated, hold parameters on beta hanane. Hold aspirin and Plavix today, HIT panel pending, platelets are 54 today. We will start amlodipine 2.5 mg per OG tube daily at noon with hold parameters for radial artery spasm prophylaxis when blood pressure is able to tolerate. Wean to extubate per protocol. Mechanical ventilator management per pulmonary medicine/critical care recommendations. Once extubated encourage incentive spirometry use 10 times every hour while awake. Bronchodilators per pulmonology/critical care recommendations. Wean propofol drip to help wean patient from mechanical ventilator. Once extubated increase activity, ambulate as tolerated. PT/OT/cardiac rehab following. Will monitor daily labs and chest x-rays. Electrolyte replacement per protocol. Calcium gluconate 1 g IV piggyback 1 now. GI/DVT prophylaxis. Pain control per current medication regimen. Insulin management per internal medicine. Patient is diabetic with hemoglobin A1c 6.6%, needs tight blood sugar control to prevent infection and promote healing Continue Cordis/[place]-Rosa catheter, continue to record hemodynamics. Continue mediastinal/left/right pleural chest tubes for another 24 hours. Continue Pavon catheter for another 24 hours for strict accurate intake and output. Daily weights. Once the patient is extubated we will discussed risks modifications including smoking cessation counseling and education. Lasix 40 mg 1 now after the 1 unit of PRBCs has been transfused. Transfuse 1 unit of packed red blood cells 1 now for hemoglobin of 6.5. Keep atrial and ventricular epicardial pacemaker wires in place and connected to backup bedside pacemaker generator on a VVI 50 BPM. Discontinue Primacor drip. More recommendations to follow based on patient's clinical course. Time with Patient: Greater than 30
--- NOTE | 2023-03-24 08:38 | P.PN ---
Subjective Progress Note Date: 03/24/23 Principal diagnosis: Status post open heart surgery The patient is a 67-year-old gentleman who was admitted to the hospital yesterday and underwent elective aortic valve replacement along with coronary artery that is grafting 2 was radial artery to obtuse marginal branch and SVG to PDA. This is postoperative patient day #2. The patient last night developed the bleeding from one of the chest tube. His hemoglobin dropped and he received 2 units of packed RBC. The initially the plan was to take the patient back to the OR but over the next few hours he started rise with a blood transfusion as well as vasopressors and he was not taken to the OR. He has been maintaining normal sinus mechanism. Currently he is on 2 vasopressors including vasopressin's as well as norepinephrine. He is also on Primacor. His urine output has been marginal. The last hemoglobin from the morning was 8.1. When he was seen and evaluated he was intubated on mechanical ventilation. The creatinine was 2.44 and his baseline creatinine is about 1. The chest x-ray showed a component of congestive heart failure. Beside that the patient does have a past medical history significant for coronary artery disease with prior stenting and he also does have diabetes and hypertension and dyslipidemia and carotid atherosclerosis and also he did have history of excessive alcohol use. Currently he is on anti-latex using aspirin and Plavix and he is a small dose of beta hanane. He is also on a statin. The plan is to continue monitor the hemoglobin and blood transfusion if hemoglobin drops below 8. No plan to take the patient to the OR at this point. Overall is status post continues to be critical and currently he is on 2 vasopressors. The examination is remarkable for acute respiratory failure currently on mechanical ventilation with stable vital signs on 2 vasopressors with a regular rate and rhythm and distant heart sounds as well as diminished breathing sounds bilaterally March [id number] The patient was seen and evaluated this morning. He is making progress. Currently he is not on any norepinephrine or vasopressin's or Primacor. He still intubated and the plan hopefully to extubate him later on today. He is maintaining normal sinus mechanism. The chest x-ray showed small left pleural effusion. Dual antiplatelet therapy on hold at this point in the light of thro mbocytopenia. Beside that he is on statin and he is on beta hanane. The dose of Lasix is advised today. The hemoglobin this morning is below 7 and he is in process of receiving one unit of packed RBC Assessment Status post aVR for severe symptomatic aortic stenosis Status post CABG as described above Blood loss anemia Hypotension which has resolved Thrombocytopenia Plan Continue holding dual antiplatelet therapy in the light of her cytopenia Continue high intensity statin Continue holding dual antiplatelet therapy at this point Continue monitoring the hemoglobin and blood transfusion for hemoglobin below 7 Continue monitor the kidney function and electrolytes Follow-up with the patient Objective - Vital Signs Vital signs: Vital Signs Temp 98.8 F 03/24/23 08:10 Pulse 92 03/24/23 08:10 Resp 16 03/24/23 08:10 BP 148/61 03/24/23 08:10 Pulse Ox 100 03/24/23 08:10 FiO2 40 03/24/23 08:00 Intake & Output 03/23/23 03/24/23 03/24/23 18:59 06:59 18:59 Intake Total 3007.395 1590.031 160.316 Output Total 645 891 90 Balance 2362.395 699.031 70.316 Weight 102 kg 106.7 kg Intake: IV 1719 1028 79 .9NS Pressure Bag 99 108 9 ACETAMINOPHEN IV (For NPO 100 ) 1,000 mg In Empty Bag 1 bag @ 400 mls/hr IVPB Q6H ANGELA Rx#:[id number] Albumin Human 5% 250 ml 1000 In Empty Bag 1 bag @ 250 mls/hr IVPB Q1HR PRN Rx#: [id number] Cardiac Output .9NS 100 220 20 Lactated Ringers 1,000 ml 520 600 50 @ 50 mls/hr IV .Q20H ANGELA Rx#:[id number] Intake, IV Titration 978.395 562.031 81.316 Amount Calcium Gluconate in NaCl 100 1 gm In Saline 1 100ml. bag @ 100 mls/hr IVPB ONCE ONE Rx#:[id number] Dexmedetomidine/0.9% NaCl 1.966 (Pmx) 400 mcg In Empty Bag 1 bag @ Titrate IV . Q0M ANGELA Rx#:[id number] Insulin Regular 100 unit 97.179 96.421 1.347 In Sodium Chloride 0.9% 100 ml @ Per Protocol IV .Q0M ANGELA Rx#:[id number] Milrinone-D5w Pmx 20 mg 46.234 9.739 In Dextrose/Water 1 100ml .bag @ 0.3 MCG/KG/MIN 9. 036 mls/hr IV .Q11H5M ANG[facility] Rx#:[id number] Norepinephrine 4 mg In 361.294 72.679 Sodium Chloride 0.9% 250 ml @ 0.03 MCG/KG/MIN 11. 476 mls/hr IV .Q22H8M ANG[facility] Rx#:[id number] Vasopressin 60 unit In 140.199 45.696 Sodium Chloride 0.9% 150 ml @ 0.02 UNITS/MIN 3.06 mls/hr IV .Q24H ANGELA Rx#: [id number] ceFAZolin 2 gm In Sodium 50 Chloride 0.9% 50 ml @ 100 mls/hr IVPB Q8HR ANG[facility]A Rx# :[id number] propofoL 1,000 mg In 181.523 337.496 79.969 Empty Bag 1 bag @ 50 MCG/ KG/MIN 30.12 mls/hr IV . Q3H20M ANG[facility]A Rx#:[id number] Blood Product 310 0 Unit 0 Rc As-1 Unit 310 [id number] Output: Chest Tube Drainage 330 286 40 Mediastinal Chest Tube X 110 116 20 1 Mediastinal X 2 10 Right and Left Pleural 210 170 20 Urine 315 605 50 Other: Voiding Method Indwelling Catheter Indwelling Catheter ABP, PAP, CO, CI - Last Documented Arterial Blood Pressure 147/58 Pulmonary Artery Pressure 49/23 Cardiac Output 6.8 Cardiac Index 3.2 - Labs CBC & Chem 7: 03/24/23 05:00 03/24/23 05:00 Labs: Abnormal Lab Results - Last 24 Hours (Table) 03/14/23 03/23/23 03/23/23 Range/Units 09:00 09:31 11:02 WBC 11.9 H (3.8-10.6) k/uL RBC 3.08 L (4.30-5.90) m/uL Hgb 8.7 L (13.0-17.5) gm/dL Hct 27.6 L (39.0-53.0) % RDW 17.8 H (11.5-15.5) % Plt Count 99 L (150-450) k/uL Neutrophils # 9.6 H (1.3-7.7) k/uL Lymphocytes # (1.0-4.8) k/uL ABG pO2 (83-108) mmHg ABG O2 Saturation (94-97) % Chloride (98-107) mmol/L Carbon Dioxide (22-30) mmol/L BUN (9-20) mg/dL Creatinine (0.66-1.25) mg/dL Glucose (74-99) mg/dL POC Glucose (mg/dL) 126 H (70-110) mg/dL Calcium (8.4-10.2) mg/dL Ionized Calcium Wojciech (4.5-5.3) mg/dL Total Protein (6.3-8.2) g/dL Albumin (3.5-5.0) g/dL Crossmatch See Detail 03/23/23 03/23/23 03/23/23 Range/Units 11:02 11:05 12:00 WBC (3.8-10.6) k/uL RBC (4.30-5.90) m/uL Hgb (13.0-17.5) gm/dL Hct (39.0-53.0) % RDW (11.5-15.5) % Plt Count (150-450) k/uL Neutrophils # (1.3-7.7) k/uL Lymphocytes # (1.0-4.8) k/uL ABG pO2 (83-108) mmHg ABG O2 Saturation (94-97) % Chloride 109 H (98-107) mmol/L Carbon Dioxide 21 L (22-30) mmol/L BUN 27 H (9-20) mg/dL Creatinine 2.44 H (0.66-1.25) mg/dL Glucose 132 H (74-99) mg/dL POC Glucose (mg/dL) 130 H 127 H (70-110) mg/dL Calcium 7.1 L (8.4-10.2) mg/dL Ionized Calcium Wojciech (4.5-5.3) mg/dL Total Protein 4.6 L (6.3-8.2) g/dL Albumin 2.5 L (3.5-5.0) g/dL Crossmatch 03/23/23 03/23/23 03/23/23 Range/Units 13:58 15:55 15:57 WBC 11.5 H (3.8-10.6) k/uL RBC 2.57 L (4.30-5.90) m/uL Hgb 7.6 L (13.0-17.5) gm/dL Hct 23.0 L (39.0-53.0) % RDW 18.3 H (11.5-15.5) % Plt Count 81 L (150-450) k/uL Neutrophils # 9.3 H (1.3-7.7) k/uL Lymphocytes # (1.0-4.8) k/uL ABG pO2 (83-108) mmHg ABG O2 Saturation (94-97) % Chloride (98-107) mmol/L Carbon Dioxide (22-30) mmol/L BUN (9-20) mg/dL Creatinine (0.66-1.25) mg/dL Glucose (74-99) mg/dL POC Glucose (mg/dL) 142 H 149 H (70-110) mg/dL Calcium (8.4-10.2) mg/dL Ionized Calcium Wojciech (4.5-5.3) mg/dL Total Protein (6.3-8.2) g/dL Albumin (3.5-5.0) g/dL Crossmatch 03/23/23 03/23/23 03/23/23 Range/Units 16:18 17:28 18:05 WBC (3.8-10.6) k/uL RBC (4.30-5.90) m/uL Hgb (13.0-17.5) gm/dL Hct (39.0-53.0) % RDW (11.5-15.5) % Plt Count (150-450) k/uL Neutrophils # (1.3-7.7) k/uL Lymphocytes # (1.0-4.8) k/uL ABG pO2 73 L (83-108) mmHg ABG O2 Saturation (94-97) % Chloride (98-107) mmol/L Carbon Dioxide (22-30) mmol/L BUN (9-20) mg/dL Creatinine (0.66-1.25) mg/dL Glucose (74-99) mg/dL POC Glucose (mg/dL) 141 H 149 H (70-110) mg/dL Calcium (8.4-10.2) mg/dL Ionized Calcium Wojciech (4.5-5.3) mg/dL Total Protein (6.3-8.2) g/dL Albumin (3.5-5.0) g/dL Crossmatch 03/23/23 03/23/23 03/23/23 Range/Units 19:01 20:19 21:59 WBC (3.8-10.6) k/uL RBC (4.30-5.90) m/uL Hgb (13.0-17.5) gm/dL Hct (39.0-53.0) % RDW (11.5-15.5) % Plt Count (150-450) k/uL Neutrophils # (1.3-7.7) k/uL Lymphocytes # (1.0-4.8) k/uL ABG pO2 (83-108) mmHg ABG O2 Saturation (94-97) % Chloride (98-107) mmol/L Carbon Dioxide (22-30) mmol/L BUN (9-20) mg/dL Creatinine (0.66-1.25) mg/dL Glucose (74-99) mg/dL POC Glucose (mg/dL) 136 H 142 H 143 H (70-110) mg/dL Calcium (8.4-10.2) mg/dL Ionized Calcium Wojciech (4.5-5.3) mg/dL Total Protein (6.3-8.2) g/dL Albumin (3.5-5.0) g/dL Crossmatch 03/23/23 03/24/23 03/24/23 Range/Units 23:09 00:06 02:17 WBC (3.8-10.6) k/uL RBC (4.30-5.90) m/uL Hgb (13.0-17.5) gm/dL Hct (39.0-53.0) % RDW (11.5-15.5) % Plt Count (150-450) k/uL Neutrophils # (1.3-7.7) k/uL Lymphocytes # (1.0-4.8) k/uL ABG pO2 (83-108) mmHg ABG O2 Saturation (94-97) % Chloride (98-107) mmol/L Carbon Dioxide (22-30) mmol/L BUN (9-20) mg/dL Creatinine (0.66-1.25) mg/dL Glucose (74-99) mg/dL POC Glucose (mg/dL) 136 H 125 H 144 H (70-110) mg/dL Calcium (8.4-10.2) mg/dL Ionized Calcium Wojciech (4.5-5.3) mg/dL Total Protein (6.3-8.2) g/dL Albumin (3.5-5.0) g/dL Crossmatch 03/24/23 03/24/23 03/24/23 Range/Units 03:14 04:06 05:00 WBC (3.8-10.6) k/uL RBC 2.26 L (4.30-5.90) m/uL Hgb 6.5 L* (13.0-17.5) gm/dL Hct 19.8 L* (39.0-53.0) % RDW 19.1 H (11.5-15.5) % Plt Count 54 L (150-450) k/uL Neutrophils # (1.3-7.7) k/uL Lymphocytes # 0.7 L (1.0-4.8) k/uL ABG pO2 (83-108) mmHg ABG O2 Saturation (94-97) % Chloride (98-107) mmol/L Carbon Dioxide (22-30) mmol/L BUN (9-20) mg/dL Creatinine (0.66-1.25) mg/dL Glucose (74-99) mg/dL POC Glucose (mg/dL) 143 H 134 H (70-110) mg/dL Calcium (8.4-10.2) mg/dL Ionized Calcium Wojciech (4.5-5.3) mg/dL Total Protein (6.3-8.2) g/dL Albumin (3.5-5.0) g/dL Crossmatch 03/24/23 03/24/23 03/24/23 Range/Units 05:00 05:04 05:50 WBC (3.8-10.6) k/uL RBC (4.30-5.90) m/uL Hgb (13.0-17.5) gm/dL Hct (39.0-53.0) % RDW (11.5-15.5) % Plt Count (150-450) k/uL Neutrophils # (1.3-7.7) k/uL Lymphocytes # (1.0-4.8) k/uL ABG pO2 (83-108) mmHg ABG O2 Saturation (94-97) % Chloride 109 H (98-107) mmol/L Carbon Dioxide (22-30) mmol/L BUN 34 H (9-20) mg/dL Creatinine 2.27 H (0.66-1.25) mg/dL Glucose 115 H (74-99) mg/dL POC Glucose (mg/dL) 129 H (70-110) mg/dL Calcium 7.2 L (8.4-10.2) mg/dL Ionized Calcium Wojciech 4.4 L (4.5-5.3) mg/dL Total Protein 4.8 L (6.3-8.2) g/dL Albumin 2.7 L (3.5-5.0) g/dL Crossmatch See Detail 03/24/23 03/24/23 03/24/23 Range/Units 06:08 06:26 08:14 WBC (3.8-10.6) k/uL RBC (4.30-5.90) m/uL Hgb (13.0-17.5) gm/dL Hct (39.0-53.0) % RDW (11.5-15.5) % Plt Count (150-450) k/uL Neutrophils # (1.3-7.7) k/uL Lymphocytes # (1.0-4.8) k/uL ABG pO2 (83-108) mmHg ABG O2 Saturation 98.8 H (94-97) % Chloride (98-107) mmol/L Carbon Dioxide (22-30) mmol/L BUN (9-20) mg/dL Creatinine (0.66-1.25) mg/dL Glucose (74-99) mg/dL POC Glucose (mg/dL) 129 H 118 H (70-110) mg/dL Calcium (8.4-10.2) mg/dL Ionized Calcium Wojciech (4.5-5.3) mg/dL Total Protein (6.3-8.2) g/dL Albumin (3.5-5.0) g/dL Crossmatch
[2023-03-24] MEDS ORDERED: FUROSEMIDE 10 MG/ML 4 ML VIAL IV ONE (09:00)
[2023-03-24] MEDS ORDERED: METOPROLOL TARTRATE 25 MG TAB PO SCH (09:00)
[2023-03-24] MEDS ORDERED: FONDAPARINUX 2.5 MG/0.5 ML SYRINGE SQ SCH (09:00)
[2023-03-24 09:06] LABS: Glucose,Whole Blood 141 mg/dL (70-110)
[2023-03-24] MEDS: ASPIRIN 81 MG PO SCH (09:50)
[2023-03-24 10:01] LABS: Glucose,Whole Blood 151 mg/dL (70-110)
[2023-03-24] MEDS: DEXMEDETOMIDINE/0.9% NACL(PMX) 400 MCG in EMPTY BAG 1 BAG IV SCH (10:05)
[2023-03-24 11:06] LABS: Glucose,Whole Blood 146 mg/dL (70-110)
--- NOTE | 2023-03-24 11:12 | P.PN ---
Subjective Progress Note Date: 03/24/23 This is a 67-year-old male patient with a known history of hypertension, hyperlipidemia, diabetes mellitus, carotid stenosis, chronic tobacco dependence, obstructive sleep apnea not utilizing CPAP, marijuana use, alcohol use. He was recently found to have multivessel coronary artery disease and history of previous PCI and was on Plavix. He was also noted to have severe aortic valve stenosis. He was brought in yesterday electively for coronary artery bypass grafting 2 utilizing a radial artery to the obtuse marginal artery, saphenous vein graft to the posterior descending artery. Aortic valve replacement using a 25 mm Rosario Inspiris bioprosthetic valve. He is seen today in consultation in the intensive care unit. He remains intubated on mechanical ventilator and assist control mode with a rate of 16, tidal volume 600, FiO2 40% and a PEEP of 10. Arterial blood gases revealed a pO2 of 206, pCO2 37 and a PEEP age of 7.39 on 60% FiO2. The patient did have a significant amount of hypotension and output from his sternal chest tube was a combined total of 2.8 L since surgery. Including the mediastinal, right and left pleural chest tubes. This has slowed down significantly and stabilized. He remains on nitroglycerin drip at 5 mcg/m. Primacor at 0.3 mcg/kg/m. Vasopressin at 0.04 units per minute. Norepinephrine at 8 mcg/m. Insulin drip at 6.5 units per hour. Propofol at 50 mcg/kg/m. Lactated Ringer's at 50 MLS per hour. Heparin for DVT prophylaxis. Remains on bronchodilators. He has received 3 unit of packed red blood cells. One unit of platelets. 1 pooled cryoprecipitate. Current cardiac output 4.2. Cardiac index 2.0. PA pressures 38/26. CVP 13 mmHg. Blood pressure 101/55. White count 9.9. Hemoglobin 8.1. Platelets 123. Sodium 138. Potassium 4.6. Bicarb 21. BUN 27. Creatinine 2.44. Glucose 132. Total protein 4.6. Albumin 2.5. Magnesium 2.0. Ionized calcium 4.4 which has been replaced. His x-ray reveals postoperative changes with stable areas of consolidation with tiny bilateral effusions. Mild venous congestion. He is currently in a positive balance. The patient is seen today 03/24/2023 in follow-up in the intensive care unit. He remains intubated on mechanical ventilator currently and assist-control mode at a rate of 16, tidal 600, FiO2 40% and a PEEP of 8. Morning blood gases revealed a PaO2 of 107, pCO2 36, pH 7.41. He is on lactated Ringer's at 50 MLS per hour. Propofol at 45 mcg/kg/m. Insulin at 9 units per hour. He is currently receiving his fourth unit of packed red blood cells. Hemoglobin was 6.5. Hematocrit 19.8. White count 8.8. Lately and 54,000. Fibrinogen 328. INR 1.0. PT 10.9. PTT 26.5. Sodium 138. Potassium 4.2. Bicarb 22. BUN 34. Creatinine 2.27. Glucose 151. AST 45. ALT 12. Albumin 2.7. Ionized calcium 4.4. Chest x-ray reveals stable bibasilar airspace opacities/atelectasis with a small left pleural effusion. Pulmonary vascular congestion. Mediastinal and right/left chest tubes remain in place. No leak detected. Nasogastric tube in place. Right IJ Pfeifer-Rosa catheter in place. Epicardial pacer wires in place with a backup rate of 50, VVI. Cardiac output 7.6. Cardiac index 3.6. PA pressure 64/30. CVP 14. He has received a total of 4 units packed red blood cells. One unit of platelets. 1 pooled cryoprecipitate. He is continued on DuoNeb inhalations. Objective - Vital Signs Vital signs: Vital Signs Temp 99.0 F 03/24/23 09:24 Pulse 98 03/24/23 10:00 Resp 16 03/24/23 10:00 BP 157/77 03/24/23 10:00 Pulse Ox 97 03/24/23 10:00 FiO2 40 03/24/23 09:00 Intake & Output 03/23/23 03/24/23 03/24/23 18:59 06:59 18:59 Intake Total 3007.395 1590.031 911.638 Output Total 645 891 585 Balance 2362.395 699.031 326.638 Weight 102 kg 106.7 kg Intake: IV 1719 1028 416 .9NS Pressure Bag 99 108 36 ACETAMINOPHEN IV (For NPO 100 ) 1,000 mg In Empty Bag 1 bag @ 400 mls/hr IVPB Q6H [facility] Rx#:[id number] Albumin Human 5% 250 ml 1000 In Empty Bag 1 bag @ 250 mls/hr IVPB Q1HR PRN Rx#: [id number] Calcium Gluconate in NaCl 100 1 gm In Saline 1 100ml. bag @ 100 mls/hr IVPB ONCE ONE Rx#:[id number] Cardiac Output .9NS 100 220 100 Lactated Ringers 1,000 ml 520 600 180 @ 50 mls/hr IV .Q20H [facility] Rx#:[id number] Intake, IV Titration 978.395 562.031 185.638 Amount Calcium Gluconate in NaCl 100 1 gm In Saline 1 100ml. bag @ 100 mls/hr IVPB ONCE ONE Rx#:[id number] Dexmedetomidine/0.9% NaCl 2.890 (Pmx) 400 mcg In Empty Bag 1 bag @ 0.2 MCG/KG/HR 5.335 mls/hr IV .[id number] [facility] Rx#:[id number] Dexmedetomidine/0.9% NaCl 1.966 (Pmx) 400 mcg In Empty Bag 1 bag @ Titrate IV . Q0M [facility] Rx#:[id number] Insulin Regular 100 unit 97.179 96.421 8.754 In Sodium Chloride 0.9% 100 ml @ Per Protocol IV .Q0M [facility] Rx#:[id number] Milrinone-D5w Pmx 20 mg 46.234 9.739 35.491 In Dextrose/Water 1 100ml .bag @ 0.3 MCG/KG/MIN 9. 036 mls/hr IV .Q11H5M [facility] Rx#:[id number] Norepinephrine 4 mg In 361.294 72.679 Sodium Chloride 0.9% 250 ml @ 0.03 MCG/KG/MIN 11. 476 mls/hr IV .Q22H8M [facility] Rx#:[id number] Vasopressin 60 unit In 140.199 45.696 Sodium Chloride 0.9% 150 ml @ 0.02 UNITS/MIN 3.06 mls/hr IV .Q24H [facility] Rx#: [id number] ceFAZolin 2 gm In Sodium 50 Chloride 0.9% 50 ml @ 100 mls/hr IVPB Q8HR [facility] Rx# :[id number] propofoL 1,000 mg In 181.523 337.496 138.503 Empty Bag 1 bag @ 50 MCG/ KG/MIN 30.12 mls/hr IV . Q3H20M [facility] Rx#:[id number] Blood Product 310 310 Rc As-1 Unit 310 [id number] Rc As-1 Unit 310 [id number] Output: Chest Tube Drainage 330 286 90 Mediastinal Chest Tube X 110 116 40 1 Mediastinal X 2 10 Right and Left Pleural 210 170 50 Urine 315 605 495 Other: Voiding Method Indwelling Catheter Indwelling Catheter Indwelling Catheter ABP, PAP, CO, CI - Last Documented Arterial Blood Pressure 145/55 Pulmonary Artery Pressure 43/19 Cardiac Output 6.7 Cardiac Index 3.2 - Exam GENERAL EXAM: Intubated, sedated 67-year-old male, currently comfortable in no apparent distress. HEAD: Normocephalic. EYES: Sluggish reaction of pupils, equal size. NOSE: Clear with pink turbinates. THROAT: Oral endotracheal and gastric tube secured in place. No erythema or exudates. NECK: Right Pfeifer-Rosa catheter in place. No masses, no JVD. CHEST: Sternal dressing dry and intact. Mediastinal right and left pleural chest tubes in place to Pleur-evac and low continuous suction. No air leaks noted. AV epicardial pacemaker wires present. Back up pacing at 50 bpm. LUNGS: Equal air entry with crackles in the bilateral bases. CVS: S1 and S2 normal with no audible murmur, regular rhythm. ABDOMEN: No hepatosplenomegaly, hypoactive bowel sounds, no guarding or rigidity. SPINE: No scoliosis or deformity SKIN: No rashes CENTRAL NERVOUS SYSTEM: No focal deficits, tone is normal in all 4 extremities. EXTREMITIES: Right radial arterial line in place. There is no peripheral edema. No clubbing, no cyanosis. Peripheral pulses are intact. - Labs CBC & Chem 7: 03/24/23 05:00 03/24/23 05:00 Labs: Abnormal Lab Results - Last 24 Hours (Table) 03/23/23 03/23/23 03/23/23 Range/Units 11:02 11:02 11:05 WBC 11.9 H (3.8-10.6) k/uL RBC 3.08 L (4.30-5.90) m/uL Hgb 8.7 L (13.0-17.5) gm/dL Hct 27.6 L (39.0-53.0) % RDW 17.8 H (11.5-15.5) % Plt Count 99 L (150-450) k/uL Neutrophils # 9.6 H (1.3-7.7) k/uL Lymphocytes # (1.0-4.8) k/uL ABG pO2 (83-108) mmHg ABG O2 Saturation (94-97) % Chloride 109 H (98-107) mmol/L Carbon Dioxide 21 L (22-30) mmol/L BUN 27 H (9-20) mg/dL Creatinine 2.44 H (0.66-1.25) mg/dL Glucose 132 H (74-99) mg/dL POC Glucose (mg/dL) 130 H (70-110) mg/dL Calcium 7.1 L (8.4-10.2) mg/dL Ionized Calcium Wojciech (4.5-5.3) mg/dL Total Protein 4.6 L (6.3-8.2) g/dL Albumin 2.5 L (3.5-5.0) g/dL Crossmatch 03/23/23 03/23/23 03/23/23 Range/Units 12:00 13:58 15:55 WBC (3.8-10.6) k/uL RBC (4.30-5.90) m/uL Hgb (13.0-17.5) gm/dL Hct (39.0-53.0) % RDW (11.5-15.5) % Plt Count (150-450) k/uL Neutrophils # (1.3-7.7) k/uL Lymphocytes # (1.0-4.8) k/uL ABG pO2 (83-108) mmHg ABG O2 Saturation (94-97) % Chloride (98-107) mmol/L Carbon Dioxide (22-30) mmol/L BUN (9-20) mg/dL Creatinine (0.66-1.25) mg/dL Glucose (74-99) mg/dL POC Glucose (mg/dL) 127 H 142 H 149 H (70-110) mg/dL Calcium (8.4-10.2) mg/dL Ionized Calcium Wojciech (4.5-5.3) mg/dL Total Protein (6.3-8.2) g/dL Albumin (3.5-5.0) g/dL Crossmatch 03/23/23 03/23/23 03/23/23 Range/Units 15:57 16:18 17:28 WBC 11.5 H (3.8-10.6) k/uL RBC 2.57 L (4.30-5.90) m/uL Hgb 7.6 L (13.0-17.5) gm/dL Hct 23.0 L (39.0-53.0) % RDW 18.3 H (11.5-15.5) % Plt Count 81 L (150-450) k/uL Neutrophils # 9.3 H (1.3-7.7) k/uL Lymphocytes # (1.0-4.8) k/uL ABG pO2 73 L (83-108) mmHg ABG O2 Saturation (94-97) % Chloride (98-107) mmol/L Carbon Dioxide (22-30) mmol/L BUN (9-20) mg/dL Creatinine (0.66-1.25) mg/dL Glucose (74-99) mg/dL POC Glucose (mg/dL) 141 H (70-110) mg/dL Calcium (8.4-10.2) mg/dL Ionized Calcium Wojciech (4.5-5.3) mg/dL Total Protein (6.3-8.2) g/dL Albumin (3.5-5.0) g/dL Crossmatch 03/23/23 03/23/23 03/23/23 Range/Units 18:05 19:01 20:19 WBC (3.8-10.6) k/uL RBC (4.30-5.90) m/uL Hgb (13.0-17.5) gm/dL Hct (39.0-53.0) % RDW (11.5-15.5) % Plt Count (150-450) k/uL Neutrophils # (1.3-7.7) k/uL Lymphocytes # (1.0-4.8) k/uL ABG pO2 (83-108) mmHg ABG O2 Saturation (94-97) % Chloride (98-107) mmol/L Carbon Dioxide (22-30) mmol/L BUN (9-20) mg/dL Creatinine (0.66-1.25) mg/dL Glucose (74-99) mg/dL POC Glucose (mg/dL) 149 H 136 H 142 H (70-110) mg/dL Calcium (8.4-10.2) mg/dL Ionized Calcium Wojciech (4.5-5.3) mg/dL Total Protein (6.3-8.2) g/dL Albumin (3.5-5.0) g/dL Crossmatch 03/23/23 03/23/23 03/24/23 Range/Units 21:59 23:09 00:06 WBC (3.8-10.6) k/uL RBC (4.30-5.90) m/uL Hgb (13.0-17.5) gm/dL Hct (39.0-53.0) % RDW (11.5-15.5) % Plt Count (150-450) k/uL Neutrophils # (1.3-7.7) k/uL Lymphocytes # (1.0-4.8) k/uL ABG pO2 (83-108) mmHg ABG O2 Saturation (94-97) % Chloride (98-107) mmol/L Carbon Dioxide (22-30) mmol/L BUN (9-20) mg/dL Creatinine (0.66-1.25) mg/dL Glucose (74-99) mg/dL POC Glucose (mg/dL) 143 H 136 H 125 H (70-110) mg/dL Calcium (8.4-10.2) mg/dL Ionized Calcium Wojciech (4.5-5.3) mg/dL Total Protein (6.3-8.2) g/dL Albumin (3.5-5.0) g/dL Crossmatch 03/24/23 03/24/23 03/24/23 Range/Units 02:17 03:14 04:06 WBC (3.8-10.6) k/uL RBC (4.30-5.90) m/uL Hgb (13.0-17.5) gm/dL Hct (39.0-53.0) % RDW (11.5-15.5) % Plt Count (150-450) k/uL Neutrophils # (1.3-7.7) k/uL Lymphocytes # (1.0-4.8) k/uL ABG pO2 (83-108) mmHg ABG O2 Saturation (94-97) % Chloride (98-107) mmol/L Carbon Dioxide (22-30) mmol/L BUN (9-20) mg/dL Creatinine (0.66-1.25) mg/dL Glucose (74-99) mg/dL POC Glucose (mg/dL) 144 H 143 H 134 H (70-110) mg/dL Calcium (8.4-10.2) mg/dL Ionized Calcium Wojciech (4.5-5.3) mg/dL Total Protein (6.3-8.2) g/dL Albumin (3.5-5.0) g/dL Crossmatch 03/24/23 03/24/23 03/24/23 Range/Units 05:00 05:00 05:04 WBC (3.8-10.6) k/uL RBC 2.26 L (4.30-5.90) m/uL Hgb 6.5 L* (13.0-17.5) gm/dL Hct 19.8 L* (39.0-53.0) % RDW 19.1 H (11.5-15.5) % Plt Count 54 L (150-450) k/uL Neutrophils # (1.3-7.7) k/uL Lymphocytes # 0.7 L (1.0-4.8) k/uL ABG pO2 (83-108) mmHg ABG O2 Saturation (94-97) % Chloride 109 H (98-107) mmol/L Carbon Dioxide (22-30) mmol/L BUN 34 H (9-20) mg/dL Creatinine 2.27 H (0.66-1.25) mg/dL Glucose 115 H (74-99) mg/dL POC Glucose (mg/dL) 129 H (70-110) mg/dL Calcium 7.2 L (8.4-10.2) mg/dL Ionized Calcium Wojciech 4.4 L (4.5-5.3) mg/dL Total Protein 4.8 L (6.3-8.2) g/dL Albumin 2.7 L (3.5-5.0) g/dL Crossmatch 03/24/23 03/24/23 03/24/23 Range/Units 05:50 06:08 06:26 WBC (3.8-10.6) k/uL RBC (4.30-5.90) m/uL Hgb (13.0-17.5) gm/dL Hct (39.0-53.0) % RDW (11.5-15.5) % Plt Count (150-450) k/uL Neutrophils # (1.3-7.7) k/uL Lymphocytes # (1.0-4.8) k/uL ABG pO2 (83-108) mmHg ABG O2 Saturation 98.8 H (94-97) % Chloride (98-107) mmol/L Carbon Dioxide (22-30) mmol/L BUN (9-20) mg/dL Creatinine (0.66-1.25) mg/dL Glucose (74-99) mg/dL POC Glucose (mg/dL) 129 H (70-110) mg/dL Calcium (8.4-10.2) mg/dL Ionized Calcium Wojciech (4.5-5.3) mg/dL Total Protein (6.3-8.2) g/dL Albumin (3.5-5.0) g/dL Crossmatch See Detail 03/24/23 03/24/23 03/24/23 Range/Units 08:14 09:05 09:59 WBC (3.8-10.6) k/uL RBC (4.30-5.90) m/uL Hgb (13.0-17.5) gm/dL Hct (39.0-53.0) % RDW (11.5-15.5) % Plt Count (150-450) k/uL Neutrophils # (1.3-7.7) k/uL Lymphocytes # (1.0-4.8) k/uL ABG pO2 (83-108) mmHg ABG O2 Saturation (94-97) % Chloride (98-107) mmol/L Carbon Dioxide (22-30) mmol/L BUN (9-20) mg/dL Creatinine (0.66-1.25) mg/dL Glucose (74-99) mg/dL POC Glucose (mg/dL) 118 H 141 H 151 H (70-110) mg/dL Calcium (8.4-10.2) mg/dL Ionized Calcium Wojciech (4.5-5.3) mg/dL Total Protein (6.3-8.2) g/dL Albumin (3.5-5.0) g/dL Crossmatch Assessment and Plan Assessment: Coronary artery disease status post two-vessel coronary artery bypass grafting. Postoperative day #2 Severe aortic stenosis, status post aortic valve replacement with a 25 mm Rosario expressed bioprosthetic valve. Postoperative day #2 Postoperative hypotension requiring norepinephrine and vasopressin recovered and currently off drips Acute kidney injury, current creatinine 2.27 Anemia, expected outcome of surgery, hemoglobin 6.5, received 4 units packed red blood cells Thrombocytopenia History of coronary artery disease with previous PCI History of hypertension Hyperlipidemia Diabetes mellitus Chronic and ongoing tobacco dependence Carotid stenosis History of marijuana use Obstructive sleep apnea not utilizing CPAP History of alcohol use Plan: The patient was seen and evaluated Chest x-ray, ABGs, labs and medications reviewed Receiving a fourth unit of packed red blood cells Subcu heparin discontinued Continue with SCD's Continue bronchodilators Transition from propofol to Precedex Provide daily interruption of sedation and obtain weaning parameters We will continue to follow I have personally seen and examined the patient, performed the documentation and the assessment and plan as written. Number of minutes spent on the visit: 15.
[2023-03-24] MEDS ORDERED: amLODIPine 2.5 MG TAB OG-TUBE SCH (12:00)
[2023-03-24 12:06] LABS: Glucose,Whole Blood 129 mg/dL (70-110)
[2023-03-24 13:04] LABS: Glucose,Whole Blood 114 mg/dL (70-110)
[2023-03-24 14:01] LABS: Glucose,Whole Blood 124 mg/dL (70-110)
[2023-03-24 14:15] LABS: Anisocytosis Slight; HCT 22.8 % (39.0-53.0); HGB 7.4 gm/dL (13.0-17.5); Hypochromasia Slight; MCH 28.6 pg (25.0-35.0); MCHC 32.5 g/dL (31.0-37.0); MCV 88.1 fL (80.0-100.0); Mean Platelet Volume 10.6; Poikilocytosis Slight; RBC 2.59 m/uL (4.30-5.90); RDW 18.9 % (11.5-15.5); WBC 10.2 k/uL (3.8-10.6)
[2023-03-24 14:17] LABS: Platelet Count 55 k/uL (150-450)
[2023-03-24 14:27] LABS: ALT 10 U/L (4-49); AST 44 U/L (17-59); African American GFR (CKD) 40 (>60 ml/min/1.73 sqM); Albumin 2.7 g/dL (3.5-5.0); Alkaline Phosphatase 52 U/L (38-126); Anion Gap 5 mmol/L; Blood Urea Nitrogen 34 mg/dL (9-20); Calcium 7.7 mg/dL (8.4-10.2); Carbon Dioxide 23 mmol/L (22-30); Chloride 110 mmol/L (98-107); Glucose 118 mg/dL (74-99); Non-African American GFR(CKD) 34 (>60 ml/min/1.73 sqM); Potassium 4.5 mmol/L (3.5-5.1); Sodium 138 mmol/L (137-145); Total Bilirubin 0.8 mg/dL (0.2-1.3); Total Protein 4.9 g/dL (6.3-8.2)
[2023-03-24 14:30] LABS: ABG Base Excess -1.8 mmol/L; ABG HCO3 23 mmol/L (21-25); ABG Oxygen Saturation 97.6 % (94-97); ABG PCO2 37 mmHg (35-45); ABG PO2 87 mmHg (83-108); ABG TCO2 24 mmol/L (19-24)
[2023-03-24 14:41] LABS: Allen Test Performed? no
[2023-03-24 15:02] LABS: Glucose,Whole Blood 115 mg/dL (70-110)
[2023-03-24 16:53] LABS: Glucose,Whole Blood 134 mg/dL (70-110)
[2023-03-24] MEDS: VASOPRESSIN 60 UNIT in SODIUM CHLORIDE 0.9% 150 ML IV SCH (17:12)
[2023-03-24] MEDS ORDERED: ACETAMINOPHEN IV (For NPO) 1,000 MG in EMPTY BAG 1 BAG IVPB ONE (17:34)
[2023-03-24] MEDS: BENZOCAINE/MENTHOL LOZENG 1 EACH LOZENGE MUCOUS MEM PRN (17:42)
[2023-03-24 18:10] LABS: Glucose,Whole Blood 137 mg/dL (70-110)
[2023-03-24 19:05] LABS: Glucose,Whole Blood 130 mg/dL (70-110)
[2023-03-24] MEDS: SENNOSIDES-DOCUSATE SODIUM 1 EACH TAB PO SCH (20:40)
[2023-03-24] MEDS: METOPROLOL TARTRATE 50 MG TAB PO SCH (20:40)
[2023-03-24 20:49] LABS: Glucose,Whole Blood 104 mg/dL (70-110)
[2023-03-24 22:11] LABS: Glucose,Whole Blood 116 mg/dL (70-110)
[2023-03-24 23:01] LABS: Glucose,Whole Blood 116 mg/dL (70-110)
[2023-03-24 23:57] LABS: Glucose,Whole Blood 113 mg/dL (70-110)
[2023-03-25] MEDS: HYDROcodone/APAP 10-325MG 1 EACH TAB PO PRN ×6 (00:38→21:50)
[2023-03-25 01:49] LABS: Glucose,Whole Blood 115 mg/dL (70-110)
[2023-03-25 03:46] LABS: Glucose,Whole Blood 120 mg/dL (70-110)
[2023-03-25] MEDS: INSULIN REGULAR 100 UNIT in SODIUM CHLORIDE 0.9% 100 ML IV SCH ×2 (03:48→17:59)
[2023-03-25 03:59] LABS: Anisocytosis Slight; Basophils % (A) 0 %; Eosinophils # (A) 0.1 k/uL (0-0.7); Eosinophils % (A) 1 %; HCT 22.5 % (39.0-53.0); HGB 7.8 gm/dL (13.0-17.5); Hypochromasia Slight; Lymphocytes % (A) 9 %; MCH 30.9 pg (25.0-35.0); MCHC 34.7 g/dL (31.0-37.0); MCV 89.1 fL (80.0-100.0); Mean Platelet Volume 10.3; Monocytes # (A) 0.5 k/uL (0-1.0); Monocytes % (A) 5 %; Neutrophils # (A) 8.5 k/uL (1.3-7.7); Neutrophils % (A) 82 %; Poikilocytosis Slight; RBC 2.53 m/uL (4.30-5.90); RDW 19.3 % (11.5-15.5); WBC 10.4 k/uL (3.8-10.6)
[2023-03-25 04:02] LABS: Ionized Calcium 4.6 mg/dL (4.5-5.3)
[2023-03-25 04:11] LABS: ALT 13 U/L (4-49); AST 42 U/L (17-59); African American GFR (CKD) 56 (>60 ml/min/1.73 sqM); Albumin 2.8 g/dL (3.5-5.0); Alkaline Phosphatase 61 U/L (38-126); Anion Gap 6 mmol/L; Blood Urea Nitrogen 34 mg/dL (9-20); Calcium 7.8 mg/dL (8.4-10.2); Carbon Dioxide 23 mmol/L (22-30); Chloride 110 mmol/L (98-107); Glucose 114 mg/dL (74-99); Magnesium 2.1 mg/dL (1.6-2.3); Non-African American GFR(CKD) 48 (>60 ml/min/1.73 sqM); Sodium 139 mmol/L (137-145); Total Bilirubin 1.1 mg/dL (0.2-1.3); Total Protein 5.3 g/dL (6.3-8.2)
[2023-03-25 04:25] LABS: Platelet Count 51 k/uL (150-450)
[2023-03-25] MEDS: LACTATED RINGERS 1,000 ML IV SCH (05:58)
[2023-03-25] MEDS: DEXMEDETOMIDINE/0.9% NACL(PMX) 400 MCG in EMPTY BAG 1 BAG IV SCH (05:58)
[2023-03-25 06:15] LABS: Glucose,Whole Blood 125 mg/dL (70-110)
[2023-03-25] MEDS: FERROUS SULFATE 325 MG TAB PO SCH ×2 (06:50→17:08)
--- NOTE | 2023-03-25 07:11 | XR ---
EXAMINATION TYPE: XR chest 1V portable DATE OF EXAM: 03/25/2023 6:49 AM COMPARISON: Chest radiographs from 03/24/2023 TECHNIQUE: XR chest 1V portable Portable AP radiograph of the chest. CLINICAL INDICATION:Male, 67 years old with history of Postoperative cardiac surgery; FINDINGS: Patient is rotated which limits evaluation. Lungs/Pleura: No pneumothorax. Left basilar patchy airspace disease redemonstrated. Small left pleura l effusion suggested. Pulmonary vascularity: Unremarkable. Heart/mediastinum: Cardiomediastinal silhouette is enlarged and stable. Atherosclerotic calcificatio ns are seen in the aorta. Postsurgical changes. Musculoskeletal: No acute osseous pathology. Midline sternotomy wires are noted and stable. Chronic d eformity of the right clavicle. Other findings: None Lines/Tubes: Interval removal of endotracheal tube and NG tube. Bilateral chest tubes redemonstrated. Right IJ Brooks-Rosa catheter with distal tip in the region of the main pulmonary artery. Mediastinal drain and similar position. IMPRESSION: 1. Postoperative changes with left basilar airspace opacities which may represent infiltrates versus atelectasis. Small left pleural effusion suggested. 2. Interval removal of endotracheal and NG tubes. Remaining support lines and tubes are stable.
[2023-03-25] MEDS: IPRATROPIUM-ALBUTEROL 3 ML NEB INHALATION SCH ×4 (07:25→19:43)
[2023-03-25] MEDS ORDERED: POTASSIUM CHLORIDE ER 20 MEQ TAB.ER PO STA (07:42)
[2023-03-25] MEDS ORDERED: FUROSEMIDE 10 MG/ML 4 ML VIAL IV STA (07:42)
[2023-03-25] MEDS: THIAMINE 100 MG TAB PO SCH (08:05)
[2023-03-25] MEDS: METOPROLOL TARTRATE 50 MG TAB PO SCH ×2 (08:05→20:30)
[2023-03-25] MEDS: CLOPIDOGREL 75 MG TAB PO SCH (08:05)
[2023-03-25] MEDS: ATORVASTATIN 40 MG TAB PO SCH (08:05)
[2023-03-25] MEDS: MULTIVITAMINS, THERA 1 EACH TAB PO SCH (08:05)
[2023-03-25] MEDS: ASPIRIN 81 MG PO SCH (08:05)
[2023-03-25] MEDS: FOLIC ACID 1 MG TAB PO SCH (08:05)
[2023-03-25] MEDS: PANTOPRAZOLE 40 MG TABLET PO SCH (08:07)
[2023-03-25 08:12] LABS: Glucose,Whole Blood 136 mg/dL (70-110)
--- NOTE | 2023-03-25 08:49 | P.PN ---
Subjective Progress Note Date: 03/25/23 Principal diagnosis: Status post open heart surgery The patient is a 67-year-old gentleman who was admitted to the hospital yesterday and underwent elective aortic valve replacement along with coronary artery that is grafting 2 was radial artery to obtuse marginal branch and SVG to PDA. This is postoperative patient day #2. The patient last night developed the bleeding from one of the chest tube. His hemoglobin dropped and he received 2 units of packed RBC. The initially the plan was to take the patient back to the OR but over the next few hours he started rise with a blood transfusion as well as vasopressors and he was not taken to the OR. He has been maintaining normal sinus mechanism. Currently he is on 2 vasopressors including vasopressin's as well as norepinephrine. He is also on Primacor. His urine output has been marginal. The last hemoglobin from the morning was 8.1. When he was seen and evaluated he was intubated on mechanical ventilation. The creatinine was 2.44 and his baseline creatinine is about 1. The chest x-ray showed a component of congestive heart failure. Beside that the patient does have a past medical history significant for coronary artery disease with prior stenting and he also does have diabetes and hypertension and dyslipidemia and carotid atherosclerosis and also he did have history of excessive alcohol use. Currently he is on anti-latex using aspirin and Plavix and he is a small dose of beta hanane. He is also on a statin. The plan is to continue monitor the hemoglobin and blood transfusion if hemoglobin drops below 8. No plan to take the patient to the OR at this point. Overall is status post continues to be critical and currently he is on 2 vasopressors. The examination is remarkable for acute respiratory failure currently on mechanical ventilation with stable vital signs on 2 vasopressors with a regular rate and rhythm and distant heart sounds as well as diminished breathing sounds bilaterally March [id number] The patient was seen and evaluated this morning. He is making progress. Currently he is not on any norepinephrine or vasopressin's or Primacor. He still intubated and the plan hopefully to extubate him later on today. He is maintaining normal sinus mechanism. The chest x-ray showed small left pleural effusion. Dual antiplatelet therapy on hold at this point in the light of thro mbocytopenia. Beside that he is on statin and he is on beta hanane. The dose of Lasix is advised today. The hemoglobin this morning is below 7 and he is in process of receiving one unit of packed RBC March [id number] The patient was seen and evaluated this morning. He made significant progress. He was extubated yesterday. He is not on any vasopressors today. The kidney function has improved. The hemoglobin has been stable above 8. The chest x-ray showed small bilateral pleural effusion and he was given one dose of Lasix at 40 mg earlier today. The platelet remains low at 50,000. He was restarted on dual antiplatelet therapy yesterday. No heparin products have been given. Beside that he is on intermediate intensity statin with Lipitor at 40 mg by mouth daily at bedtime and also he is on beta hanane. Amlodipine was reinitiated today as well for the radial artery graft. From the cardiac standpoint of view, the patient is doing better. Assessment Status post aVR for severe symptomatic aortic stenosis Status post CABG as described above Blood loss anemia which has improved Hypotension which has resolved Thrombocytopenia which has been stent Plan Continue the current medical regimen Agree with dose of Lasix was given earlier today Monitor the platelet very closely and consider stopping antiplatelet if the platelet sent to go down or in case of bleeding Follow-up with the patient Objective - Vital Signs Vital signs: Vital Signs Temp 99.9 F H 03/25/23 08:00 Pulse 100 03/25/23 08:00 Resp 18 03/25/23 08:00 BP 128/68 03/25/23 08:00 Pulse Ox 94 L 03/25/23 08:00 FiO2 40 03/24/23 14:00 Intake & Output 03/24/23 03/25/23 03/25/23 18:59 06:59 18:59 Intake Total 6964.576 4464.693 327.777 Output Total 1605 1240 170 Balance -9.242 86.693 157.777 Weight 107.2 kg Intake: IV 1008 847 59 .9NS Pressure Bag 108 117 9 ACETAMINOPHEN IV (For NPO 100 ) 1,000 mg In Empty Bag 1 bag @ 400 mls/hr IVPB Q6H [facility] Rx#:[id number] Calcium Gluconate in NaCl 100 1 gm In Saline 1 100ml. bag @ 100 mls/hr IVPB ONCE ONE Rx#:[id number] Cardiac Output .9NS 220 80 Lactated Ringers 1,000 ml 480 650 50 @ 20 mls/hr IV .Q24H [facility] Rx#:[id number] Intake, IV Titration 277.758 29.693 28.777 Amount Dexmedetomidine/0.9% NaCl 32.457 (Pmx) 400 mcg In Empty Bag 1 bag @ 0.2 MCG/KG/HR 5.335 mls/hr IV .[id number] [facility] Rx#:[id number] Insulin Regular 100 unit 71.307 29.693 28.777 In Sodium Chloride 0.9% 100 ml @ Per Protocol IV .Q0M [facility] Rx#:[id number] Milrinone-D5w Pmx 20 mg 35.491 In Dextrose/Water 1 100ml .bag @ 0.3 MCG/KG/MIN 9. 036 mls/hr IV .Q11H5M [facility] Rx#:[id number] propofoL 1,000 mg In 138.503 Empty Bag 1 bag @ 50 MCG/ KG/MIN 30.12 mls/hr IV . Q3H20M [facility] Rx#:[id number] Oral 450 240 Blood Product 310 Rc As-1 Unit 310 [id number] Output: Chest Tube Drainage 340 300 70 Mediastinal Chest Tube X 160 120 10 1 Right and Left Pleural 180 180 60 Urine 1265 940 100 Other: Voiding Method Indwelling Catheter Indwelling Catheter ABP, PAP, CO, CI - Last Documented Arterial Blood Pressure 146/55 Pulmonary Artery Pressure 54/22 Cardiac Output 8 Cardiac Index 3.8 - Labs CBC & Chem 7: 03/25/23 03:45 03/25/23 03:45 Labs: Abnormal Lab Results - Last 24 Hours (Table) 03/24/23 03/24/23 03/24/23 Range/Units 05:50 09:05 09:59 RBC (4.30-5.90) m/uL Hgb (13.0-17.5) gm/dL Hct (39.0-53.0) % RDW (11.5-15.5) % Plt Count (150-450) k/uL Neutrophils # (1.3-7.7) k/uL ABG O2 Saturation (94-97) % Chloride (98-107) mmol/L BUN (9-20) mg/dL Creatinine (0.66-1.25) mg/dL Glucose (74-99) mg/dL POC Glucose (mg/dL) 141 H 151 H (70-110) mg/dL Calcium (8.4-10.2) mg/dL Total Protein (6.3-8.2) g/dL Albumin (3.5-5.0) g/dL Crossmatch See Detail 03/24/23 03/24/23 03/24/23 Range/Units 11:05 12:05 13:03 RBC (4.30-5.90) m/uL Hgb (13.0-17.5) gm/dL Hct (39.0-53.0) % RDW (11.5-15.5) % Plt Count (150-450) k/uL Neutrophils # (1.3-7.7) k/uL ABG O2 Saturation (94-97) % Chloride (98-107) mmol/L BUN (9-20) mg/dL Creatinine (0.66-1.25) mg/dL Glucose (74-99) mg/dL POC Glucose (mg/dL) 146 H 129 H 114 H (70-110) mg/dL Calcium (8.4-10.2) mg/dL Total Protein (6.3-8.2) g/dL Albumin (3.5-5.0) g/dL Crossmatch 03/24/23 03/24/23 03/24/23 Range/Units 13:58 13:58 14:00 RBC 2.59 L (4.30-5.90) m/uL Hgb 7.4 L (13.0-17.5) gm/dL Hct 22.8 L (39.0-53.0) % RDW 18.9 H (11.5-15.5) % Plt Count 55 L (150-450) k/uL Neutrophils # (1.3-7.7) k/uL ABG O2 Saturation (94-97) % Chloride 110 H (98-107) mmol/L BUN 34 H (9-20) mg/dL Creatinine 1.95 H (0.66-1.25) mg/dL Glucose 118 H (74-99) mg/dL POC Glucose (mg/dL) 124 H (70-110) mg/dL Calcium 7.7 L (8.4-10.2) mg/dL Total Protein 4.9 L (6.3-8.2) g/dL Albumin 2.7 L (3.5-5.0) g/dL Crossmatch 03/24/23 03/24/23 03/24/23 Range/Units 14:28 15:00 16:51 RBC (4.30-5.90) m/uL Hgb (13.0-17.5) gm/dL Hct (39.0-53.0) % RDW (11.5-15.5) % Plt Count (150-450) k/uL Neutrophils # (1.3-7.7) k/uL ABG O2 Saturation 97.6 H (94-97) % Chloride (98-107) mmol/L BUN (9-20) mg/dL Creatinine (0.66-1.25) mg/dL Glucose (74-99) mg/dL POC Glucose (mg/dL) 115 H 134 H (70-110) mg/dL Calcium (8.4-10.2) mg/dL Total Protein (6.3-8.2) g/dL Albumin (3.5-5.0) g/dL Crossmatch 03/24/23 03/24/23 03/24/23 Range/Units 18:09 19:03 22:09 RBC (4.30-5.90) m/uL Hgb (13.0-17.5) gm/dL Hct (39.0-53.0) % RDW (11.5-15.5) % Plt Count (150-450) k/uL Neutrophils # (1.3-7.7) k/uL ABG O2 Saturation (94-97) % Chloride (98-107) mmol/L BUN (9-20) mg/dL Creatinine (0.66-1.25) mg/dL Glucose (74-99) mg/dL POC Glucose (mg/dL) 137 H 130 H 116 H (70-110) mg/dL Calcium (8.4-10.2) mg/dL Total Protein (6.3-8.2) g/dL Albumin (3.5-5.0) g/dL Crossmatch 03/24/23 03/24/23 03/25/23 Range/Units 23:00 23:56 01:47 RBC (4.30-5.90) m/uL Hgb (13.0-17.5) gm/dL Hct (39.0-53.0) % RDW (11.5-15.5) % Plt Count (150-450) k/uL Neutrophils # (1.3-7.7) k/uL ABG O2 Saturation (94-97) % Chloride (98-107) mmol/L BUN (9-20) mg/dL Creatinine (0.66-1.25) mg/dL Glucose (74-99) mg/dL POC Glucose (mg/dL) 116 H 113 H 115 H (70-110) mg/dL Calcium (8.4-10.2) mg/dL Total Protein (6.3-8.2) g/dL Albumin (3.5-5.0) g/dL Crossmatch 03/25/23 03/25/23 03/25/23 Range/Units 03:44 03:45 03:45 RBC 2.53 L (4.30-5.90) m/uL Hgb 7.8 L (13.0-17.5) gm/dL Hct 22.5 L (39.0-53.0) % RDW 19.3 H (11.5-15.5) % Plt Count 51 L (150-450) k/uL Neutrophils # 8.5 H (1.3-7.7) k/uL ABG O2 Saturation (94-97) % Chloride 110 H (98-107) mmol/L BUN 34 H (9-20) mg/dL Creatinine 1.47 H (0.66-1.25) mg/dL Glucose 114 H (74-99) mg/dL POC Glucose (mg/dL) 120 H (70-110) mg/dL Calcium 7.8 L (8.4-10.2) mg/dL Total Protein 5.3 L (6.3-8.2) g/dL Albumin 2.8 L (3.5-5.0) g/dL Crossmatch 03/25/23 03/25/23 Range/Units 06:13 08:11 RBC (4.30-5.90) m/uL Hgb (13.0-17.5) gm/dL Hct (39.0-53.0) % RDW (11.5-15.5) % Plt Count (150-450) k/uL Neutrophils # (1.3-7.7) k/uL ABG O2 Saturation (94-97) % Chloride (98-107) mmol/L BUN (9-20) mg/dL Creatinine (0.66-1.25) mg/dL Glucose (74-99) mg/dL POC Glucose (mg/dL) 125 H 136 H (70-110) mg/dL Calcium (8.4-10.2) mg/dL Total Protein (6.3-8.2) g/dL Albumin (3.5-5.0) g/dL Crossmatch
[2023-03-25 09:34] LABS: Glucose,Whole Blood 129 mg/dL (70-110)
--- NOTE | 2023-03-25 09:34 | P.PN ---
Subjective Progress Note Date: 03/25/23 Principal diagnosis: Severe aortic valve stenosis, coronary artery disease. Past medical history significant for coronary artery disease with previous PCI, on Plavix for anticoagulation as an outpatient, hypertension, hyperlipidemia, diabetes mellitus type 2, obesity with a BMI of 35.2 kg/m, chronic ongoing tobacco dependence, occasional marijuana use, EtOH use drinking 7-8 beers a week, noncompliance with proper medication use and obstructive sleep apnea with noncompliance with home CPAP use. POD #3 coronary artery bypass grafting 2 vessels with radial artery to the ob tuse marginal coronary artery, and a saphenous vein graft to the posterior descending coronary artery. Endoscopic harvesting of the left greater saphenous vein, endoscopic harvesting of the left radial artery, ligation of the left atrial appendage using a 35 mm Atriclip, aortic valve replacement using a 25 mm Rosario Inspiris bioprosthetic valve, epi-aortic ultrasound and intraoperative transesophageal echocardiogram. Postoperative acute blood loss anemia, expected given hemodilution and cardi opulmonary bypass. The patient was seen and examined in follow-up today 03/25/2023 at his bedside in the intensive care unit. The patient was successfully extubated yesterday at 2:50 PM, is currently sitting up to the bedside chair, is awake, alert, oriented 3 and is in no acute apparent distress. Oxygen saturations are 94% on 2 L nasal cannula and he is achieving 1000 mL on his incentive spirometry with encouragement. Denies any complaints of shortness of breath or pain at this time, currently rates his pain 0 out of 10 on the pain scale. Right IJ cordis/Maysel-Rosa catheter remains in place with current hemodynamic showing a cardiac output 8.0, cardiac index 3.8, PA pressure 60/27 and CVP 14 mmHg. Mediastinal, right and left pleural chest tubes remain in place to low continuous wall suction -20 cm H2O. No air leak is present. Mediastinal chest tube drained 50 mL output in the last 8 hours and 320 mL output of thin serosanguineous drainage in the last 24 hours. Right/pleural chest tubes drained 140 mL of thin serosanguineous drainage in the last 8 hours and 430 mL in the last 24 hours. Chest x-ray and laboratory results reviewed. The patient remained hemodynamically stable and is currently on no inotropic or pressor support. Bedside telemetry showing normal sinus rhythm heart rate 98 BPM. Atrial and ventricular epicardial pacemaker wires remain in place and are c onnected to bedside backup pacemaker generator on a VVI of 50. Objective - Vital Signs Vital signs: Vital Signs Temp 99.3 F 03/24/23 12:00 Pulse 94 03/25/23 07:40 Resp 12 03/25/23 07:00 BP 110/81 03/25/23 01:00 Pulse Ox 98 03/25/23 04:00 FiO2 40 03/24/23 14:00 Intake & Output 03/24/23 03/25/23 03/25/23 18:59 06:59 18:59 Intake Total 2137.183 7155.693 Output Total 1605 1240 Balance -9.242 86.693 Weight 107.2 kg Intake: IV 1008 847 .9NS Pressure Bag 108 117 ACETAMINOPHEN IV (For NPO 100 ) 1,000 mg In Empty Bag 1 bag @ 400 mls/hr IVPB Q6H [facility] Rx#:[id number] Calcium Gluconate in NaCl 100 1 gm In Saline 1 100ml. bag @ 100 mls/hr IVPB ONCE ONE Rx#:[id number] Cardiac Output .9NS 220 80 Lactated Ringers 1,000 ml 480 650 @ 50 mls/hr IV .Q20H [facility] Rx#:[id number] Intake, IV Titration 277.758 29.693 Amount Dexmedetomidine/0.9% NaCl 32.457 (Pmx) 400 mcg In Empty Bag 1 bag @ 0.2 MCG/KG/HR 5.335 mls/hr IV .[id number] [facility] Rx#:[id number] Insulin Regular 100 unit 71.307 29.693 In Sodium Chloride 0.9% 100 ml @ Per Protocol IV .Q0M [facility] Rx#:[id number] Milrinone-D5w Pmx 20 mg 35.491 In Dextrose/Water 1 100ml .bag @ 0.3 MCG/KG/MIN 9. 036 mls/hr IV .Q11H5M [facility] Rx#:[id number] propofoL 1,000 mg In 138.503 Empty Bag 1 bag @ 50 MCG/ KG/MIN 30.12 mls/hr IV . Q3H20M [facility] Rx#:[id number] Oral 450 Blood Product 310 Rc As-1 Unit 310 [id number] Output: Chest Tube Drainage 340 300 Mediastinal Chest Tube X 160 120 1 Right and Left Pleural 180 180 Urine 1265 940 Other: Voiding Method Indwelling Catheter Indwelling Catheter ABP, PAP, CO, CI - Last Documented Arterial Blood Pressure 128/56 Pulmonary Artery Pressure 61/23 Cardiac Output 8 Cardiac Index 3.8 - Exam CONSTITUTIONAL: Sitting up to the bedside chair in the intensive care unit, appears comfortable, cooperative, no apparent acute distress. HEENT: Neck is supple, no JVD, no lymphadenopathy. Right IJ Cordis and Maysel- Rosa catheter in place and functioning. RESPIRATORY: Lungs sounds essentially clear throughout, diminished to his bilateral bases. Respirations are symmetrical and nonlabored. Currently on 2 L nasal cannula with oxygen saturations 94%. Able to achieve 1000 mL on his incentive spirometry. Strong cough. CARDIOVASCULAR: Regular rhythm and rate. S1 and S2 present, negative for S3, gallop or murmur. Sternum is stable. Palpable peripheral pulses bilaterally, +1 generalized edema. No calf pain or tenderness noted. Heart hugger in place with patient demonstrating appropriate use. Knee-high ESTEFANI hose and sequential compression devices in place to his bilateral lower extremities. GASTROINTESTINAL: Abdomen soft, nontender, nondistended. Active bowel sounds present 4 quadrants. Tolerating diet. Passing flatus. No guarding or rigidity. GENITOURINARY: Pavon present draining clear, yellow urine. Urine output 640 mL in the last 8 hours. INTEGUMENTARY: Skin is warm and dry with no evidence of clubbing or cyanosis. Midline sternal incision clean dry and well approximated, covered with dry int act dressing. Left lower extremity EVH sites well approximated without redness or drainage. Left arm radial artery harvest sites clean, dry and approximated. No drainage or redness is present. NEUROLOGIC: Cranial nerves II through XII intact. No focal deficits. MUSKULOSKELETAL: Able to move all extremities, strength equal bilaterally, generalized weakness. PSYCHIATRIC: Alert and oriented to person place and time, appropriate affect, intact judgment and insight. INVASIVE LINES AND TUBES: Mediastinal/left/right pleural chest tubes present and connected to low continuous wall suction, no air leaks present. Mediastinal tube with 50 mL of thin serosanguineous drainage overnight, 320 mL output in the last 24 hours. Left/right pleural chest tubes with 140 mL of thin serosanguineous drainage overnight, 430 mL output in the last 24 hours. Atrial and ventricular epicardial pacemaker wires present, connected to generator, VVI backup rate 50 bpm. Right internal jugular Maysel/Cordis, right radial arterial line present. Current CO 8.0, CI 3.8, PA 60/27 and CVP 14 mmHg. - Allied health notes Allied health notes reviewed: nursing - Labs CBC & Chem 7: 03/25/23 03:45 03/25/23 03:45 Labs: Abnormal Lab Results - Last 24 Hours (Table) 03/24/23 03/24/23 03/24/23 Range/Units 05:50 08:14 09:05 RBC (4.30-5.90) m/uL Hgb (13.0-17.5) gm/dL Hct (39.0-53.0) % RDW (11.5-15.5) % Plt Count (150-450) k/uL Neutrophils # (1.3-7.7) k/uL ABG O2 Saturation (94-97) % Chloride (98-107) mmol/L BUN (9-20) mg/dL Creatinine (0.66-1.25) mg/dL Glucose (74-99) mg/dL POC Glucose (mg/dL) 118 H 141 H (70-110) mg/dL Calcium (8.4-10.2) mg/dL Total Protein (6.3-8.2) g/dL Albumin (3.5-5.0) g/dL Crossmatch See Detail 03/24/23 03/24/23 03/24/23 Range/Units 09:59 11:05 12:05 RBC (4.30-5.90) m/uL Hgb (13.0-17.5) gm/dL Hct (39.0-53.0) % RDW (11.5-15.5) % Plt Count (150-450) k/uL Neutrophils # (1.3-7.7) k/uL ABG O2 Saturation (94-97) % Chloride (98-107) mmol/L BUN (9-20) mg/dL Creatinine (0.66-1.25) mg/dL Glucose (74-99) mg/dL POC Glucose (mg/dL) 151 H 146 H 129 H (70-110) mg/dL Calcium (8.4-10.2) mg/dL Total Protein (6.3-8.2) g/dL Albumin (3.5-5.0) g/dL Crossmatch 03/24/23 03/24/23 03/24/23 Range/Units 13:03 13:58 13:58 RBC 2.59 L (4.30-5.90) m/uL Hgb 7.4 L (13.0-17.5) gm/dL Hct 22.8 L (39.0-53.0) % RDW 18.9 H (11.5-15.5) % Plt Count 55 L (150-450) k/uL Neutrophils # (1.3-7.7) k/uL ABG O2 Saturation (94-97) % Chloride 110 H (98-107) mmol/L BUN 34 H (9-20) mg/dL Creatinine 1.95 H (0.66-1.25) mg/dL Glucose 118 H (74-99) mg/dL POC Glucose (mg/dL) 114 H (70-110) mg/dL Calcium 7.7 L (8.4-10.2) mg/dL Total Protein 4.9 L (6.3-8.2) g/dL Albumin 2.7 L (3.5-5.0) g/dL Crossmatch 03/24/23 03/24/23 03/24/23 Range/Units 14:00 14:28 15:00 RBC (4.30-5.90) m/uL Hgb (13.0-17.5) gm/dL Hct (39.0-53.0) % RDW (11.5-15.5) % Plt Count (150-450) k/uL Neutrophils # (1.3-7.7) k/uL ABG O2 Saturation 97.6 H (94-97) % Chloride (98-107) mmol/L BUN (9-20) mg/dL Creatinine (0.66-1.25) mg/dL Glucose (74-99) mg/dL POC Glucose (mg/dL) 124 H 115 H (70-110) mg/dL Calcium (8.4-10.2) mg/dL Total Protein (6.3-8.2) g/dL Albumin (3.5-5.0) g/dL Crossmatch 0703/24/23 03/24/23 Range/Units 16:51 18:09 19:03 RBC (4.30-5.90) m/uL Hgb (13.0-17.5) gm/dL Hct (39.0-53.0) % RDW (11.5-15.5) % Plt Count (150-450) k/uL Neutrophils # (1.3-7.7) k/uL ABG O2 Saturation (94-97) % Chloride (98-107) mmol/L BUN (9-20) mg/dL Creatinine (0.66-1.25) mg/dL Glucose (74-99) mg/dL POC Glucose (mg/dL) 134 H 137 H 130 H (70-110) mg/dL Calcium (8.4-10.2) mg/dL Total Protein (6.3-8.2) g/dL Albumin (3.5-5.0) g/dL Crossmatch 03/24/23 03/24/23 03/24/23 Range/Units 22:09 23:00 23:56 RBC (4.30-5.90) m/uL Hgb (13.0-17.5) gm/dL Hct (39.0-53.0) % RDW (11.5-15.5) % Plt Count (150-450) k/uL Neutrophils # (1.3-7.7) k/uL ABG O2 Saturation (94-97) % Chloride (98-107) mmol/L BUN (9-20) mg/dL Creatinine (0.66-1.25) mg/dL Glucose (74-99) mg/dL POC Glucose (mg/dL) 116 H 116 H 113 H (70-110) mg/dL Calcium (8.4-10.2) mg/dL Total Protein (6.3-8.2) g/dL Albumin (3.5-5.0) g/dL Crossmatch 03/25/23 03/25/23 03/25/23 Range/Units 01:47 03:44 03:45 RBC 2.53 L (4.30-5.90) m/uL Hgb 7.8 L (13.0-17.5) gm/dL Hct 22.5 L (39.0-53.0) % RDW 19.3 H (11.5-15.5) % Plt Count 51 L (150-450) k/uL Neutrophils # 8.5 H (1.3-7.7) k/uL ABG O2 Saturation (94-97) % Chloride (98-107) mmol/L BUN (9-20) mg/dL Creatinine (0.66-1.25) mg/dL Glucose (74-99) mg/dL POC Glucose (mg/dL) 115 H 120 H (70-110) mg/dL Calcium (8.4-10.2) mg/dL Total Protein (6.3-8.2) g/dL Albumin (3.5-5.0) g/dL Crossmatch 03/25/23 03/25/23 Range/Units 03:45 06:13 RBC (4.30-5.90) m/uL Hgb (13.0-17.5) gm/dL Hct (39.0-53.0) % RDW (11.5-15.5) % Plt Count (150-450) k/uL Neutrophils # (1.3-7.7) k/uL ABG O2 Saturation (94-97) % Chloride 110 H (98-107) mmol/L BUN 34 H (9-20) mg/dL Creatinine 1.47 H (0.66-1.25) mg/dL Glucose 114 H (74-99) mg/dL POC Glucose (mg/dL) 125 H (70-110) mg/dL Calcium 7.8 L (8.4-10.2) mg/dL Total Protein 5.3 L (6.3-8.2) g/dL Albumin 2.8 L (3.5-5.0) g/dL Crossmatch - Imaging and Cardiology Chest x-ray: report reviewed, image reviewed Assessment and Plan Assessment: Severe aortic valve stenosis, status post aortic valve replacement with a 25 mm Rosario Inspiris bioprosthetic valve Coronary artery disease with history of previous PCI, on Plavix for anticoagulation as an outpatient, status post 2 vessel coronary artery bypass grafting surgery Hypertension Hyperlipidemia Diabetes mellitus type 2, with a preoperative hemoglobin A1c 6.6% Carotid stenosis with a recent carotid duplex study showing a 50-69% stenosis of the left carotid bifurcation by technique systolic velocity and ratio and nonvisualization of flow within the right internal carotid artery with CTA of the neck showing occlusion of the right ICA and an estimated diameter reduction of 60% to the left ICA Chronic ongoing tobacco dependence Obstructive sleep apnea with noncompliance of home CPAP use Occasional marijuana use, smokes 1-2 joints per week Occasional EtOH use, drinks 7-8 beers per week History of noncompliance with taking his medications Acute kidney injury with a creatinine of 1.47 today 03/25/2023 Postoperative acute blood loss anemia, expected given hemodilution and cardiopulmonary bypass Acute hypoxic respiratory failure, requiring prolonged mechanical ventilation, extubated 03/24/2023 at 2:50 PM, currently on 2 L nasal cannula oxygen Hypotension resolved, currently off vasopressors Plan: Continue to maximize medical therapy with low-dose aspirin, statin, Plavix and beta hanane. Metoprolol tartrate was increased to 50 mg by mouth twice a day last evening with hold parameters on beta hanane. HIT panel pending, platelets are 51 today. We increase amlodipine to 5 mg by mouth daily at noon with hold parameters for radial artery spasm prophylaxis. Encourage incentive spirometry use 10 times every hour while awake. Bronchodilators per pulmonology/critical care recommendations. Increase activity, ambulate as tolerated. PT/OT/cardiac rehab following. Will monitor daily labs and chest x-rays. Electrolyte replacement per protocol. GI/DVT prophylaxis. Restart Arixtra 2.5 mg subcu daily. Pain control per current medication regimen. Insulin management per internal medicine. Patient is diabetic with hemoglobin A1c 6.6%, needs tight blood sugar control to prevent infection and promote healing Remove right IJ Maysel-Rosa catheter, keep right IJ Cordis in place with continuous CVP monitoring. Remove mediastinal chest tube keep left/right pleural chest tubes for another 24 hours. Remove Pavon catheter, continue to record strict inaccurate I's and O's. Bladder scan every 6 hours and when necessary postvoid residual, if greater than 300 mL of postvoid residual May straight cath. Daily weights. Importance of risks modifications including smoking cessation counseling and education. Discussed [phone]. Lasix 40 mg 1 now, potassium chloride 20 mEq by mouth 1 now. Remove right radial arterial line. Keep atrial and ventricular epicardial pacemaker wires in place, may ground pacemaker wires this a.m. and keep backup pacemaker generator at his bedside available. More recommendations to follow based on patient's clinical course. Time with Patient: Greater than 30
[2023-03-25] MEDS: FONDAPARINUX 2.5 MG/0.5 ML SYRINGE SQ SCH (10:04)
--- NOTE | 2023-03-25 10:27 | P.PN ---
Subjective Progress Note Date: 03/25/23 This is a 67-year-old male patient with a known history of hypertension, hyperlipidemia, diabetes mellitus, carotid stenosis, chronic tobacco dependence, obstructive sleep apnea not utilizing CPAP, marijuana use, alcohol use. He was recently found to have multivessel coronary artery disease and history of previous PCI and was on Plavix. He was also noted to have severe aortic valve stenosis. He was brought in yesterday electively for coronary artery bypass grafting 2 utilizing a radial artery to the obtuse marginal artery, saphenous vein graft to the posterior descending artery. Aortic valve replacement using a 25 mm Rosario Inspiris bioprosthetic valve. He is seen today in consultation in the intensive care unit. He remains intubated on mechanical ventilator and assist control mode with a rate of 16, tidal volume 600, FiO2 40% and a PEEP of 10. Arterial blood gases revealed a pO2 of 206, pCO2 37 and a PEEP age of 7.39 on 60% FiO2. The patient did have a significant amount of hypotension and output from his sternal chest tube was a combined total of 2.8 L since surgery. Including the mediastinal, right and left pleural chest tubes. This has slowed down significantly and stabilized. He remains on nitroglycerin drip at 5 mcg/m. Primacor at 0.3 mcg/kg/m. Vasopressin at 0.04 units per minute. Norepinephrine at 8 mcg/m. Insulin drip at 6.5 units per hour. Propofol at 50 mcg/kg/m. Lactated Ringer's at 50 MLS per hour. Heparin for DVT prophylaxis. Remains on bronchodilators. He has received 3 unit of packed red blood cells. One unit of platelets. 1 pooled cryoprecipitate. Current cardiac output 4.2. Cardiac index 2.0. PA pressures 38/26. CVP 13 mmHg. Blood pressure 101/55. White count 9.9. Hemoglobin 8.1. Platelets 123. Sodium 138. Potassium 4.6. Bicarb 21. BUN 27. Creatinine 2.44. Glucose 132. Total protein 4.6. Albumin 2.5. Magnesium 2.0. Ionized calcium 4.4 which has been replaced. His x-ray reveals postoperative changes with stable areas of consolidation with tiny bilateral effusions. Mild venous congestion. He is currently in a positive balance. The patient is seen today 03/24/2023 in follow-up in the intensive care unit. He remains intubated on mechanical ventilator currently and assist-control mode at a rate of 16, tidal 600, FiO2 40% and a PEEP of 8. Morning blood gases revealed a PaO2 of 107, pCO2 36, pH 7.41. He is on lactated Ringer's at 50 MLS per hour. Propofol at 45 mcg/kg/m. Insulin at 9 units per hour. He is currently receiving his fourth unit of packed red blood cells. Hemoglobin was 6.5. Hematocrit 19.8. White count 8.8. Lately and 54,000. Fibrinogen 328. INR 1.0. PT 10.9. PTT 26.5. Sodium 138. Potassium 4.2. Bicarb 22. BUN 34. Creatinine 2.27. Glucose 151. AST 45. ALT 12. Albumin 2.7. Ionized calcium 4.4. Chest x-ray reveals stable bibasilar airspace opacities/atelectasis with a small left pleural effusion. Pulmonary vascular congestion. Mediastinal and right/left chest tubes remain in place. No leak detected. Nasogastric tube in place. Right IJ Laie-Rosa catheter in place. Epicardial pacer wires in place with a backup rate of 50, VVI. Cardiac output 7.6. Cardiac index 3.6. PA pressure 64/30. CVP 14. He has received a total of 4 units packed red blood cells. One unit of platelets. 1 pooled cryoprecipitate. He is continued on DuoNeb inhalations. The patient is seen today 03/25/2023 in follow-up in the intensive care unit. He is currently sitting up in a chair at the bedside. Awake and alert in no acute distress. Maintaining good O2 saturations in the 90s on 2 L/m per nasal cannula. He was extubated yesterday at approximately 2:25 PM. His Laie-Rosa catheter has been removed. His arterial line has been removed. Chest tubes remain in place. Chest x-ray reveals left basilar airspace opacity/atelectasis. Small left pleural effusion. He remains on lactated Ringer's at 30 MLS per hour. Insulin drip at 7.5 units per hour. He is status post 4 units of packed red blood cells. One unit of platelets. One pooled cryoprecipitate. White count 10.4. Hemoglobin 7.8. Platelets 51,000. Sodium 139. Potassium 4.0. Bicarb 23. BUN 34. Creatinine 1.47. Glucose 114. He did receive Lasix 80 mg IVP 1. Currently in a mildly positive balance. CVP is 11. Cardiac output 8. Cardiac index was 3.8. He remains on bronchodilators. Pulling approximately 500 ML on the incentive spirometer. He remains on bronchodilators. Anticoagulated with Arixtra. Objective - Vital Signs Vital signs: Vital Signs Temp 99.9 F H 03/25/23 08:00 Pulse 84 03/25/23 10:00 Resp 15 03/25/23 10:00 BP 121/70 03/25/23 10:00 Pulse Ox 95 03/25/23 10:00 FiO2 40 03/24/23 14:00 Intake & Output 03/24/23 03/25/23 03/25/23 18:59 06:59 18:59 Intake Total 5148.307 1552.693 384.256 Output Total 1605 1240 870 Balance -9.242 86.693 -485.744 Weight 107.2 kg Intake: IV 1008 847 105 .9NS Pressure Bag 108 117 15 ACETAMINOPHEN IV (For NPO 100 ) 1,000 mg In Empty Bag 1 bag @ 400 mls/hr IVPB Q6H ANGELA Rx#:[id number] Calcium Gluconate in NaCl 100 1 gm In Saline 1 100ml. bag @ 100 mls/hr IVPB ONCE ONE Rx#:[id number] Cardiac Output .9NS 220 80 Lactated Ringers 1,000 ml 480 650 90 @ 20 mls/hr IV .Q24H ANGELA Rx#:[id number] Intake, IV Titration 277.758 29.693 39.256 Amount Dexmedetomidine/0.9% NaCl 32.457 (Pmx) 400 mcg In Empty Bag 1 bag @ 0.2 MCG/KG/HR 5.335 mls/hr IV .H66X90A ANGELA Rx#:[id number] Insulin Regular 100 unit 71.307 29.693 39.256 In Sodium Chloride 0.9% 100 ml @ Per Protocol IV .Q0M ANGELA Rx#:[id number] Milrinone-D5w Pmx 20 mg 35.491 In Dextrose/Water 1 100ml .bag @ 0.3 MCG/KG/MIN 9. 036 mls/hr IV .Q11H5M ANGELA Rx#:[id number] propofoL 1,000 mg In 138.503 Empty Bag 1 bag @ 50 MCG/ KG/MIN 30.12 mls/hr IV . Q3H20M ANGELA Rx#:[id number] Oral 450 240 Blood Product 310 Rc As-1 Unit 310 [id number] Output: Chest Tube Drainage 340 300 120 Mediastinal Chest Tube X 160 120 30 1 Right and Left Pleural 180 180 90 Urine 1265 940 750 Other: Voiding Method Indwelling Catheter Indwelling Catheter ABP, PAP, CO, CI - Last Documented Arterial Blood Pressure 146/55 Pulmonary Artery Pressure 54/22 Cardiac Output 8 Cardiac Index 3.8 - Exam GENERAL EXAM: Awake, alert pleasant 67-year-old male, up in a chair, on 2 L nasal cannula, fairly comfortable in no apparent distress. HEAD: Normocephalic. EYES: Normal reaction of pupils, equal size. NOSE: Clear with pink turbinates. THROAT: No erythema or exudates. NECK: Right IJ Cordis in place. No masses, no JVD. CHEST: Sternal dressing dry and intact. Mediastinal right and left pleural chest tubes in place to Pleur-evac and low continuous suction. No air leaks noted. AV epicardial pacemaker wires present. Back up pacing at 50 bpm. LUNGS: Equal air entry with crackles in the bilateral bases, left greater than right. CVS: S1 and S2 normal with no audible murmur, regular rhythm. ABDOMEN: No hepatosplenomegaly, hypoactive bowel sounds, no guarding or rigidity. SPINE: No scoliosis or deformity SKIN: No rashes CENTRAL NERVOUS SYSTEM: No focal deficits, tone is normal in all 4 extremities. EXTREMITIES: There is no peripheral edema. No clubbing, no cyanosis. Peripheral pulses are intact. - Labs CBC & Chem 7: 03/25/23 03:45 03/25/23 03:45 Labs: Abnormal Lab Results - Last 24 Hours (Table) 03/24/23 03/24/23 03/24/23 Range/Units 11:05 12:05 13:03 RBC (4.30-5.90) m/uL Hgb (13.0-17.5) gm/dL Hct (39.0-53.0) % RDW (11.5-15.5) % Plt Count (150-450) k/uL Neutrophils # (1.3-7.7) k/uL ABG O2 Saturation (94-97) % Chloride (98-107) mmol/L BUN (9-20) mg/dL Creatinine (0.66-1.25) mg/dL Glucose (74-99) mg/dL POC Glucose (mg/dL) 146 H 129 H 114 H (70-110) mg/dL Calcium (8.4-10.2) mg/dL Total Protein (6.3-8.2) g/dL Albumin (3.5-5.0) g/dL 03/24/23 03/24/23 03/24/23 Range/Units 13:58 13:58 14:00 RBC 2.59 L (4.30-5.90) m/uL Hgb 7.4 L (13.0-17.5) gm/dL Hct 22.8 L (39.0-53.0) % RDW 18.9 H (11.5-15.5) % Plt Count 55 L (150-450) k/uL Neutrophils # (1.3-7.7) k/uL ABG O2 Saturation (94-97) % Chloride 110 H (98-107) mmol/L BUN 34 H (9-20) mg/dL Creatinine 1.95 H (0.66-1.25) mg/dL Glucose 118 H (74-99) mg/dL POC Glucose (mg/dL) 124 H (70-110) mg/dL Calcium 7.7 L (8.4-10.2) mg/dL Total Protein 4.9 L (6.3-8.2) g/dL Albumin 2.7 L (3.5-5.0) g/dL 03/24/23 03/24/23 03/24/23 Range/Units 14:28 15:00 16:51 RBC (4.30-5.90) m/uL Hgb (13.0-17.5) gm/dL Hct (39.0-53.0) % RDW (11.5-15.5) % Plt Count (150-450) k/uL Neutrophils # (1.3-7.7) k/uL ABG O2 Saturation 97.6 H (94-97) % Chloride (98-107) mmol/L BUN (9-20) mg/dL Creatinine (0.66-1.25) mg/dL Glucose (74-99) mg/dL POC Glucose (mg/dL) 115 H 134 H (70-110) mg/dL Calcium (8.4-10.2) mg/dL Total Protein (6.3-8.2) g/dL Albumin (3.5-5.0) g/dL 03/24/23 03/24/23 03/24/23 Range/Units 18:09 19:03 22:09 RBC (4.30-5.90) m/uL Hgb (13.0-17.5) gm/dL Hct (39.0-53.0) % RDW (11.5-15.5) % Plt Count (150-450) k/uL Neutrophils # (1.3-7.7) k/uL ABG O2 Saturation (94-97) % Chloride (98-107) mmol/L BUN (9-20) mg/dL Creatinine (0.66-1.25) mg/dL Glucose (74-99) mg/dL POC Glucose (mg/dL) 137 H 130 H 116 H (70-110) mg/dL Calcium (8.4-10.2) mg/dL Total Protein (6.3-8.2) g/dL Albumin (3.5-5.0) g/dL 03/24/23 03/24/23 03/25/23 Range/Units 23:00 23:56 01:47 RBC (4.30-5.90) m/uL Hgb (13.0-17.5) gm/dL Hct (39.0-53.0) % RDW (11.5-15.5) % Plt Count (150-450) k/uL Neutrophils # (1.3-7.7) k/uL ABG O2 Saturation (94-97) % Chloride (98-107) mmol/L BUN (9-20) mg/dL Creatinine (0.66-1.25) mg/dL Glucose (74-99) mg/dL POC Glucose (mg/dL) 116 H 113 H 115 H (70-110) mg/dL Calcium (8.4-10.2) mg/dL Total Protein (6.3-8.2) g/dL Albumin (3.5-5.0) g/dL 03/25/23 03/25/23 03/25/23 Range/Units 03:44 03:45 03:45 RBC 2.53 L (4.30-5.90) m/uL Hgb 7.8 L (13.0-17.5) gm/dL Hct 22.5 L (39.0-53.0) % RDW 19.3 H (11.5-15.5) % Plt Count 51 L (150-450) k/uL Neutrophils # 8.5 H (1.3-7.7) k/uL ABG O2 Saturation (94-97) % Chloride 110 H (98-107) mmol/L BUN 34 H (9-20) mg/dL Creatinine 1.47 H (0.66-1.25) mg/dL Glucose 114 H (74-99) mg/dL POC Glucose (mg/dL) 120 H (70-110) mg/dL Calcium 7.8 L (8.4-10.2) mg/dL Total Protein 5.3 L (6.3-8.2) g/dL Albumin 2.8 L (3.5-5.0) g/dL 03/25/23 03/25/23 03/25/23 Range/Units 06:13 08:11 09:32 RBC (4.30-5.90) m/uL Hgb (13.0-17.5) gm/dL Hct (39.0-53.0) % RDW (11.5-15.5) % Plt Count (150-450) k/uL Neutrophils # (1.3-7.7) k/uL ABG O2 Saturation (94-97) % Chloride (98-107) mmol/L BUN (9-20) mg/dL Creatinine (0.66-1.25) mg/dL Glucose (74-99) mg/dL POC Glucose (mg/dL) 125 H 136 H 129 H (70-110) mg/dL Calcium (8.4-10.2) mg/dL Total Protein (6.3-8.2) g/dL Albumin (3.5-5.0) g/dL Assessment and Plan Assessment: Coronary artery disease status post two-vessel coronary artery bypass grafting. Postoperative day #3 Severe aortic stenosis, status post aortic valve replacement with a 25 mm Rosario expressed bioprosthetic valve. Postoperative day #3 Postoperative hypotension requiring norepinephrine and vasopressin recovered and currently off drips Acute kidney injury, current creatinine 1.47 Anemia, expected outcome of surgery, hemoglobin 6.5, received 4 units packed red blood cells. Current hemoglobin 7.8 Thrombocytopenia, platelets 51,000 History of coronary artery disease with previous PCI History of hypertension Hyperlipidemia Diabetes mellitus Chronic and ongoing tobacco dependence Carotid stenosis History of marijuana use Obstructive sleep apnea not utilizing CPAP History of alcohol use Plan: The patient was seen and evaluated Chest x-ray, labs and medications reviewed Extubated yesterday and currently on 2 L nasal cannula Received Lasix 40 mg IVP 1 Initiated on Arixtra Continue with SCD's Continue bronchodilators Educated regarding the increased use of the incentive spirometer Increase his activity as tolerated We will continue to follow I have personally seen and examined the patient, performed the documentation and the assessment and plan as written. Number of minutes spent on the visit: 10.
[2023-03-25 10:54] LABS: Glucose,Whole Blood 101 mg/dL (70-110)
[2023-03-25 11:34] LABS: Glucose,Whole Blood 96 mg/dL (70-110)
[2023-03-25 12:52] LABS: Glucose,Whole Blood 208 mg/dL (70-110)
[2023-03-25] MEDS: amLODIPine 5 MG TAB PO SCH (12:52)
[2023-03-25 13:56] LABS: Glucose,Whole Blood 209 mg/dL (70-110)
[2023-03-25 15:18] LABS: Glucose,Whole Blood 159 mg/dL (70-110)
[2023-03-25 16:30] LABS: Glucose,Whole Blood 120 mg/dL (70-110)
[2023-03-25 17:57] LABS: Glucose,Whole Blood 172 mg/dL (70-110)
[2023-03-25 18:59] LABS: Glucose,Whole Blood 151 mg/dL (70-110)
[2023-03-25 20:11] LABS: Glucose,Whole Blood 116 mg/dL (70-110)
[2023-03-25] MEDS: SENNOSIDES-DOCUSATE SODIUM 1 EACH TAB PO SCH (20:30)
[2023-03-25 21:00] LABS: Glucose,Whole Blood 115 mg/dL (70-110)
[2023-03-25 21:55] LABS: Glucose,Whole Blood 98 mg/dL (70-110)
[2023-03-25 22:53] LABS: Glucose,Whole Blood 123 mg/dL (70-110)
[2023-03-26] LABS: Glucose,Whole Blood 115 mg/dL (70-110)
[2023-03-26 00:53] LABS: Glucose,Whole Blood 102 mg/dL (70-110)
--- NOTE | 2023-03-26 01:32 | P.PN ---
Subjective Progress Note Date: 03/24/23 Patient is a 65-year-old male with a known history of hypertension, hyperlipidemia, diabetes type 2 [id number], obstructive sleep apnea not on CPAP, coronary artery disease, severe aortic stenosis, chronic occlusion of the right ICA and moderate stenosis involving the left ICA was to the [facility] for elective aortic valve replacement and myocardial revascularization. Patient underwent IL-12 replacement and two-vessel bypass LRA to OM and SVG to PDA. Patient had RAE on 01/05/2023 showed severe aortic stenosis involving tricuspid aortic valve with planimetry area of around 0.4 2.6 cm. Normal LV systolic function. Mild to moderate MR. Patient had cardiac catheterization on 01/04/2023 showed right coronary artery is a codominant vessel that was previously stented extensively. Mid RCA showed focal 90% stenosis. Left main coronary artery appears to be calcified but is free of significant stenosis. Circumflex artery showed 80 to 90% ostial stenosis, LAD showed mild to moderate diffuse mild nonfocal atherosclerotic block. Severe two-vessel coronary disease. Patient was referred to Dr. Jensen for evaluation of aortic valve replacement with two-vessel bypass surgery. Patient was intubated perioperatively and was transferred to MICU postprocedure. Laboratory data showed WBC 8.5 hemoglobin 10.4 and platelets 105. ABG showed pH 7.4 PCO2 41 PO2 64. Sodium 138 potassium 4.3 chloride 108 bicarb is 24 BUN 21 creatinine 1.23 and blood sugar is 111. Patient is currently on milrinone drip, Cardizem and norepinephrine. Patient is also on insulin drip. 03/23/2023 Patient is currently in the MICU. Remains on mechanical ventilator. Patient is also sedated with propofol. On assist control 16 with FiO2 40% and PEEP of 10 and tidal volume 600. ABGs this morning showed pH 7.39 PCO2 37 PO2 206 bicarb is 22 Patient is being cannula pressor support with norepinephrine and vasopressin. Patient is also IV albumin. Mediastinal and right and left pleural chest tubes in place with low suction. Was also noted to have serosanguineous drainage from the mediastinal chest tubes. Hemoglobin 8.7 today dropped to 7.6. Patient did receive 3 units of PRBCs and 1 unit of platelet and 1 L of fold cryoprecipitate. Chest x-ray this morning showed postoperative changes with stable areas of c onsolidation tiny bilateral effusion. Correlate for mild venous congestion. Other laboratory data showed WBC 11.9 hemoglobin 8.7 and platelets 99 sodium 138 potassium 4.6 chloride 109 bicarb is 21 BUN 27 creatinine 2.44 and blood sugar is 133. Patient remained on insulin drip. 03/24/2023 Patient is currently in the MICU. Patient was extubated this afternoon and was placed on Ventimask. Patient is awake alert and oriented. Unable to communicate well at this time. Otherwise patient is here for the unit of PRBCs today. Hemoglobin was 6.5 this morning. Chest x-ray showed stable bibasilar airspace opacities/atelectasis with a small left pleural effusion, pulmonary vascular congestion, mediastinal and right and left chest tubes remains in place. No leak detected. NG tube in place. Laboratory data showed WBC 8.8 hemoglobin 6.5 and platelets 54 Sodium 138 potassium 4.2 chloride 109, BUN 34 and creatinine 2.27 and blood sugar is 129. Current medications reviewed. Objective - Vital Signs Vital signs: Vital Signs Temp 99.3 F 03/24/23 12:00 Pulse 101 H 03/24/23 19:00 Resp 20 03/24/23 19:00 BP 146/78 03/24/23 19:00 Pulse Ox 94 L 03/24/23 19:00 FiO2 40 03/24/23 14:00 Intake & Output 03/24/23 03/24/23 03/25/23 06:59 18:59 06:59 Intake Total 1926.294 9331.758 66.297 Output Total 891 1605 90 Balance 699.031 -9.242 -23.703 Weight 106.7 kg Intake: IV 1028 1008 59 .9NS Pressure Bag 108 108 9 ACETAMINOPHEN IV (For NPO 100 100 ) 1,000 mg In Empty Bag 1 bag @ 400 mls/hr IVPB Q6H ANGELA Rx#:[id number] Calcium Gluconate in NaCl 100 1 gm In Saline 1 100ml. bag @ 100 mls/hr IVPB ONCE ONE Rx#:[id number] Cardiac Output .9NS 220 220 Lactated Ringers 1,000 ml 600 480 50 @ 50 mls/hr IV .Q20H ANGELA Rx#:[id number] Intake, IV Titration 562.031 277.758 7.297 Amount Dexmedetomidine/0.9% NaCl 32.457 (Pmx) 400 mcg In Empty Bag 1 bag @ 0.2 MCG/KG/HR 5.335 mls/hr IV .[id number] ANGELA Rx#:[id number] Insulin Regular 100 unit 96.421 71.307 7.297 In Sodium Chloride 0.9% 100 ml @ Per Protocol IV .Q0M ANGELA Rx#:[id number] Milrinone-D5w Pmx 20 mg 9.739 35.491 In Dextrose/Water 1 100ml .bag @ 0.3 MCG/KG/MIN 9. 036 mls/hr IV .Q11H5M ANGELA Rx#:[id number] Norepinephrine 4 mg In 72.679 Sodium Chloride 0.9% 250 ml @ 0.03 MCG/KG/MIN 11. 476 mls/hr IV .Q22H8M ANGELA Rx#:[id number] Vasopressin 60 unit In 45.696 Sodium Chloride 0.9% 150 ml @ 0.02 UNITS/MIN 3.06 mls/hr IV .Q24H ANGELA Rx#: [id number] propofoL 1,000 mg In 337.496 138.503 Empty Bag 1 bag @ 50 MCG/ KG/MIN 30.12 mls/hr IV . Q3H20M ANGELA Rx#:[id number] Blood Product 310 Rc As-1 Unit 310 [id number] Output: Chest Tube Drainage 286 340 30 Mediastinal Chest Tube X 116 160 20 1 Right and Left Pleural 170 180 10 Urine 605 1265 60 Other: Voiding Method Indwelling Catheter Indwelling Catheter ABP, PAP, CO, CI - Last Documented Arterial Blood Pressure 128/52 Pulmonary Artery Pressure 47/19 Cardiac Output 6.8 Cardiac Index 3.2 - Exam PHYSICAL EXAMINATION: Patient is and oriented. Able to follow simple commands. Off mechanical ventilator.. HEENT: Normocephalic. Neck is supple. Pupils reactive. Nostrils clear. Oral cavity is moist. Neck reveals no JVD, carotid bruits, or thyromegaly. CHEST EXAMINATION: Trachea is central. Symmetrical expansion. Bibasilar diminished sounds.. No wheezing or rhonchi. Mediastinal and pleural chest tubes in place. Midline incision bandaged. CARDIAC: Normal S1, S2 with no gallops. No murmurs ABDOMEN: Soft. Bowel sounds present. No organomegaly. No abdominal bruits. Extremities: reveal no edema. No clubbing or cyanosis Neurologically patient is awake alert and oriented.. Drowsy... No gross focal deficits noted Skin: No rash or skin lesions. Psychiatric: Cooperative. Could not be assessed completely.., Musculoskeletal: No joint swelling or deformity - Labs CBC & Chem 7: 03/25/23 03:45 03/25/23 03:45 Labs: Abnormal Lab Results - Last 24 Hours (Table) 03/23/23 03/23/23 03/23/23 Range/Units 20:19 21:59 23:09 RBC (4.30-5.90) m/uL Hgb (13.0-17.5) gm/dL Hct (39.0-53.0) % RDW (11.5-15.5) % Plt Count (150-450) k/uL Lymphocytes # (1.0-4.8) k/uL ABG O2 Saturation (94-97) % Chloride (98-107) mmol/L BUN (9-20) mg/dL Creatinine (0.66-1.25) mg/dL Glucose (74-99) mg/dL POC Glucose (mg/dL) 142 H 143 H 136 H (70-110) mg/dL Calcium (8.4-10.2) mg/dL Ionized Calcium Wojciech (4.5-5.3) mg/dL Total Protein (6.3-8.2) g/dL Albumin (3.5-5.0) g/dL Crossmatch 03/24/23 03/24/23 03/24/23 Range/Units 00:06 02:17 03:14 RBC (4.30-5.90) m/uL Hgb (13.0-17.5) gm/dL Hct (39.0-53.0) % RDW (11.5-15.5) % Plt Count (150-450) k/uL Lymphocytes # (1.0-4.8) k/uL ABG O2 Saturation (94-97) % Chloride (98-107) mmol/L BUN (9-20) mg/dL Creatinine (0.66-1.25) mg/dL Glucose (74-99) mg/dL POC Glucose (mg/dL) 125 H 144 H 143 H (70-110) mg/dL Calcium (8.4-10.2) mg/dL Ionized Calcium Wojciech (4.5-5.3) mg/dL Total Protein (6.3-8.2) g/dL Albumin (3.5-5.0) g/dL Crossmatch 03/24/23 03/24/23 03/24/23 Range/Units 04:06 05:00 05:00 RBC 2.26 L (4.30-5.90) m/uL Hgb 6.5 L* (13.0-17.5) gm/dL Hct 19.8 L* (39.0-53.0) % RDW 19.1 H (11.5-15.5) % Plt Count 54 L (150-450) k/uL Lymphocytes # 0.7 L (1.0-4.8) k/uL ABG O2 Saturation (94-97) % Chloride 109 H (98-107) mmol/L BUN 34 H (9-20) mg/dL Creatinine 2.27 H (0.66-1.25) mg/dL Glucose 115 H (74-99) mg/dL POC Glucose (mg/dL) 134 H (70-110) mg/dL Calcium 7.2 L (8.4-10.2) mg/dL Ionized Calcium Wojciech 4.4 L (4.5-5.3) mg/dL Total Protein 4.8 L (6.3-8.2) g/dL Albumin 2.7 L (3.5-5.0) g/dL Crossmatch 03/24/23 03/24/23 03/24/23 Range/Units 05:04 05:50 06:08 RBC (4.30-5.90) m/uL Hgb (13.0-17.5) gm/dL Hct (39.0-53.0) % RDW (11.5-15.5) % Plt Count (150-450) k/uL Lymphocytes # (1.0-4.8) k/uL ABG O2 Saturation (94-97) % Chloride (98-107) mmol/L BUN (9-20) mg/dL Creatinine (0.66-1.25) mg/dL Glucose (74-99) mg/dL POC Glucose (mg/dL) 129 H 129 H (70-110) mg/dL Calcium (8.4-10.2) mg/dL Ionized Calcium Wojciech (4.5-5.3) mg/dL Total Protein (6.3-8.2) g/dL Albumin (3.5-5.0) g/dL Crossmatch See Detail 03/24/23 03/24/23 03/24/23 Range/Units 06:26 08:14 09:05 RBC (4.30-5.90) m/uL Hgb (13.0-17.5) gm/dL Hct (39.0-53.0) % RDW (11.5-15.5) % Plt Count (150-450) k/uL Lymphocytes # (1.0-4.8) k/uL ABG O2 Saturation 98.8 H (94-97) % Chloride (98-107) mmol/L BUN (9-20) mg/dL Creatinine (0.66-1.25) mg/dL Glucose (74-99) mg/dL POC Glucose (mg/dL) 118 H 141 H (70-110) mg/dL Calcium (8.4-10.2) mg/dL Ionized Calcium Wojciech (4.5-5.3) mg/dL Total Protein (6.3-8.2) g/dL Albumin (3.5-5.0) g/dL Crossmatch 03/24/23 03/24/23 03/24/23 Range/Units 09:59 11:05 12:05 RBC (4.30-5.90) m/uL Hgb (13.0-17.5) gm/dL Hct (39.0-53.0) % RDW (11.5-15.5) % Plt Count (150-450) k/uL Lymphocytes # (1.0-4.8) k/uL ABG O2 Saturation (94-97) % Chloride (98-107) mmol/L BUN (9-20) mg/dL Creatinine (0.66-1.25) mg/dL Glucose (74-99) mg/dL POC Glucose (mg/dL) 151 H 146 H 129 H (70-110) mg/dL Calcium (8.4-10.2) mg/dL Ionized Calcium Wojciech (4.5-5.3) mg/dL Total Protein (6.3-8.2) g/dL Albumin (3.5-5.0) g/dL Crossmatch 03/24/23 03/24/23 03/24/23 Range/Units 13:03 13:58 13:58 RBC 2.59 L (4.30-5.90) m/uL Hgb 7.4 L (13.0-17.5) gm/dL Hct 22.8 L (39.0-53.0) % RDW 18.9 H (11.5-15.5) % Plt Count 55 L (150-450) k/uL Lymphocytes # (1.0-4.8) k/uL ABG O2 Saturation (94-97) % Chloride 110 H (98-107) mmol/L BUN 34 H (9-20) mg/dL Creatinine 1.95 H (0.66-1.25) mg/dL Glucose 118 H (74-99) mg/dL POC Glucose (mg/dL) 114 H (70-110) mg/dL Calcium 7.7 L (8.4-10.2) mg/dL Ionized Calcium Wojciech (4.5-5.3) mg/dL Total Protein 4.9 L (6.3-8.2) g/dL Albumin 2.7 L (3.5-5.0) g/dL Crossmatch 03/24/23 03/24/23 03/24/23 Range/Units 14:00 14:28 15:00 RBC (4.30-5.90) m/uL Hgb (13.0-17.5) gm/dL Hct (39.0-53.0) % RDW (11.5-15.5) % Plt Count (150-450) k/uL Lymphocytes # (1.0-4.8) k/uL ABG O2 Saturation 97.6 H (94-97) % Chloride (98-107) mmol/L BUN (9-20) mg/dL Creatinine (0.66-1.25) mg/dL Glucose (74-99) mg/dL POC Glucose (mg/dL) 124 H 115 H (70-110) mg/dL Calcium (8.4-10.2) mg/dL Ionized Calcium Wojciech (4.5-5.3) mg/dL Total Protein (6.3-8.2) g/dL Albumin (3.5-5.0) g/dL Crossmatch 03/24/23 03/24/23 03/24/23 Range/Units 16:51 18:09 19:03 RBC (4.30-5.90) m/uL Hgb (13.0-17.5) gm/dL Hct (39.0-53.0) % RDW (11.5-15.5) % Plt Count (150-450) k/uL Lymphocytes # (1.0-4.8) k/uL ABG O2 Saturation (94-97) % Chloride (98-107) mmol/L BUN (9-20) mg/dL Creatinine (0.66-1.25) mg/dL Glucose (74-99) mg/dL POC Glucose (mg/dL) 134 H 137 H 130 H (70-110) mg/dL Calcium (8.4-10.2) mg/dL Ionized Calcium Wojciech (4.5-5.3) mg/dL Total Protein (6.3-8.2) g/dL Albumin (3.5-5.0) g/dL Crossmatch Assessment and Plan Assessment: Status post elective aortic valve replacement with bioprosthetic and two-vessel coronary artery bypass graft, LRA to OM and SVG to PDA. On 03/22/2023. Patient is intubated and on mechanical ventilator perioperatively.Patient was extubated on 03/24/2023. Postoperative hypotension requiring pressor support. off pressor support now, Acute blood loss anemia from the mediastinal chest tube requiring blood transfusion. Acute kidney injury possible ATN due to hemodynamic changes. Severe aortic stenosis Severe two-vessel coronary disease Chronic CHF with preserved ejection fraction Coronary artery disease with history of multiple stent placement Diabetes type 2 ubs-yrzrpqi-ddlrqlnqm Hypertension Hyperlipidemia Obstructive sleep apnea not on CPAP Obesity with BMI 34.7 Currently everyday smoker GI and DVT prophylaxis. On PPI and heparin subcu Plan: Patient is currently in the MICU. Patient was extubated today.. off pressor support with norepinephrine and vasopressin. Patient received 1 more unit of PRBC today and total of 4 units of PRBC blood transfusion. Pt. was given platelets and cryoprecipitate. Continue to monitor CBC. Patient is also on insulin drip for better blood sugar control. Critical care team and CT surgery is on board. Patient will be continued on aspirin, statins and metoprolol, Plavix. Continue with supportive care. Continue monitor renal function. Will continue to follow closely and further recommendations based on clinical course. Time with Patient: Greater than 30
[2023-03-26] MEDS: LACTATED RINGERS 1,000 ML IV SCH ×2 (01:35→06:25)
--- NOTE | 2023-03-26 01:35 | P.PN ---
Subjective Progress Note Date: 03/25/23 Patient is a 65-year-old male with a known history of hypertension, hyperlipidemia, diabetes type 2 bmq-jkrinul-esuelsqgs, obstructive sleep apnea not on CPAP, coronary artery disease, severe aortic stenosis, chronic occlusion of the right ICA and moderate stenosis involving the left ICA was to the [facility] for elective aortic valve replacement and myocardial revascularization. Patient underwent IL-12 replacement and two-vessel bypass LRA to OM and SVG to PDA. Patient had RAE on 01/05/2023 showed severe aortic stenosis involving tricuspid aortic valve with planimetry area of around 0.4 2.6 cm. Normal LV systolic function. Mild to moderate MR. Patient had cardiac catheterization on 01/04/2023 showed right coronary artery is a codominant vessel that was previously stented extensively. Mid RCA showed focal 90% stenosis. Left main coronary artery appears to be calcified but is free of significant stenosis. Circumflex artery showed 80 to 90% ostial stenosis, LAD showed mild to moderate diffuse mild nonfocal atherosclerotic block. Severe two-vessel coronary disease. Patient was referred to Dr. Jensen for evaluation of aortic valve replacement with two-vessel bypass surgery. Patient was intubated perioperatively and was transferred to MICU postprocedure. Laboratory data showed WBC 8.5 hemoglobin 10.4 and platelets 105. ABG showed pH 7.4 PCO2 41 PO2 64. Sodium 138 potassium 4.3 chloride 108 bicarb is 24 BUN 21 creatinine 1.23 and blood sugar is 111. Patient is currently on milrinone drip, Cardizem and norepinephrine. Patient is also on insulin drip. 03/23/2023 Patient is currently in the MICU. Remains on mechanical ventilator. Patient is also sedated with propofol. On assist control 16 with FiO2 40% and PEEP of 10 and tidal volume 600. ABGs this morning showed pH 7.39 PCO2 37 PO2 206 bicarb is 22 Patient is being cannula pressor support with norepinephrine and vasopressin. Patient is also IV albumin. Mediastinal and right and left pleural chest tubes in place with low suction. Was also noted to have serosanguineous drainage from the mediastinal chest tubes. Hemoglobin 8.7 today dropped to 7.6. Patient did receive 3 units of PRBCs and 1 unit of platelet and 1 L of fold cryoprecipitate. Chest x-ray this morning showed postoperative changes with stable areas of c onsolidation tiny bilateral effusion. Correlate for mild venous congestion. Other laboratory data showed WBC 11.9 hemoglobin 8.7 and platelets 99 sodium 138 potassium 4.6 chloride 109 bicarb is 21 BUN 27 creatinine 2.44 and blood sugar is 133. Patient remained on insulin drip. 03/24/2023 Patient is currently in the MICU. Patient was extubated this afternoon and was placed on Ventimask. Patient is awake alert and oriented. Unable to communicate well at this time. Otherwise patient is here for the unit of PRBCs today. Hemoglobin was 6.5 this morning. Chest x-ray showed stable bibasilar airspace opacities/atelectasis with a small left pleural effusion, pulmonary vascular congestion, mediastinal and right and left chest tubes remains in place. No leak detected. NG tube in place. Laboratory data showed WBC 8.8 hemoglobin 6.5 and platelets 54 Sodium 138 potassium 4.2 chloride 109, BUN 34 and creatinine 2.27 and blood sugar is 129. 03/25/2023 Patient is currently in the MICU. Sitting in the chair. Awake alert and oriented x3. On oxygen at 2 L via nasal cannula. Able to tolerate oral diet. Remains on insulin drip for blood sugar control. Chest x-ray showed left basilar airspace opacity/atelectasis. Small left pleural effusion. Laboratory test showed WBC 10.4 hemoglobin 7.8 and platelets 51 sodium 139 potassium 4.0 chloride 110 bicarb is 23 BUN 34 and creatinine 1.47 and albumin 2.8 Patient will be transitioned to subcu insulin tomorrow. Current medications reviewed. Objective - Vital Signs Vital signs: Vital Signs Temp 97.9 F 03/25/23 16:00 Pulse 93 03/25/23 19:43 Resp 17 03/25/23 19:00 BP 132/71 03/25/23 19:00 Pulse Ox 93 L 03/25/23 18:00 FiO2 40 03/24/23 14:00 Intake & Output 03/25/23 03/25/23 03/26/23 06:59 18:59 06:59 Intake Total 7531.956 9491.152 23 Output Total 1240 1695 0 Balance 86.693 -344.848 23 Weight 107.2 kg Intake: IV 847 289 23 .9NS Pressure Bag 117 39 3 Cardiac Output .9NS 80 Lactated Ringers 1,000 ml 650 250 20 @ 20 mls/hr IV .Q24H ANGELA Rx#:[id number] Intake, IV Titration 29.693 101.152 Amount Insulin Regular 100 unit 29.693 101.152 In Sodium Chloride 0.9% 100 ml @ Per Protocol IV .Q0M ANGELA Rx#:[id number] Oral 450 960 Output: Chest Tube Drainage 300 310 0 Mediastinal Chest Tube X 120 30 1 Right and Left Pleural 180 90 left pleural 110 0 right pleural 80 0 Urine 940 1385 Other: Voiding Method Indwelling Catheter Indwelling Catheter ABP, PAP, CO, CI - Last Documented Arterial Blood Pressure 146/55 Pulmonary Artery Pressure 54/22 Cardiac Output 8 Cardiac Index 3.8 - Exam PHYSICAL EXAMINATION: Patient is and oriented. no acute distress. Off mechanical ventilator.. HEENT: Normocephalic. Neck is supple. Pupils reactive. Nostrils clear. Oral cavity is moist. Neck reveals no JVD, carotid bruits, or thyromegaly. CHEST EXAMINATION: Trachea is central. Symmetrical expansion. Bibasilar diminished sounds.. No wheezing or rhonchi. Mediastinal and pleural chest tubes in place. Midline incision bandaged. CARDIAC: Normal S1, S2 with no gallops. No murmurs ABDOMEN: Soft. Bowel sounds present. No organomegaly. No abdominal bruits. Extremities: reveal no edema. No clubbing or cyanosis Neurologically patient is awake alert and oriented.. No gross focal deficits noted Skin: No rash or skin lesions. Psychiatric: Cooperative. non suicidal.., Musculoskeletal: No joint swelling or deformity - Labs CBC & Chem 7: 03/25/23 03:45 03/25/23 03:45 Labs: Abnormal Lab Results - Last 24 Hours (Table) 03/24/23 03/24/23 03/24/23 Range/Units 22:09 23:00 23:56 RBC (4.30-5.90) m/uL Hgb (13.0-17.5) gm/dL Hct (39.0-53.0) % RDW (11.5-15.5) % Plt Count (150-450) k/uL Neutrophils # (1.3-7.7) k/uL Chloride (98-107) mmol/L BUN (9-20) mg/dL Creatinine (0.66-1.25) mg/dL Glucose (74-99) mg/dL POC Glucose (mg/dL) 116 H 116 H 113 H (70-110) mg/dL Calcium (8.4-10.2) mg/dL Total Protein (6.3-8.2) g/dL Albumin (3.5-5.0) g/dL 03/25/23 03/25/23 03/25/23 Range/Units 01:47 03:44 03:45 RBC 2.53 L (4.30-5.90) m/uL Hgb 7.8 L (13.0-17.5) gm/dL Hct 22.5 L (39.0-53.0) % RDW 19.3 H (11.5-15.5) % Plt Count 51 L (150-450) k/uL Neutrophils # 8.5 H (1.3-7.7) k/uL Chloride (98-107) mmol/L BUN (9-20) mg/dL Creatinine (0.66-1.25) mg/dL Glucose (74-99) mg/dL POC Glucose (mg/dL) 115 H 120 H (70-110) mg/dL Calcium (8.4-10.2) mg/dL Total Protein (6.3-8.2) g/dL Albumin (3.5-5.0) g/dL 03/25/23 03/25/23 03/25/23 Range/Units 03:45 06:13 08:11 RBC (4.30-5.90) m/uL Hgb (13.0-17.5) gm/dL Hct (39.0-53.0) % RDW (11.5-15.5) % Plt Count (150-450) k/uL Neutrophils # (1.3-7.7) k/uL Chloride 110 H (98-107) mmol/L BUN 34 H (9-20) mg/dL Creatinine 1.47 H (0.66-1.25) mg/dL Glucose 114 H (74-99) mg/dL POC Glucose (mg/dL) 125 H 136 H (70-110) mg/dL Calcium 7.8 L (8.4-10.2) mg/dL Total Protein 5.3 L (6.3-8.2) g/dL Albumin 2.8 L (3.5-5.0) g/dL 03/25/23 03/25/23 03/25/23 Range/Units 09:32 12:50 13:54 RBC (4.30-5.90) m/uL Hgb (13.0-17.5) gm/dL Hct (39.0-53.0) % RDW (11.5-15.5) % Plt Count (150-450) k/uL Neutrophils # (1.3-7.7) k/uL Chloride (98-107) mmol/L BUN (9-20) mg/dL Creatinine (0.66-1.25) mg/dL Glucose (74-99) mg/dL POC Glucose (mg/dL) 129 H 208 H 209 H (70-110) mg/dL Calcium (8.4-10.2) mg/dL Total Protein (6.3-8.2) g/dL Albumin (3.5-5.0) g/dL 03/25/23 03/25/23 03/25/23 Range/Units 15:17 16:29 17:55 RBC (4.30-5.90) m/uL Hgb (13.0-17.5) gm/dL Hct (39.0-53.0) % RDW (11.5-15.5) % Plt Count (150-450) k/uL Neutrophils # (1.3-7.7) k/uL Chloride (98-107) mmol/L BUN (9-20) mg/dL Creatinine (0.66-1.25) mg/dL Glucose (74-99) mg/dL POC Glucose (mg/dL) 159 H 120 H 172 H (70-110) mg/dL Calcium (8.4-10.2) mg/dL Total Protein (6.3-8.2) g/dL Albumin (3.5-5.0) g/dL 03/25/23 Range/Units 18:58 RBC (4.30-5.90) m/uL Hgb (13.0-17.5) gm/dL Hct (39.0-53.0) % RDW (11.5-15.5) % Plt Count (150-450) k/uL Neutrophils # (1.3-7.7) k/uL Chloride (98-107) mmol/L BUN (9-20) mg/dL Creatinine (0.66-1.25) mg/dL Glucose (74-99) mg/dL POC Glucose (mg/dL) 151 H (70-110) mg/dL Calcium (8.4-10.2) mg/dL Total Protein (6.3-8.2) g/dL Albumin (3.5-5.0) g/dL Assessment and Plan Assessment: Status post elective aortic valve replacement with bioprosthetic and two-vessel coronary artery bypass graft, LRA to OM and SVG to PDA. On 03/22/2023. Patient is intubated and on mechanical ventilator perioperatively.Patient was extubated on 03/24/2023. Postoperative hypotension requiring pressor support. off pressor support now, Acute blood loss anemia from the mediastinal chest tube requiring blood transfusion. Acute kidney injury possible ATN due to hemodynamic changes. Severe aortic stenosis Severe two-vessel coronary disease Chronic CHF with preserved ejection fraction Coronary artery disease with history of multiple stent placement Diabetes type 2 [id number]-thhqypixu Hypertension Hyperlipidemia Obstructive sleep apnea not on CPAP Obesity with BMI 34.7 Currently everyday smoker GI and DVT prophylaxis. On PPI and heparin subcu Plan: Patient is currently in the MICU. Patient was extubated on 03/24/23.. off pressor support with norepinephrine and vasopressin. Patient received 1 more unit of PRBC on 03/24 and total of 4 units of PRBC blood transfusion. Pt. was given platelets and cryoprecipitate. Continue to monitor CBC. Patient is also on insulin drip for better blood sugar control.will transition to subcu insulin tomorrow. Patient was transitioned to clear liquid diet now. Critical care team and CT surgery is on board. Patient will be continued on aspirin, statins and metoprolol, Plavix. Continue with supportive care. Continue monitor renal function. Will continue to follow closely and further recommendations based on clinical course. Time with Patient: Greater than 30
[2023-03-26 01:57] LABS: Glucose,Whole Blood 110 mg/dL (70-110)
[2023-03-26 02:54] LABS: Glucose,Whole Blood 128 mg/dL (70-110)
[2023-03-26 03:57] LABS: Glucose,Whole Blood 119 mg/dL (70-110)
[2023-03-26 04:15] LABS: Anisocytosis Slight; Basophils % (A) 0 %; Eosinophils # (A) 0.3 k/uL (0-0.7); Eosinophils % (A) 3 %; HCT 23.7 % (39.0-53.0); HGB 7.4 gm/dL (13.0-17.5); Hypochromasia Marked; Lymphocytes # (A) 0.8 k/uL (1.0-4.8); Lymphocytes % (A) 9 %; MCH 29.3 pg (25.0-35.0); MCHC 31.2 g/dL (31.0-37.0); Macrocytosis Slight; Mean Platelet Volume 8.6; Monocytes # (A) 0.6 k/uL (0-1.0); Monocytes % (A) 7 %; Neutrophils # (A) 6.7 k/uL (1.3-7.7); Neutrophils % (A) 78 %; Poikilocytosis Slight; RBC 2.52 m/uL (4.30-5.90); RDW 18.9 % (11.5-15.5); WBC 8.6 k/uL (3.8-10.6)
[2023-03-26 04:16] LABS: Platelet Count 68 k/uL (150-450)
[2023-03-26 04:54] LABS: Glucose,Whole Blood 111 mg/dL (70-110)
[2023-03-26 04:55] LABS: ALT 15 U/L (4-49); AST 40 U/L (17-59); African American GFR (CKD) 77 (>60 ml/min/1.73 sqM); Albumin 2.8 g/dL (3.5-5.0); Alkaline Phosphatase 84 U/L (38-126); Anion Gap 6 mmol/L; Blood Urea Nitrogen 28 mg/dL (9-20); Calcium 7.9 mg/dL (8.4-10.2); Carbon Dioxide 23 mmol/L (22-30); Chloride 108 mmol/L (98-107); Glucose 113 mg/dL (74-99); Non-African American GFR(CKD) 67 (>60 ml/min/1.73 sqM); Sodium 137 mmol/L (137-145); Total Bilirubin 1.2 mg/dL (0.2-1.3); Total Protein 5.5 g/dL (6.3-8.2)
[2023-03-26] MEDS: HYDROcodone/APAP 10-325MG 1 EACH TAB PO PRN ×5 (06:05→22:58)
[2023-03-26 06:07] LABS: Glucose,Whole Blood 94 mg/dL (70-110)
[2023-03-26] MEDS: PANTOPRAZOLE 40 MG TABLET PO SCH (06:54)
[2023-03-26] MEDS: FERROUS SULFATE 325 MG TAB PO SCH ×2 (06:54→17:02)
[2023-03-26 07:04] LABS: Glucose,Whole Blood 107 mg/dL (70-110)
--- NOTE | 2023-03-26 07:35 | P.PN ---
Subjective Progress Note Date: 03/26/23 PROGRESS NOTE The patient is a 67-year-old male, status post aortic valve replacement and bypass to the OM and PDA. He is doing well this morning, sitting up in the chair, in sinus mechanism. He denies any chest discomfort, dizziness or palpitations. He ambulated without significant problems. Hemodynamically he stable. He has no evidence of malignant arrhythmia. Urinary output has been stable. He is on no vasopressors. He had moderate systolic dysfunction preoperatively Medications: Aspirin 81 mg daily, Amlodipine 5 mg daily, Lipitor 40 mg daily, Plavix 75 mg daily, metoprolol 50 mg twice a day PHYSICAL EXAMINATION: Blood pressure 136/70 heart rate 90 LUNGS: Few crackles at the base HEART: Regular rate and rhythm, S1, S2. No S3. systolic ejection murmur ABDOMEN: Soft, nontender, no organomegaly EXTREMETIES: No edema LAB: BUN 28, creatinine 1.12, potassium 4.0, hemoglobin 7.4 IMPRESSION: 1. Status post aortic valve replacement and CABG 2. Acute renal injury resolved 3. History of diabetes 4. History of hypertension PLAN: 1. Continue beta hanane 2. Add low-dose LINDSEY inhibitor 3. Follow her renal functions 4. Increase physical activity Objective - Vital Signs Vital signs: Vital Signs Temp 97.1 F L 03/26/23 04:00 Pulse 97 03/26/23 07:00 Resp 22 03/26/23 07:00 BP 150/82 03/26/23 07:00 Pulse Ox 94 L 03/26/23 07:00 FiO2 40 03/24/23 14:00 Intake & Output 03/25/23 03/26/23 03/26/23 18:59 06:59 18:59 Intake Total 1350.152 294.686 20 Output Total 1695 801 74 Balance -344.848 -506.314 -54 Weight 108 kg Intake: IV 289 243 20 .9NS Pressure Bag 39 3 Lactated Ringers 1,000 ml 250 240 20 @ 20 mls/hr IV .Q24H ANGELA Rx#:[id number] Intake, IV Titration 101.152 51.686 Amount Insulin Regular 100 unit 101.152 51.686 In Sodium Chloride 0.9% 100 ml @ Per Protocol IV .Q0M ANGELA Rx#:[id number] Oral 960 Output: Chest Tube Drainage 310 326 74 Mediastinal Chest Tube X 30 1 Right and Left Pleural 90 left pleural 110 250 50 right pleural 80 76 24 Urine 1385 475 Other: Voiding Method Indwelling Catheter Urinal # Voids 1 ABP, PAP, CO, CI - Last Documented Arterial Blood Pressure 146/55 Pulmonary Artery Pressure 54/22 Cardiac Output 8 Cardiac Index 3.8 - Labs CBC & Chem 7: 03/26/23 03:30 03/26/23 03:30 Labs: Abnormal Lab Results - Last 24 Hours (Table) 03/25/23 03/25/23 03/25/23 Range/Units 08:11 09:32 12:50 RBC (4.30-5.90) m/uL Hgb (13.0-17.5) gm/dL Hct (39.0-53.0) % RDW (11.5-15.5) % Plt Count (150-450) k/uL Lymphocytes # (1.0-4.8) k/uL Chloride (98-107) mmol/L BUN (9-20) mg/dL Glucose (74-99) mg/dL POC Glucose (mg/dL) 136 H 129 H 208 H (70-110) mg/dL Calcium (8.4-10.2) mg/dL Total Protein (6.3-8.2) g/dL Albumin (3.5-5.0) g/dL 03/25/23 03/25/23 03/25/23 Range/Units 13:54 15:17 16:29 RBC (4.30-5.90) m/uL Hgb (13.0-17.5) gm/dL Hct (39.0-53.0) % RDW (11.5-15.5) % Plt Count (150-450) k/uL Lymphocytes # (1.0-4.8) k/uL Chloride (98-107) mmol/L BUN (9-20) mg/dL Glucose (74-99) mg/dL POC Glucose (mg/dL) 209 H 159 H 120 H (70-110) mg/dL Calcium (8.4-10.2) mg/dL Total Protein (6.3-8.2) g/dL Albumin (3.5-5.0) g/dL 03/25/23 03/25/23 03/25/23 Range/Units 17:55 18:58 20:09 RBC (4.30-5.90) m/uL Hgb (13.0-17.5) gm/dL Hct (39.0-53.0) % RDW (11.5-15.5) % Plt Count (150-450) k/uL Lymphocytes # (1.0-4.8) k/uL Chloride (98-107) mmol/L BUN (9-20) mg/dL Glucose (74-99) mg/dL POC Glucose (mg/dL) 172 H 151 H 116 H (70-110) mg/dL Calcium (8.4-10.2) mg/dL Total Protein (6.3-8.2) g/dL Albumin (3.5-5.0) g/dL 03/25/23 03/25/23 03/25/23 Range/Units 20:58 22:53 23:57 RBC (4.30-5.90) m/uL Hgb (13.0-17.5) gm/dL Hct (39.0-53.0) % RDW (11.5-15.5) % Plt Count (150-450) k/uL Lymphocytes # (1.0-4.8) k/uL Chloride (98-107) mmol/L BUN (9-20) mg/dL Glucose (74-99) mg/dL POC Glucose (mg/dL) 115 H 123 H 115 H (70-110) mg/dL Calcium (8.4-10.2) mg/dL Total Protein (6.3-8.2) g/dL Albumin (3.5-5.0) g/dL 03/26/23 03/26/23 03/26/23 Range/Units 02:53 03:30 03:30 RBC 2.52 L (4.30-5.90) m/uL Hgb 7.4 L (13.0-17.5) gm/dL Hct 23.7 L (39.0-53.0) % RDW 18.9 H (11.5-15.5) % Plt Count 68 L (150-450) k/uL Lymphocytes # 0.8 L (1.0-4.8) k/uL Chloride 108 H (98-107) mmol/L BUN 28 H (9-20) mg/dL Glucose 113 H (74-99) mg/dL POC Glucose (mg/dL) 128 H (70-110) mg/dL Calcium 7.9 L (8.4-10.2) mg/dL Total Protein 5.5 L (6.3-8.2) g/dL Albumin 2.8 L (3.5-5.0) g/dL 03/26/23 03/26/23 Range/Units 03:55 04:52 RBC (4.30-5.90) m/uL Hgb (13.0-17.5) gm/dL Hct (39.0-53.0) % RDW (11.5-15.5) % Plt Count (150-450) k/uL Lymphocytes # (1.0-4.8) k/uL Chloride (98-107) mmol/L BUN (9-20) mg/dL Glucose (74-99) mg/dL POC Glucose (mg/dL) 119 H 111 H (70-110) mg/dL Calcium (8.4-10.2) mg/dL Total Protein (6.3-8.2) g/dL Albumin (3.5-5.0) g/dL
[2023-03-26 08:11] LABS: Glucose,Whole Blood 195 mg/dL (70-110)
[2023-03-26] MEDS ORDERED: FUROSEMIDE 10 MG/ML 4 ML VIAL IV STA (08:16)
[2023-03-26] MEDS ORDERED: POTASSIUM CHLORIDE ER 20 MEQ TAB.ER PO STA (08:16)
--- NOTE | 2023-03-26 08:16 | P.PN ---
Subjective Progress Note Date: 03/26/23 Principal diagnosis: Severe aortic valve stenosis, coronary artery disease. Past medical history significant for coronary artery disease with previous PCI, on Plavix for anticoagulation as an outpatient, hypertension, hyperlipidemia, diabetes mellitus type 2, obesity with a BMI of 35.2 kg/m, chronic ongoing tobacco dependence, occasional marijuana use, EtOH use drinking 7-8 beers a week, noncompliance with proper medication use and obstructive sleep apnea with noncompliance with home CPAP use. POD #4 coronary artery bypass grafting 2 vessels with radial artery to the ob tuse marginal coronary artery, and a saphenous vein graft to the posterior descending coronary artery. Endoscopic harvesting of the left greater saphenous vein, endoscopic harvesting of the left radial artery, ligation of the left atrial appendage using a 35 mm Atriclip, aortic valve replacement using a 25 mm Rosario Inspiris bioprosthetic valve, epi-aortic ultrasound and intraoperative transesophageal echocardiogram. Postoperative acute blood loss anemia and thrombocytopenia, expected given h emodilution and cardiopulmonary bypass. The patient was seen and examined in follow-up today 03/26/2023 at his bedside in the intensive care unit. He is currently sitting up to the bedside chair, is awake, alert, oriented 3 and is in no acute apparent distress. Denies any complaints of shortness of breath at this time, although is complaining of some surgical type pain to his chest tube insertion sites rating his pain 7 out of 10 on the pain scale at this time. He does report that the pain medication that they have been giving him has been controlling his pain. Oxygen saturations are 93% on 2 L nasal cannula and he is achieving 1000 mL on his incentive spirometry with encouragement. The patient reports that he had been up ambulating in the intensive care unit hallway with standby assistance from nursing and therapy staff and tolerating well. Right IJ cordis remains in place with continuous CVP monitoring, current CVP pressure is 8 mmHg. He remains hemodynamically stable and is currently off any inotropic or pressor support. Mediastinal chest tube was removed yesterday without incident. Right and left pleural chest tubes remain in place to low continuous wall suction -20 cm H2O. No air leak is present. Right pleural chest tube drained 50 mL of thin serosanguineous d rainage in the last 8 hours and 140 mL output in the last 24 hours. Left pleural chest tube drained 170 mL of thin serosanguineous drainage in the last 8 hours and 370 mL of drainage in the last 24 hours. Chest x-ray and laboratory results reviewed. BUN and creatinine continue to trend down, BUN 28 and creatinine 1.12 today. Hemoglobin 7.4 and platelet count is trending up at 68. Postoperatively the patient has received 4 units of packed red blood cells, 1 unit of platelets and 1 unit of pooled cryoprecipitate. Chest x-ray was reviewed. He has been afebrile the last 24 hours. Atrial and ventricular epicardial pacemaker wires remain in place and are grounded. Objective - Vital Signs Vital signs: Vital Signs Temp 97.1 F L 03/26/23 04:00 Pulse 97 03/26/23 07:00 Resp 22 03/26/23 07:00 BP 150/82 03/26/23 07:00 Pulse Ox 94 L 03/26/23 07:00 FiO2 40 03/24/23 14:00 Intake & Output 03/25/23 03/26/23 03/26/23 18:59 06:59 18:59 Intake Total 1350.152 294.686 20 Output Total 1695 801 74 Balance -344.848 -506.314 -54 Weight 108 kg Intake: IV 289 243 20 .9NS Pressure Bag 39 3 Lactated Ringers 1,000 ml 250 240 20 @ 20 mls/hr IV .Q24H [facility] Rx#:[id number] Intake, IV Titration 101.152 51.686 Amount Insulin Regular 100 unit 101.152 51.686 In Sodium Chloride 0.9% 100 ml @ Per Protocol IV .Q0M ANGELA Rx#:[id number] Oral 960 Output: Chest Tube Drainage 310 326 74 Mediastinal Chest Tube X 30 1 Right and Left Pleural 90 left pleural 110 250 50 right pleural 80 76 24 Urine 1385 475 Other: Voiding Method Indwelling Catheter Urinal # Voids 1 ABP, PAP, CO, CI - Last Documented Arterial Blood Pressure 146/55 Pulmonary Artery Pressure 54/22 Cardiac Output 8 Cardiac Index 3.8 - Exam CONSTITUTIONAL: Sitting up to the bedside chair in the intensive care unit, appears comfortable, cooperative, no apparent acute distress. HEENT: Neck is supple, no JVD, no lymphadenopathy. Right IJ Cordis in place and functioning. RESPIRATORY: Lungs sounds essentially clear throughout, diminished to his bilateral bases. Respirations are symmetrical and nonlabored. Currently on 2 L nasal cannula with oxygen saturations 93%. Able to achieve 1000 mL on his incentive spirometry. Strong cough. CARDIOVASCULAR: Regular rhythm and rate. S1 and S2 present, negative for S3, gallop or murmur. Sternum is stable. Palpable peripheral pulses bilaterally, +1 edema in his bilateral lower extremities and. No calf pain or tenderness noted. Heart hugger in place with patient demonstrating appropriate use. Knee- high ESTEFANI hose and sequential compression devices in place to his bilateral lower extremities. GASTROINTESTINAL: Abdomen soft, nontender, nondistended. Active bowel sounds present 4 quadrants. Tolerating diet. Passing flatus. No guarding or rigidity. GENITOURINARY: Continues to void. Urine output 275 mL in the last 8 hours. INTEGUMENTARY: Skin is warm and dry with no evidence of clubbing or cyanosis. Midline sternal incision clean dry and well approximated, covered with dry intact dressing. Left lower extremity EVH sites well approximated without redn ess or drainage. Left arm radial artery harvest sites clean, dry and approximated. No drainage or redness is present. NEUROLOGIC: Cranial nerves II through XII intact. No focal deficits. MUSKULOSKELETAL: Able to move all extremities, strength equal bilaterally, generalized weakness. PSYCHIATRIC: Alert and oriented to person place and time, appropriate affect, intact judgment and insight. INVASIVE LINES AND TUBES: Left and right pleural chest tubes present and connected to low continuous wall suction, no air leaks present. Left pleural tube with 170 mL of thin serosanguineous drainage overnight, 370 mL output in the last 24 hours. Right pleural chest tube with 50 mL of thin serosanguineous drainage overnight, 140 mL output in the last 24 hours. Atrial and ventricular epicardial pacemaker wires present and are grounded. Right internal jugular Cordis. Current CVP 8 mmHg. - Allied health notes Allied health notes reviewed: nursing - Labs CBC & Chem 7: 03/26/23 03:30 03/26/23 03:30 Labs: Abnormal Lab Results - Last 24 Hours (Table) 03/25/23 03/25/23 03/25/23 Range/Units 08:11 09:32 12:50 RBC (4.30-5.90) m/uL Hgb (13.0-17.5) gm/dL Hct (39.0-53.0) % RDW (11.5-15.5) % Plt Count (150-450) k/uL Lymphocytes # (1.0-4.8) k/uL Chloride (98-107) mmol/L BUN (9-20) mg/dL Glucose (74-99) mg/dL POC Glucose (mg/dL) 136 H 129 H 208 H (70-110) mg/dL Calcium (8.4-10.2) mg/dL Total Protein (6.3-8.2) g/dL Albumin (3.5-5.0) g/dL 03/25/23 03/25/23 03/25/23 Range/Units 13:54 15:17 16:29 RBC (4.30-5.90) m/uL Hgb (13.0-17.5) gm/dL Hct (39.0-53.0) % RDW (11.5-15.5) % Plt Count (150-450) k/uL Lymphocytes # (1.0-4.8) k/uL Chloride (98-107) mmol/L BUN (9-20) mg/dL Glucose (74-99) mg/dL POC Glucose (mg/dL) 209 H 159 H 120 H (70-110) mg/dL Calcium (8.4-10.2) mg/dL Total Protein (6.3-8.2) g/dL Albumin (3.5-5.0) g/dL 03/25/23 03/25/23 03/25/23 Range/Units 17:55 18:58 20:09 RBC (4.30-5.90) m/uL Hgb (13.0-17.5) gm/dL Hct (39.0-53.0) % RDW (11.5-15.5) % Plt Count (150-450) k/uL Lymphocytes # (1.0-4.8) k/uL Chloride (98-107) mmol/L BUN (9-20) mg/dL Glucose (74-99) mg/dL POC Glucose (mg/dL) 172 H 151 H 116 H (70-110) mg/dL Calcium (8.4-10.2) mg/dL Total Protein (6.3-8.2) g/dL Albumin (3.5-5.0) g/dL 03/25/23 03/25/23 03/25/23 Range/Units 20:58 22:53 23:57 RBC (4.30-5.90) m/uL Hgb (13.0-17.5) gm/dL Hct (39.0-53.0) % RDW (11.5-15.5) % Plt Count (150-450) k/uL Lymphocytes # (1.0-4.8) k/uL Chloride (98-107) mmol/L BUN (9-20) mg/dL Glucose (74-99) mg/dL POC Glucose (mg/dL) 115 H 123 H 115 H (70-110) mg/dL Calcium (8.4-10.2) mg/dL Total Protein (6.3-8.2) g/dL Albumin (3.5-5.0) g/dL 03/26/23 03/26/23 03/26/23 Range/Units 02:53 03:30 03:30 RBC 2.52 L (4.30-5.90) m/uL Hgb 7.4 L (13.0-17.5) gm/dL Hct 23.7 L (39.0-53.0) % RDW 18.9 H (11.5-15.5) % Plt Count 68 L (150-450) k/uL Lymphocytes # 0.8 L (1.0-4.8) k/uL Chloride 108 H (98-107) mmol/L BUN 28 H (9-20) mg/dL Glucose 113 H (74-99) mg/dL POC Glucose (mg/dL) 128 H (70-110) mg/dL Calcium 7.9 L (8.4-10.2) mg/dL Total Protein 5.5 L (6.3-8.2) g/dL Albumin 2.8 L (3.5-5.0) g/dL 03/26/23 03/26/23 Range/Units 03:55 04:52 RBC (4.30-5.90) m/uL Hgb (13.0-17.5) gm/dL Hct (39.0-53.0) % RDW (11.5-15.5) % Plt Count (150-450) k/uL Lymphocytes # (1.0-4.8) k/uL Chloride (98-107) mmol/L BUN (9-20) mg/dL Glucose (74-99) mg/dL POC Glucose (mg/dL) 119 H 111 H (70-110) mg/dL Calcium (8.4-10.2) mg/dL Total Protein (6.3-8.2) g/dL Albumin (3.5-5.0) g/dL - Imaging and Cardiology Chest x-ray: report reviewed, image reviewed Assessment and Plan Assessment: Severe aortic valve stenosis, status post aortic valve replacement with a 25 mm Rosario Inspiris bioprosthetic valve Coronary artery disease with history of previous PCI, on Plavix for anticoagulation as an outpatient, status post 2 vessel coronary artery bypass grafting surgery Hypertension Hyperlipidemia Diabetes mellitus type 2, with a preoperative hemoglobin A1c 6.6% Carotid stenosis with a recent carotid duplex study showing a 50-69% stenosis of the left carotid bifurcation by technique systolic velocity and ratio and nonvisualization of flow within the right internal carotid artery with CTA of the neck showing occlusion of the right ICA and an estimated diameter reduction of 60% to the left ICA Chronic ongoing tobacco dependence Obstructive sleep apnea with noncompliance of home CPAP use Occasional marijuana use, smokes 1-2 joints per week Occasional EtOH use, drinks 7-8 beers per week History of noncompliance with taking his medications Acute kidney injury, resolving with a creatinine of 1.12 today 03/26/2023 Postoperative acute blood loss anemia and thrombocytopenia, expected given hemodilution and cardiopulmonary bypass Acute hypoxic respiratory failure, requiring prolonged mechanical ventilation, extubated 03/24/2023 at 2:50 PM, currently on 2 L nasal cannula oxygen Hypotension resolved, currently off vasopressors Plan: Continue to maximize medical therapy with low-dose aspirin, statin, Plavix and beta hanane. Continue Metoprolol 50 mg by mouth twice a day with hold parameters on beta hanane. We will add a low-dose LINDSEY inhibitor tomorrow 03/27/2023 for afterload reduction. HIT panel pending, platelets are 68 today. Continue amlodipine to 5 mg by mouth daily at noon with hold parameters for radial artery spasm prophylaxis. Encourage incentive spirometry use 10 times every hour while awake. Bronchodilators per pulmonology/critical care recommendations. Mucinex 1200 mg by mouth twice a day added. Increase activity, ambulate as tolerated. PT/OT/cardiac rehab following. Will monitor daily labs and chest x-rays. Electrolyte replacement per protocol. GI/DVT prophylaxis. Pain control per current medication regimen. Insulin management per internal medicine. Patient is diabetic with hemoglobin A1c 6.6%, needs tight blood sugar control to prevent infection and promote healing Remove right IJ Cordis. Remove right pleural chest tube keep left pleural chest tubes for another 24 hours. Continue to record strict inaccurate I's and O's. May bladder scan every 6 hours and when necessary postvoid residual, if greater than 300 mL of postvoid residual May straight cath. Daily weights. Importance of risks modifications including smoking cessation counseling and education. Discussed [id number]. Lasix 40 mg 1 now, potassium chloride 20 mEq by mouth 1 now. Keep atrial and ventricular epicardial pacemaker wires in place, keep backup pacemaker generator at his bedside available. More recommendations to follow based on patient's clinical course. Time with Patient: Greater than 30
[2023-03-26] MEDS: ATORVASTATIN 40 MG TAB PO SCH (08:25)
[2023-03-26] MEDS: MULTIVITAMINS, THERA 1 EACH TAB PO SCH (08:25)
[2023-03-26] MEDS: THIAMINE 100 MG TAB PO SCH (08:25)
[2023-03-26] MEDS: ASPIRIN 81 MG PO SCH (08:26)
[2023-03-26] MEDS: CLOPIDOGREL 75 MG TAB PO SCH (08:26)
[2023-03-26] MEDS: guaiFENesin 600 MG TABLET.ER PO SCH ×2 (08:26→20:13)
[2023-03-26] MEDS: METOPROLOL TARTRATE 50 MG TAB PO SCH ×2 (08:26→20:13)
[2023-03-26] MEDS: FOLIC ACID 1 MG TAB PO SCH (08:26)
[2023-03-26] MEDS: FONDAPARINUX 2.5 MG/0.5 ML SYRINGE SQ SCH (08:32)
[2023-03-26] MEDS ORDERED: lisinopriL 5 MG TAB PO SCH (09:00)
--- NOTE | 2023-03-26 09:00 | P.PN ---
Subjective Progress Note Date: 03/26/23 On today's evaluation of 03/26/2023, the patient is postop day #4. The patient underwent aortic valve replacement and two-vessel bypass surgery. He is currently stable on 2 L of oxygen by nasal cannula. Is using the incentive spirometer and the patient is falling approximately 1.2 L. His able to sit up on a chair. Is hemodynamically stable. He is currently off pressors. Chest tubes have been removed. Note that the mediastinal chest tubes were removed 2 days ago and the patient had a right-sided chest tube. The left lower chest tube has been removed. Output from the left-sided chest tube is in order of 20- 30 mL an hour. Meanwhile, repeat chest x-ray was done and shows some consolidation left lung base. Left sided chest tube is in a good location. Right-sided chest tube has been removed. No evidence of any significant plural effusion. Blood work from today shows improvement in his creatinine which is down to 1.1. Sodium levels of 137. Hemoglobin is at 7.4. White suppositive 0 .6. His underlying cardiac rhythm is normal sinus rhythm. His tolerating diet. No nausea or emesis. No other significant events overnight. He was given Lasix today. He is also metoprolol 50 mg twice a day. He will be also started on low-dose LINDSEY inhibitor's. Neurologically intact. The patient is passing gas. No nausea or emesis. No abdominal distention. No chest pain and his pain is under good control for now. Objective - Vital Signs Vital signs: Vital Signs Temp 98.8 F 03/26/23 08:00 Pulse 107 H 03/26/23 08:00 Resp 14 03/26/23 08:00 BP 136/69 03/26/23 08:00 Pulse Ox 91 L 03/26/23 08:00 FiO2 40 03/24/23 14:00 Intake & Output 03/25/23 03/26/23 03/26/23 18:59 06:59 18:59 Intake Total 1350.152 294.686 43 Output Total 1695 801 229 Balance -344.848 -506.314 -186 Weight 108 kg Intake: IV 289 243 43 .9NS Pressure Bag 39 3 3 Lactated Ringers 1,000 ml 250 240 40 @ 20 mls/hr IV .Q24H ANGELA Rx#:[id number] Intake, IV Titration 101.152 51.686 0 Amount Insulin Regular 100 unit 101.152 51.686 0 In Sodium Chloride 0.9% 100 ml @ Per Protocol IV .Q0M ANGELA Rx#:[id number] Oral 960 Output: Chest Tube Drainage 310 326 104 Mediastinal Chest Tube X 30 1 Right and Left Pleural 90 left pleural 110 250 50 right pleural 80 76 54 Urine 1385 475 125 Other: Voiding Method Indwelling Catheter Urinal # Voids 1 ABP, PAP, CO, CI - Last Documented Arterial Blood Pressure 146/55 Pulmonary Artery Pressure 54/22 Cardiac Output 8 Cardiac Index 3.8 - Exam GENERAL EXAM: Awake, alert pleasant 67-year-old male, up in a chair, on 2 L nasal cannula, fairly comfortable in no apparent distress. HEAD: Normocephalic. EYES: Normal reaction of pupils, equal size. NOSE: Clear with pink turbinates. THROAT: No erythema or exudates. NECK: Right IJ Cordis in place. No masses, no JVD. CHEST: Sternal dressing dry and intact. Chest she was admitted removed and the sternum is stable clean and intact LUNGS: Equal air entry with crackles in the bilateral bases, left greater than right. CVS: S1 and S2 normal with no audible murmur, regular rhythm. ABDOMEN: No hepatosplenomegaly, hypoactive bowel sounds, no guarding or rigidity. SPINE: No scoliosis or deformity SKIN: No rashes CENTRAL NERVOUS SYSTEM: No focal deficits, tone is normal in all 4 extremities. EXTREMITIES: There is no peripheral edema. No clubbing, no cyanosis. Peripheral pulses are intact. - Labs CBC & Chem 7: 03/26/23 03:30 03/26/23 03:30 Labs: Abnormal Lab Results - Last 24 Hours (Table) 03/25/23 03/25/23 03/25/23 Range/Units 09:32 12:50 13:54 RBC (4.30-5.90) m/uL Hgb (13.0-17.5) gm/dL Hct (39.0-53.0) % RDW (11.5-15.5) % Plt Count (150-450) k/uL Lymphocytes # (1.0-4.8) k/uL Chloride (98-107) mmol/L BUN (9-20) mg/dL Glucose (74-99) mg/dL POC Glucose (mg/dL) 129 H 208 H 209 H (70-110) mg/dL Calcium (8.4-10.2) mg/dL Total Protein (6.3-8.2) g/dL Albumin (3.5-5.0) g/dL 03/25/23 03/25/23 03/25/23 Range/Units 15:17 16:29 17:55 RBC (4.30-5.90) m/uL Hgb (13.0-17.5) gm/dL Hct (39.0-53.0) % RDW (11.5-15.5) % Plt Count (150-450) k/uL Lymphocytes # (1.0-4.8) k/uL Chloride (98-107) mmol/L BUN (9-20) mg/dL Glucose (74-99) mg/dL POC Glucose (mg/dL) 159 H 120 H 172 H (70-110) mg/dL Calcium (8.4-10.2) mg/dL Total Protein (6.3-8.2) g/dL Albumin (3.5-5.0) g/dL 03/25/23 03/25/23 03/25/23 Range/Units 18:58 20:09 20:58 RBC (4.30-5.90) m/uL Hgb (13.0-17.5) gm/dL Hct (39.0-53.0) % RDW (11.5-15.5) % Plt Count (150-450) k/uL Lymphocytes # (1.0-4.8) k/uL Chloride (98-107) mmol/L BUN (9-20) mg/dL Glucose (74-99) mg/dL POC Glucose (mg/dL) 151 H 116 H 115 H (70-110) mg/dL Calcium (8.4-10.2) mg/dL Total Protein (6.3-8.2) g/dL Albumin (3.5-5.0) g/dL 03/25/23 03/25/23 03/26/23 Range/Units 22:53 23:57 02:53 RBC (4.30-5.90) m/uL Hgb (13.0-17.5) gm/dL Hct (39.0-53.0) % RDW (11.5-15.5) % Plt Count (150-450) k/uL Lymphocytes # (1.0-4.8) k/uL Chloride (98-107) mmol/L BUN (9-20) mg/dL Glucose (74-99) mg/dL POC Glucose (mg/dL) 123 H 115 H 128 H (70-110) mg/dL Calcium (8.4-10.2) mg/dL Total Protein (6.3-8.2) g/dL Albumin (3.5-5.0) g/dL 03/26/23 03/26/23 03/26/23 Range/Units 03:30 03:30 03:55 RBC 2.52 L (4.30-5.90) m/uL Hgb 7.4 L (13.0-17.5) gm/dL Hct 23.7 L (39.0-53.0) % RDW 18.9 H (11.5-15.5) % Plt Count 68 L (150-450) k/uL Lymphocytes # 0.8 L (1.0-4.8) k/uL Chloride 108 H (98-107) mmol/L BUN 28 H (9-20) mg/dL Glucose 113 H (74-99) mg/dL POC Glucose (mg/dL) 119 H (70-110) mg/dL Calcium 7.9 L (8.4-10.2) mg/dL Total Protein 5.5 L (6.3-8.2) g/dL Albumin 2.8 L (3.5-5.0) g/dL 03/26/23 03/26/23 Range/Units 04:52 08:09 RBC (4.30-5.90) m/uL Hgb (13.0-17.5) gm/dL Hct (39.0-53.0) % RDW (11.5-15.5) % Plt Count (150-450) k/uL Lymphocytes # (1.0-4.8) k/uL Chloride (98-107) mmol/L BUN (9-20) mg/dL Glucose (74-99) mg/dL POC Glucose (mg/dL) 111 H 195 H (70-110) mg/dL Calcium (8.4-10.2) mg/dL Total Protein (6.3-8.2) g/dL Albumin (3.5-5.0) g/dL Assessment and Plan Plan: Coronary artery disease status post two-vessel coronary artery bypass grafting. Postoperative day #4 Severe aortic stenosis, status post aortic valve replacement with a 25 mm Rosario expressed bioprosthetic valve. Postoperative day #4 Postoperative hypotension , recovered Acute kidney injury, improving Anemia, expected outcome of surgery, hemoglobin 6.5, received 4 units packed red blood cells. Current hemoglobin 7.4 Thrombocytopenia, , improving, expected outcome of surgery History of coronary artery disease with previous PCI History of hypertension Hyperlipidemia Diabetes mellitus Chronic and ongoing tobacco dependence Carotid stenosis History of marijuana use Obstructive sleep apnea not utilizing CPAP History of alcohol use Plan: Left-sided chest tube is still in place and the right-sided chest tube was removed Give the patient undergoes of Lasix 40 mg IV push Patient is currently on 2 L O2 nasal cannula Start metoprolol 50 mg by mouth twice a day Hemodynamically stable Creatinine improving Platelet counts improving Hemoglobin is stable on Arixtra Continue with SCD's Continue bronchodilators Educated regarding the increased use of the incentive spirometer Increase his activity as tolerated We will continue to follow
--- NOTE | 2023-03-26 09:05 | XR ---
EXAMINATION TYPE: XR chest 1V portable DATE OF EXAM: 03/26/2023 COMPARISON: 03/25/2023 HISTORY: Postop TECHNIQUE: Single frontal view of the chest is obtained. FINDINGS: Heart is enlarged and there is postsurgical changes. Bilateral chest tubes are seen and th ere is a less than 5% left apical minimal thorax. Bilateral areas of consolidation and small effusion are stable. Suggestion of possible epicardial lead. IMPRESSION: 1. Stable 5% or less left apical pneumothorax. 2. Bilateral airspace disease with small effusion. Mild venous congestion in the differential diagnos is.
[2023-03-26] MEDS: IPRATROPIUM-ALBUTEROL 3 ML NEB INHALATION SCH ×4 (09:39→21:32)
[2023-03-26 09:52] LABS: Glucose,Whole Blood 180 mg/dL (70-110)
[2023-03-26 10:13] LABS: Appearance,Urine Clear (Clear); Bilirubin,Urine Negative (Negative); Blood,Urine Trace (Negative); Color,Urine Yellow; Glucose,Urine (UA) Negative (Negative); Ketones,Urine Trace (Negative); Leukocyte Esterase,Urine Small (Negative); Mucus,Urine Rare /hpf; Nitrite,Urine Negative (Negative); PH, Urine 5.5 (5.0-8.0); Protein,Urine 1+ (Negative); RBC,Urine 5 /hpf (0-5); Specific Gravity,Urine 1.011 (1.001-1.035); Urobilinogen,Urine <2.0 mg/dL (<2.0); WBC,Urine 6 /hpf (0-5)
[2023-03-26 11:09] LABS: Glucose,Whole Blood 137 mg/dL (70-110)
[2023-03-26 12:10] LABS: Glucose,Whole Blood 109 mg/dL (70-110)
[2023-03-26] MEDS: amLODIPine 5 MG TAB PO SCH (12:55)
[2023-03-26] MEDS ORDERED: DEXTROSE 50% SYRINGE 50 ML IVP PRN ×2 (13:01)
[2023-03-26 13:05] LABS: Glucose,Whole Blood 138 mg/dL (70-110)
[2023-03-26 14:11] LABS: Glucose,Whole Blood 205 mg/dL (70-110)
--- NOTE | 2023-03-26 15:16 | P.PN ---
Subjective Progress Note Date: 03/26/23 Patient is a 65-year-old male with a known history of hypertension, hyperlipidemia, diabetes type 2 [id number], obstructive sleep apnea not on CPAP, coronary artery disease, severe aortic stenosis, chronic occlusion of the right ICA and moderate stenosis involving the left ICA was to the [facility] for elective aortic valve replacement and myocardial revascularization. Patient underwent IL-12 replacement and two-vessel bypass LRA to OM and SVG to PDA. Patient had RAE on 01/05/2023 showed severe aortic stenosis involving tricuspid aortic valve with planimetry area of around 0.4 2.6 cm. Normal LV systolic function. Mild to moderate MR. Patient had cardiac catheterization on 01/04/2023 showed right coronary artery is a codominant vessel that was previously stented extensively. Mid RCA showed focal 90% stenosis. Left main coronary artery appears to be calcified but is free of significant stenosis. Circumflex artery showed 80 to 90% ostial stenosis, LAD showed mild to moderate diffuse mild nonfocal atherosclerotic block. Severe two-vessel coronary disease. Patient was referred to Dr. Jensen for evaluation of aortic valve replacement with two-vessel bypass surgery. Patient was intubated perioperatively and was transferred to MICU postprocedure. Laboratory data showed WBC 8.5 hemoglobin 10.4 and platelets 105. ABG showed pH 7.4 PCO2 41 PO2 64. Sodium 138 potassium 4.3 chloride 108 bicarb is 24 BUN 21 creatinine 1.23 and blood sugar is 111. Patient is currently on milrinone drip, Cardizem and norepinephrine. Patient is also on insulin drip. 03/23/2023 Patient is currently in the MICU. Remains on mechanical ventilator. Patient is also sedated with propofol. On assist control 16 with FiO2 40% and PEEP of 10 and tidal volume 600. ABGs this morning showed pH 7.39 PCO2 37 PO2 206 bicarb is 22 Patient is being cannula pressor support with norepinephrine and vasopressin. Patient is also IV albumin. Mediastinal and right and left pleural chest tubes in place with low suction. Was also noted to have serosanguineous drainage from the mediastinal chest tubes. Hemoglobin 8.7 today dropped to 7.6. Patient did receive 3 units of PRBCs and 1 unit of platelet and 1 L of fold cryoprecipitate. Chest x-ray this morning showed postoperative changes with stable areas of consolidation tiny bilateral effusion. Correlate for mild venous congestion. Other laboratory data showed WBC 11.9 hemoglobin 8.7 and platelets 99 sodium 138 potassium 4.6 chloride 109 bicarb is 21 BUN 27 creatinine 2.44 and blood sugar is 133. Patient remained on insulin drip. 03/24/2023 Patient is currently in the MICU. Patient was extubated this afternoon and was placed on Ventimask. Patient is awake alert and oriented. Unable to communicate well at this time. Otherwise patient is here for the unit of PRBCs today. Hemoglobin was 6.5 this morning. Chest x-ray showed stable bibasilar airspace opacities/atelectasis with a small left pleural effusion, pulmonary vascular congestion, mediastinal and right and left chest tubes remains in place. No leak detected. NG tube in place. Laboratory data showed WBC 8.8 hemoglobin 6.5 and platelets 54 Sodium 138 potassium 4.2 chloride 109, BUN 34 and creatinine 2.27 and blood sugar is 129. 03/25/2023 Patient is currently in the MICU. Sitting in the chair. Awake alert and oriented x3. On oxygen at 2 L via nasal cannula. Able to tolerate oral diet. Remains on insulin drip for blood sugar control. Chest x-ray showed left basilar airspace opacity/atelectasis. Small left pleural effusion. Laboratory test showed WBC 10.4 hemoglobin 7.8 and platelets 51 sodium 139 potassium 4.0 chloride 110 bicarb is 23 BUN 34 and creatinine 1.47 and albumin 2.8 Patient will be transitioned to subcu insulin tomorrow. 03/26/2023 Patient is seen and evaluated in follow-up today continues to be in the ICU with multiple medical consultations following. Patient is status post extubation on 03/24/2023 currently down to2 L via nasal cannula denying any worsening shortness of breath. Patient reports a dry cough with chest pain most likely chest wall pain and does have heart hugger noted and instructed to continue using. Patient had Cordis catheter removed this morning and scheduled to get up and walk. Patient did have one chest tube removed today continues with one with possible removal tomorrow. Follow-up chest x-ray recommended. Patient was on insulin drip and has been transitioned to consistent carb diet and will adjust insulins and add sliding scale along with long-acting twice daily as blood sugars are above 200. Patient is currently afebrile with no reports of chest pain or palpitations. Review of systems: Constitutional: No reports of fatigue, fever, or chills Cardiovascular: No reports of chest pain or palpitations Respiratory: reports of intermittent shortness of breath with a dry hacking cough GI: No reports of nausea, vomiting, or diarrhea : No reports of dysuria or retention Neurovascular: reports of weakness or numbness All medications have been reviewed Active Medications Hydrocodone Bitart/Acetaminophen (Hydrocodone/Apap 5-325mg 1 Each Tab) 1 each PO Q4HR PRN PRN Reason: Moderate Pain (Scale 4 to 6) Hydrocodone Bitart/Acetaminophen (Hydrocodone/Apap 10-325mg 1 Each Tab) 1 each PO Q4HR PRN PRN Reason: Severe Pain (Scale 7 to 10) Last Admin: 03/26/23 14:56 Dose: 1 each Albuterol/Ipratropium (Ipratropium-Albuterol 3 Ml Neb) 3 ml INHALATION RT-Q2H PRN PRN Reason: Shortness Of Breath Or Wheezing Albuterol/Ipratropium (Ipratropium-Albuterol 3 Ml Neb) 3 ml INHALATION RT-QID [facility] Last Admin: 03/26/23 12:00 Dose: 3 ml Amlodipine Besylate (Amlodipine 5 Mg Tab) 5 mg PO 1200 [facility] Last Admin: 03/26/23 12:55 Dose: 5 mg Aspirin (Aspirin 81 Mg) 81 mg PO DAILY [facility] Last Admin: 03/26/23 08:26 Dose: 81 mg Atorvastatin Calcium (Atorvastatin 40 Mg Tab) 40 mg PO DAILY [facility] Last Admin: 03/26/23 08:25 Dose: 40 mg Benzocaine/Menthol (Benzocaine/Menthol Lozeng 1 Each Lozenge) 1 each MUCOUS MEM Q2H PRN PRN Reason: Sore Throat Last Admin: 03/24/23 17:42 Dose: 1 each Bisacodyl (Bisacodyl 10 Mg Supp) 10 mg RECTAL DAILY PRN PRN Reason: Constipation Clopidogrel Bisulfate (Clopidogrel 75 Mg Tab) 75 mg PO DAILY [facility] Last Admin: 03/26/23 08:26 Dose: 75 mg Dextrose/Water (Dextrose 50% Syringe 50 Ml) 25 ml IVP PER PROTOCOL PRN; Protocol PRN Reason: Hypoglycemia Dextrose/Water (Dextrose 50% Syringe 50 Ml) 50 ml IVP PER PROTOCOL PRN; Protocol PRN Reason: Hypoglycemia Ferrous Sulfate (Ferrous Sulfate 325 Mg Tab) 325 mg PO BID-W/MEALS [facility] Last Admin: 03/26/23 06:54 Dose: 325 mg Folic Acid (Folic Acid 1 Mg Tab) 1 mg PO DAILY [facility] Last Admin: 03/26/23 08:26 Dose: 1 mg Fondaparinux (Fondaparinux 2.5 Mg/0.5 Ml Syringe) 2.5 mg SQ DAILY [facility] Last Admin: 03/26/23 08:32 Dose: 2.5 mg Furosemide (Furosemide 10 Mg/Ml 4 Ml Vial) 40 mg IV ONCE ONE Stop: 03/26/23 16:01 Guaifenesin (Guaifenesin 600 Mg Tablet.Er) 1,200 mg PO Q12HR [facility] Last Admin: 03/26/23 08:26 Dose: 1,200 mg Hydralazine HCl (Hydralazine Hcl 20 Mg/Ml 1 Ml Vial) 10 mg IVP Q1H PRN PRN Reason: Blood Pressure - High Amiodarone HCl 150 mg/ (Dextrose/Water) 103 mls @ 618 mls/hr IV .Q10M PRN; Protocol PRN Reason: A.FIB/FLUTTER Amiodarone HCl 360 mg/ (Dextrose/Water) 207.2 mls @ 34.533 mls/hr IV .Q6H PRN; Protocol PRN Reason: A.FIB/FLUTTER Amiodarone HCl 450 mg/ (Dextrose/Water) 250 mls @ 16.667 mls/hr IV .Q15H PRN; Protocol PRN Reason: A.FIB/FLUTTER Insulin Aspart (Insulin Aspart (Novolog) 100 Unit/Ml Vial) 0 unit SQ ACHS [facility]; Protocol Insulin Detemir (Insulin Detemir (Levemir) 100 Unit/Ml Syr) 15 unit SQ BID@0700,2100 [facility] Lisinopril (Lisinopril 5 Mg Tab) 5 mg PO DAILY [facility] Last Admin: 03/26/23 08:27 Dose: 5 mg Magnesium Hydroxide (Magnesium Hydroxide 2,400 Mg/30 Ml Cup) 2,400 mg PO BID PRN PRN Reason: Constipation Metoclopramide HCl (Metoclopramide 5 Mg/Ml 2 Ml Vial) 10 mg IVP Q4H PRN PRN Reason: Nausea And Vomiting Metoprolol Tartrate (Metoprolol Tartrate 50 Mg Tab) 50 mg PO BID [facility] Last Admin: 03/26/23 08:26 Dose: 50 mg Miscellaneous Information (Potassium Replacement Protocol 1 Each Misc) 1 each MISCELLANE DAILY PRN; Protocol PRN Reason: Per Protocol Miscellaneous Information (Magnesium Replacement Protocol 1 Each Misc) 1 each MISCELLANE DAILY PRN; Protocol PRN Reason: Per Protocol Multivitamins (Multivitamins, Thera 1 Each Tab) 1 each PO DAILY [facility] Last Admin: 03/26/23 08:25 Dose: 1 each Ondansetron HCl (Ondansetron 4 Mg/2 Ml Vial) 4 mg IVP Q6HR PRN PRN Reason: Nausea And Vomiting Pantoprazole Sodium (Pantoprazole 40 Mg Tablet) 40 mg PO AC-BRKFST [facility] Last Admin: 03/26/23 06:54 Dose: 40 mg Potassium Chloride (Potassium Chloride Er 20 Meq Tab.Er) 20 meq PO ONCE ONE Stop: 03/26/23 16:01 Senna/Docusate Sodium (Sennosides-Docusate Sodium 1 Each Tab) 2 each PO HS [facility] Last Admin: 03/25/23 20:30 Dose: 2 each Sodium Chloride (Sodium Chloride 0.9% Flush 10 Ml Syringe) 10 ml IV BID [facility] Last Admin: 03/26/23 08:25 Dose: 10 ml Tamsulosin HCl (Tamsulosin 0.4 Mg Cap.Er.24h) 0.4 mg PO PC-SUPPER [facility] Thiamine HCl (Thiamine 100 Mg Tab) 100 mg PO DAILY [facility] Last Admin: 03/26/23 08:25 Dose: 100 mg Zinc Acetate/Diphenhydramine (Diphenhydramine 2% Cream 28.4 Gm Tube) 1 applic TOPICAL TID PRN; Protocol PRN Reason: rash to back Physical exam: Patient is and oriented. no acute distress. Off mechanical ventilator..currently on 2 L HEENT: Normocephalic. Neck is supple. Pupils reactive. Nostrils clear. Oral cavity is moist. Neck reveals no JVD, carotid bruits, or thyromegaly. CHEST EXAMINATION: Trachea is central. Symmetrical expansion. Bibasilar diminished sounds.. No wheezing or rhonchi. right pleural chest tube removed today. Mediastinal chest tube remains. Midline incision bandaged. CARDIAC: Normal S1, S2 with no gallops. No murmurs ABDOMEN: Soft. Bowel sounds present. No organomegaly. No abdominal bruits. Extremities: reveal no edema. No clubbing or cyanosis Neurologically patient is awake alert and oriented.. No gross focal deficits noted diffusely weak. Skin: No rash or skin lesions. Psychiatric: Cooperative. non suicidal.., Musculoskeletal: No joint swelling or deformity Assessment: Status post elective aortic valve replacement with bioprosthetic and two-vessel coronary artery bypass graft, LRA to OM and SVG to PDA. On 03/22/2023. Patient is status post successful extubation on 03/24/2023 Postoperative hypotension requiring pressor support. off pressor support now, Acute blood loss anemia from the mediastinal chest tube requiring blood tr ansfusion. Acute kidney injury possible ATN due to hemodynamic changes. Severe aortic stenosis Severe two-vessel coronary disease Chronic CHF with preserved ejection fraction Coronary artery disease with history of multiple stent placement Diabetes type 2 [id number]-npkooqoka, uncontrolled with hyperglycemia Hypertension Hyperlipidemia Obstructive sleep apnea not on CPAP Obesity with BMI 34.7 Currently everyday smoker GI and DVT prophylaxis. On PPI and heparin subcu Plan: Patient is currently in the MICU. Patient was extubated on 03/24/23.. currently maintained on 2 L maintaining oxygen saturation above 90% Patient does have incentive spirometer and encourage the patient use at least 10 times every hour while awake off pressor support with norepinephrine and vasopressin. Patient received 1 more unit of PRBC on 03/24 and total of 4 units of PRBC blood transfusion. hemoglobin is stable today at 7.4 and will transfuse of 7 or less Pt. was given platelets and cryoprecipitate. Continue to monitor CBC. Patient was continued on insulin drip per protocol and we'll transition to sliding scale along with Accu-Cheks before meals and at bedtime and will add long-acting twice daily Patient was transitioned to Consistent carbohydrate heart healthy diet Will continue to follow closely and further recommendations based on clinical course. thank you kindly for this consultation. The impression and plan of care has been dictated by Marjorie Lundberg, Nurse Practitioner as directed. Dr. Sandip MD I have performed a history and examination and MDM of this patient, discussed the same with the dictator, and agree with the dictator's assessment and plan as written ,documented as a scribe. Based on total visit time, I have performed more than 50% of the visit. Objective - Vital Signs Vital signs: Vital Signs Temp 98.8 F 03/26/23 08:00 Pulse 86 03/26/23 12:14 Resp 15 03/26/23 12:00 BP 154/84 03/26/23 12:00 Pulse Ox 95 03/26/23 12:00 FiO2 40 03/24/23 14:00 Intake & Output 03/25/23 03/26/23 03/26/23 18:59 06:59 18:59 Intake Total 1350.152 294.686 142.271 Output Total 1695 801 554 Balance -344.848 -506.314 -411.729 Weight 108 kg Intake: IV 289 243 109 .9NS Pressure Bag 39 3 9 Lactated Ringers 1,000 ml 250 240 100 @ 20 mls/hr IV .Q24H [facility] Rx#:[id number] Intake, IV Titration 101.152 51.686 33.271 Amount Insulin Regular 100 unit 101.152 51.686 33.271 In Sodium Chloride 0.9% 100 ml @ Per Protocol IV .Q0M [facility] Rx#:[id number] Oral 960 Output: Chest Tube Drainage 310 326 104 Mediastinal Chest Tube X 30 1 Right and Left Pleural 90 left pleural 110 250 50 right pleural 80 76 54 Urine 1385 475 450 Other: Voiding Method Indwelling Catheter Urinal # Voids 1 ABP, PAP, CO, CI - Last Documented Arterial Blood Pressure 146/55 Pulmonary Artery Pressure 54/22 Cardiac Output 8 Cardiac Index 3.8 - Labs CBC & Chem 7: 03/26/23 03:30 03/26/23 03:30 Labs: Abnormal Lab Results - Last 24 Hours (Table) 03/25/23 03/25/23 03/25/23 Range/Units 12:50 13:54 15:17 RBC (4.30-5.90) m/uL Hgb (13.0-17.5) gm/dL Hct (39.0-53.0) % RDW (11.5-15.5) % Plt Count (150-450) k/uL Lymphocytes # (1.0-4.8) k/uL Chloride (98-107) mmol/L BUN (9-20) mg/dL Glucose (74-99) mg/dL POC Glucose (mg/dL) 208 H 209 H 159 H (70-110) mg/dL Calcium (8.4-10.2) mg/dL Total Protein (6.3-8.2) g/dL Albumin (3.5-5.0) g/dL Urine Protein (Negative) Urine Ketones (Negative) Urine Blood (Negative) Ur Leukocyte Esterase (Negative) Urine WBC (0-5) /hpf Urine Mucus (None) /hpf 03/25/23 03/25/23 03/25/23 Range/Units 16:29 17:55 18:58 RBC (4.30-5.90) m/uL Hgb (13.0-17.5) gm/dL Hct (39.0-53.0) % RDW (11.5-15.5) % Plt Count (150-450) k/uL Lymphocytes # (1.0-4.8) k/uL Chloride (98-107) mmol/L BUN (9-20) mg/dL Glucose (74-99) mg/dL POC Glucose (mg/dL) 120 H 172 H 151 H (70-110) mg/dL Calcium (8.4-10.2) mg/dL Total Protein (6.3-8.2) g/dL Albumin (3.5-5.0) g/dL Urine Protein (Negative) Urine Ketones (Negative) Urine Blood (Negative) Ur Leukocyte Esterase (Negative) Urine WBC (0-5) /hpf Urine Mucus (None) /hpf 03/25/23 03/25/23 03/25/23 Range/Units 20:09 20:58 22:53 RBC (4.30-5.90) m/uL Hgb (13.0-17.5) gm/dL Hct (39.0-53.0) % RDW (11.5-15.5) % Plt Count (150-450) k/uL Lymphocytes # (1.0-4.8) k/uL Chloride (98-107) mmol/L BUN (9-20) mg/dL Glucose (74-99) mg/dL POC Glucose (mg/dL) 116 H 115 H 123 H (70-110) mg/dL Calcium (8.4-10.2) mg/dL Total Protein (6.3-8.2) g/dL Albumin (3.5-5.0) g/dL Urine Protein (Negative) Urine Ketones (Negative) Urine Blood (Negative) Ur Leukocyte Esterase (Negative) Urine WBC (0-5) /hpf Urine Mucus (None) /hpf 03/25/23 03/26/23 03/26/23 Range/Units 23:57 02:53 03:30 RBC 2.52 L (4.30-5.90) m/uL Hgb 7.4 L (13.0-17.5) gm/dL Hct 23.7 L (39.0-53.0) % RDW 18.9 H (11.5-15.5) % Plt Count 68 L (150-450) k/uL Lymphocytes # 0.8 L (1.0-4.8) k/uL Chloride (98-107) mmol/L BUN (9-20) mg/dL Glucose (74-99) mg/dL POC Glucose (mg/dL) 115 H 128 H (70-110) mg/dL Calcium (8.4-10.2) mg/dL Total Protein (6.3-8.2) g/dL Albumin (3.5-5.0) g/dL Urine Protein (Negative) Urine Ketones (Negative) Urine Blood (Negative) Ur Leukocyte Esterase (Negative) Urine WBC (0-5) /hpf Urine Mucus (None) /hpf 03/26/23 03/26/23 03/26/23 Range/Units 03:30 03:55 04:52 RBC (4.30-5.90) m/uL Hgb (13.0-17.5) gm/dL Hct (39.0-53.0) % RDW (11.5-15.5) % Plt Count (150-450) k/uL Lymphocytes # (1.0-4.8) k/uL Chloride 108 H (98-107) mmol/L BUN 28 H (9-20) mg/dL Glucose 113 H (74-99) mg/dL POC Glucose (mg/dL) 119 H 111 H (70-110) mg/dL Calcium 7.9 L (8.4-10.2) mg/dL Total Protein 5.5 L (6.3-8.2) g/dL Albumin 2.8 L (3.5-5.0) g/dL Urine Protein (Negative) Urine Ketones (Negative) Urine Blood (Negative) Ur Leukocyte Esterase (Negative) Urine WBC (0-5) /hpf Urine Mucus (None) /hpf 03/26/23 03/26/23 03/26/23 Range/Units 08:09 09:45 09:51 RBC (4.30-5.90) m/uL Hgb (13.0-17.5) gm/dL Hct (39.0-53.0) % RDW (11.5-15.5) % Plt Count (150-450) k/uL Lymphocytes # (1.0-4.8) k/uL Chloride (98-107) mmol/L BUN (9-20) mg/dL Glucose (74-99) mg/dL POC Glucose (mg/dL) 195 H 180 H (70-110) mg/dL Calcium (8.4-10.2) mg/dL Total Protein (6.3-8.2) g/dL Albumin (3.5-5.0) g/dL Urine Protein 1+ H (Negative) Urine Ketones Trace H (Negative) Urine Blood Trace H (Negative) Ur Leukocyte Esterase Small H (Negative) Urine WBC 6 H (0-5) /hpf Urine Mucus Rare H (None) /hpf 03/26/23 Range/Units 11:07 RBC (4.30-5.90) m/uL Hgb (13.0-17.5) gm/dL Hct (39.0-53.0) % RDW (11.5-15.5) % Plt Count (150-450) k/uL Lymphocytes # (1.0-4.8) k/uL Chloride (98-107) mmol/L BUN (9-20) mg/dL Glucose (74-99) mg/dL POC Glucose (mg/dL) 137 H (70-110) mg/dL Calcium (8.4-10.2) mg/dL Total Protein (6.3-8.2) g/dL Albumin (3.5-5.0) g/dL Urine Protein (Negative) Urine Ketones (Negative) Urine Blood (Negative) Ur Leukocyte Esterase (Negative) Urine WBC (0-5) /hpf Urine Mucus (None) /hpf
[2023-03-26] MEDS: INSULIN DETEMIR (LEVEMIR) 100 UNIT/ML SYR SQ SCH ×2 (15:18→20:13)
[2023-03-26 15:19] LABS: Glucose,Whole Blood 203 mg/dL (70-110)
[2023-03-26] MEDS ORDERED: FUROSEMIDE 10 MG/ML 4 ML VIAL IV ONE (16:00)
[2023-03-26] MEDS ORDERED: POTASSIUM CHLORIDE ER 20 MEQ TAB.ER PO ONE (16:00)
[2023-03-26 16:34] LABS: Glucose,Whole Blood 180 mg/dL (70-110)
[2023-03-26] MEDS: INSULIN ASPART (NovoLOG) 100 UNIT/ML VIAL SQ SCH ×2 (17:00→20:14)
[2023-03-26] MEDS: TAMSULOSIN 0.4 MG CAP.ER.24H PO SCH (18:16)
[2023-03-26 20:04] LABS: Glucose,Whole Blood 296 mg/dL (70-110)
[2023-03-26] MEDS: SENNOSIDES-DOCUSATE SODIUM 1 EACH TAB PO SCH (20:13)
[2023-03-26] MEDS ORDERED: INSULIN DETEMIR (LEVEMIR) 100 UNIT/ML SYR SQ SCH (21:00)
[2023-03-27] MEDS: HYDROcodone/APAP 10-325MG 1 EACH TAB PO PRN ×4 (03:56→17:48)
[2023-03-27 06:28] LABS: Glucose,Whole Blood 164 mg/dL (70-110)
[2023-03-27] MEDS: FERROUS SULFATE 325 MG TAB PO SCH ×2 (06:30→16:58)
[2023-03-27] MEDS: PANTOPRAZOLE 40 MG TABLET PO SCH (06:30)
[2023-03-27] MEDS: INSULIN ASPART (NovoLOG) 100 UNIT/ML VIAL SQ SCH ×4 (06:30→20:13)
[2023-03-27] MEDS: INSULIN DETEMIR (LEVEMIR) 100 UNIT/ML SYR SQ SCH ×2 (06:30→20:13)
[2023-03-27 06:42] LABS: Anisocytosis Slight; HCT 21.9 % (39.0-53.0); HGB 7.3 gm/dL (13.0-17.5); Hypochromasia Moderate; MCH 31.5 pg (25.0-35.0); MCHC 33.5 g/dL (31.0-37.0); Macrocytosis Slight; Mean Platelet Volume 8.7; RBC 2.33 m/uL (4.30-5.90); RDW 19.3 % (11.5-15.5); WBC 7.8 k/uL (3.8-10.6)
[2023-03-27 06:52] LABS: Platelet Count 88 k/uL (150-450)
[2023-03-27 06:55] LABS: Potassium 4.1 mmol/L (3.5-5.1)
[2023-03-27 06:56] LABS: African American GFR (CKD) 60 (>60 ml/min/1.73 sqM); Anion Gap 6 mmol/L; Blood Urea Nitrogen 30 mg/dL (9-20); Calcium 7.8 mg/dL (8.4-10.2); Carbon Dioxide 23 mmol/L (22-30); Chloride 106 mmol/L (98-107); Glucose 149 mg/dL (74-99); Non-African American GFR(CKD) 52 (>60 ml/min/1.73 sqM); Sodium 135 mmol/L (137-145)
--- NOTE | 2023-03-27 07:55 | XR ---
EXAMINATION TYPE: XR chest 1V portable DATE OF EXAM: 03/27/2023 COMPARISON: 03/26/2023 HISTORY: Postop TECHNIQUE: Single frontal view of the chest is obtained. FINDINGS: Heart is enlarged and there is postsurgical changes. Bilateral chest tubes are seen and th ere is a less than 5% left apical minimal thorax noted on the prior exam is not seen in today's exam. Bilateral areas of consolidation and small effusion are stable. Suggestion of possible epicardial le ad. IMPRESSION: 1. Bilateral suspected postoperative atelectasis and mild venous congestion. Tiny left apical pneumot horax noted on prior exam is not seen on today's exam. 2. Postoperative change.
--- NOTE | 2023-03-27 08:12 | P.PN ---
Subjective Progress Note Date: 03/27/23 Principal diagnosis: Severe aortic valve stenosis, coronary artery disease. Past medical history significant for coronary artery disease with previous PCI, on Plavix for anticoagulation as an outpatient, hypertension, hyperlipidemia, diabetes mellitus type 2, obesity with a BMI of 35.2 kg/m, chronic ongoing tobacco dependence, occasional marijuana use, EtOH use drinking 7-8 beers a week, noncompliance with proper medication use and obstructive sleep apnea with noncompliance with home CPAP use. POD #5 coronary artery bypass grafting 2 vessels with radial artery to the ob tuse marginal coronary artery, and a saphenous vein graft to the posterior descending coronary artery. Endoscopic harvesting of the left greater saphenous vein, endoscopic harvesting of the left radial artery, ligation of the left atrial appendage using a 35 mm Atriclip, aortic valve replacement using a 25 mm Rosario Inspiris bioprosthetic valve, epi-aortic ultrasound and intraoperative transesophageal echocardiogram. Postoperative acute blood loss anemia and thrombocytopenia, expected given h emodilution and cardiopulmonary bypass. The patient was seen and examined in follow-up today 03/27/2023 at his bedside in the intensive care unit. He is currently sitting up to the bedside chair, is awake, alert, oriented 3 and is in no acute apparent distress. Denies any complaints of shortness of breath or pain at this time. Oxygen saturations are 95% on 2 L nasal cannula and he is achieving 6279-7659 mL on his incentive spirometry with encouragement. Bedside telemetry showing normal sinus rhythm heart rate 81 BPM. Blood pressure is currently 97/53 with a map of 63, he was started on lisinopril 5 mg by mouth daily yesterday which is currently on hold. He remains hemodynamically stable and is currently on no inotropic or pressor support. Right pleural chest tube was removed yesterday without incident, left pleural chest tube remains in place to low continuous wall suction -20 cm H2O. Draining thin serosanguineous drainage with 130 mL output in the last 8 hours and 350 mL output in the last 24 hours. Laboratory results this morning show a WBC count of 7.8, hemoglobin 7.3, hematocrit 21.9, platelets 88, sodium 135, potassium 4.1, BUN 30, creatinine 1.38, glucose 149 and calcium 7.8. The patient's Pavon catheter has been removed and he has been having some episodes of urinary retention requiring a straight catheterization 1, he was started on Flomax 0.4 mg by mouth daily, urine output was 400 mL in the last 8 hours. Chest x-ray has been reviewed. He has been afebrile the last 24 hours. Atrial and ventricular epicardial pacemaker wires remain in place and are grounded. Objective - Vital Signs Vital signs: Vital Signs Temp 98.1 F 03/27/23 04:00 Pulse 83 03/27/23 07:00 Resp 17 03/27/23 07:00 BP 97/53 03/27/23 07:00 Pulse Ox 96 03/27/23 07:00 FiO2 40 03/24/23 14:00 Intake & Output 03/26/23 03/27/23 03/27/23 18:59 06:59 18:59 Intake Total 222.271 540 Output Total 1204 885 Balance -981.729 -345 Weight 107.9 kg Intake: IV 189 .9NS Pressure Bag 9 Lactated Ringers 1,000 ml 180 @ 20 mls/hr IV .Q24H [facility] Rx#:[id number] Intake, IV Titration 33.271 Amount Insulin Regular 100 unit 33.271 In Sodium Chloride 0.9% 100 ml @ Per Protocol IV .Q0M [facility] Rx#:[id number] Oral 540 Output: Chest Tube Drainage 204 160 left pleural 140 160 right pleural 64 Urine 1000 725 Other: Voiding Method Urinal Urinal ABP, PAP, CO, CI - Last Documented Arterial Blood Pressure 146/55 Pulmonary Artery Pressure 54/22 Cardiac Output 8 Cardiac Index 3.8 - Exam CONSTITUTIONAL: Sitting up to the bedside chair in the intensive care unit, appears comfortable, cooperative, no apparent acute distress. HEENT: Neck is supple, no JVD, no lymphadenopathy. RESPIRATORY: Lungs sounds essentially clear throughout, diminished to his bilateral bases. Respirations are symmetrical and nonlabored. Currently on 2 L nasal cannula with oxygen saturations 95%. Able to achieve 6804-3699 mL on his incentive spirometry. Strong cough. CARDIOVASCULAR: Regular rhythm and rate. S1 and S2 present, negative for S3, gallop or murmur. Sternum is stable. Palpable peripheral pulses bilaterally, +1 edema in his bilateral lower extremities and. No calf pain or tenderness noted. Heart hugger in place with patient demonstrating appropriate use. Knee- high ESTEFANI hose and sequential compression devices in place to his bilateral lower extremities. GASTROINTESTINAL: Abdomen soft, nontender, nondistended. Active bowel sounds present 4 quadrants. Tolerating diet. Passing flatus. No guarding or rigidity. GENITOURINARY: Continues to void. Urine output 400 mL in the last 8 hours. Urinary retention yesterday, requiring straight catheterization 1. INTEGUMENTARY: Skin is warm and dry with no evidence of clubbing or cyanosis. Midline sternal incision clean dry and well approximated, covered with dry intact dressing. Left lower extremity EVH sites well approximated without redness or drainage. Left arm radial artery harvest sites clean, dry and approximated. No drainage or redness is present. NEUROLOGIC: Cranial nerves II through XII intact. No focal deficits. MUSKULOSKELETAL: Able to move all extremities, strength equal bilaterally, generalized weakness. PSYCHIATRIC: Alert and oriented to person place and time, appropriate affect, intact judgment and insight. INVASIVE LINES AND TUBES: Left pleural chest tube present and connected to low continuous wall suction, no air leaks present. Left pleural tube with 130 mL of thin serosanguineous drainage overnight, 350 mL output in the last 24 hours. Atrial and ventricular epicardial pacemaker wires present and are grounded. - Allied health notes Allied health notes reviewed: nursing - Labs CBC & Chem 7: 03/27/23 06:05 03/27/23 06:05 Labs: Abnormal Lab Results - Last 24 Hours (Table) 03/26/23 03/26/23 03/26/23 Range/Units 08:09 09:45 09:51 RBC (4.30-5.90) m/uL Hgb (13.0-17.5) gm/dL Hct (39.0-53.0) % RDW (11.5-15.5) % Plt Count (150-450) k/uL Sodium (137-145) mmol/L BUN (9-20) mg/dL Creatinine (0.66-1.25) mg/dL Glucose (74-99) mg/dL POC Glucose (mg/dL) 195 H 180 H (70-110) mg/dL Calcium (8.4-10.2) mg/dL Urine Protein 1+ H (Negative) Urine Ketones Trace H (Negative) Urine Blood Trace H (Negative) Ur Leukocyte Esterase Small H (Negative) Urine WBC 6 H (0-5) /hpf Urine Mucus Rare H (None) /hpf 07/07/0903/26/23 03/26/23 Range/Units 11:07 13:03 14:09 RBC (4.30-5.90) m/uL Hgb (13.0-17.5) gm/dL Hct (39.0-53.0) % RDW (11.5-15.5) % Plt Count (150-450) k/uL Sodium (137-145) mmol/L BUN (9-20) mg/dL Creatinine (0.66-1.25) mg/dL Glucose (74-99) mg/dL POC Glucose (mg/dL) 137 H 138 H 205 H (70-110) mg/dL Calcium (8.4-10.2) mg/dL Urine Protein (Negative) Urine Ketones (Negative) Urine Blood (Negative) Ur Leukocyte Esterase (Negative) Urine WBC (0-5) /hpf Urine Mucus (None) /hpf 03/26/23 03/26/23 03/26/23 Range/Units 15:18 16:33 20:03 RBC (4.30-5.90) m/uL Hgb (13.0-17.5) gm/dL Hct (39.0-53.0) % RDW (11.5-15.5) % Plt Count (150-450) k/uL Sodium (137-145) mmol/L BUN (9-20) mg/dL Creatinine (0.66-1.25) mg/dL Glucose (74-99) mg/dL POC Glucose (mg/dL) 203 H 180 H 296 H (70-110) mg/dL Calcium (8.4-10.2) mg/dL Urine Protein (Negative) Urine Ketones (Negative) Urine Blood (Negative) Ur Leukocyte Esterase (Negative) Urine WBC (0-5) /hpf Urine Mucus (None) /hpf 03/27/23 03/27/23 03/27/23 Range/Units 06:05 06:05 06:26 RBC 2.33 L (4.30-5.90) m/uL Hgb 7.3 L (13.0-17.5) gm/dL Hct 21.9 L (39.0-53.0) % RDW 19.3 H (11.5-15.5) % Plt Count 88 L (150-450) k/uL Sodium 135 L (137-145) mmol/L BUN 30 H (9-20) mg/dL Creatinine 1.38 H (0.66-1.25) mg/dL Glucose 149 H (74-99) mg/dL POC Glucose (mg/dL) 164 H (70-110) mg/dL Calcium 7.8 L (8.4-10.2) mg/dL Urine Protein (Negative) Urine Ketones (Negative) Urine Blood (Negative) Ur Leukocyte Esterase (Negative) Urine WBC (0-5) /hpf Urine Mucus (None) /hpf - Imaging and Cardiology Chest x-ray: report reviewed, image reviewed Assessment and Plan Assessment: Severe aortic valve stenosis, status post aortic valve replacement with a 25 mm Rosario Inspiris bioprosthetic valve Coronary artery disease with history of previous PCI, on Plavix for anticoagulation as an outpatient, status post 2 vessel coronary artery bypass grafting surgery Hypertension Hyperlipidemia Diabetes mellitus type 2, with a preoperative hemoglobin A1c 6.6% Carotid stenosis with a recent carotid duplex study showing a 50-69% stenosis of the left carotid bifurcation by technique systolic velocity and ratio and nonvisualization of flow within the right internal carotid artery with CTA of the neck showing occlusion of the right ICA and an estimated diameter reduction of 60% to the left ICA Chronic ongoing tobacco dependence Obstructive sleep apnea with noncompliance of home CPAP use Occasional marijuana use, smokes 1-2 joints per week Occasional EtOH use, drinks 7-8 beers per week History of noncompliance with taking his medications Acute kidney injury, resolving with a creatinine of 1.12 today 03/26/2023 Postoperative acute blood loss anemia and thrombocytopenia, expected given hemodilution and cardiopulmonary bypass Acute hypoxic respiratory failure, requiring prolonged mechanical ventilation, extubated 03/24/2023 at 2:50 PM, currently on 2 L nasal cannula oxygen Hypotension resolved, currently off vasopressors Plan: Continue to maximize medical therapy with low-dose aspirin, statin, Plavix and beta hanane. Decrease metoprolol tartrate to 25 mg by mouth twice a day with hold parameters on beta hanane. Lisinopril has been discontinued by cardiology. HIT panel result was 0.144, platelets are 88 today. Continue her Arixtra Decrease amlodipine to 2.5 mg by mouth daily at noon with hold parameters for radial artery spasm prophylaxis. Encourage incentive spirometry use 10 times every hour while awake. Bronchodilators per pulmonology/critical care recommendations. Continue Mucinex 1200 mg by mouth twice a day. Increase activity, ambulate as tolerated. PT/OT/cardiac rehab following. Will monitor daily labs and chest x-rays. Electrolyte replacement per protocol. GI/DVT prophylaxis. Pain control per current medication regimen. Insulin management per internal medicine. Patient is diabetic with hemoglobin A1c 6.6%, needs tight blood sugar control to prevent infection and promote hea ling Keep left pleural chest tubes for another 24 hours. Continue to record strict inaccurate I's and O's. May bladder scan every 6 hours and when necessary postvoid residual, if greater than 300 mL of postvoid residual May straight cath. Daily weights. Importance of risks modifications including smoking cessation counseling and education. Discussed [phone]. Keep atrial and ventricular epicardial pacemaker wires in place, keep backup pacemaker generator at his bedside available. 25% albumin 50 mL 1 now IV piggyback. More recommendations to follow based on patient's clinical course. Time with Patient: Greater than 30
[2023-03-27] MEDS: IPRATROPIUM-ALBUTEROL 3 ML NEB INHALATION SCH ×4 (08:25→19:57)
[2023-03-27] MEDS: FOLIC ACID 1 MG TAB PO SCH (08:41)
[2023-03-27] MEDS: guaiFENesin 600 MG TABLET.ER PO SCH ×2 (08:44→20:13)
[2023-03-27] MEDS: MULTIVITAMINS, THERA 1 EACH TAB PO SCH (08:44)
[2023-03-27] MEDS: ASPIRIN 81 MG PO SCH (08:44)
[2023-03-27] MEDS: ATORVASTATIN 40 MG TAB PO SCH (08:44)
[2023-03-27] MEDS: FONDAPARINUX 2.5 MG/0.5 ML SYRINGE SQ SCH (08:45)
[2023-03-27] MEDS: CLOPIDOGREL 75 MG TAB PO SCH (08:45)
[2023-03-27] MEDS: THIAMINE 100 MG TAB PO SCH (08:45)
[2023-03-27] MEDS ORDERED: ALBUMIN HUMAN 25% 50 ML in EMPTY BAG 1 BAG IVPB ONE (09:00)
--- NOTE | 2023-03-27 09:21 | P.PN ---
Subjective Progress Note Date: 03/27/23 On today's evaluation of 03/26/2023, the patient is postop day #4. The patient underwent aortic valve replacement and two-vessel bypass surgery. He is currently stable on 2 L of oxygen by nasal cannula. Is using the incentive spirometer and the patient is falling approximately 1.2 L. His able to sit up on a chair. Is hemodynamically stable. He is currently off pressors. Chest tubes have been removed. Note that the mediastinal chest tubes were removed 2 days ago and the patient had a right-sided chest tube. The left lower chest tube has been removed. Output from the left-sided chest tube is in order of 20- 30 mL an hour. Meanwhile, repeat chest x-ray was done and shows some consolidation left lung base. Left sided chest tube is in a good location. Right-sided chest tube has been removed. No evidence of any significant plural effusion. Blood work from today shows improvement in his creatinine which is down to 1.1. Sodium levels of 137. Hemoglobin is at 7.4. White suppositive 0 .6. His underlying cardiac rhythm is normal sinus rhythm. His tolerating diet. No nausea or emesis. No other significant events overnight. He was given Lasix today. He is also metoprolol 50 mg twice a day. He will be also started on low-dose LINDSEY inhibitor's. Neurologically intact. The patient is passing gas. No nausea or emesis. No abdominal distention. No chest pain and his pain is under good control for now. 03/27/2022 the patient is postop day #5. He is post two-vessel bypass surgery and aortic valve replacement. He remains on 2 L of oxygen nasal cannula. The left-sided chest tube is still in place and output over the past 24 hours has been in the order Of 50 ML. Note That the Right Lower Chest Abdomen and Mediastinal Chest Tubes Have Been Removed. Hemodynamically Stable Although He Has a Soft of Blood Pressure. He Received Lasix Yesterday. He Received a Total of 2 doses of Lasix 40 mg IV each dose. On today's blood work, the patient has a low hemoglobin of 7.3, BUN of 30 with a creatinine of 1.3 and a sodium level is at 135. The glucose at 164. Note that the patient did encounter and acute kidney injury and the creatinine was improving. Lisinopril was added yesterday and this was subsequently discontinued. No nausea. No emesis. No gastric distention. No other significant issues. He is ambulating. Chest x-ray shows cardiomegaly. Left-sided chest tube is in a good location and there is no evidence of any pneumothorax. Objective - Vital Signs Vital signs: Vital Signs Temp 98.1 F 03/27/23 04:00 Pulse 82 03/27/23 08:35 Resp 19 03/27/23 08:00 BP 93/51 03/27/23 08:00 Pulse Ox 100 03/27/23 08:27 FiO2 40 03/24/23 14:00 Intake & Output 03/26/23 03/27/23 03/27/23 18:59 06:59 18:59 Intake Total 222.271 540 Output Total 1204 885 20 Balance -981.729 -345 -20 Weight 107.9 kg Intake: IV 189 .9NS Pressure Bag 9 Lactated Ringers 1,000 ml 180 @ 20 mls/hr IV .Q24H [facility] Rx#:[id number] Intake, IV Titration 33.271 Amount Insulin Regular 100 unit 33.271 In Sodium Chloride 0.9% 100 ml @ Per Protocol IV .Q0M [facility] Rx#:[id number] Oral 540 Output: Chest Tube Drainage 204 160 20 left pleural 140 160 20 right pleural 64 Urine 1000 725 Other: Voiding Method Urinal Urinal ABP, PAP, CO, CI - Last Documented Arterial Blood Pressure 146/55 Pulmonary Artery Pressure 54/22 Cardiac Output 8 Cardiac Index 3.8 - Exam GENERAL EXAM: Awake, alert pleasant 67-year-old male, up in a chair, on 2 L nasal cannula, fairly comfortable in no apparent distress. HEAD: Normocephalic. EYES: Normal reaction of pupils, equal size. NOSE: Clear with pink turbinates. THROAT: No erythema or exudates. NECK: Right IJ Cordis in place. No masses, no JVD. CHEST: Sternal dressing dry and intact. Chest she was admitted removed and the sternum is stable clean and intact LUNGS: Equal air entry with crackles in the bilateral bases, left greater than right. CVS: S1 and S2 normal with no audible murmur, regular rhythm. ABDOMEN: No hepatosplenomegaly, hypoactive bowel sounds, no guarding or rigidity. SPINE: No scoliosis or deformity SKIN: No rashes CENTRAL NERVOUS SYSTEM: No focal deficits, tone is normal in all 4 extremities. EXTREMITIES: There is no peripheral edema. No clubbing, no cyanosis. Peripheral pulses are intact. - Labs CBC & Chem 7: 03/27/23 06:05 03/27/23 06:05 Labs: Abnormal Lab Results - Last 24 Hours (Table) 03/26/23 03/26/23 03/26/23 Range/Units 09:45 09:51 11:07 RBC (4.30-5.90) m/uL Hgb (13.0-17.5) gm/dL Hct (39.0-53.0) % RDW (11.5-15.5) % Plt Count (150-450) k/uL Sodium (137-145) mmol/L BUN (9-20) mg/dL Creatinine (0.66-1.25) mg/dL Glucose (74-99) mg/dL POC Glucose (mg/dL) 180 H 137 H (70-110) mg/dL Calcium (8.4-10.2) mg/dL Urine Protein 1+ H (Negative) Urine Ketones Trace H (Negative) Urine Blood Trace H (Negative) Ur Leukocyte Esterase Small H (Negative) Urine WBC 6 H (0-5) /hpf Urine Mucus Rare H (None) /hpf 03/26/23 03/26/23 03/26/23 Range/Units 13:03 14:09 15:18 RBC (4.30-5.90) m/uL Hgb (13.0-17.5) gm/dL Hct (39.0-53.0) % RDW (11.5-15.5) % Plt Count (150-450) k/uL Sodium (137-145) mmol/L BUN (9-20) mg/dL Creatinine (0.66-1.25) mg/dL Glucose (74-99) mg/dL POC Glucose (mg/dL) 138 H 205 H 203 H (70-110) mg/dL Calcium (8.4-10.2) mg/dL Urine Protein (Negative) Urine Ketones (Negative) Urine Blood (Negative) Ur Leukocyte Esterase (Negative) Urine WBC (0-5) /hpf Urine Mucus (None) /hpf 03/26/23 03/26/23 03/27/23 Range/Units 16:33 20:03 06:05 RBC (4.30-5.90) m/uL Hgb (13.0-17.5) gm/dL Hct (39.0-53.0) % RDW (11.5-15.5) % Plt Count (150-450) k/uL Sodium 135 L (137-145) mmol/L BUN 30 H (9-20) mg/dL Creatinine 1.38 H (0.66-1.25) mg/dL Glucose 149 H (74-99) mg/dL POC Glucose (mg/dL) 180 H 296 H (70-110) mg/dL Calcium 7.8 L (8.4-10.2) mg/dL Urine Protein (Negative) Urine Ketones (Negative) Urine Blood (Negative) Ur Leukocyte Esterase (Negative) Urine WBC (0-5) /hpf Urine Mucus (None) /hpf 03/27/23 03/27/23 Range/Units 06:05 06:26 RBC 2.33 L (4.30-5.90) m/uL Hgb 7.3 L (13.0-17.5) gm/dL Hct 21.9 L (39.0-53.0) % RDW 19.3 H (11.5-15.5) % Plt Count 88 L (150-450) k/uL Sodium (137-145) mmol/L BUN (9-20) mg/dL Creatinine (0.66-1.25) mg/dL Glucose (74-99) mg/dL POC Glucose (mg/dL) 164 H (70-110) mg/dL Calcium (8.4-10.2) mg/dL Urine Protein (Negative) Urine Ketones (Negative) Urine Blood (Negative) Ur Leukocyte Esterase (Negative) Urine WBC (0-5) /hpf Urine Mucus (None) /hpf Assessment and Plan Plan: Coronary artery disease status post two-vessel coronary artery bypass grafting. Postoperative day #5 Severe aortic stenosis, status post aortic valve replacement with a 25 mm Rosario expressed bioprosthetic valve. Postoperative day #5 Postoperative hypotension , recovered, earlier this morning, the patient's blood pressure was soft and based on that the patient was taken off the lisinopril and the metoprolol dose was cut down to 25 mg by mouth twice a day and the patient also received IV albumin. Amlodipine was also decreased to 2.5 mg by mouth daily. Acute kidney injury, improving Anemia, expected outcome of surgery, hemoglobin 6.5, received 4 units packed red blood cells. Current hemoglobin 7.3 Thrombocytopenia, , improving, expected outcome of surgery History of coronary artery disease with previous PCI History of hypertension Hyperlipidemia Diabetes mellitus Chronic and ongoing tobacco dependence Carotid stenosis History of marijuana use Obstructive sleep apnea not utilizing CPAP History of alcohol use Plan: Left-sided chest tube is still in place No Lasix for today Blood pressure medication adjustments was noted and the patient was placed on Norvasc 2.5 mg, his of was discontinued and the metoprolol was also diffuse Patient is currently on 2 L O2 nasal cannula Monitor creatinine Hemodynamically stable Platelet counts improving, HIT antibodies are negative Hemoglobin is stable on Arixtra Continue with SCD's Continue bronchodilators Educated regarding the increased use of the incentive spirometer Increase his activity as tolerated We will continue to follow
[2023-03-27] MEDS: METOPROLOL TARTRATE 25 MG TAB PO SCH ×2 (10:35→20:13)
[2023-03-27 11:08] VITALS: BMI 37.2
[2023-03-27 11:58] LABS: Glucose,Whole Blood 202 mg/dL (70-110)
--- NOTE | 2023-03-27 12:19 | P.PN ---
Subjective Progress Note Date: 03/27/23 PROGRESS NOTE The patient is a 67-year-old male, status post aortic valve replacement and bypass to the OM and PDA. He is doing well this morning, sitting up in the chair, in sinus mechanism. He denies any chest discomfort, dizziness or palpitations. He ambulated without significant problems. Hemodynamically he stable. He has no evidence of malignant arrhythmia. Urinary output has been stable. He is on no vasopressors. He had moderate systolic dysfunction preoperatively March 27: The patient feels better today, according to him his breathing and energy is much better. He denies any chest discomfort, dizziness or palpitations. His blood pressure is on the lower side. He continues to be in sinus mechanism. He denies any nausea or vomiting. Medications: Aspirin 81 mg daily, Amlodipine 5 mg daily, Lipitor 40 mg daily, Plavix 75 mg daily, metoprolol 50 mg twice a day, lisinopril 5 mg daily PHYSICAL EXAMINATION: Blood pressure 97/50 heart rate 80 LUNGS: Few crackles at the base HEART: Regular rate and rhythm, S1, S2. No S3. systolic ejection murmur ABDOMEN: Soft, nontender, no organomegaly EXTREMETIES: No edema LAB: BUN 30, creatinine 1.38, potassium 4.1, hemoglobin 7.3 IMPRESSION: 1. Status post aortic valve replacement and CABG 2. Acute renal injury 3. History of diabetes 4. History of hypertension, now hypotensive PLAN: 1. Continue beta hanane 2. Stop LINDSEY inhibitor 3. Follow her renal functions 4. Increase physical activity Objective - Vital Signs Vital signs: Vital Signs Temp 97.8 F 03/27/23 11:30 Pulse 85 03/27/23 12:00 Resp 12 03/27/23 12:00 BP 123/64 03/27/23 11:30 Pulse Ox 93 L 03/27/23 11:30 FiO2 40 03/24/23 14:00 Intake & Output 03/26/23 03/27/23 03/27/23 18:59 06:59 18:59 Intake Total 222.271 540 50 Output Total 1204 885 300 Balance -981.729 -345 -250 Weight 107.9 kg 107.9 kg Intake: IV 189 .9NS Pressure Bag 9 Lactated Ringers 1,000 ml 180 @ 20 mls/hr IV .Q24H [facility] Rx#:[id number] Intake, IV Titration 33.271 50 Amount Albumin Human 25% 50 ml 50 In Empty Bag 1 bag @ 50 mls/hr IVPB ONCE ONE Rx#: [id number] Insulin Regular 100 unit 33.271 In Sodium Chloride 0.9% 100 ml @ Per Protocol IV .Q0M [facility] Rx#:[id number] Oral 540 Output: Chest Tube Drainage 204 160 60 left pleural 140 160 60 right pleural 64 Urine 1000 725 225 Post Void Residual 15 Other: Voiding Method Urinal Urinal Urinal ABP, PAP, CO, CI - Last Documented Arterial Blood Pressure 146/55 Pulmonary Artery Pressure 54/22 Cardiac Output 8 Cardiac Index 3.8 - Labs CBC & Chem 7: 03/27/23 06:05 03/27/23 06:05 Labs: Abnormal Lab Results - Last 24 Hours (Table) 03/26/23 03/26/23 03/26/23 Range/Units 13:03 14:09 15:18 RBC (4.30-5.90) m/uL Hgb (13.0-17.5) gm/dL Hct (39.0-53.0) % RDW (11.5-15.5) % Plt Count (150-450) k/uL Sodium (137-145) mmol/L BUN (9-20) mg/dL Creatinine (0.66-1.25) mg/dL Glucose (74-99) mg/dL POC Glucose (mg/dL) 138 H 205 H 203 H (70-110) mg/dL Calcium (8.4-10.2) mg/dL 03/26/23 03/26/23 03/27/23 Range/Units 16:33 20:03 06:05 RBC (4.30-5.90) m/uL Hgb (13.0-17.5) gm/dL Hct (39.0-53.0) % RDW (11.5-15.5) % Plt Count (150-450) k/uL Sodium 135 L (137-145) mmol/L BUN 30 H (9-20) mg/dL Creatinine 1.38 H (0.66-1.25) mg/dL Glucose 149 H (74-99) mg/dL POC Glucose (mg/dL) 180 H 296 H (70-110) mg/dL Calcium 7.8 L (8.4-10.2) mg/dL 03/27/23 03/27/23 03/27/23 Range/Units 06:05 06:26 11:57 RBC 2.33 L (4.30-5.90) m/uL Hgb 7.3 L (13.0-17.5) gm/dL Hct 21.9 L (39.0-53.0) % RDW 19.3 H (11.5-15.5) % Plt Count 88 L (150-450) k/uL Sodium (137-145) mmol/L BUN (9-20) mg/dL Creatinine (0.66-1.25) mg/dL Glucose (74-99) mg/dL POC Glucose (mg/dL) 164 H 202 H (70-110) mg/dL Calcium (8.4-10.2) mg/dL
[2023-03-27] MEDS: LINAGLIPTIN 5 MG TABLET PO SCH (13:13)
--- NOTE | 2023-03-27 14:49 | P.PN ---
Subjective Progress Note Date: 03/27/23 Patient is a 65-year-old male with a known history of hypertension, hyperlipidemia, diabetes type 2 [id number], obstructive sleep apnea not on CPAP, coronary artery disease, severe aortic stenosis, chronic occlusion of the right ICA and moderate stenosis involving the left ICA was to the [facility] for elective aortic valve replacement and myocardial revascularization. Patient underwent IL-12 replacement and two-vessel bypass LRA to OM and SVG to PDA. Patient had RAE on 01/05/2023 showed severe aortic stenosis involving tricuspid aortic valve with planimetry area of around 0.4 2.6 cm. Normal LV systolic function. Mild to moderate MR. Patient had cardiac catheterization on 01/04/2023 showed right coronary artery is a codominant vessel that was previously stented extensively. Mid RCA showed focal 90% stenosis. Left main coronary artery appears to be calcified but is free of significant stenosis. Circumflex artery showed 80 to 90% ostial stenosis, LAD showed mild to moderate diffuse mild nonfocal atherosclerotic block. Severe two-vessel coronary disease. Patient was referred to Dr. Jensen for evaluation of aortic valve replacement with two-vessel bypass surgery. Patient was intubated perioperatively and was transferred to MICU postprocedure. Laboratory data showed WBC 8.5 hemoglobin 10.4 and platelets 105. ABG showed pH 7.4 PCO2 41 PO2 64. Sodium 138 potassium 4.3 chloride 108 bicarb is 24 BUN 21 creatinine 1.23 and blood sugar is 111. Patient is currently on milrinone drip, Cardizem and norepinephrine. Patient is also on insulin drip. 03/23/2023 Patient is currently in the MICU. Remains on mechanical ventilator. Patient is also sedated with propofol. On assist control 16 with FiO2 40% and PEEP of 10 and tidal volume 600. ABGs this morning showed pH 7.39 PCO2 37 PO2 206 bicarb is 22 Patient is being cannula pressor support with norepinephrine and vasopressin. Patient is also IV albumin. Mediastinal and right and left pleural chest tubes in place with low suction. Was also noted to have serosanguineous drainage from the mediastinal chest tubes. Hemoglobin 8.7 today dropped to 7.6. Patient did receive 3 units of PRBCs and 1 unit of platelet and 1 L of fold cryoprecipitate. Chest x-ray this morning showed postoperative changes with stable areas of consolidation tiny bilateral effusion. Correlate for mild venous congestion. Other laboratory data showed WBC 11.9 hemoglobin 8.7 and platelets 99 sodium 138 potassium 4.6 chloride 109 bicarb is 21 BUN 27 creatinine 2.44 and blood sugar is 133. Patient remained on insulin drip. 03/24/2023 Patient is currently in the MICU. Patient was extubated this afternoon and was placed on Ventimask. Patient is awake alert and oriented. Unable to communicate well at this time. Otherwise patient is here for the unit of PRBCs today. Hemoglobin was 6.5 this morning. Chest x-ray showed stable bibasilar airspace opacities/atelectasis with a small left pleural effusion, pulmonary vascular congestion, mediastinal and right and left chest tubes remains in place. No leak detected. NG tube in place. Laboratory data showed WBC 8.8 hemoglobin 6.5 and platelets 54 Sodium 138 potassium 4.2 chloride 109, BUN 34 and creatinine 2.27 and blood sugar is 129. 03/25/2023 Patient is currently in the MICU. Sitting in the chair. Awake alert and oriented x3. On oxygen at 2 L via nasal cannula. Able to tolerate oral diet. Remains on insulin drip for blood sugar control. Chest x-ray showed left basilar airspace opacity/atelectasis. Small left pleural effusion. Laboratory test showed WBC 10.4 hemoglobin 7.8 and platelets 51 sodium 139 potassium 4.0 chloride 110 bicarb is 23 BUN 34 and creatinine 1.47 and albumin 2.8 Patient will be transitioned to subcu insulin tomorrow. 03/26/2023 Patient is seen and evaluated in follow-up today continues to be in the ICU with multiple medical consultations following. Patient is status post extubation on 03/24/2023 currently down to2 L via nasal cannula denying any worsening shortness of breath. Patient reports a dry cough with chest pain most likely chest wall pain and does have heart hugger noted and instructed to continue using. Patient had Cordis catheter removed this morning and scheduled to get up and walk. Patient did have one chest tube removed today continues with one with possible removal tomorrow. Follow-up chest x-ray recommended. Patient was on insulin drip and has been transitioned to consistent carb diet and will adjust insulins and add sliding scale along with long-acting twice daily as blood sugars are above 200. Patient is currently afebrile with no reports of chest pain or palpitations. 03/27/2023 Patient is seen in follow-up this morning currently sitting up in the chair continues to be in the ICU with multiple medical consultations including cardiothoracic and cardiology following. Patient chest x-ray today shows bilateral suspected postoperative atelectasis with mild venous congestion and resolution of the tiny left apical pneumothorax noted on previous exam is not noted. Patient was having some urinary retention started on Flomax requiring straight catheterization. Patient denies any pain or burning with urination. Patient's blood sugars have been slightly elevated and home medications currently on hold Will add tradjenta and also increased long-acting and continue sliding scale with Accu-Cheks before meals and at bedtime. Patient is up and walking and encouraged to increase activity as tolerated. Strongly encouraged incentive spirometer use at least 10 times every hour while awake. Review of systems: Constitutional: No reports of fatigue, fever, or chills Cardiovascular: No reports of chest pain or palpitations Respiratory: reports of intermittent shortness of breath with a dry hacking cough, improving GI: No reports of nausea, vomiting, or diarrhea : No reports of dysuria or retention Neurovascular: reports of weakness or numbness All medications have been reviewed Active Medications Hydrocodone Bitart/Acetaminophen (Hydrocodone/Apap 5-325mg 1 Each Tab) 1 each PO Q4HR PRN PRN Reason: Moderate Pain (Scale 4 to 6) Hydrocodone Bitart/Acetaminophen (Hydrocodone/Apap 10-325mg 1 Each Tab) 1 each PO Q4HR PRN PRN Reason: Severe Pain (Scale 7 to 10) Last Admin: 03/27/23 14:08 Dose: 1 each Albuterol/Ipratropium (Ipratropium-Albuterol 3 Ml Neb) 3 ml INHALATION RT-Q2H PRN PRN Reason: Shortness Of Breath Or Wheezing Albuterol/Ipratropium (Ipratropium-Albuterol 3 Ml Neb) 3 ml INHALATION RT-QID [facility] Last Admin: 03/27/23 11:49 Dose: 3 ml Amlodipine Besylate (Amlodipine 2.5 Mg Tab) 2.5 mg PO 1200 ANGELA Aspirin (Aspirin 81 Mg) 81 mg PO DAILY [facility] Last Admin: 03/27/23 08:44 Dose: 81 mg Atorvastatin Calcium (Atorvastatin 40 Mg Tab) 40 mg PO DAILY [facility] Last Admin: 03/27/23 08:44 Dose: 40 mg Benzocaine/Menthol (Benzocaine/Menthol Lozeng 1 Each Lozenge) 1 each MUCOUS MEM Q2H PRN PRN Reason: Sore Throat Last Admin: 03/24/23 17:42 Dose: 1 each Bisacodyl (Bisacodyl 10 Mg Supp) 10 mg RECTAL DAILY PRN PRN Reason: Constipation Clopidogrel Bisulfate (Clopidogrel 75 Mg Tab) 75 mg PO DAILY [facility] Last Admin: 03/27/23 08:45 Dose: 75 mg Dextrose/Water (Dextrose 50% Syringe 50 Ml) 25 ml IVP PER PROTOCOL PRN; Protocol PRN Reason: Hypoglycemia Dextrose/Water (Dextrose 50% Syringe 50 Ml) 50 ml IVP PER PROTOCOL PRN; Protocol PRN Reason: Hypoglycemia Ferrous Sulfate (Ferrous Sulfate 325 Mg Tab) 325 mg PO BID-W/MEALS [facility] Last Admin: 03/27/23 06:30 Dose: 325 mg Folic Acid (Folic Acid 1 Mg Tab) 1 mg PO DAILY [facility] Last Admin: 03/27/23 08:41 Dose: 1 mg Fondaparinux (Fondaparinux 2.5 Mg/0.5 Ml Syringe) 2.5 mg SQ DAILY [facility] Last Admin: 03/27/23 08:45 Dose: 2.5 mg Guaifenesin (Guaifenesin 600 Mg Tablet.Er) 1,200 mg PO Q12HR [facility] Last Admin: 03/27/23 08:44 Dose: 1,200 mg Hydralazine HCl (Hydralazine Hcl 20 Mg/Ml 1 Ml Vial) 10 mg IVP Q1H PRN PRN Reason: Blood Pressure - High Amiodarone HCl 150 mg/ (Dextrose/Water) 103 mls @ 618 mls/hr IV .Q10M PRN; Protocol PRN Reason: A.FIB/FLUTTER Amiodarone HCl 360 mg/ (Dextrose/Water) 207.2 mls @ 34.533 mls/hr IV .Q6H PRN; Protocol PRN Reason: A.FIB/FLUTTER Amiodarone HCl 450 mg/ (Dextrose/Water) 250 mls @ 16.667 mls/hr IV .Q15H PRN; Protocol PRN Reason: A.FIB/FLUTTER Insulin Aspart (Insulin Aspart (Novolog) 100 Unit/Ml Vial) 0 unit SQ ACHS [facility]; Protocol Last Admin: 03/27/23 12:40 Dose: 4 unit Insulin Detemir (Insulin Detemir (Levemir) 100 Unit/Ml Syr) 20 unit SQ BID@0700,2100 [facility] Linagliptin (Linagliptin 5 Mg Tablet) 5 mg PO DAILY [facility] Last Admin: 03/27/23 13:13 Dose: 5 mg Magnesium Hydroxide (Magnesium Hydroxide 2,400 Mg/30 Ml Cup) 2,400 mg PO BID PRN PRN Reason: Constipation Metoclopramide HCl (Metoclopramide 5 Mg/Ml 2 Ml Vial) 10 mg IVP Q4H PRN PRN Reason: Nausea And Vomiting Metoprolol Tartrate (Metoprolol Tartrate 25 Mg Tab) 25 mg PO BID [facility] Last Admin: 03/27/23 10:35 Dose: 25 mg Miscellaneous Information (Potassium Replacement Protocol 1 Each Misc) 1 each MISCELLANE DAILY PRN; Protocol PRN Reason: Per Protocol Miscellaneous Information (Magnesium Replacement Protocol 1 Each Misc) 1 each MISCELLANE DAILY PRN; Protocol PRN Reason: Per Protocol Multivitamins (Multivitamins, Thera 1 Each Tab) 1 each PO DAILY [facility] Last Admin: 03/27/23 08:44 Dose: 1 each Ondansetron HCl (Ondansetron 4 Mg/2 Ml Vial) 4 mg IVP Q6HR PRN PRN Reason: Nausea And Vomiting Pantoprazole Sodium (Pantoprazole 40 Mg Tablet) 40 mg PO AC-BRKFST [facility] Last Admin: 03/27/23 06:30 Dose: 40 mg Senna/Docusate Sodium (Sennosides-Docusate Sodium 1 Each Tab) 2 each PO HS [facility] Last Admin: 03/26/23 20:13 Dose: 2 each Sodium Chloride (Sodium Chloride 0.9% Flush 10 Ml Syringe) 10 ml IV BID [facility] Last Admin: 03/27/23 08:45 Dose: 10 ml Tamsulosin HCl (Tamsulosin 0.4 Mg Cap.Er.24h) 0.4 mg PO PC-SUPPER [facility] Last Admin: 03/26/23 18:16 Dose: 0.4 mg Thiamine HCl (Thiamine 100 Mg Tab) 100 mg PO DAILY [facility] Last Admin: 03/27/23 08:45 Dose: 100 mg Zinc Acetate/Diphenhydramine (Diphenhydramine 2% Cream 28.4 Gm Tube) 1 applic TOPICAL TID PRN; Protocol PRN Reason: rash to back Physical exam: Patient is and oriented. Currently sitting up in the chair. Off mechanical ventilator..currently on 2 L HEENT: Normocephalic. Neck is supple. Pupils reactive. Nostrils clear. Oral cavity is moist. Neck reveals no JVD, carotid bruits, or thyromegaly. CHEST EXAMINATION: Trachea is central. Symmetrical expansion. Bibasilar dimini shed sounds.. No wheezing or rhonchi. right pleural chest tube removed today. Mediastinal chest tube remains. Midline incision bandaged. CARDIAC: Normal S1, S2 with no gallops. No murmurs ABDOMEN: Soft. Bowel sounds present. No organomegaly. No abdominal bruits. Extremities: reveal no edema. No clubbing or cyanosis Neurologically patient is awake alert and oriented.. No gross focal deficits noted diffusely weak. Skin: No rash or skin lesions. Psychiatric: Cooperative. non suicidal Musculoskeletal: No joint swelling or deformity Assessment: Status post elective aortic valve replacement with bioprosthetic and two-vessel coronary artery bypass graft, LRA to OM and SVG to PDA. On 03/22/2023. Patient is status post successful extubation on 03/24/2023 Postoperative hypotension requiring pressor support. off pressor support now, Acute blood loss anemia from the mediastinal chest tube requiring blood transfusion. Acute kidney injury possible ATN due to hemodynamic changes. Severe aortic stenosis Severe two-vessel coronary disease Chronic CHF with preserved ejection fraction Coronary artery disease with history of multiple stent placement Diabetes type 2 [id number], uncontrolled with hyperglycemia Hypertension Hyperlipidemia Obstructive sleep apnea not on CPAP Obesity with BMI 34.7 Currently everyday smoker GI and DVT prophylaxis. On PPI and heparin subcu Plan: Patient is currently in the MICU. Patient was extubated on 03/24/23.. currently maintained on 2 L maintaining oxygen saturation above 90% Patient does have incentive spirometer and encouraged the patient to continue using at least 10 times every hour while awake off pressor support with norepinephrine and vasopressin. Patient received 4 units of PRBC blood transfusion during hospitalization. hemoglobin is stable today at 7.3 and will transfuse of 7 or less Pt. was given platelets and cryoprecipitate. Continue to monitor CBC. Patient has been transitioned to sliding scale along with Accu-Cheks before meals and at bedtime and increasing long-acting to twice daily, will add Flyrebeccaa Patient was transitioned to Consistent carbohydrate heart healthy diet and tolerating with some elevated blood glucose levels Will continue to follow closely and further recommendations based on clinical course. thank you kindly for this consultation. The impression and plan of care has been dictated by Marjorie Lundberg, Nurse Practitioner as directed. Dr. Sandip MD I have performed a history and examination and MDM of this patient, discussed the same with the dictator, and agree with the dictator's assessment and plan as written ,documented as a scribe. Based on total visit time, I have performed more than 50% of the visit. Objective - Vital Signs Vital signs: Vital Signs Temp 97.8 F 03/27/23 11:30 Pulse 85 03/27/23 12:00 Resp 12 03/27/23 12:00 BP 123/64 03/27/23 11:30 Pulse Ox 93 L 03/27/23 11:30 FiO2 40 03/24/23 14:00 Intake & Output 03/26/23 03/27/23 03/27/23 18:59 06:59 18:59 Intake Total 222.271 540 50 Output Total 1204 885 300 Balance -981.729 -345 -250 Weight 107.9 kg 107.9 kg Intake: IV 189 .9NS Pressure Bag 9 Lactated Ringers 1,000 ml 180 @ 20 mls/hr IV .Q24H [facility] Rx#:[id number] Intake, IV Titration 33.271 50 Amount Albumin Human 25% 50 ml 50 In Empty Bag 1 bag @ 50 mls/hr IVPB ONCE ONE Rx#: [id number] Insulin Regular 100 unit 33.271 In Sodium Chloride 0.9% 100 ml @ Per Protocol IV .Q0M [facility] Rx#:[id number] Oral 540 Output: Chest Tube Drainage 204 160 60 left pleural 140 160 60 right pleural 64 Urine 1000 725 225 Post Void Residual 15 Other: Voiding Method Urinal Urinal Urinal ABP, PAP, CO, CI - Last Documented Arterial Blood Pressure 146/55 Pulmonary Artery Pressure 54/22 Cardiac Output 8 Cardiac Index 3.8 - Labs CBC & Chem 7: 03/27/23 06:05 03/27/23 06:05 Labs: Abnormal Lab Results - Last 24 Hours (Table) 03/26/23 03/26/23 03/26/23 Range/Units 13:03 14:09 15:18 RBC (4.30-5.90) m/uL Hgb (13.0-17.5) gm/dL Hct (39.0-53.0) % RDW (11.5-15.5) % Plt Count (150-450) k/uL Sodium (137-145) mmol/L BUN (9-20) mg/dL Creatinine (0.66-1.25) mg/dL Glucose (74-99) mg/dL POC Glucose (mg/dL) 138 H 205 H 203 H (70-110) mg/dL Calcium (8.4-10.2) mg/dL 03/26/23 03/26/23 03/27/23 Range/Units 16:33 20:03 06:05 RBC (4.30-5.90) m/uL Hgb (13.0-17.5) gm/dL Hct (39.0-53.0) % RDW (11.5-15.5) % Plt Count (150-450) k/uL Sodium 135 L (137-145) mmol/L BUN 30 H (9-20) mg/dL Creatinine 1.38 H (0.66-1.25) mg/dL Glucose 149 H (74-99) mg/dL POC Glucose (mg/dL) 180 H 296 H (70-110) mg/dL Calcium 7.8 L (8.4-10.2) mg/dL 03/27/23 03/27/23 03/27/23 Range/Units 06:05 06:26 11:57 RBC 2.33 L (4.30-5.90) m/uL Hgb 7.3 L (13.0-17.5) gm/dL Hct 21.9 L (39.0-53.0) % RDW 19.3 H (11.5-15.5) % Plt Count 88 L (150-450) k/uL Sodium (137-145) mmol/L BUN (9-20) mg/dL Creatinine (0.66-1.25) mg/dL Glucose (74-99) mg/dL POC Glucose (mg/dL) 164 H 202 H (70-110) mg/dL Calcium (8.4-10.2) mg/dL
[2023-03-27] MEDS: amLODIPine 2.5 MG TAB PO SCH (16:16)
[2023-03-27 16:30] LABS: Glucose,Whole Blood 138 mg/dL (70-110)
[2023-03-27] MEDS: TAMSULOSIN 0.4 MG CAP.ER.24H PO SCH (17:48)
[2023-03-27 20:07] LABS: Glucose,Whole Blood 190 mg/dL (70-110)
[2023-03-27] MEDS: SENNOSIDES-DOCUSATE SODIUM 1 EACH TAB PO SCH (20:13)
[2023-03-27] MEDS: HYDROcodone/APAP 5-325MG 1 EACH TAB PO PRN (21:49)
[2023-03-28] MEDS: HYDROcodone/APAP 10-325MG 1 EACH TAB PO PRN (03:50)
[2023-03-28 04:13] LABS: Anisocytosis Slight; HCT 22.8 % (39.0-53.0); HGB 7.2 gm/dL (13.0-17.5); Hypochromasia Moderate; MCHC 31.5 g/dL (31.0-37.0); Macrocytosis Slight; Mean Platelet Volume 8.4; Platelet Count 128 k/uL (150-450); RDW 19.4 % (11.5-15.5); WBC 7.1 k/uL (3.8-10.6)
[2023-03-28 04:26] LABS: ALT 29 U/L (4-49); AST 56 U/L (17-59); African American GFR (CKD) 70 (>60 ml/min/1.73 sqM); Albumin 2.9 g/dL (3.5-5.0); Alkaline Phosphatase 138 U/L (38-126); Anion Gap 8 mmol/L; Blood Urea Nitrogen 31 mg/dL (9-20); Carbon Dioxide 23 mmol/L (22-30); Chloride 102 mmol/L (98-107); Glucose 147 mg/dL (74-99); Magnesium 2.1 mg/dL (1.6-2.3); Non-African American GFR(CKD) 61 (>60 ml/min/1.73 sqM); Sodium 133 mmol/L (137-145); Total Bilirubin 1.1 mg/dL (0.2-1.3); Total Protein 5.7 g/dL (6.3-8.2)
[2023-03-28 05:54] LABS: Glucose,Whole Blood 170 mg/dL (70-110)
[2023-03-28 06:36] LABS: Glucose,Whole Blood 188 mg/dL (70-110)
[2023-03-28] MEDS: FERROUS SULFATE 325 MG TAB PO SCH ×2 (06:43→16:32)
[2023-03-28] MEDS: INSULIN DETEMIR (LEVEMIR) 100 UNIT/ML SYR SQ SCH ×2 (06:43→20:26)
[2023-03-28] MEDS: PANTOPRAZOLE 40 MG TABLET PO SCH (06:43)
[2023-03-28] MEDS: INSULIN ASPART (NovoLOG) 100 UNIT/ML VIAL SQ SCH ×4 (06:43→20:34)
--- NOTE | 2023-03-28 07:37 | P.PN ---
Subjective Progress Note Date: 03/28/23 PROGRESS NOTE The patient is a 67-year-old male, status post aortic valve replacement and bypass to the OM and PDA. He is doing well this morning, sitting up in the chair, in sinus mechanism. He denies any chest discomfort, dizziness or palpitations. He ambulated without significant problems. Hemodynamically he stable. He has no evidence of malignant arrhythmia. Urinary output has been stable. He is on no vasopressors. He had moderate systolic dysfunction preoperatively March 27: The patient feels better today, according to him his breathing and energy is much better. He denies any chest discomfort, dizziness or palpitations. His blood pressure is on the lower side. He continues to be in sinus mechanism. He denies any nausea or vomiting. March 28: The patient is feeling well this morning, he continues to be in sinus mechanism, he ambulated yesterday without difficulty. His blood pressure is stable. He denies any dizziness, palpitations or syncope. He is using his incentive teo metry. He denies any nausea or vomiting. He has no evidence of atrial fibrillation. Medications: Aspirin 81 mg daily, Amlodipine 2.5 mg daily, Lipitor 40 mg daily, Plavix 75 mg daily, metoprolol 25 mg twice a day, insulin PHYSICAL EXAMINATION: Blood pressure 118/60 heart rate 84 LUNGS: Few crackles at the base with decreased breath sounds in the left base HEART: Regular rate and rhythm, S1, S2. No S3. systolic ejection murmur ABDOMEN: Soft, nontender, no organomegaly EXTREMETIES: No edema LAB: BUN 31, creatinine 1.21, potassium 4.0, hemoglobin 7.2 IMPRESSION: 1. Status post aortic valve replacement and CABG 2. Acute renal injury , improved 3. History of diabetes 4. History of hypertension, stable PLAN: 1. Continue beta hanane 2. Increase physical activity 3. Continue incentive spirometry 4. Depending on the blood pressure adjust treatment and add LINDSEY inhibitor Objective - Vital Signs Vital signs: Vital Signs Temp 98.8 F 03/28/23 04:00 Pulse 84 03/28/23 07:00 Resp 22 03/28/23 07:00 BP 118/66 03/28/23 07:00 Pulse Ox 96 03/28/23 07:00 FiO2 40 03/27/23 16:00 Intake & Output 03/27/23 03/28/23 03/28/23 18:59 06:59 18:59 Intake Total 50 540 Output Total 855 740 0 Balance -805 -200 0 Weight 107.9 kg 109.2 kg Intake: Intake, IV Titration 50 Amount Albumin Human 25% 50 ml 50 In Empty Bag 1 bag @ 50 mls/hr IVPB ONCE ONE Rx#: [id number] Oral 540 Output: Chest Tube Drainage 70 190 left pleural 70 190 Urine 530 550 0 Post Void Residual 255 Other: Voiding Method Urinal Urinal ABP, PAP, CO, CI - Last Documented Arterial Blood Pressure 146/55 Pulmonary Artery Pressure 54/22 Cardiac Output 8 Cardiac Index 3.8 - Labs CBC & Chem 7: 03/28/23 04:02 03/28/23 04:02 Labs: Abnormal Lab Results - Last 24 Hours (Table) 03/27/23 03/27/23 03/27/23 Range/Units 11:57 16:28 20:05 RBC (4.30-5.90) m/uL Hgb (13.0-17.5) gm/dL Hct (39.0-53.0) % RDW (11.5-15.5) % Plt Count (150-450) k/uL Sodium (137-145) mmol/L BUN (9-20) mg/dL Glucose (74-99) mg/dL POC Glucose (mg/dL) 202 H 138 H 190 H (70-110) mg/dL Calcium (8.4-10.2) mg/dL Alkaline Phosphatase (38-126) U/L Total Protein (6.3-8.2) g/dL Albumin (3.5-5.0) g/dL 03/28/23 03/28/23 03/28/23 Range/Units 04:02 04:02 05:52 RBC 2.40 L (4.30-5.90) m/uL Hgb 7.2 L (13.0-17.5) gm/dL Hct 22.8 L (39.0-53.0) % RDW 19.4 H (11.5-15.5) % Plt Count 128 L (150-450) k/uL Sodium 133 L (137-145) mmol/L BUN 31 H (9-20) mg/dL Glucose 147 H (74-99) mg/dL POC Glucose (mg/dL) 170 H (70-110) mg/dL Calcium 8.0 L (8.4-10.2) mg/dL Alkaline Phosphatase 138 H (38-126) U/L Total Protein 5.7 L (6.3-8.2) g/dL Albumin 2.9 L (3.5-5.0) g/dL 03/28/23 Range/Units 06:35 RBC (4.30-5.90) m/uL Hgb (13.0-17.5) gm/dL Hct (39.0-53.0) % RDW (11.5-15.5) % Plt Count (150-450) k/uL Sodium (137-145) mmol/L BUN (9-20) mg/dL Glucose (74-99) mg/dL POC Glucose (mg/dL) 188 H (70-110) mg/dL Calcium (8.4-10.2) mg/dL Alkaline Phosphatase (38-126) U/L Total Protein (6.3-8.2) g/dL Albumin (3.5-5.0) g/dL
--- NOTE | 2023-03-28 07:46 | P.PN ---
Subjective Progress Note Date: 03/28/23 Principal diagnosis: Severe aortic valve stenosis, coronary artery disease. Previous medical history of coronary artery disease with previous PCI, hypertension, hyperlipidemia, di abetes mellitus type 2, obesity, chronic ongoing tobacco dependence, obstructive sleep apnea with noncompliance with home CPAP use, occasional marijuana use, EtOH use drinking 7-8 beers a week, and medication noncompliance POD #6 coronary artery bypass grafting 2 vessels with radial artery to the obtuse marginal coronary artery, and a saphenous vein graft to the posterior descending coronary artery. Endoscopic harvesting of the left greater saphenous vein, endoscopic harvesting of the left radial artery, ligation of the left atrial appendage using a 35 mm Atriclip, aortic valve replacement using a 25 mm Rosario HERMEL DELORiris bioprosthetic valve, epi-aortic ultrasound and intraoperative transesophageal echocardiogram. Postoperative acute blood loss anemia and thrombocytopenia, expected given hemodilution and cardiopulmonary bypass. Acute hypoxic respiratory failure with prolonged mechanical ventilation Hypotension, currently off vasopressors The patient was seen and examined sitting up in a recliner in the intensive care unit in no acute distress. States pain is controlled on current medication regimen, denies shortness of breath. Remains in sinus rhythm and hemodynamically stable. Currently on room air with oxygen saturation in the low to mid 90s, able to achieve 1500 mL on his incentive spirometry. Left pleural chest tube, pacemaker wires remain. Labs, chest x-ray reviewed. Patient has ambulated in the hallway multiple times with assistance. No other new concerns. Objective - Vital Signs Vital signs: Vital Signs Temp 98.8 F 03/28/23 04:00 Pulse 84 03/28/23 07:00 Resp 22 03/28/23 07:00 BP 118/66 03/28/23 07:00 Pulse Ox 96 03/28/23 07:00 FiO2 40 03/27/23 16:00 Intake & Output 03/27/23 03/28/23 03/28/23 18:59 06:59 18:59 Intake Total 50 540 Output Total 855 740 0 Balance -805 -200 0 Weight 107.9 kg 109.2 kg Intake: Intake, IV Titration 50 Amount Albumin Human 25% 50 ml 50 In Empty Bag 1 bag @ 50 mls/hr IVPB ONCE ONE Rx#: [id number] Oral 540 Output: Chest Tube Drainage 70 190 left pleural 70 190 Urine 530 550 0 Post Void Residual 255 Other: Voiding Method Urinal Urinal ABP, PAP, CO, CI - Last Documented Arterial Blood Pressure 146/55 Pulmonary Artery Pressure 54/22 Cardiac Output 8 Cardiac Index 3.8 - Exam CONSTITUTIONAL: Appears comfortable, cooperative, no acute distress RESPIRATORY: Lungs sounds diminished bilaterally. Respirations even, nonlabored. Currently on room air with oxygen saturation 93-95%. Able to achieve 1500 mL on incentive spirometry. Strong cough. CARDIOVASCULAR: S1, S2 present. Regular rate and rhythm, sinus rhythm on telemetry. Sternum stable. Palpable peripheral pulses bilaterally. No edema present. No calf pain or tenderness noted. Heart hugger in place with patient demonstrating appropriate use. Antiembolism stockings, SCDs present. GASTROINTESTINAL: Abdomen soft, nontender, nondistended. Active bowel sounds present 4 quadrants. Tolerating diet. Positive flatus, negative bowel movement GENITOURINARY: Continues to void, output 1080 mL in the last 24 hours INTEGUMENTARY: Skin is warm and dry with evidence of good perfusion. Anterior chest incision well approximated and covered with dry intact dressing. Left radial artery harvest site as well as left lower extremityt EVH site well approximated without redness or drainage. NEUROLOGIC: Cranial nerves II through XII intact MUSKULOSKELETAL: Able to move all extremities, strength equal bilaterally, gait normal PSYCHIATRIC: Alert and oriented to person place and time, appropriate affect, intact judgment and insight INVASIVE LINES AND TUBES: Left pleural chest tube present and connected to wall suction, no air leaks present, 130 mL serosanguineous drainage overnight, 300 mL in the last 24 hours. A/V epicardial pacemaker wires present, grounded - Allied health notes Allied health notes reviewed: nursing - Labs CBC & Chem 7: 03/28/23 04:02 03/28/23 04:02 Labs: Abnormal Lab Results - Last 24 Hours (Table) 03/27/23 03/27/23 03/27/23 Range/Units 11:57 16:28 20:05 RBC (4.30-5.90) m/uL Hgb (13.0-17.5) gm/dL Hct (39.0-53.0) % RDW (11.5-15.5) % Plt Count (150-450) k/uL Sodium (137-145) mmol/L BUN (9-20) mg/dL Glucose (74-99) mg/dL POC Glucose (mg/dL) 202 H 138 H 190 H (70-110) mg/dL Calcium (8.4-10.2) mg/dL Alkaline Phosphatase (38-126) U/L Total Protein (6.3-8.2) g/dL Albumin (3.5-5.0) g/dL 03/28/23 03/28/23 03/28/23 Range/Units 04:02 04:02 05:52 RBC 2.40 L (4.30-5.90) m/uL Hgb 7.2 L (13.0-17.5) gm/dL Hct 22.8 L (39.0-53.0) % RDW 19.4 H (11.5-15.5) % Plt Count 128 L (150-450) k/uL Sodium 133 L (137-145) mmol/L BUN 31 H (9-20) mg/dL Glucose 147 H (74-99) mg/dL POC Glucose (mg/dL) 170 H (70-110) mg/dL Calcium 8.0 L (8.4-10.2) mg/dL Alkaline Phosphatase 138 H (38-126) U/L Total Protein 5.7 L (6.3-8.2) g/dL Albumin 2.9 L (3.5-5.0) g/dL 03/28/23 Range/Units 06:35 RBC (4.30-5.90) m/uL Hgb (13.0-17.5) gm/dL Hct (39.0-53.0) % RDW (11.5-15.5) % Plt Count (150-450) k/uL Sodium (137-145) mmol/L BUN (9-20) mg/dL Glucose (74-99) mg/dL POC Glucose (mg/dL) 188 H (70-110) mg/dL Calcium (8.4-10.2) mg/dL Alkaline Phosphatase (38-126) U/L Total Protein (6.3-8.2) g/dL Albumin (3.5-5.0) g/dL - Imaging and Cardiology Chest x-ray: image reviewed Assessment and Plan Assessment: Severe aortic valve stenosis, status post aortic valve replacement Coronary artery disease with history of previous PCI, status post 2 vessel CABG History of hypertension Hyperlipidemia, treated, cholesterol 124, LDL 57, TG 112 Diabetes mellitus type 2, preoperative hemoglobin A1c 6.6% Carotid stenosis, complete occlusion of right ICA and 60% occlusion of left ICA per neck CTA Chronic ongoing tobacco dependence, preoperative FEV1 84% of predicted Obstructive sleep apnea with noncompliance of home CPAP use Occasional marijuana use, smokes 1-2 joints per week Occasional EtOH use, drinks 7-8 beers per week Medication noncompliance Acute kidney injury, resolving Postoperative acute blood loss anemia and thrombocytopenia, expected given hemodilution and cardiopulmonary bypass Acute hypoxic respiratory failure, requiring prolonged mechanical ventilation Hypotension, currently off vasopressors Plan: Continue to maximize medical therapy with low-dose aspirin, statin, Plavix and beta hanane Continue CCB for radial artery spasm prophylaxis, hold parameters placed Encourage incentive spirometry use 10 times every hour while awake. Bronchodilators per pulmonology. Mucinex 1200 mg by mouth twice a day Increase activity, ambulate as tolerated. PT/OT/cardiac rehab following Will monitor daily labs and chest x-rays. Electrolyte replacement per protocol GI/DVT prophylaxis Pain control per current medication regimen Insulin management per internal medicine. Patient is diabetic with hemoglobin A1c 6.6%, needs tight blood sugar control to prevent infection and promote healing Will discontinue epicardial pacer wires, patient to remain on bedrest for 1 hour post wire removal Likely will discontinue left pleural chest tube Continue to record strict inaccurate I's and O's Daily weights Importance of risks modifications including smoking cessation counseling and education discussed [facility], may transfer when bed available More recommendations to follow based on patient's clinical course.
[2023-03-28] MEDS: IPRATROPIUM-ALBUTEROL 3 ML NEB INHALATION SCH ×4 (07:48→21:24)
--- NOTE | 2023-03-28 07:52 | XR ---
EXAMINATION TYPE: XR chest 1V portable DATE OF EXAM: 03/28/2023 5:51 AM COMPARISON: Chest radiographs from 03/27/2023 TECHNIQUE: XR chest 1V portable Frontal view of the chest. CLINICAL INDICATION:Male, 67 years old with history of Post op Cardiac surgery; FINDINGS: Lungs/Pleura: There is no evidence of pleural effusion, focal consolidation, or right pneumothorax. Pulmonary vascularity: Unremarkable. Heart/mediastinum: Cardiomediastinal silhouette is enlarged and stable. Left atrial appendage occlusi on device is present. Musculoskeletal: No acute osseous pathology. Midline sternotomy wires are noted. Other findings: None Lines/Tubes: Left thoracotomy tube with small pneumothorax. IMPRESSION: 1. Left thoracotomy tube with small pneumothorax. 2. Cardiomegaly.
[2023-03-28] MEDS: CLOPIDOGREL 75 MG TAB PO SCH (08:14)
[2023-03-28] MEDS: LINAGLIPTIN 5 MG TABLET PO SCH (08:14)
[2023-03-28] MEDS: FOLIC ACID 1 MG TAB PO SCH (08:15)
[2023-03-28] MEDS: MULTIVITAMINS, THERA 1 EACH TAB PO SCH (08:15)
[2023-03-28] MEDS: FONDAPARINUX 2.5 MG/0.5 ML SYRINGE SQ SCH (08:15)
[2023-03-28] MEDS: ATORVASTATIN 40 MG TAB PO SCH (08:15)
[2023-03-28] MEDS: THIAMINE 100 MG TAB PO SCH (08:15)
[2023-03-28] MEDS: guaiFENesin 600 MG TABLET.ER PO SCH ×2 (08:15→20:26)
[2023-03-28] MEDS: METOPROLOL TARTRATE 25 MG TAB PO SCH ×2 (08:15→20:26)
[2023-03-28] MEDS: ASPIRIN 81 MG PO SCH (08:15)
[2023-03-28] MEDS: MAGNESIUM HYDROXIDE 2,400 MG/30 ML CUP PO PRN ×2 (08:15→20:26)
[2023-03-28] MEDS: HYDROcodone/APAP 5-325MG 1 EACH TAB PO PRN ×3 (08:15→23:36)
--- NOTE | 2023-03-28 09:37 | P.PN ---
Subjective Progress Note Date: 03/28/23 On today's evaluation of 03/26/2023, the patient is postop day #4. The patient underwent aortic valve replacement and two-vessel bypass surgery. He is currently stable on 2 L of oxygen by nasal cannula. Is using the incentive spirometer and the patient is falling approximately 1.2 L. His able to sit up on a chair. Is hemodynamically stable. He is currently off pressors. Chest tubes have been removed. Note that the mediastinal chest tubes were removed 2 days ago and the patient had a right-sided chest tube. The left lower chest tube has been removed. Output from the left-sided chest tube is in order of 20- 30 mL an hour. Meanwhile, repeat chest x-ray was done and shows some consolidation left lung base. Left sided chest tube is in a good location. Right-sided chest tube has been removed. No evidence of any significant plural effusion. Blood work from today shows improvement in his creatinine which is down to 1.1. Sodium levels of 137. Hemoglobin is at 7.4. White suppositive 0 .6. His underlying cardiac rhythm is normal sinus rhythm. His tolerating diet. No nausea or emesis. No other significant events overnight. He was given Lasix today. He is also metoprolol 50 mg twice a day. He will be also started on low-dose LINDSEY inhibitor's. Neurologically intact. The patient is passing gas. No nausea or emesis. No abdominal distention. No chest pain and his pain is under good control for now. 03/27/2022 the patient is postop day #5. He is post two-vessel bypass surgery and aortic valve replacement. He remains on 2 L of oxygen nasal cannula. The left-sided chest tube is still in place and output over the past 24 hours has been in the order Of 50 ML. Note That the Right Lower Chest Abdomen and Mediastinal Chest Tubes Have Been Removed. Hemodynamically Stable Although He Has a Soft of Blood Pressure. He Received Lasix Yesterday. He Received a Total of 2 doses of Lasix 40 mg IV each dose. On today's blood work, the patient has a low hemoglobin of 7.3, BUN of 30 with a creatinine of 1.3 and a sodium level is at 135. The glucose at 164. Note that the patient did encounter and acute kidney injury and the creatinine was improving. Lisinopril was added yesterday and this was subsequently discontinued. No nausea. No emesis. No gastric distention. No other significant issues. He is ambulating. Chest x-ray shows cardiomegaly. Left-sided chest tube is in a good location and there is no evidence of any pneumothorax. On 03/28/2022, the patient is postop day #6. Left-sided chest tube was kept in place and output is in order of 300 mL over the past 24 hours and 130 mL overnight. Chest x-ray from today showed no evidence of any pneumothorax. Is using incentive spirometer. Pulling approximately 1500. He is hemodynamically stable. He is in a sinus rhythm. Urine output is adequate. Blood pressure is soft. He has not required any pressors. Renal function is improved. Creatinine is down to 1.2 with a BUN of 31 and his sodium level is 133 with a potassium level of 4.0. The echoes at 7.1 with a hemoglobin of 7.2. The patient's was taken off the LINDSEY inhibitor's yesterday. He was started on beta blockers and is currently on metoprolol 25 mg by mouth twice a day and those was used yesterday. Remains on aspirin. Remains on Plavix. Surgical wound over the chest is dry clean and intact. Neurologically stable and intact. Following commands. No signs of any respiratory distress and the patient is currently on room air oxygen. Objective - Vital Signs Vital signs: Vital Signs Temp 98.8 F 03/28/23 08:00 Pulse 82 03/28/23 09:00 Resp 26 H 03/28/23 09:00 BP 83/51 03/28/23 09:00 Pulse Ox 92 L 03/28/23 09:00 FiO2 40 03/27/23 16:00 Intake & Output 03/27/23 03/28/23 03/28/23 18:59 06:59 18:59 Intake Total 50 540 150 Output Total 855 740 270 Balance -805 -200 -120 Weight 107.9 kg 109.2 kg Intake: Intake, IV Titration 50 Amount Albumin Human 25% 50 ml 50 In Empty Bag 1 bag @ 50 mls/hr IVPB ONCE ONE Rx#: [id number] Oral 540 150 Output: Chest Tube Drainage 70 190 20 left pleural 70 190 20 Urine 530 550 250 Post Void Residual 255 Other: Voiding Method Urinal Urinal Urinal ABP, PAP, CO, CI - Last Documented Arterial Blood Pressure 146/55 Pulmonary Artery Pressure 54/22 Cardiac Output 8 Cardiac Index 3.8 - Exam GENERAL EXAM: Awake, alert pleasant 67-year-old male, up in a chair, on room air oxygen, fairly comfortable in no apparent distress. HEAD: Normocephalic. EYES: Normal reaction of pupils, equal size. NOSE: Clear with pink turbinates. THROAT: No erythema or exudates. NECK: Right IJ Cordis in place. No masses, no JVD. CHEST: Sternal dressing dry and intact. Chest she was admitted removed and the sternum is stable clean and intact LUNGS: Equal air entry with crackles in the bilateral bases, left greater than right. CVS: S1 and S2 normal with no audible murmur, regular rhythm. ABDOMEN: No hepatosplenomegaly, hypoactive bowel sounds, no guarding or rigidity. SPINE: No scoliosis or deformity SKIN: No rashes CENTRAL NERVOUS SYSTEM: No focal deficits, tone is normal in all 4 extremities. EXTREMITIES: There is no peripheral edema. No clubbing, no cyanosis. Peripheral pulses are intact. - Labs CBC & Chem 7: 03/28/23 04:02 03/28/23 04:02 Labs: Abnormal Lab Results - Last 24 Hours (Table) 03/27/23 03/27/23 03/27/23 Range/Units 11:57 16:28 20:05 RBC (4.30-5.90) m/uL Hgb (13.0-17.5) gm/dL Hct (39.0-53.0) % RDW (11.5-15.5) % Plt Count (150-450) k/uL Sodium (137-145) mmol/L BUN (9-20) mg/dL Glucose (74-99) mg/dL POC Glucose (mg/dL) 202 H 138 H 190 H (70-110) mg/dL Calcium (8.4-10.2) mg/dL Alkaline Phosphatase (38-126) U/L Total Protein (6.3-8.2) g/dL Albumin (3.5-5.0) g/dL 03/28/23 03/28/23 03/28/23 Range/Units 04:02 04:02 05:52 RBC 2.40 L (4.30-5.90) m/uL Hgb 7.2 L (13.0-17.5) gm/dL Hct 22.8 L (39.0-53.0) % RDW 19.4 H (11.5-15.5) % Plt Count 128 L (150-450) k/uL Sodium 133 L (137-145) mmol/L BUN 31 H (9-20) mg/dL Glucose 147 H (74-99) mg/dL POC Glucose (mg/dL) 170 H (70-110) mg/dL Calcium 8.0 L (8.4-10.2) mg/dL Alkaline Phosphatase 138 H (38-126) U/L Total Protein 5.7 L (6.3-8.2) g/dL Albumin 2.9 L (3.5-5.0) g/dL 03/28/23 Range/Units 06:35 RBC (4.30-5.90) m/uL Hgb (13.0-17.5) gm/dL Hct (39.0-53.0) % RDW (11.5-15.5) % Plt Count (150-450) k/uL Sodium (137-145) mmol/L BUN (9-20) mg/dL Glucose (74-99) mg/dL POC Glucose (mg/dL) 188 H (70-110) mg/dL Calcium (8.4-10.2) mg/dL Alkaline Phosphatase (38-126) U/L Total Protein (6.3-8.2) g/dL Albumin (3.5-5.0) g/dL Assessment and Plan Plan: Coronary artery disease status post two-vessel coronary artery bypass grafting. Postoperative day # 6 Severe aortic stenosis, status post aortic valve replacement with a 25 mm Rosario expressed bioprosthetic valve. Postoperative day # 6 Postoperative hypotension , recovered, earlier this morning, the patient's blo od pressure was soft and based on that the patient was taken off the lisinopril and the metoprolol dose was cut down to 25 mg by mouth twice a day and the patient also received IV albumin. Amlodipine was also decreased to 2.5 mg by mouth daily. The patient is stable hemodynamically. Renal function is also improved. Acute kidney injury, improving, creatinine improving Anemia, expected outcome of surgery, hemoglobin 6.5, received 4 units packed red blood cells. Current hemoglobin 7.2 Thrombocytopenia, , improving, expected outcome of surgery History of coronary artery disease with previous PCI History of hypertension Hyperlipidemia Diabetes mellitus Chronic and ongoing tobacco dependence Carotid stenosis History of marijuana use Obstructive sleep apnea not utilizing CPAP History of alcohol use Plan: Left-sided chest tube is still in place , output has been in the order of 3 ounces over the past 24 hours Patient is currently on room air oxygen Blood pressure medication adjustments was noted and the patient was placed on Norvasc 2.5 mg, his of was discontinued and the metoprolol 25 mg by mouth twice a day and the blood pressure is stable for now Monitor creatinine Hemodynamically stable Platelet counts improving, HIT antibodies are negative Hemoglobin is stable on Arixtra Continue with SCD's Continue bronchodilators Educated regarding the increased use of the incentive spirometer Increase his activity as tolerated We will continue to follow
[2023-03-28 11:07] LABS: Glucose,Whole Blood 187 mg/dL (70-110)
[2023-03-28] MEDS: amLODIPine 2.5 MG TAB PO SCH (11:54)
--- NOTE | 2023-03-28 14:50 | P.PN ---
Subjective Progress Note Date: 03/28/23 Patient is a 65-year-old male with a known history of hypertension, hyperlipidemia, diabetes type 2 [id number], obstructive sleep apnea not on CPAP, coronary artery disease, severe aortic stenosis, chronic occlusion of the right ICA and moderate stenosis involving the left ICA was to the [facility] for elective aortic valve replacement and myocardial revascularization. Patient underwent IL-12 replacement and two-vessel bypass LRA to OM and SVG to PDA. Patient had RAE on 01/05/2023 showed severe aortic stenosis involving tricuspid aortic valve with planimetry area of around 0.4 2.6 cm. Normal LV systolic function. Mild to moderate MR. Patient had cardiac catheterization on 01/04/2023 showed right coronary artery is a codominant vessel that was previously stented extensively. Mid RCA showed focal 90% stenosis. Left main coronary artery appears to be calcified but is free of significant stenosis. Circumflex artery showed 80 to 90% ostial stenosis, LAD showed mild to moderate diffuse mild nonfocal atherosclerotic block. Severe two-vessel coronary disease. Patient was referred to Dr. Jensen for evaluation of aortic valve replacement with two-vessel bypass surgery. Patient was intubated perioperatively and was transferred to MICU postprocedure. Laboratory data showed WBC 8.5 hemoglobin 10.4 and platelets 105. ABG showed pH 7.4 PCO2 41 PO2 64. Sodium 138 potassium 4.3 chloride 108 bicarb is 24 BUN 21 creatinine 1.23 and blood sugar is 111. Patient is currently on milrinone drip, Cardizem and norepinephrine. Patient is also on insulin drip. 03/23/2023 Patient is currently in the MICU. Remains on mechanical ventilator. Patient is also sedated with propofol. On assist control 16 with FiO2 40% and PEEP of 10 and tidal volume 600. ABGs this morning showed pH 7.39 PCO2 37 PO2 206 bicarb is 22 Patient is being cannula pressor support with norepinephrine and vasopressin. Patient is also IV albumin. Mediastinal and right and left pleural chest tubes in place with low suction. Was also noted to have serosanguineous drainage from the mediastinal chest tubes. Hemoglobin 8.7 today dropped to 7.6. Patient did receive 3 units of PRBCs and 1 unit of platelet and 1 L of fold cryoprecipitate. Chest x-ray this morning showed postoperative changes with stable areas of consolidation tiny bilateral effusion. Correlate for mild venous congestion. Other laboratory data showed WBC 11.9 hemoglobin 8.7 and platelets 99 sodium 138 potassium 4.6 chloride 109 bicarb is 21 BUN 27 creatinine 2.44 and blood sugar is 133. Patient remained on insulin drip. 03/24/2023 Patient is currently in the MICU. Patient was extubated this afternoon and was placed on Ventimask. Patient is awake alert and oriented. Unable to communicate well at this time. Otherwise patient is here for the unit of PRBCs today. Hemoglobin was 6.5 this morning. Chest x-ray showed stable bibasilar airspace opacities/atelectasis with a small left pleural effusion, pulmonary vascular congestion, mediastinal and right and left chest tubes remains in place. No leak detected. NG tube in place. Laboratory data showed WBC 8.8 hemoglobin 6.5 and platelets 54 Sodium 138 potassium 4.2 chloride 109, BUN 34 and creatinine 2.27 and blood sugar is 129. 03/25/2023 Patient is currently in the MICU. Sitting in the chair. Awake alert and oriented x3. On oxygen at 2 L via nasal cannula. Able to tolerate oral diet. Remains on insulin drip for blood sugar control. Chest x-ray showed left basilar airspace opacity/atelectasis. Small left pleural effusion. Laboratory test showed WBC 10.4 hemoglobin 7.8 and platelets 51 sodium 139 potassium 4.0 chloride 110 bicarb is 23 BUN 34 and creatinine 1.47 and albumin 2.8 Patient will be transitioned to subcu insulin tomorrow. 03/26/2023 Patient is seen and evaluated in follow-up today continues to be in the ICU with multiple medical consultations following. Patient is status post extubation on 03/24/2023 currently down to2 L via nasal cannula denying any worsening shortness of breath. Patient reports a dry cough with chest pain most likely chest wall pain and does have heart hugger noted and instructed to continue using. Patient had Cordis catheter removed this morning and scheduled to get up and walk. Patient did have one chest tube removed today continues with one with possible removal tomorrow. Follow-up chest x-ray recommended. Patient was on insulin drip and has been transitioned to consistent carb diet and will adjust insulins and add sliding scale along with long-acting twice daily as blood sugars are above 200. Patient is currently afebrile with no reports of chest pain or palpitations. 03/27/2023 Patient is seen in follow-up this morning currently sitting up in the chair continues to be in the ICU with multiple medical consultations including cardiothoracic and cardiology following. Patient chest x-ray today shows bilateral suspected postoperative atelectasis with mild venous congestion and resolution of the tiny left apical pneumothorax noted on previous exam is not noted. Patient was having some urinary retention started on Flomax requiring straight catheterization. Patient denies any pain or burning with urination. Patient's blood sugars have been slightly elevated and home medications currently on hold Will add tradjenta and also increased long-acting and continue sliding scale with Accu-Cheks before meals and at bedtime. Patient is up and walking and encouraged to increase activity as tolerated. Strongly encouraged incentive spirometer use at least 10 times every hour while awake. 03/28/2023 Patient is seen and evaluated in follow-up today continues to be in the ICU with multiple medical consultations following. Patient did have chest tube removed and chest x-ray today shows a left thoracotomy tube with small pneumothorax and cardiomegaly. Patient is currently maintaining oxygen saturations above 90% on room air and has been receiving breathing treatments as needed. Patient was started on Tradjenta as well as sliding scale and long-acting and will slightly increase the long-acting as blood sugars have been more controlled. Patient is afebrile with no reports of chest pain or shortness of breath. Patient reports chest wall pain with cough and does have heart hugger noted. Hemoglobin is 7.2 with no active bleeding noted. Sodium 133 with a potassium of 4.0 and creatini ne improved at 1.21. Magnesium is 2.1. Encouraged to increase activity as tolerated and patient has been up and walking. Patient currently awaiting a bed on stepdown and transfer out of ICU. Review of systems: Constitutional: No reports of fatigue, fever, or chills Cardiovascular: No reports of chest pain or palpitations Respiratory: reports of improvement in shortness of breath with a dry hacking cough, improving GI: No reports of nausea, vomiting, or diarrhea : No reports of dysuria or retention Neurovascular: reports of weakness or numbness All medications have been reviewed Active Medications Acetaminophen (Acetaminophen Tab 325 Mg Tab) 650 mg PO Q4HR PRN PRN Reason: Fever and/ or Pain Hydrocodone Bitart/Acetaminophen (Hydrocodone/Apap 5-325mg 1 Each Tab) 1 each PO Q4HR PRN PRN Reason: Moderate Pain (Scale 4 to 6) Last Admin: 03/28/23 08:15 Dose: 1 each Albuterol/Ipratropium (Ipratropium-Albuterol 3 Ml Neb) 3 ml INHALATION RT-Q2H PRN PRN Reason: Shortness Of Breath Or Wheezing Albuterol/Ipratropium (Ipratropium-Albuterol 3 Ml Neb) 3 ml INHALATION RT-QID [facility] Last Admin: 03/28/23 11:19 Dose: Not Given Amlodipine Besylate (Amlodipine 2.5 Mg Tab) 2.5 mg PO 1200 [facility] Last Admin: 03/28/23 11:54 Dose: Not Given Aspirin (Aspirin 81 Mg) 81 mg PO DAILY [facility] Last Admin: 03/28/23 08:15 Dose: 81 mg Atorvastatin Calcium (Atorvastatin 40 Mg Tab) 40 mg PO DAILY [facility] Last Admin: 03/28/23 08:15 Dose: 40 mg Benzocaine/Menthol (Benzocaine/Menthol Lozeng 1 Each Lozenge) 1 each MUCOUS MEM Q2H PRN PRN Reason: Sore Throat Last Admin: 03/24/23 17:42 Dose: 1 each Bisacodyl (Bisacodyl 10 Mg Supp) 10 mg RECTAL DAILY PRN PRN Reason: Constipation Clopidogrel Bisulfate (Clopidogrel 75 Mg Tab) 75 mg PO DAILY [facility] Last Admin: 03/28/23 08:14 Dose: 75 mg Dextrose/Water (Dextrose 50% Syringe 50 Ml) 25 ml IVP PER PROTOCOL PRN; Protocol PRN Reason: Hypoglycemia Dextrose/Water (Dextrose 50% Syringe 50 Ml) 50 ml IVP PER PROTOCOL PRN; Protocol PRN Reason: Hypoglycemia Ferrous Sulfate (Ferrous Sulfate 325 Mg Tab) 325 mg PO BID-W/MEALS [facility] Last Admin: 03/28/23 06:43 Dose: 325 mg Folic Acid (Folic Acid 1 Mg Tab) 1 mg PO DAILY [facility] Last Admin: 03/28/23 08:15 Dose: 1 mg Fondaparinux (Fondaparinux 2.5 Mg/0.5 Ml Syringe) 2.5 mg SQ DAILY [facility] Last Admin: 03/28/23 08:15 Dose: 2.5 mg Guaifenesin (Guaifenesin 600 Mg Tablet.Er) 1,200 mg PO Q12HR [facility] Last Admin: 03/28/23 08:15 Dose: 1,200 mg Amiodarone HCl 150 mg/ (Dextrose/Water) 103 mls @ 618 mls/hr IV .Q10M PRN; Protocol PRN Reason: A.FIB/FLUTTER Amiodarone HCl 360 mg/ (Dextrose/Water) 207.2 mls @ 34.533 mls/hr IV .Q6H PRN; Protocol PRN Reason: A.FIB/FLUTTER Amiodarone HCl 450 mg/ (Dextrose/Water) 250 mls @ 16.667 mls/hr IV .Q15H PRN; Protocol PRN Reason: A.FIB/FLUTTER Insulin Aspart (Insulin Aspart (Novolog) 100 Unit/Ml Vial) 0 unit SQ ACHS [facility]; Protocol Last Admin: 03/28/23 12:48 Dose: 2 unit Insulin Detemir (Insulin Detemir (Levemir) 100 Unit/Ml Syr) 25 unit SQ BID@0700,2100 [facility] Linagliptin (Linagliptin 5 Mg Tablet) 5 mg PO DAILY [facility] Last Admin: 03/28/23 08:14 Dose: 5 mg Magnesium Hydroxide (Magnesium Hydroxide 2,400 Mg/30 Ml Cup) 2,400 mg PO BID PRN PRN Reason: Constipation Last Admin: 03/28/23 08:15 Dose: 2,400 mg Metoprolol Tartrate (Metoprolol Tartrate 25 Mg Tab) 25 mg PO BID [facility] Last Admin: 03/28/23 08:15 Dose: 25 mg Miscellaneous Information (Potassium Replacement Protocol 1 Each Misc) 1 each MISCELLANE DAILY PRN; Protocol PRN Reason: Per Protocol Miscellaneous Information (Magnesium Replacement Protocol 1 Each Misc) 1 each MISCELLANE DAILY PRN; Protocol PRN Reason: Per Protocol Multivitamins (Multivitamins, Thera 1 Each Tab) 1 each PO DAILY [facility] Last Admin: 03/28/23 08:15 Dose: 1 each Ondansetron HCl (Ondansetron 4 Mg/2 Ml Vial) 4 mg IVP Q6HR PRN PRN Reason: Nausea And Vomiting Pantoprazole Sodium (Pantoprazole 40 Mg Tablet) 40 mg PO -BRKFST [facility] Last Admin: 03/28/23 06:43 Dose: 40 mg Senna/Docusate Sodium (Sennosides-Docusate Sodium 1 Each Tab) 2 each PO HS [facility] Last Admin: 03/27/23 20:13 Dose: 2 each Sodium Chloride (Sodium Chloride 0.9% Flush 10 Ml Syringe) 10 ml IV BID [facility] Last Admin: 03/28/23 08:16 Dose: 10 ml Tamsulosin HCl (Tamsulosin 0.4 Mg Cap.Er.24h) 0.4 mg PO PC-SUPPER [facility] Last Admin: 03/27/23 17:48 Dose: 0.4 mg Thiamine HCl (Thiamine 100 Mg Tab) 100 mg PO DAILY [facility] Last Admin: 03/28/23 08:15 Dose: 100 mg Zinc Acetate/Diphenhydramine (Diphenhydramine 2% Cream 28.4 Gm Tube) 1 applic TOPICAL TID PRN; Protocol PRN Reason: rash to back Physical exam: Patient is and oriented. Currently sitting up in the chair. Off mechanical hawk tilator..currently on room air today HEENT: Normocephalic. Neck is supple. Pupils reactive. Nostrils clear. Oral cavity is moist. Neck reveals no JVD, carotid bruits, or thyromegaly. CHEST EXAMINATION: Trachea is central. Symmetrical expansion. Bibasilar diminished sounds.. No wheezing or rhonchi. Midline incision bandaged. CARDIAC: Normal S1, S2 with no gallops. No murmurs ABDOMEN: Soft. Bowel sounds present. No organomegaly. No abdominal bruits. Extremities: reveal no edema. No clubbing or cyanosis Neurologically patient is awake alert and oriented.. No gross focal deficits noted diffusely weak. Skin: No rash or skin lesions. Psychiatric: Cooperative. non suicidal Musculoskeletal: No joint swelling or deformity Assessment: Status post elective aortic valve replacement with bioprosthetic and two-vessel coronary artery bypass graft, LRA to OM and SVG to PDA. On 03/22/2023. Patient is status post successful extubation on 03/24/2023 Postoperative hypotension requiring pressor support. off pressor support now, Acute blood loss anemia from the mediastinal chest tube requiring blood transfusion. Acute kidney injury possible ATN due to hemodynamic changes. Improving Severe aortic stenosis Severe two-vessel coronary disease Chronic CHF with preserved ejection fraction Coronary artery disease with history of multiple stent placement Diabetes type 2 [id number], uncontrolled with hyperglycemia Hypertension Hyperlipidemia Obstructive sleep apnea not on CPAP Obesity with BMI 34.7 Currently everyday smoker GI and DVT prophylaxis. On PPI and heparin subcu Full code Plan: Patient is currently in the MICU. Patient was extubated on 03/24/23.. currently maintained on 2 L occasionally although has been maintaining oxygen saturations above 90% on room air Patient is a downgrade from the ICU currently awaiting a bed on 3 S. Mediastinal chest tube was removed with a tiny pneumothorax noted and will follow-up with chest x-ray in a.m. Continue to encourage incentive spirometer at least 10 times every hour while awake Patient received 4 units of PRBC blood transfusion during hospitalization. hemoglobin is stable today at 7.3 and will transfuse of 7 or less Patient to continue with Accu-Cheks before meals and at bedtime and increasing long-acting to twice daily, as well as Tradjenta Patient was transitioned to Consistent carbohydrate heart healthy diet and tolerating with some elevated blood glucose levels Will continue to follow closely and further recommendations based on clinical course. thank you kindly for this consultation. The impression and plan of care has been dictated by Marjorie Lundberg, Nurse Practitioner as directed. Dr. Sandip MD I have performed a history and examination and MDM of this patient, discussed the same with the dictator, and agree with the dictator's assessment and plan as written ,documented as a scribe. Based on total visit time, I have performed more than 50% of the visit. Objective - Vital Signs Vital signs: Vital Signs Temp 98.5 F 03/28/23 12:00 Pulse 87 03/28/23 12:00 Resp 12 03/28/23 12:00 BP 109/55 03/28/23 12:00 Pulse Ox 93 L 03/28/23 12:00 FiO2 40 03/27/23 16:00 Intake & Output 03/27/23 03/28/23 03/28/23 18:59 06:59 18:59 Intake Total 50 540 150 Output Total 855 740 350 Balance -805 -200 -200 Weight 107.9 kg 109.2 kg Intake: Intake, IV Titration 50 Amount Albumin Human 25% 50 ml 50 In Empty Bag 1 bag @ 50 mls/hr IVPB ONCE ONE Rx#: [id number] Oral 540 150 Output: Chest Tube Drainage 70 190 100 left pleural 70 190 100 Urine 530 550 250 Post Void Residual 255 Other: Voiding Method Urinal Urinal Urinal ABP, PAP, CO, CI - Last Documented Arterial Blood Pressure 146/55 Pulmonary Artery Pressure 54/22 Cardiac Output 8 Cardiac Index 3.8 - Labs CBC & Chem 7: 03/28/23 04:02 03/28/23 04:02 Labs: Abnormal Lab Results - Last 24 Hours (Table) 03/27/23 03/27/23 03/28/23 Range/Units 16:28 20:05 04:02 RBC 2.40 L (4.30-5.90) m/uL Hgb 7.2 L (13.0-17.5) gm/dL Hct 22.8 L (39.0-53.0) % RDW 19.4 H (11.5-15.5) % Plt Count 128 L (150-450) k/uL Sodium (137-145) mmol/L BUN (9-20) mg/dL Glucose (74-99) mg/dL POC Glucose (mg/dL) 138 H 190 H (70-110) mg/dL Calcium (8.4-10.2) mg/dL Alkaline Phosphatase (38-126) U/L Total Protein (6.3-8.2) g/dL Albumin (3.5-5.0) g/dL 03/28/23 03/28/23 03/28/23 Range/Units 04:02 05:52 06:35 RBC (4.30-5.90) m/uL Hgb (13.0-17.5) gm/dL Hct (39.0-53.0) % RDW (11.5-15.5) % Plt Count (150-450) k/uL Sodium 133 L (137-145) mmol/L BUN 31 H (9-20) mg/dL Glucose 147 H (74-99) mg/dL POC Glucose (mg/dL) 170 H 188 H (70-110) mg/dL Calcium 8.0 L (8.4-10.2) mg/dL Alkaline Phosphatase 138 H (38-126) U/L Total Protein 5.7 L (6.3-8.2) g/dL Albumin 2.9 L (3.5-5.0) g/dL 03/28/23 Range/Units 11:06 RBC (4.30-5.90) m/uL Hgb (13.0-17.5) gm/dL Hct (39.0-53.0) % RDW (11.5-15.5) % Plt Count (150-450) k/uL Sodium (137-145) mmol/L BUN (9-20) mg/dL Glucose (74-99) mg/dL POC Glucose (mg/dL) 187 H (70-110) mg/dL Calcium (8.4-10.2) mg/dL Alkaline Phosphatase (38-126) U/L Total Protein (6.3-8.2) g/dL Albumin (3.5-5.0) g/dL
[2023-03-28 16:30] LABS: Glucose,Whole Blood 138 mg/dL (70-110)
[2023-03-28] MEDS: TAMSULOSIN 0.4 MG CAP.ER.24H PO SCH (16:33)
[2023-03-28] MEDS: SENNOSIDES-DOCUSATE SODIUM 1 EACH TAB PO SCH (20:26)
[2023-03-28 20:33] LABS: Glucose,Whole Blood 218 mg/dL (70-110)
[2023-03-29 04:35] LABS: Anisocytosis Slight; HCT 22.1 % (39.0-53.0); Hypochromasia Slight; MCH 29.6 pg (25.0-35.0); MCHC 31.8 g/dL (31.0-37.0); MCV 93.1 fL (80.0-100.0); Macrocytosis Slight; Mean Platelet Volume 8.2; Platelet Count 176 k/uL (150-450); Poikilocytosis Slight; RBC 2.38 m/uL (4.30-5.90); RDW 19.3 % (11.5-15.5); WBC 9.7 k/uL (3.8-10.6)
[2023-03-29 04:47] LABS: African American GFR (CKD) 71 (>60 ml/min/1.73 sqM); Anion Gap 7 mmol/L; Blood Urea Nitrogen 30 mg/dL (9-20); Carbon Dioxide 24 mmol/L (22-30); Chloride 100 mmol/L (98-107); Glucose 91 mg/dL (74-99); Non-African American GFR(CKD) 62 (>60 ml/min/1.73 sqM); Potassium 4.3 mmol/L (3.5-5.1); Sodium 131 mmol/L (137-145)
[2023-03-29] MEDS: HYDROcodone/APAP 5-325MG 1 EACH TAB PO PRN (05:32)
[2023-03-29 06:57] LABS: Glucose,Whole Blood 118 mg/dL (70-110)
[2023-03-29] MEDS: PANTOPRAZOLE 40 MG TABLET PO SCH (06:59)
[2023-03-29] MEDS: INSULIN DETEMIR (LEVEMIR) 100 UNIT/ML SYR SQ SCH ×2 (06:59→20:59)
[2023-03-29] MEDS: INSULIN ASPART (NovoLOG) 100 UNIT/ML VIAL SQ SCH ×4 (06:59→20:59)
[2023-03-29] MEDS: FERROUS SULFATE 325 MG TAB PO SCH ×2 (06:59→16:34)
--- NOTE | 2023-03-29 07:37 | P.PN ---
Subjective Progress Note Date: 03/29/23 Principal diagnosis: Severe aortic valve stenosis, coronary artery disease. Previous medical history of coronary artery disease with previous PCI, hypertension, hyperlipidemia, di abetes mellitus type 2, obesity, chronic ongoing tobacco dependence, obstructive sleep apnea with noncompliance with home CPAP use, occasional marijuana use, EtOH use drinking 7-8 beers a week, and medication noncompliance POD #7 coronary artery bypass grafting 2 vessels with radial artery to the obtuse marginal coronary artery, and a saphenous vein graft to the posterior descending coronary artery. Endoscopic harvesting of the left greater saphenous vein, endoscopic harvesting of the left radial artery, ligation of the left atrial appendage using a 35 mm Atriclip, aortic valve replacement using a 25 mm Rosario Quipiris bioprosthetic valve, epi-aortic ultrasound and intraoperative transesophageal echocardiogram. Postoperative acute blood loss anemia and thrombocytopenia, expected given hemodilution and cardiopulmonary bypass. Acute hypoxic respiratory failure with prolonged mechanical ventilation Hypotension, currently off vasopressors The patient was seen and examined sitting up in a recliner in the intensive care unit in no acute distress. States pain is controlled on current medication regimen, denies shortness of breath. Remains in sinus rhythm and hemodynamically stable. Currently on room air with oxygen saturation in the high 90s, able to achieve 5504-3471 mL on his incentive spirometry. Left pleural chest tube, pacemaker wires discontinued yesterday. Labs, chest x-ray reviewed, read on yesterday's CXR mentioned small left apical pneumothorax which is of no consequence. Patient has ambulated in the hallway multiple times with assistance. No other new concerns. Objective - Vital Signs Vital signs: Vital Signs Temp 97.8 F 03/29/23 04:00 Pulse 85 03/29/23 05:00 Resp 10 L 03/29/23 05:00 BP 105/72 03/29/23 04:00 Pulse Ox 98 03/29/23 04:00 FiO2 40 03/27/23 16:00 Intake & Output 03/28/23 03/29/23 03/29/23 18:59 06:59 18:59 Intake Total 150 250 Output Total 350 201 Balance -200 49 Weight 109.6 kg Intake: Oral 150 250 Output: Chest Tube Drainage 100 left pleural 100 Urine 250 200 Urine/Stool Mix 1 Other: Voiding Method Urinal Urinal # Bowel Movements 1 ABP, PAP, CO, CI - Last Documented Arterial Blood Pressure 146/55 Pulmonary Artery Pressure 54/22 Cardiac Output 8 Cardiac Index 3.8 - Exam CONSTITUTIONAL: Appears comfortable, cooperative, no acute distress RESPIRATORY: Lungs sounds diminished bilaterally. Respirations even, nonlabored. Currently on room air with oxygen saturation 98%. Able to achieve 3396-9321 mL on incentive spirometry. Strong cough. CARDIOVASCULAR: S1, S2 present. Regular rate and rhythm, sinus rhythm on telemetry. Sternum stable. Palpable peripheral pulses bilaterally. Bilateral lower extremity edema present. No calf pain or tenderness noted. Heart hugger in place with patient demonstrating appropriate use. Antiembolism stockings, SCDs present. GASTROINTESTINAL: Abdomen soft, nontender, nondistended. Active bowel sounds present 4 quadrants. Tolerating diet. Positive bowel movement 03/28 GENITOURINARY: Continues to void INTEGUMENTARY: Skin is warm and dry with evidence of good perfusion. Anterior chest incision well approximated and covered with dry intact dressing. Left radial artery harvest site as well as left lower extremityt EVH site well approximated without redness or drainage. NEUROLOGIC: Cranial nerves II through XII intact MUSKULOSKELETAL: Able to move all extremities, strength equal bilaterally, gait normal PSYCHIATRIC: Alert and oriented to person place and time, appropriate affect, intact judgment and insight - Allied health notes Allied health notes reviewed: nursing - Labs CBC & Chem 7: 03/29/23 03:52 03/29/23 03:46 Labs: Abnormal Lab Results - Last 24 Hours (Table) 03/28/23 03/28/23 03/28/23 Range/Units 11:06 16:28 20:32 RBC (4.30-5.90) m/uL Hgb (13.0-17.5) gm/dL Hct (39.0-53.0) % RDW (11.5-15.5) % Sodium (137-145) mmol/L BUN (9-20) mg/dL POC Glucose (mg/dL) 187 H 138 H 218 H (70-110) mg/dL Calcium (8.4-10.2) mg/dL 03/29/23 03/29/23 03/29/23 Range/Units 03:46 03:52 06:56 RBC 2.38 L (4.30-5.90) m/uL Hgb 7.0 L (13.0-17.5) gm/dL Hct 22.1 L (39.0-53.0) % RDW 19.3 H (11.5-15.5) % Sodium 131 L (137-145) mmol/L BUN 30 H (9-20) mg/dL POC Glucose (mg/dL) 118 H (70-110) mg/dL Calcium 8.0 L (8.4-10.2) mg/dL - Imaging and Cardiology Chest x-ray: image reviewed Assessment and Plan Assessment: Severe aortic valve stenosis, status post aortic valve replacement Coronary artery disease with history of previous PCI, status post 2 vessel CABG Mildly impaired LV function with EF 40-45% History of hypertension Hyperlipidemia, treated, cholesterol 124, LDL 57, TG 112 Diabetes mellitus type 2, preoperative hemoglobin A1c 6.6% Carotid stenosis, complete occlusion of right ICA and 60% occlusion of left ICA per neck CTA Chronic ongoing tobacco dependence, preoperative FEV1 84% of predicted Obstructive sleep apnea with noncompliance of home CPAP use Occasional marijuana use, smokes 1-2 joints per week Occasional EtOH use, drinks 7-8 beers per week Medication noncompliance Acute kidney injury, resolving Postoperative acute blood loss anemia and thrombocytopenia, expected given hemodilution and cardiopulmonary bypass Acute hypoxic respiratory failure, requiring prolonged mechanical ventilation, currently on room air Hypotension, currently off vasopressors Plan: Continue to maximize medical therapy with low-dose aspirin, statin, Plavix and beta hanane. Will add LINDSEY/ARB when able for afterload reduction, may need to be added outpatient due to borderline hypotension Continue CCB for radial artery spasm prophylaxis, hold parameters placed (christi lobo did not receive dose yesterday) Encourage incentive spirometry use 10 times every hour while awake. Bronchodilators per pulmonology. Mucinex 1200 mg by mouth twice a day Increase activity, ambulate as tolerated. PT/OT/cardiac rehab following Will monitor daily labs and chest x-rays. Electrolyte replacement per protocol GI/DVT prophylaxis Pain control per current medication regimen Insulin management per internal medicine. Patient is diabetic with hemoglobin A1c 6.6%, needs tight blood sugar control to prevent infection and promote healing Continue to record strict inaccurate I's and O's Daily weights First post op shower today, then daily Importance of risks modifications including smoking cessation counseling and education discussed Transfer orders placed yesterday for [facility] cardiac stepdown unit, may transfer when bed available Discharge planning in progress, anticipate discharge to home with home care in the next 24 hours More recommendations to follow based on patient's clinical course.
--- NOTE | 2023-03-29 07:47 | P.PN ---
Subjective Progress Note Date: 03/29/23 PROGRESS NOTE The patient is a 67-year-old male, status post aortic valve replacement and bypass to the OM and PDA. He is doing well this morning, sitting up in the chair, in sinus mechanism. He denies any chest discomfort, dizziness or palpitations. He ambulated without significant problems. Hemodynamically he stable. He has no evidence of malignant arrhythmia. Urinary output has been stable. He is on no vasopressors. He had moderate systolic dysfunction preoperatively March 27: The patient feels better today, according to him his breathing and energy is much better. He denies any chest discomfort, dizziness or palpitations. His blood pressure is on the lower side. He continues to be in sinus mechanism. He denies any nausea or vomiting. March 28: The patient is feeling well this morning, he continues to be in sinus mechanism, he ambulated yesterday without difficulty. His blood pressure is stable. He denies any dizziness, palpitations or syncope. He is using his incentive teo metry. He denies any nausea or vomiting. He has no evidence of atrial fibrillation. March 29: The patient is feeling well this morning, he continues to ambulate. Continues to be in sinus mechanism. His chest tube has been removed. He has no evidence of malignant arrhythmia. He denies any dizziness or palpitations. He denies any nausea. Hemodynamically he was stable. He is not on LINDSEY inhibitor because of hypertension when lisinopril was added. Medications: Aspirin 81 mg daily, Amlodipine 2.5 mg daily, Lipitor 40 mg daily, Plavix 75 mg daily, metoprolol 25 mg twice a day, insulin PHYSICAL EXAMINATION: Blood pressure 118/60 heart rate 84 LUNGS: Few crackles at the base HEART: Regular rate and rhythm, S1, S2. No S3. systolic ejection murmur ABDOMEN: Soft, nontender, no organomegaly EXTREMETIES: No edema LAB: BUN 30, creatinine 1.2, potassium 4.3, hemoglobin 7.0 IMPRESSION: 1. Status post aortic valve replacement and CABG 2. Acute renal injury , improved 3. History of diabetes 4. History of hypertension, stable PLAN: 1. Continue beta hanane 2. Increase physical activity 3. Continue incentive spirometry 4. Depending on the blood pressure adjust treatment and add LINDSEY inhibitor 5. If stable probable discharge home tomorrow and add LINDSEY inhibitor when blood pressure is stable Objective - Vital Signs Vital signs: Vital Signs Temp 97.8 F 03/29/23 04:00 Pulse 85 03/29/23 05:00 Resp 10 L 03/29/23 05:00 BP 105/72 03/29/23 04:00 Pulse Ox 98 03/29/23 04:00 FiO2 40 03/27/23 16:00 Intake & Output 03/28/23 03/29/23 03/29/23 18:59 06:59 18:59 Intake Total 150 250 Output Total 350 201 Balance -200 49 Weight 109.6 kg Intake: Oral 150 250 Output: Chest Tube Drainage 100 left pleural 100 Urine 250 200 Urine/Stool Mix 1 Other: Voiding Method Urinal Urinal # Bowel Movements 1 ABP, PAP, CO, CI - Last Documented Arterial Blood Pressure 146/55 Pulmonary Artery Pressure 54/22 Cardiac Output 8 Cardiac Index 3.8 - Labs CBC & Chem 7: 03/29/23 03:52 03/29/23 03:46 Labs: Abnormal Lab Results - Last 24 Hours (Table) 03/28/23 03/28/23 03/28/23 Range/Units 11:06 16:28 20:32 RBC (4.30-5.90) m/uL Hgb (13.0-17.5) gm/dL Hct (39.0-53.0) % RDW (11.5-15.5) % Sodium (137-145) mmol/L BUN (9-20) mg/dL POC Glucose (mg/dL) 187 H 138 H 218 H (70-110) mg/dL Calcium (8.4-10.2) mg/dL 03/29/23 03/29/23 03/29/23 Range/Units 03:46 03:52 06:56 RBC 2.38 L (4.30-5.90) m/uL Hgb 7.0 L (13.0-17.5) gm/dL Hct 22.1 L (39.0-53.0) % RDW 19.3 H (11.5-15.5) % Sodium 131 L (137-145) mmol/L BUN 30 H (9-20) mg/dL POC Glucose (mg/dL) 118 H (70-110) mg/dL Calcium 8.0 L (8.4-10.2) mg/dL
[2023-03-29] MEDS ORDERED: FUROSEMIDE 10 MG/ML 4 ML VIAL IV STA (07:53)
[2023-03-29] MEDS: HEPARIN SODIUM,PORCINE/PF 5,000 UNIT/0.5 ML SYRINGE SQ SCH (08:16)
[2023-03-29] MEDS: IPRATROPIUM-ALBUTEROL 3 ML NEB INHALATION SCH ×5 (08:28→19:31)
--- NOTE | 2023-03-29 08:48 | XR ---
EXAMINATION TYPE: XR chest 2V DATE OF EXAM: 03/29/2023 COMPARISON: 03/28/2020 TECHNIQUE: PA and lateral views submitted. HISTORY: Postop FINDINGS: Heart is enlarged and there is postoperative change. There is nodular thickening along the lateral ma rgin of the left chest wall. Chest tube has been removed. A tiny left pneumothorax measuring approxim ately 5%. Chronic deformity of the right clavicle. Subsegmental changes right lung base most likely a telectasis. No sizable pleural effusion. Atherosclerotic change aorta. IMPRESSION: 1. Cardiomegaly and COPD with 5% left apical pneumothorax. 2. Nodular pleural-based mass density left lateral chest wall.
[2023-03-29] MEDS: FOLIC ACID 1 MG TAB PO SCH (09:31)
[2023-03-29] MEDS: ASPIRIN 81 MG PO SCH (09:31)
[2023-03-29] MEDS: guaiFENesin 600 MG TABLET.ER PO SCH ×2 (09:31→20:58)
[2023-03-29] MEDS: THIAMINE 100 MG TAB PO SCH (09:31)
[2023-03-29] MEDS: CLOPIDOGREL 75 MG TAB PO SCH (09:31)
[2023-03-29] MEDS: LINAGLIPTIN 5 MG TABLET PO SCH (09:31)
[2023-03-29] MEDS: ATORVASTATIN 40 MG TAB PO SCH (09:31)
[2023-03-29] MEDS: ACETAMINOPHEN TAB 325 MG TAB PO PRN ×5 (09:32→22:34)
[2023-03-29] MEDS: METOPROLOL TARTRATE 25 MG TAB PO SCH ×2 (09:32→20:58)
[2023-03-29] MEDS: MULTIVITAMINS, THERA 1 EACH TAB PO SCH (09:32)
[2023-03-29] MEDS: FONDAPARINUX 2.5 MG/0.5 ML SYRINGE SQ SCH (09:32)
--- NOTE | 2023-03-29 09:42 | P.PN ---
Subjective Progress Note Date: 03/29/23 On today's evaluation of 03/26/2023, the patient is postop day #4. The patient underwent aortic valve replacement and two-vessel bypass surgery. He is currently stable on 2 L of oxygen by nasal cannula. Is using the incentive spirometer and the patient is falling approximately 1.2 L. His able to sit up on a chair. Is hemodynamically stable. He is currently off pressors. Chest tubes have been removed. Note that the mediastinal chest tubes were removed 2 days ago and the patient had a right-sided chest tube. The left lower chest tube has been removed. Output from the left-sided chest tube is in order of 20- 30 mL an hour. Meanwhile, repeat chest x-ray was done and shows some consolidation left lung base. Left sided chest tube is in a good location. Right-sided chest tube has been removed. No evidence of any significant plural effusion. Blood work from today shows improvement in his creatinine which is down to 1.1. Sodium levels of 137. Hemoglobin is at 7.4. White suppositive 0 .6. His underlying cardiac rhythm is normal sinus rhythm. His tolerating diet. No nausea or emesis. No other significant events overnight. He was given Lasix today. He is also metoprolol 50 mg twice a day. He will be also started on low-dose LINDSEY inhibitor's. Neurologically intact. The patient is passing gas. No nausea or emesis. No abdominal distention. No chest pain and his pain is under good control for now. 03/27/2022 the patient is postop day #5. He is post two-vessel bypass surgery and aortic valve replacement. He remains on 2 L of oxygen nasal cannula. The left-sided chest tube is still in place and output over the past 24 hours has been in the order Of 50 ML. Note That the Right Lower Chest Abdomen and Mediastinal Chest Tubes Have Been Removed. Hemodynamically Stable Although He Has a Soft of Blood Pressure. He Received Lasix Yesterday. He Received a Total of 2 doses of Lasix 40 mg IV each dose. On today's blood work, the patient has a low hemoglobin of 7.3, BUN of 30 with a creatinine of 1.3 and a sodium level is at 135. The glucose at 164. Note that the patient did encounter and acute kidney injury and the creatinine was improving. Lisinopril was added yesterday and this was subsequently discontinued. No nausea. No emesis. No gastric distention. No other significant issues. He is ambulating. Chest x-ray shows cardiomegaly. Left-sided chest tube is in a good location and there is no evidence of any pneumothorax. On 03/28/2022, the patient is postop day #6. Left-sided chest tube was kept in place and output is in order of 300 mL over the past 24 hours and 130 mL overnight. Chest x-ray from today showed no evidence of any pneumothorax. Is using incentive spirometer. Pulling approximately 1500. He is hemodynamically stable. He is in a sinus rhythm. Urine output is adequate. Blood pressure is soft. He has not required any pressors. Renal function is improved. Creatinine is down to 1.2 with a BUN of 31 and his sodium level is 133 with a potassium level of 4.0. The echoes at 7.1 with a hemoglobin of 7.2. The patient's was taken off the LINDSEY inhibitor's yesterday. He was started on beta blockers and is currently on metoprolol 25 mg by mouth twice a day and those was used yesterday. Remains on aspirin. Remains on Plavix. Surgical wound over the chest is dry clean and intact. Neurologically stable and intact. Following commands. No signs of any respiratory distress and the patient is currently on room air oxygen. 03/29/2023, the patient is postop day #7. Doing extremely well. Using the incentive spirometer. Pulling approximately 1500. Left-sided chest tube is unremarkable. Chest x-ray from today shows no evidence of any pneumothorax. Obviously, the left-sided chest tube is removed. There is an opacity along the left lower surface probably related to some atelectasis. There may be some limited small bilateral pleural effusions. Otherwise, the patient is post thoracotomy and the sternal wires are in place. Hemoglobin remained stable at 7.0, slightly dropped compared to yesterday. White suppositive 9.7. BUN is at 30 with creatinine of 1.3 and sodium levels of 131. In terms of his medication, he remains on a combination of aspirin and Plavix. He is also on metoprolol at a dose of 25 mg by mouth twice a day. His Pavon catheter has been removed and he remains on Flomax. Blood sugars under adequate control. Is taking Levemir 25 units twice a day. Is also on tradjenta. He remains on Arixtra. Objective - Vital Signs Vital signs: Vital Signs Temp 98.3 F 03/29/23 08:00 Pulse 91 03/29/23 08:43 Resp 16 03/29/23 08:00 BP 120/58 03/29/23 08:00 Pulse Ox 96 03/29/23 08:31 FiO2 21 03/29/23 08:11 Intake & Output 03/28/23 03/29/23 03/29/23 18:59 06:59 18:59 Intake Total 150 250 896 Output Total 350 201 0 Balance -200 49 896 Weight 109.6 kg Intake: Oral 150 250 896 Output: Chest Tube Drainage 100 left pleural 100 Urine 250 200 0 Urine/Stool Mix 1 Other: Voiding Method Urinal Urinal # Bowel Movements 1 0 ABP, PAP, CO, CI - Last Documented Arterial Blood Pressure 146/55 Pulmonary Artery Pressure 54/22 Cardiac Output 8 Cardiac Index 3.8 - Exam GENERAL EXAM: Awake, alert pleasant 67-year-old male, up in a chair, on room air oxygen, fairly comfortable in no apparent distress. HEAD: Normocephalic. EYES: Normal reaction of pupils, equal size. NOSE: Clear with pink turbinates. THROAT: No erythema or exudates. NECK: Right IJ Cordis in place. No masses, no JVD. CHEST: Sternal dressing dry and intact. Chest she was admitted removed and the sternum is stable clean and intact LUNGS: Equal air entry with crackles in the bilateral bases, left greater than right. CVS: S1 and S2 normal with no audible murmur, regular rhythm. ABDOMEN: No hepatosplenomegaly, hypoactive bowel sounds, no guarding or rigidity. SPINE: No scoliosis or deformity SKIN: No rashes CENTRAL NERVOUS SYSTEM: No focal deficits, tone is normal in all 4 extremities. EXTREMITIES: There is no peripheral edema. No clubbing, no cyanosis. Peripheral pulses are intact. - Labs CBC & Chem 7: 03/29/23 03:52 03/29/23 03:46 Labs: Abnormal Lab Results - Last 24 Hours (Table) 03/28/23 03/28/23 03/28/23 Range/Units 11:06 16:28 20:32 RBC (4.30-5.90) m/uL Hgb (13.0-17.5) gm/dL Hct (39.0-53.0) % RDW (11.5-15.5) % Sodium (137-145) mmol/L BUN (9-20) mg/dL POC Glucose (mg/dL) 187 H 138 H 218 H (70-110) mg/dL Calcium (8.4-10.2) mg/dL Crossmatch 03/29/23 03/29/23 03/29/23 Range/Units 03:46 03:52 06:56 RBC 2.38 L (4.30-5.90) m/uL Hgb 7.0 L (13.0-17.5) gm/dL Hct 22.1 L (39.0-53.0) % RDW 19.3 H (11.5-15.5) % Sodium 131 L (137-145) mmol/L BUN 30 H (9-20) mg/dL POC Glucose (mg/dL) 118 H (70-110) mg/dL Calcium 8.0 L (8.4-10.2) mg/dL Crossmatch 03/29/23 Range/Units 08:00 RBC (4.30-5.90) m/uL Hgb (13.0-17.5) gm/dL Hct (39.0-53.0) % RDW (11.5-15.5) % Sodium (137-145) mmol/L BUN (9-20) mg/dL POC Glucose (mg/dL) (70-110) mg/dL Calcium (8.4-10.2) mg/dL Crossmatch See Detail Assessment and Plan Plan: Coronary artery disease status post two-vessel coronary artery bypass grafting. Postoperative day # 7, alt she was admitted more than the patient's chest x-ray showing some atelectatic changes and small effusions. No evidence of any pneumothorax. The patient is currently on room air oxygen. Severe aortic stenosis, status post aortic valve replacement with a 25 mm Rosario expressed bioprosthetic valve. Postoperative day # 7 Postoperative hypotension , recovered Acute kidney injury, improving, creatinine improving Anemia, expected outcome of surgery, hemoglobin 6.5, received 4 units packed red blood cells. Current hemoglobin 7.0 Thrombocytopenia, , improving, expected outcome of surgery History of coronary artery disease with previous PCI History of hypertension Hyperlipidemia Diabetes mellitus, type 2 and the patient is on Levemir and tradjenta Chronic and ongoing tobacco dependence Carotid stenosis History of marijuana use Obstructive sleep apnea not utilizing CPAP History of alcohol use Plan: Patient is ambulating. Tolerating diet. Patient is currently on room air oxygen Hemodynamically stable Platelet counts improving, on Arixtra Hemoglobin is stable Continue with SCD's Continue bronchodilators Educated regarding the increased use of the incentive spirometer Increase his activity as tolerated We will continue to follow
[2023-03-29 11:31] LABS: Glucose,Whole Blood 110 mg/dL (70-110)
[2023-03-29] MEDS: amLODIPine 2.5 MG TAB PO SCH (13:55)
[2023-03-29] MEDS: BENZOCAINE/MENTHOL LOZENG 1 EACH LOZENGE MUCOUS MEM PRN (15:39)
[2023-03-29 16:08] LABS: Glucose,Whole Blood 141 mg/dL (70-110)
[2023-03-29] MEDS: TAMSULOSIN 0.4 MG CAP.ER.24H PO SCH (16:34)
--- NOTE | 2023-03-29 16:37 | P.PN ---
Subjective Progress Note Date: 03/29/23 Patient is a 65-year-old male with a known history of hypertension, hyperlipidemia, diabetes type 2 [id number], obstructive sleep apnea not on CPAP, coronary artery disease, severe aortic stenosis, chronic occlusion of the right ICA and moderate stenosis involving the left ICA was to the [facility] for elective aortic valve replacement and myocardial revascularization. Patient underwent IL-12 replacement and two-vessel bypass LRA to OM and SVG to PDA. Patient had RAE on 01/05/2023 showed severe aortic stenosis involving tricuspid aortic valve with planimetry area of around 0.4 2.6 cm. Normal LV systolic function. Mild to moderate MR. Patient had cardiac catheterization on 01/04/2023 showed right coronary artery is a codominant vessel that was previously stented extensively. Mid RCA showed focal 90% stenosis. Left main coronary artery appears to be calcified but is free of significant stenosis. Circumflex artery showed 80 to 90% ostial stenosis, LAD showed mild to moderate diffuse mild nonfocal atherosclerotic block. Severe two-vessel coronary disease. Patient was referred to Dr. Jensen for evaluation of aortic valve replacement with two-vessel bypass surgery. Patient was intubated perioperatively and was transferred to MICU postprocedure. Laboratory data showed WBC 8.5 hemoglobin 10.4 and platelets 105. ABG showed pH 7.4 PCO2 41 PO2 64. Sodium 138 potassium 4.3 chloride 108 bicarb is 24 BUN 21 creatinine 1.23 and blood sugar is 111. Patient is currently on milrinone drip, Cardizem and norepinephrine. Patient is also on insulin drip. 03/23/2023 Patient is currently in the MICU. Remains on mechanical ventilator. Patient is also sedated with propofol. On assist control 16 with FiO2 40% and PEEP of 10 and tidal volume 600. ABGs this morning showed pH 7.39 PCO2 37 PO2 206 bicarb is 22 Patient is being cannula pressor support with norepinephrine and vasopressin. Patient is also IV albumin. Mediastinal and right and left pleural chest tubes in place with low suction. Was also noted to have serosanguineous drainage from the mediastinal chest tubes. Hemoglobin 8.7 today dropped to 7.6. Patient did receive 3 units of PRBCs and 1 unit of platelet and 1 L of fold cryoprecipitate. Chest x-ray this morning showed postoperative changes with stable areas of consolidation tiny bilateral effusion. Correlate for mild venous congestion. Other laboratory data showed WBC 11.9 hemoglobin 8.7 and platelets 99 sodium 138 potassium 4.6 chloride 109 bicarb is 21 BUN 27 creatinine 2.44 and blood sugar is 133. Patient remained on insulin drip. 03/24/2023 Patient is currently in the MICU. Patient was extubated this afternoon and was placed on Ventimask. Patient is awake alert and oriented. Unable to communicate well at this time. Otherwise patient is here for the unit of PRBCs today. Hemoglobin was 6.5 this morning. Chest x-ray showed stable bibasilar airspace opacities/atelectasis with a small left pleural effusion, pulmonary vascular congestion, mediastinal and right and left chest tubes remains in place. No leak detected. NG tube in place. Laboratory data showed WBC 8.8 hemoglobin 6.5 and platelets 54 Sodium 138 potassium 4.2 chloride 109, BUN 34 and creatinine 2.27 and blood sugar is 129. 03/25/2023 Patient is currently in the MICU. Sitting in the chair. Awake alert and oriented x3. On oxygen at 2 L via nasal cannula. Able to tolerate oral diet. Remains on insulin drip for blood sugar control. Chest x-ray showed left basilar airspace opacity/atelectasis. Small left pleural effusion. Laboratory test showed WBC 10.4 hemoglobin 7.8 and platelets 51 sodium 139 potassium 4.0 chloride 110 bicarb is 23 BUN 34 and creatinine 1.47 and albumin 2.8 Patient will be transitioned to subcu insulin tomorrow. 03/26/2023 Patient is seen and evaluated in follow-up today continues to be in the ICU with multiple medical consultations following. Patient is status post extubation on 03/24/2023 currently down to2 L via nasal cannula denying any worsening shortness of breath. Patient reports a dry cough with chest pain most likely chest wall pain and does have heart hugger noted and instructed to continue using. Patient had Cordis catheter removed this morning and scheduled to get up and walk. Patient did have one chest tube removed today continues with one with possible removal tomorrow. Follow-up chest x-ray recommended. Patient was on insulin drip and has been transitioned to consistent carb diet and will adjust insulins and add sliding scale along with long-acting twice daily as blood sugars are above 200. Patient is currently afebrile with no reports of chest pain or palpitations. 03/27/2023 Patient is seen in follow-up this morning currently sitting up in the chair continues to be in the ICU with multiple medical consultations including cardiothoracic and cardiology following. Patient chest x-ray today shows bilateral suspected postoperative atelectasis with mild venous congestion and resolution of the tiny left apical pneumothorax noted on previous exam is not noted. Patient was having some urinary retention started on Flomax requiring straight catheterization. Patient denies any pain or burning with urination. Patient's blood sugars have been slightly elevated and home medications currently on hold Will add tradjenta and also increased long-acting and continue sliding scale with Accu-Cheks before meals and at bedtime. Patient is up and walking and encouraged to increase activity as tolerated. Strongly encouraged incentive spirometer use at least 10 times every hour while awake. 03/28/2023 Patient is seen and evaluated in follow-up today continues to be in the ICU with multiple medical consultations following. Patient did have chest tube removed and chest x-ray today shows a left thoracotomy tube with small pneumothorax and cardiomegaly. Patient is currently maintaining oxygen saturations above 90% on room air and has been receiving breathing treatments as needed. Patient was started on Tradjenta as well as sliding scale and long-acting and will slightly increase the long-acting as blood sugars have been more controlled. Patient is afebrile with no reports of chest pain or shortness of breath. Patient reports chest wall pain with cough and does have heart hugger noted. Hemoglobin is 7.2 with no active bleeding noted. Sodium 133 with a potassium of 4.0 and creatini ne improved at 1.21. Magnesium is 2.1. Encouraged to increase activity as tolerated and patient has been up and walking. Patient currently awaiting a bed on stepdown and transfer out of ICU. 03/29/2023 Patient is seen and evaluated in follow-up this morning currently a down great from the ICU although no beds available on 3 S. discussing possible discharge in the next 24 hours. Patient is currently 94% on room air and denies worsening shortness of breath. Chest x-ray shows a 5% left pneumothorax otherwise stable and patient denies any worsening shortness of breath. Patient denies chest pain or palpitations and denies any nausea or vomiting and tolerating diet. Patient is on Accu-Cheks before meals and at bedtime along with sliding scale and long- acting insulin as well as oral diabetic agents. Patient has been up and walking and recommend physical therapy evaluation daily. Review of systems: Constitutional: No reports of fatigue, fever, or chills Cardiovascular: No reports of chest pain or palpitations Respiratory: reports of improvement in shortness of breath GI: No reports of nausea, vomiting, or diarrhea : No reports of dysuria or retention Neurovascular: reports of generalized weakness although improving All medications have been reviewed Physical exam: Patient is and oriented. Currently sitting up in the chair. .currently on room air today HEENT: Normocephalic. Neck is supple. Pupils reactive. Nostrils clear. Oral cavity is moist. Neck reveals no JVD, carotid bruits, or thyromegaly. CHEST EXAMINATION: Trachea is central. Symmetrical expansion. Bibasilar diminished sounds.. No wheezing or rhonchi. CARDIAC: Normal S1, S2 with no gallops. No murmurs ABDOMEN: Soft. Obese. Bowel sounds present. No organomegaly. No abdominal bruits. Extremities: reveal no edema. No clubbing or cyanosis Neurologically patient is awake alert and oriented.. No gross focal deficits noted diffusely weak. Skin: No rash or skin lesions. Psychiatric: Cooperative. non suicidal Musculoskeletal: No joint swelling or deformity Assessment: Status post elective aortic valve replacement with bioprosthetic and two-vessel coronary artery bypass graft, LRA to OM and SVG to PDA. On 03/22/2023. Patient is status post successful extubation on 03/24/2023 Postoperative hypotension requiring pressor support. off pressor support now, Acute blood loss anemia from the mediastinal chest tube requiring blood transfusion. Hemoglobin at 7 today and is receiving a unit of PRBC 03/29/2023 Acute kidney injury possible ATN due to hemodynamic changes. Improving Severe aortic stenosis Severe two-vessel coronary disease Chronic CHF with preserved ejection fraction Coronary artery disease with history of multiple stent placement Diabetes type 2 msn-yityzij-xdxocbhnq, uncontrolled with hyperglycemia Hypertension Hyperlipidemia Obstructive sleep apnea not on CPAP Obesity with BMI 34.7 Currently everyday smoker GI and DVT prophylaxis. On PPI and heparin subcu Full code Plan: Patient is currently in the MICU. Patient was extubated on 03/24/23.. currently maintained on room air and intermittently using 2 L occasionally although has been maintaining oxygen saturations above 90% on room air Patient is a downgrade from the ICU currently awaiting a bed on 3 S. no beds currently available. Discussion of possible discharge in 24 hours Chest x-ray shows a 5% left pneumothorax noted and will follow-up with chest x- ray in a.m. Continue to encourage incentive spirometer at least 10 times every hour while awake Patient received 5 units of PRBC blood transfusion during hospitalization. hemoglobin is stable today at 7 and currently receiving a unit of PRBC Patient to continue with Accu-Cheks before meals and at bedtime and increasing long-acting to twice daily, as well as Tradjenta Patient was transitioned to Consistent carbohydrate heart healthy diet and tole rating with some elevated blood glucose levels Will continue to follow closely and further recommendations based on clinical course. thank you kindly for this consultation. The impression and plan of care has been dictated by Marjorie Lundberg, Nurse Practitioner as directed. Dr. Sandip MD I have performed a history and examination and MDM of this patient, discussed the same with the dictator, and agree with the dictator's assessment and plan as written ,documented as a scribe. Based on total visit time, I have performed more than 50% of the visit. Objective - Vital Signs Vital signs: Vital Signs Temp 97.7 F 03/29/23 13:26 Pulse 73 03/29/23 13:26 Resp 18 03/29/23 13:26 BP 136/63 03/29/23 13:26 Pulse Ox 100 03/29/23 13:26 FiO2 21 03/29/23 08:11 Intake & Output 03/28/23 03/29/23 03/29/23 18:59 06:59 18:59 Intake Total 039 054 2214 Output Total 350 201 0 Balance -781 24 5593 Weight 109.6 kg Intake: IV 40 Invasive Line 6 40 Oral 619 005 8040 Blood Product 310 Rc As-1 Unit 310 [id number] Output: Chest Tube Drainage 100 left pleural 100 Urine 250 200 0 Urine/Stool Mix 1 Other: Voiding Method Urinal Urinal Urinal # Bowel Movements 1 0 ABP, PAP, CO, CI - Last Documented Arterial Blood Pressure 146/55 Pulmonary Artery Pressure 54/22 Cardiac Output 8 Cardiac Index 3.8 - Labs CBC & Chem 7: 03/29/23 03:52 03/29/23 03:46 Labs: Abnormal Lab Results - Last 24 Hours (Table) 03/28/23 03/28/23 03/29/23 Range/Units 16:28 20:32 03:46 RBC (4.30-5.90) m/uL Hgb (13.0-17.5) gm/dL Hct (39.0-53.0) % RDW (11.5-15.5) % Sodium 131 L (137-145) mmol/L BUN 30 H (9-20) mg/dL POC Glucose (mg/dL) 138 H 218 H (70-110) mg/dL Calcium 8.0 L (8.4-10.2) mg/dL Crossmatch 03/29/23 03/29/23 03/29/23 Range/Units 03:52 06:56 08:00 RBC 2.38 L (4.30-5.90) m/uL Hgb 7.0 L (13.0-17.5) gm/dL Hct 22.1 L (39.0-53.0) % RDW 19.3 H (11.5-15.5) % Sodium (137-145) mmol/L BUN (9-20) mg/dL POC Glucose (mg/dL) 118 H (70-110) mg/dL Calcium (8.4-10.2) mg/dL Crossmatch See Detail
[2023-03-29 20:22] LABS: Glucose,Whole Blood 238 mg/dL (70-110)
[2023-03-29] MEDS: SENNOSIDES-DOCUSATE SODIUM 1 EACH TAB PO SCH (21:00)
[2023-03-30] MEDS: ACETAMINOPHEN TAB 325 MG TAB PO PRN (04:46)
[2023-03-30 06:11] LABS: Glucose,Whole Blood 118 mg/dL (70-110)
[2023-03-30] MEDS: INSULIN ASPART (NovoLOG) 100 UNIT/ML VIAL SQ SCH ×2 (06:19→12:27)
[2023-03-30] MEDS: INSULIN DETEMIR (LEVEMIR) 100 UNIT/ML SYR SQ SCH (06:26)
[2023-03-30] MEDS: FERROUS SULFATE 325 MG TAB PO SCH (06:27)
[2023-03-30] MEDS: PANTOPRAZOLE 40 MG TABLET PO SCH (06:27)
[2023-03-30 06:57] LABS: Anisocytosis Slight; HCT 25.7 % (39.0-53.0); HGB 7.9 gm/dL (13.0-17.5); Hypochromasia Slight; MCH 28.5 pg (25.0-35.0); MCHC 30.8 g/dL (31.0-37.0); MCV 92.8 fL (80.0-100.0); Macrocytosis Slight; Mean Platelet Volume 8.2; Platelet Count 232 k/uL (150-450); Poikilocytosis Moderate; RBC 2.77 m/uL (4.30-5.90); RDW 18.7 % (11.5-15.5); WBC 8.7 k/uL (3.8-10.6)
[2023-03-30 07:08] LABS: African American GFR (CKD) 68 (>60 ml/min/1.73 sqM); Anion Gap 7 mmol/L; Blood Urea Nitrogen 27 mg/dL (9-20); Carbon Dioxide 25 mmol/L (22-30); Chloride 100 mmol/L (98-107); Glucose 109 mg/dL (74-99); Magnesium 2.2 mg/dL (1.6-2.3); Non-African American GFR(CKD) 59 (>60 ml/min/1.73 sqM); Potassium 4.5 mmol/L (3.5-5.1); Sodium 132 mmol/L (137-145)
[2023-03-30] MEDS ORDERED: FUROSEMIDE 10 MG/ML 4 ML VIAL IV STA (07:40)
--- NOTE | 2023-03-30 08:07 | P.PN ---
Subjective Progress Note Date: 03/30/23 Principal diagnosis: Severe aortic valve stenosis, coronary artery disease. Previous medical history of coronary artery disease with previous PCI, hypertension, hyperlipidemia, di abetes mellitus type 2, obesity, chronic ongoing tobacco dependence, obstructive sleep apnea with noncompliance with home CPAP use, occasional marijuana use, EtOH use drinking 7-8 beers a week, and medication noncompliance POD #8 coronary artery bypass grafting 2 vessels with radial artery to the obtuse marginal coronary artery, and a saphenous vein graft to the posterior descending coronary artery. Endoscopic harvesting of the left greater saphenous vein, endoscopic harvesting of the left radial artery, ligation of the left atrial appendage using a 35 mm Atriclip, aortic valve replacement using a 25 mm Rosario Dynamic Yieldiris bioprosthetic valve, epi-aortic ultrasound and intraoperative transesophageal echocardiogram. Postoperative acute blood loss anemia and thrombocytopenia, expected given hemodilution and cardiopulmonary bypass. Acute hypoxic respiratory failure with prolonged mechanical ventilation Hypotension, currently off vasopressors, resolved The patient was seen and examined sitting up in a recliner on the cardiac stepdown unit in no acute distress. States pain is not well controlled on current medication regimen, denies shortness of breath. Remains in sinus rhythm and hemodynamically stable. Currently on room air with oxygen saturation in the high 90s, able to achieve 1000 mL on his incentive spirometry. Labs, chest x- ray reviewed. Patient has ambulated in the hallway multiple times with assistance, received shower yesterday. Hemoglobin was 7.0 yesterday, received 1 unit packed red blood cells followed by IV Lasix, hemoglobin 7.9 this morning. No other new concerns. Objective - Vital Signs Vital signs: Vital Signs Temp 97.9 F 03/30/23 04:00 Pulse 85 03/30/23 04:00 Resp 19 03/30/23 04:00 BP 141/72 03/30/23 04:00 Pulse Ox 93 L 03/30/23 04:00 FiO2 21 03/29/23 08:11 Intake & Output 03/29/23 03/30/23 03/30/23 18:59 06:59 18:59 Intake Total 1604 40 Output Total 0 Balance 1604 40 Weight 109.7 kg Intake: IV 40 40 Invasive Line 6 40 40 Oral 1254 Blood Product 310 Rc As-1 Unit 310 [id number] Output: Urine 0 Other: Voiding Method Urinal Urinal # Voids 250 1 # Bowel Movements 0 ABP, PAP, CO, CI - Last Documented Arterial Blood Pressure 146/55 Pulmonary Artery Pressure 54/22 Cardiac Output 8 Cardiac Index 3.8 - Exam CONSTITUTIONAL: Appears comfortable, cooperative, no acute distress RESPIRATORY: Lungs sounds diminished bilaterally. Respirations even, nonlabored. Currently on room air with oxygen saturation 95%. Able to achieve 1000 mL on incentive spirometry. Strong dry cough. CARDIOVASCULAR: S1, S2 present. Regular rate and rhythm, sinus rhythm on telemetry. Sternum stable. Palpable peripheral pulses bilaterally. Bilateral lower extremity edema present. No calf pain or tenderness noted. Heart hugger in place with patient demonstrating appropriate use. Antiembolism stockings, SCDs present. GASTROINTESTINAL: Abdomen soft, nontender, nondistended. Active bowel sounds present 4 quadrants. Tolerating diet. Positive bowel movement 03/29 GENITOURINARY: Continues to void although not captured accurately in the I/Os INTEGUMENTARY: Skin is warm and dry, patient does have some blisters from tape monte, Silvadene applied. Anterior chest incision well approximated. Left radial artery harvest site as well as left lower extremityt EVH site well approximated without redness or drainage. NEUROLOGIC: Cranial nerves II through XII intact MUSKULOSKELETAL: Able to move all extremities, strength equal bilaterally, gait normal PSYCHIATRIC: Alert and oriented to person place and time, appropriate affect, intact judgment and insight - Allied health notes Allied health notes reviewed: nursing - Labs CBC & Chem 7: 03/30/23 06:32 03/30/23 06:32 Labs: Abnormal Lab Results - Last 24 Hours (Table) 03/29/23 03/29/23 03/29/23 Range/Units 08:00 16:06 20:20 RBC (4.30-5.90) m/uL Hgb (13.0-17.5) gm/dL Hct (39.0-53.0) % MCHC (31.0-37.0) g/dL RDW (11.5-15.5) % Sodium (137-145) mmol/L BUN (9-20) mg/dL Glucose (74-99) mg/dL POC Glucose (mg/dL) 141 H 238 H (70-110) mg/dL Calcium (8.4-10.2) mg/dL Crossmatch See Detail 03/30/23 03/30/23 03/30/23 Range/Units 06:05 06:32 06:32 RBC 2.77 L (4.30-5.90) m/uL Hgb 7.9 L (13.0-17.5) gm/dL Hct 25.7 L (39.0-53.0) % MCHC 30.8 L (31.0-37.0) g/dL RDW 18.7 H (11.5-15.5) % Sodium 132 L (137-145) mmol/L BUN 27 H (9-20) mg/dL Glucose 109 H (74-99) mg/dL POC Glucose (mg/dL) 118 H (70-110) mg/dL Calcium 8.0 L (8.4-10.2) mg/dL Crossmatch - Imaging and Cardiology Chest x-ray: image reviewed Assessment and Plan Assessment: Severe aortic valve stenosis, status post aortic valve replacement Coronary artery disease with history of previous PCI, status post 2 vessel CABG Mildly impaired LV function with EF 40-45% History of hypertension Hyperlipidemia, treated, cholesterol 124, LDL 57, TG 112 Diabetes mellitus type 2, preoperative hemoglobin A1c 6.6% Carotid stenosis, complete occlusion of right ICA and 60% occlusion of left ICA per neck CTA Chronic ongoing tobacco dependence, preoperative FEV1 84% of predicted Obstructive sleep apnea with noncompliance of home CPAP use Occasional marijuana use, smokes 1-2 joints per week Occasional EtOH use, drinks 7-8 beers per week Medication noncompliance Acute kidney injury, resolving Postoperative acute blood loss anemia and thrombocytopenia, expected given hemodilution and cardiopulmonary bypass Acute hypoxic respiratory failure, requiring prolonged mechanical ventilation, currently on room air Hypotension, currently off vasopressors, resolved Plan: Continue to maximize medical therapy with low-dose aspirin, statin, Plavix and beta hanane. Will add low dose LINDSEY for afterload reduction as patient's blood pressure is better today Continue CCB for radial artery spasm prophylaxis Encourage incentive spirometry use 10 times every hour while awake. Bronchodilators per pulmonology. Mucinex 1200 mg by mouth twice a day Increase activity, ambulate as tolerated. PT/OT/cardiac rehab following Will monitor daily labs and chest x-rays. Electrolyte replacement per protocol. No further blood transfusion, will give IV Lasix again today GI/DVT prophylaxis Pain control per current medication regimen, will add tramadol for better pain control Insulin management per internal medicine. Patient is diabetic with hemoglobin A1c 6.6%, needs tight blood sugar control to prevent infection and promote healing Strict inaccurate I's and O's Daily weights Importance of risks modifications including smoking cessation counseling and education discussed Discharge planning in progress, anticipate discharge to home with home care likely this afternoon More recommendations to follow based on patient's clinical course.
[2023-03-30] MEDS: IPRATROPIUM-ALBUTEROL 3 ML NEB INHALATION SCH ×2 (08:25→11:58)
--- NOTE | 2023-03-30 08:35 | XR ---
EXAMINATION TYPE: XR chest 2V DATE OF EXAM: 03/30/2023 COMPARISON: 03/29/2023 TECHNIQUE: PA and lateral views submitted. HISTORY: Post cardiac surgery FINDINGS: Postoperative changes and cardiomegaly. There is nodular pleural based density in the left upper lobe stable. Bilateral areas of consolidation and small effusion. Correlate for mild venous congestion. N o sizable pneumothorax. Biapical pleural thickening. Arthropathy of the shoulders. IMPRESSION: 1. Cardiomegaly with bilateral infiltrates and small effusion. There is a masslike pleural-based dens ity along the left upper lobe stable. Correlate for mild interstitial pneumonitis or venous congestio n.
[2023-03-30] MEDS: traMADol 50 MG TAB PO PRN ×2 (09:23→15:06)
[2023-03-30] MEDS: FOLIC ACID 1 MG TAB PO SCH (09:24)
[2023-03-30] MEDS: ATORVASTATIN 40 MG TAB PO SCH (09:24)
[2023-03-30] MEDS: METOPROLOL TARTRATE 25 MG TAB PO SCH (09:24)
[2023-03-30] MEDS: LINAGLIPTIN 5 MG TABLET PO SCH (09:24)
[2023-03-30] MEDS: CLOPIDOGREL 75 MG TAB PO SCH (09:24)
[2023-03-30] MEDS: guaiFENesin 600 MG TABLET.ER PO SCH (09:24)
[2023-03-30] MEDS: ASPIRIN 81 MG PO SCH (09:24)
[2023-03-30] MEDS: FONDAPARINUX 2.5 MG/0.5 ML SYRINGE SQ SCH (09:25)
[2023-03-30 11:57] LABS: Glucose,Whole Blood 118 mg/dL (70-110)
--- NOTE | 2023-03-30 11:58 | P.PN ---
Subjective HISTORY OF PRESENT ILLNESS: This is a 67-year-old male who underwent CABG 2 vessels and aortic valve replacement. Postop day #8. Patient examined this morning. Patient is sitting up in the chair. Patient denies any chest pain or pressure. He reports that his chest feels sore from coughing. He denies shortness of breath. He is on room air with oxygen saturations greater than 92%. Telemetry reveals sinus mechanism. Patient states he has been up ambulating this morning in his room but has not and ambulate in the hallway. PHYSICAL EXAM: VITAL SIGNS: Reviewed. GENERAL: Well-developed in no acute distress. NECK: Supple. No JVD or thyromegaly LUNGS: Respirations even and unlabored. Lungs essentially clear to auscultation bilaterally. HEART: Regular rate and rhythm. S1 and S2 heard. Heart hugger present. + systolic murmur EXTREMITIES: Normal range of motion. No clubbing or cyanosis. Peripheral pulses intact. No lower extremity edema ASSESSMENT: Coronary artery disease with previous PCI, status post two-vessel CABG Severe aortic valve stenosis, status post aortic valve replacement Acute hypoxic respiratory failure requiring prolonged mechanical ventilation, resolved Hypertension Hyperlipidemia Diabetes Carotid stenosis Obstructive sleep apnea Nicotine dependence Occasional marijuana use Occasional alcohol use PLAN: Continue postoperative management per CT surgery Continue current cardiac medications Patient received IV Lasix this morning per cardiothoracic surgery Increase activity as tolerated Encourage use of incentive spirometer Further recommendations pending patient's course Nurse practitioner note has been reviewed by physician. Signing provider agrees with the documented findings, assessment, and plan of care. Objective - Vital Signs Vital signs: Vital Signs Temp 98.5 F 03/30/23 09:20 Pulse 90 03/30/23 09:20 Resp 18 03/30/23 09:20 BP 132/63 03/30/23 09:20 Pulse Ox 92 L 03/30/23 09:20 FiO2 21 03/29/23 08:11 Intake & Output 03/29/23 03/30/23 03/30/23 18:59 06:59 18:59 Intake Total 1604 40 236 Output Total 0 300 Balance 1604 40 -64 Weight 109.7 kg Intake: IV 40 40 Invasive Line 6 40 40 Oral 1254 236 Blood Product 310 Rc As-1 Unit 310 [id number] Output: Urine 0 300 Other: Voiding Method Urinal Urinal Urinal # Voids 250 1 # Bowel Movements 0 ABP, PAP, CO, CI - Last Documented Arterial Blood Pressure 146/55 Pulmonary Artery Pressure 54/22 Cardiac Output 8 Cardiac Index 3.8 - Labs CBC & Chem 7: 03/30/23 06:32 03/30/23 06:32 Labs: Abnormal Lab Results - Last 24 Hours (Table) 03/29/23 03/29/23 03/29/23 Range/Units 08:00 16:06 20:20 RBC (4.30-5.90) m/uL Hgb (13.0-17.5) gm/dL Hct (39.0-53.0) % MCHC (31.0-37.0) g/dL RDW (11.5-15.5) % Sodium (137-145) mmol/L BUN (9-20) mg/dL Glucose (74-99) mg/dL POC Glucose (mg/dL) 141 H 238 H (70-110) mg/dL Calcium (8.4-10.2) mg/dL Crossmatch See Detail 03/30/23 03/30/23 03/30/23 Range/Units 06:05 06:32 06:32 RBC 2.77 L (4.30-5.90) m/uL Hgb 7.9 L (13.0-17.5) gm/dL Hct 25.7 L (39.0-53.0) % MCHC 30.8 L (31.0-37.0) g/dL RDW 18.7 H (11.5-15.5) % Sodium 132 L (137-145) mmol/L BUN 27 H (9-20) mg/dL Glucose 109 H (74-99) mg/dL POC Glucose (mg/dL) 118 H (70-110) mg/dL Calcium 8.0 L (8.4-10.2) mg/dL Crossmatch
[2023-03-30] MEDS: MULTIVITAMINS, THERA 1 EACH TAB PO SCH (12:27)
[2023-03-30] MEDS: THIAMINE 100 MG TAB PO SCH (12:27)
[2023-03-30] MEDS: amLODIPine 2.5 MG TAB PO SCH (12:27)
[2023-03-30 12:32] VITALS: BP 136/69; PULSE 75; RESP 16; TEMP 98.3
--- NOTE | 2023-03-30 13:30 | P.DS ---
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 Severe aortic valve stenosis 2. Coronary artery disease with history of previous PCI 3. Mildly impaired LV function with EF 40-45% 4. History of hypertension with in-hospital hypotension, resolved 5. Hyperlipidemia, treated, cholesterol 124, LDL 57, triglycerides 112 6. Diabetes mellitus type 2, preoperative hemoglobin A1c 6.6% 7. Carotid stenosis, complete occlusion of the right ICA and 60% occlusion of the left ICA per CTA 8. Chronic ongoing tobacco dependence, preoperative FEV1 84% of predicted 9. Obstructive sleep apnea with noncompliance of home CPAP use 10. Occasional marijuana use, smokes 1-2 drinks per week 11. Occasional EtOH use, drinks 7-8 beers per week 12. History of medication noncompliance 13. Acute kidney injury, resolving 14. Postoperative acute blood loss anemia and thrombocytopenia, expected 15. Acute hypoxic respiratory failure requiring prolonged mechanical ventilation PRINCIPAL PROCEDURE: 1. Coronary artery bypass grafting 2 vessels with radial artery to the obtuse marginal coronary artery and reverse saphenous vein grafts to the posterior descending coronary artery 2. Endoscopic harvesting of the left greater saphenous vein, endoscopic harvesting of the left radial artery 3. Ligation of the left atrial appendage using a 35 mm AtriClip 4. Aortic valve replacement using a 25 mm Rosario Inspiris bioprosthetic valve 5. Epi-aortic ultrasound 6. Intraoperative transesophageal echocardiogram HISTORY OF PRESENT ILLNESS: This is a 67-year-old gentleman who follows outpatient with Dr. Frazier for primary care and Dr. Singh for cardiology. He presented to his primary care physician's office back in November with complaints of lower extremity edema. He was started on Lasix which helped his symptomatology. He had an echocardiogram revealing severe aortic stenosis. Further he underwent heart catheterization demonstrating multivessel coronary artery disease. He was referred to Dr. Jensen from cardiothoracic surgery. He was recommended to undergo coronary artery bypass along with aortic valve replacement. The usual perioperative course was discussed in detail with the patient and his family, all risks and benefits were explained, all questions we re answered, and consent was obtained to proceed with surgery. Preoperative workup was initiated and the patient was found to have right internal carotid artery stenosis. In addition, the patient needed pulmonary clearance as well as dental clearance. Once these were obtained the patient was scheduled for elective surgery at the earliest possible date. HOSPITAL COURSE: The patient was brought to the hospital on 03/22/23, taken to the preoperative area, prepared in the usual fashion, and subsequently taken to the operating room where Dr. Jensen performed 2 vessel CABG along with bioprosthetic aortic valve replacement. Upon completion of surgery the patient was transferred to the cardiovascular intensive care unit where he was recovered and monitored hemodynamically. He did have issues with oxygenation requiring prolonged mechanical ventilation along with blood loss anemia requiring transfusion. Eventually he was extubated, all lines, tubes, and drips were discontinued when appropriate, and he was transferred to 3 S cardiac stepdown unit for further monitoring and rehabilitation. His oxygen was titrated down, he continued to work with physical and occupational therapy, he was tolerating oral diet, his pain was controlled, and he was ready to be discharged to home with [facility] care on postoperative day #8. He received written and verbal instruction regarding his medications, activity restrictions, signs and symptoms requiring physician notification, and follow-up appointments. Patient Condition at Discharge: Stable Plan - Discharge Summary Discharge Rx Participant: No New Discharge Prescriptions: New Metoprolol Tartrate [Lopressor] 25 mg PO BID #60 tab amLODIPine [Norvasc] 2.5 mg PO 1200 #30 tab Sennosides-Docusate Sodium [Senokot-S] 2 each PO HS PRN #14 tab PRN Reason: Constipation Acetaminophen Tab [Tylenol] 650 mg PO Q4HR PRN tab PRN Reason: Fever And/ Or Pain traMADol HCl [Ultram] 50 mg PO Q6HR PRN #28 tab PRN Reason: Pain Tamsulosin [Flomax] 0.4 mg PO PC-SUPPER #30 cap Pantoprazole [Protonix] 40 mg PO AC-BRKFST #30 tab SILVER sulfADIAZINE CREAM [Silvadene Cream] 1 applic TOPICAL BID #1 pack lisinopriL [Zestril] 2.5 mg PO DAILY #30 tab Continue Atorvastatin [Lipitor] 40 mg PO DAILY #30 tab Clopidogrel [Plavix] 75 mg PO DAILY #30 tab metFORMIN HCL [Glucophage] 500 mg PO BID #0 Ferrous Sulfate [Iron (65 MG Elemental)] 325 mg PO BID-W/MEALS 30 Days #60 tab Furosemide [Lasix] 40 mg PO DAILY diphenhydrAMINE & Zinc Cream [Benadryl Cream] 1 applic TOPICAL TID PRN PRN Reason: rash to back Aspirin 81 mg PO DAILY #0 glipiZIDE XL [Glucotrol XL] 10 mg PO BID Discontinued Levocetirizine Dihydrochloride 5 mg PO DAILY Metoprolol Succinate (ER) [Toprol XL] 100 mg PO DAILY amLODIPine [Norvasc] 5 mg PO DAILY 30 Days #30 tab hydrALAZINE HCL [Apresoline] 75 mg PO TID 30 Days #90 tab diphenhydrAMINE [Benadryl] 25 - 50 mg PO QID PRN PRN Reason: rash to back Discharge Medication List Atorvastatin [Lipitor] 40 mg PO DAILY #30 tab 02/14/20 [Rx] Clopidogrel [Plavix] 75 mg PO DAILY #30 tab 02/14/20 [Rx] metFORMIN HCL [Glucophage] 500 mg PO BID #0 02/14/20 [Rx] glipiZIDE XL [Glucotrol XL] 10 mg PO BID 02/20/23 [History] Ferrous Sulfate [Iron (65 MG Elemental)] 325 mg PO BID-W/MEALS 30 Days #60 tab 02/24/23 [Rx] Furosemide [Lasix] 40 mg PO DAILY 03/14/23 [History] diphenhydrAMINE & Zinc Cream [Benadryl Cream] 1 applic TOPICAL TID PRN 03/21/23 [History] Acetaminophen Tab [Tylenol] 650 mg PO Q4HR PRN tab 03/30/23 [Rx] Aspirin 81 mg PO DAILY #0 03/30/23 [Rx] Metoprolol Tartrate [Lopressor] 25 mg PO BID #60 tab 03/30/23 [Rx] Pantoprazole [Protonix] 40 mg PO AC-BRKFST #30 tab 03/30/23 [Rx] SILVER sulfADIAZINE CREAM [Silvadene Cream] 1 applic TOPICAL BID #1 pack 03/30/23 [Rx] Sennosides-Docusate Sodium [Senokot-S] 2 each PO HS PRN #14 tab 03/30/23 [Rx] Tamsulosin [Flomax] 0.4 mg PO PC-SUPPER #30 cap 03/30/23 [Rx] amLODIPine [Norvasc] 2.5 mg PO 1200 #30 tab 03/30/23 [Rx] lisinopriL [Zestril] 2.5 mg PO DAILY #30 tab 03/30/23 [Rx] traMADol HCl [Ultram] 50 mg PO Q6HR PRN #28 tab 03/30/23 [Rx] Follow up Appointment(s)/Referral(s): Cassandra Marr MD [STAFF PHYSICIAN] - 04/20/23 1:00 pm Julianna Harley NPC [Nurse Practitioner] - 04/05/23 2:00 pm (You will be seen in the surgeon's office behind the hospital in [facility], [address]. Office phone number is ) [facility],Cardiac [NON-STAFF] - 4 Weeks (You will receive a phone call in approximately 4-6 weeks for evaluation for cardiac rehab) Adam Frazier MD [Primary Care Provider] - 04/13/23 8:20 am [facility] - 1 Week ([facility] to arrange a visit) Sung Jensen MD [STAFF PHYSICIAN] - 04/20/23 9:30 am Regan Singh MD [STAFF PHYSICIAN] - 04/16/23 3:45 pm Ambulatory/Diagnostic Orders: Complete Blood Count w/diff [LAB.AMB] Time Frame: 3 Days, Location: None Selected Comprehensive Metabolic Panel [LAB.AMB] Time Frame: 3 Days, Location: None Selected Activity/Diet/Wound Care/Special Instructions: DISCHARGE INSTRUCTIONS: 1. No driving for 4 weeks, or until physician gives their ok. 2. The patient should sleep in their own bed, no medical bed needed. 3. Stairs are not an issue. If the bedroom is upstairs, it is advised that the patient go up at night and down in the morning for the first week. Go slowly, using handrail and take 1 step at a time. 4. ESTEFANI hose are to be worn for 30 days post surgery or until physician discon tinues. 5. Heart hugger is to be worn 100% of the time until physician discontinues.(except when showering) 6. No lifting, pushing, or pulling more than 10 pounds for 12 weeks. The physician will advise of any restriction changes. 7. The patient is expected to continue the prescribed walking program. 8. Continue pain control per as needed orders. 9. Continue with incentive spirometry and splinting/heart hugger until otherwise directed by the physician. 10. Must shower daily using liquid antibacterial soap 11. Routine sternal incision care. No powders, lotions, ointments on incisions. No dressings are necessary on incisions unless they are draining. Dermabond tape is to remain on sternal incision until surgeon follow-up. 12. Please call surgeon/HIGHWAY ENGINEERING TEACHER for temp greater than 101 F or purulent drainage from incisions. 13. You should weigh yourself daily, record and bring log with you to follow up appointments. 14. All prescriptions given by surgeon for 30 days. Refills need to be filled through escort car driver/primary care physician. 15. A Red armband has been placed on the patient. It should be worn for 30 days post discharge from surgery and will be removed by the cardiac surgeons. If an ER visit is necessary, please make sure the number on the Red armband is called before going to ER. 16. You have been referred to and are expected to begin Cardiac Rehab in approximately 4-6 weeks. 17. Quitting smoking is the most important step you can take to improve your health. For additional information and assistance to quit smoking, please call the [place] tobacco quit line (9-839-FLMM-NOW/ ) or online: [email or web address]-[email or web address]-qu it-[email or web address] HOME HEALTH SERVICES TO PROVIDE: RN SKILLED HOME CARE SERVICES FOR POST-OP SURGICAL PATIENTS WITH THE FOLLOWING: Coronary Artery Bypass Surgery (CABG), Mitral Valve Replacement/Repair ( MVR), Aortic Valve Replacement/Repair (AVR) RN TO CONTINUE EDUCATION FROM ``ROAD TO A HEALTH HEART PATIENT EDUCATION MANUAL (GIVEN TO PATIENT IN THE HOSPITAL) MEDICATION RECONCILIATION WITH EDUCATION NEEDED ON FIRST HOME VISIT EMPHASIZE IMPORTANCE OF WEARING BREAST SUPPORT/HEART HUGGER ENCOURAGE USE OF INCENTIVE SPIROMETER 10 X EVERY HOUR WHILE AWAKE ENCOURAGE UTILIZATION OF LOWER EXTREMITY COMPRESSION STOCKINGS/ESTEFANI HOSE and ELEVATE LEGS ABOVE LEVEL OF HEART WHILE AT REST. ENCOURAGE AMBULATION 3-5x/day INCREASING TOLERATES, WHILE AVOIDING EXTREMES IN TEMPERATURE FREQUENCY: RN TO OPEN THE PATIENT WITHIN 24 HOURS OF DISCHARGE FROM THE HOSPITAL WITH TELEHEALTH INSTALLED AT [facility], RN TO VISIT 2-3 X A WEEK FOR 4 WEEKS ESTABLISHED BY PATIENT NEEDS. LABORATORY: CBC, CMP TO BE DRAWN ON THE THIRD DAY HOME, (RAN STAT) FAX RESULTS TO [phone]. TELEHEALTH PARAMETERS: WEIGHT: NOTIFY MD OF WEIGHT GAIN OF 2 LBS IN 24 HOURS OR 5 LBS IN ONE WEEK HR: NOTIFY MD OF HR <55 BPM OR HR>100 BPM BP: NOTIFY MD IF BP <90/55 OR BP>140/100 O2 SAT: NOTIFY MD IF PO2<93% ON ROOM AIR SEND TELEHEALTH REPORT TO PRIZE FIGHTER AND CARDIOVASCULAR SURGEON THE FIRST WEEK OF CARE AND THEN BI-WEEKLY. PLEASE ADDITIONALLY COMMUNICATE ANY ABNORMALS AND NEW FINDINGS TO THE SURGEONS OFFICE. Discharge Disposition: HOME WITH HOME HEALTH SERVICES
--- NOTE | 2023-03-30 14:17 | P.PN ---
Subjective Progress Note Date: 03/30/23 On today's evaluation of 03/26/2023, the patient is postop day #4. The patient underwent aortic valve replacement and two-vessel bypass surgery. He is currently stable on 2 L of oxygen by nasal cannula. Is using the incentive spirometer and the patient is falling approximately 1.2 L. His able to sit up on a chair. Is hemodynamically stable. He is currently off pressors. Chest tubes have been removed. Note that the mediastinal chest tubes were removed 2 days ago and the patient had a right-sided chest tube. The left lower chest tube has been removed. Output from the left-sided chest tube is in order of 20- 30 mL an hour. Meanwhile, repeat chest x-ray was done and shows some consolidation left lung base. Left sided chest tube is in a good location. Right-sided chest tube has been removed. No evidence of any significant plural effusion. Blood work from today shows improvement in his creatinine which is down to 1.1. Sodium levels of 137. Hemoglobin is at 7.4. White suppositive 0 .6. His underlying cardiac rhythm is normal sinus rhythm. His tolerating diet. No nausea or emesis. No other significant events overnight. He was given Lasix today. He is also metoprolol 50 mg twice a day. He will be also started on low-dose LINDSEY inhibitor's. Neurologically intact. The patient is passing gas. No nausea or emesis. No abdominal distention. No chest pain and his pain is under good control for now. 03/27/2022 the patient is postop day #5. He is post two-vessel bypass surgery and aortic valve replacement. He remains on 2 L of oxygen nasal cannula. The left-sided chest tube is still in place and output over the past 24 hours has been in the order Of 50 ML. Note That the Right Lower Chest Abdomen and Mediastinal Chest Tubes Have Been Removed. Hemodynamically Stable Although He Has a Soft of Blood Pressure. He Received Lasix Yesterday. He Received a Total of 2 doses of Lasix 40 mg IV each dose. On today's blood work, the patient has a low hemoglobin of 7.3, BUN of 30 with a creatinine of 1.3 and a sodium level is at 135. The glucose at 164. Note that the patient did encounter and acute kidney injury and the creatinine was improving. Lisinopril was added yesterday and this was subsequently discontinued. No nausea. No emesis. No gastric distention. No other significant issues. He is ambulating. Chest x-ray shows cardiomegaly. Left-sided chest tube is in a good location and there is no evidence of any pneumothorax. On 03/28/2022, the patient is postop day #6. Left-sided chest tube was kept in place and output is in order of 300 mL over the past 24 hours and 130 mL overnight. Chest x-ray from today showed no evidence of any pneumothorax. Is using incentive spirometer. Pulling approximately 1500. He is hemodynamically stable. He is in a sinus rhythm. Urine output is adequate. Blood pressure is soft. He has not required any pressors. Renal function is improved. Creatinine is down to 1.2 with a BUN of 31 and his sodium level is 133 with a potassium level of 4.0. The echoes at 7.1 with a hemoglobin of 7.2. The patient's was taken off the LINDSEY inhibitor's yesterday. He was started on beta blockers and is currently on metoprolol 25 mg by mouth twice a day and those was used yesterday. Remains on aspirin. Remains on Plavix. Surgical wound over the chest is dry clean and intact. Neurologically stable and intact. Following commands. No signs of any respiratory distress and the patient is currently on room air oxygen. 03/29/2023, the patient is postop day #7. Doing extremely well. Using the incentive spirometer. Pulling approximately 1500. Left-sided chest tube is unremarkable. Chest x-ray from today shows no evidence of any pneumothorax. Obviously, the left-sided chest tube is removed. There is an opacity along the left lower surface probably related to some atelectasis. There may be some limited small bilateral pleural effusions. Otherwise, the patient is post thoracotomy and the sternal wires are in place. Hemoglobin remained stable at 7.0, slightly dropped compared to yesterday. White suppositive 9.7. BUN is at 30 with creatinine of 1.3 and sodium levels of 131. In terms of his medication, he remains on a combination of aspirin and Plavix. He is also on metoprolol at a dose of 25 mg by mouth twice a day. His Pavon catheter has been removed and he remains on Flomax. Blood sugars under adequate control. Is taking Levemir 25 units twice a day. Is also on tradjenta. He remains on Arixtra. On 03/30/2023, the patient is on a medical floor. The patient was transferred out of the intensive care unit yesterday. The patient is postop day #8. The patient is able to ambulate. No nausea. No emesis. Adequate bowel movement. The ones on the chest is dry clean and intact. Cardiac rhythm is sinus. All of the chest was removed. The patient received a units of packed RBC followed by Андрей and hemoglobin today is at 7.9. No other issues for now. The patient may likely be discharged home today. He continues to use incentive spirometer. He has no specific complaints. Urine is at 27 with a creatinine of 1.2 and his sodium level is at 132. Platelet levels are up to 232. Objective - Vital Signs Vital signs: Vital Signs Temp 98.3 F 03/30/23 12:25 Pulse 75 03/30/23 12:25 Resp 16 03/30/23 12:25 BP 136/69 03/30/23 12:25 Pulse Ox 93 L 03/30/23 12:25 FiO2 21 03/29/23 08:11 Intake & Output 03/29/23 03/30/23 03/30/23 18:59 06:59 18:59 Intake Total 1604 40 457 Output Total 0 600 Balance 1604 40 -143 Weight 109.7 kg Intake: IV 40 40 Invasive Line 6 40 40 Oral 1254 457 Blood Product 310 Rc As-1 Unit 310 [id number] Output: Urine 0 600 Other: Voiding Method Urinal Urinal Urinal # Voids 250 1 # Bowel Movements 0 ABP, PAP, CO, CI - Last Documented Arterial Blood Pressure 146/55 Pulmonary Artery Pressure 54/22 Cardiac Output 8 Cardiac Index 3.8 - Exam CONSTITUTIONAL: Appears comfortable, cooperative, no acute distress RESPIRATORY: Lungs sounds diminished bilaterally. Respirations even, nonlabored. Currently on room air with oxygen saturation 95%. Able to achieve 1000 mL on incentive spirometry. Strong dry cough. CARDIOVASCULAR: S1, S2 present. Regular rate and rhythm, sinus rhythm on telem etry. Sternum stable. Palpable peripheral pulses bilaterally. Bilateral lower extremity edema present. No calf pain or tenderness noted. Heart hugger in place with patient demonstrating appropriate use. Antiembolism stockings, SCDs present. GASTROINTESTINAL: Abdomen soft, nontender, nondistended. Active bowel sounds present 4 quadrants. Tolerating diet. Positive bowel movement 03/29 GENITOURINARY: Continues to void although not captured accurately in the I/Os INTEGUMENTARY: Skin is warm and dry, patient does have some blisters from tape monte, Silvadene applied. Anterior chest incision well approximated. Left radial artery harvest site as well as left lower extremityt EVH site well approximated without redness or drainage. NEUROLOGIC: Cranial nerves II through XII intact MUSKULOSKELETAL: Able to move all extremities, strength equal bilaterally, gait normal PSYCHIATRIC: Alert and oriented to person place and time, appropriate affect, intact judgment and insight - Labs CBC & Chem 7: 03/30/23 06:32 03/30/23 06:32 Labs: Abnormal Lab Results - Last 24 Hours (Table) 03/29/23 03/29/23 03/30/23 Range/Units 16:06 20:20 06:05 RBC (4.30-5.90) m/uL Hgb (13.0-17.5) gm/dL Hct (39.0-53.0) % MCHC (31.0-37.0) g/dL RDW (11.5-15.5) % Sodium (137-145) mmol/L BUN (9-20) mg/dL Glucose (74-99) mg/dL POC Glucose (mg/dL) 141 H 238 H 118 H (70-110) mg/dL Calcium (8.4-10.2) mg/dL 03/30/23 03/30/23 03/30/23 Range/Units 06:32 06:32 11:55 RBC 2.77 L (4.30-5.90) m/uL Hgb 7.9 L (13.0-17.5) gm/dL Hct 25.7 L (39.0-53.0) % MCHC 30.8 L (31.0-37.0) g/dL RDW 18.7 H (11.5-15.5) % Sodium 132 L (137-145) mmol/L BUN 27 H (9-20) mg/dL Glucose 109 H (74-99) mg/dL POC Glucose (mg/dL) 118 H (70-110) mg/dL Calcium 8.0 L (8.4-10.2) mg/dL Assessment and Plan Plan: Coronary artery disease status post two-vessel coronary artery bypass grafting. Postoperative day # 8, alt she was admitted more than the patient's chest x-ray showing some atelectatic changes and small effusions. No evidence of any pneumothorax. The patient is currently on room air oxygen. The chest using the removed Severe aortic stenosis, status post aortic valve replacement with a 25 mm Rosario expressed bioprosthetic valve. Postoperative day # 8 Postoperative hypotension , recovered Acute kidney injury, improving, creatinine improving Anemia, expected outcome of surgery, hemoglobin 6.5, received 4 units packed red blood cells. Current hemoglobin 7.0, received a unit of packed RBC and hemoglobin today is at 7.9 Thrombocytopenia, , improving, expected outcome of surgery History of coronary artery disease with previous PCI History of hypertension Hyperlipidemia Diabetes mellitus, type 2 and the patient is on Levemir and tradjenta Chronic and ongoing tobacco dependence Carotid stenosis History of marijuana use Obstructive sleep apnea not utilizing CPAP History of alcohol use Plan: Patient is ambulating. Tolerating diet. Patient is currently on room air oxygen Hemodynamically stable Hemoglobin is responding nicely to units of packed RBC and hemoglobin is currently at 7.9 Hemoglobin is stable Continue with SCD's Continue bronchodilators Educated regarding the increased use of the incentive spirometer Increase his activity as tolerated The patient will likely get discharged today to be followed up on outpatient basis.
--- NOTE | 2023-03-30 14:43 | CDI ---
Documentation Clarification Form Date: 03/30/2023 02:19:43 PM From: Misty Asif RN, CCDS Email: [email or web address] Admit Date: 03/22/2023 05:35:00 AM Patient Name: Torin Daily Visit Number: [id number] Discharge Date: ATTENTION: The Clinical Documentation Specialists (CDI) and [facility] Coding Staff appreciate your assistance in clarifying documentation. Please respond to the clarification below the line at the bottom and electronically sign. The CDI & [facility] Coding staff will review the response and follow-up if needed. Please note: Queries are made part of the Legal Health Record. If you have any questions, please contact the author of this message via ITS. Dr. Rob Hassan Postoperative hypotension is documented in your 03/23 Consult note and progress notes. Additional clarification is requested. Patients Admitting Diagnosis: CAD. Severe aortic valve stenosis Post-Operative Diagnosis: Same Procedure performed: elective CABG x2 vessels and AVR. History/Risk Factors: CAD, severe aortic valve stenosis, DM, HTN, HLD, smoker, obstructive sleep apnea Clinical Indicators: 03/23 Pulmonary consult: "The patient did have a significant amount of hypotension and output from his sternal chest tube was a combined total of 2.8 L since surgery. Postoperative hypotension requiring norepinephrine and vasopressin." 03/22 BP 87/51-88/50-105/51 03/22 Arterial BP 66/40-88/44-101/49-92/47 03/26 Pulmonary: Postoperative hypotension recovered. Treatment: Norepinephrine titrated 03/22-03/24. Vasopressin titrated 03/22-03/24 Please clarify if postop hypotension is a complication of the surgical procedure? [x ] Yes [ ] No [ ] Other, please specify [ ] Unable to determine MTDD
--- NOTE | 2023-03-30 14:55 | P.PN ---
Subjective Progress Note Date: 03/30/23 Patient is a 65-year-old male with a known history of hypertension, hyperlipidemia, diabetes type 2 [id number], obstructive sleep apnea not on CPAP, coronary artery disease, severe aortic stenosis, chronic occlusion of the right ICA and moderate stenosis involving the left ICA was to the [facility] for elective aortic valve replacement and myocardial revascularization. Patient underwent IL-12 replacement and two-vessel bypass LRA to OM and SVG to PDA. Patient had RAE on 01/05/2023 showed severe aortic stenosis involving tricuspid aortic valve with planimetry area of around 0.4 2.6 cm. Normal LV systolic function. Mild to moderate MR. Patient had cardiac catheterization on 01/04/2023 showed right coronary artery is a codominant vessel that was previously stented extensively. Mid RCA showed focal 90% stenosis. Left main coronary artery appears to be calcified but is free of significant stenosis. Circumflex artery showed 80 to 90% ostial stenosis, LAD showed mild to moderate diffuse mild nonfocal atherosclerotic block. Severe two-vessel coronary disease. Patient was referred to Dr. Jensen for evaluation of aortic valve replacement with two-vessel bypass surgery. Patient was intubated perioperatively and was transferred to MICU postprocedure. Laboratory data showed WBC 8.5 hemoglobin 10.4 and platelets 105. ABG showed pH 7.4 PCO2 41 PO2 64. Sodium 138 potassium 4.3 chloride 108 bicarb is 24 BUN 21 creatinine 1.23 and blood sugar is 111. Patient is currently on milrinone drip, Cardizem and norepinephrine. Patient is also on insulin drip. 03/23/2023 Patient is currently in the MICU. Remains on mechanical ventilator. Patient is also sedated with propofol. On assist control 16 with FiO2 40% and PEEP of 10 and tidal volume 600. ABGs this morning showed pH 7.39 PCO2 37 PO2 206 bicarb is 22 Patient is being cannula pressor support with norepinephrine and vasopressin. Patient is also IV albumin. Mediastinal and right and left pleural chest tubes in place with low suction. Was also noted to have serosanguineous drainage from the mediastinal chest tubes. Hemoglobin 8.7 today dropped to 7.6. Patient did receive 3 units of PRBCs and 1 unit of platelet and 1 L of fold cryoprecipitate. Chest x-ray this morning showed postoperative changes with stable areas of consolidation tiny bilateral effusion. Correlate for mild venous congestion. Other laboratory data showed WBC 11.9 hemoglobin 8.7 and platelets 99 sodium 138 potassium 4.6 chloride 109 bicarb is 21 BUN 27 creatinine 2.44 and blood sugar is 133. Patient remained on insulin drip. 03/24/2023 Patient is currently in the MICU. Patient was extubated this afternoon and was placed on Ventimask. Patient is awake alert and oriented. Unable to communicate well at this time. Otherwise patient is here for the unit of PRBCs today. Hemoglobin was 6.5 this morning. Chest x-ray showed stable bibasilar airspace opacities/atelectasis with a small left pleural effusion, pulmonary vascular congestion, mediastinal and right and left chest tubes remains in place. No leak detected. NG tube in place. Laboratory data showed WBC 8.8 hemoglobin 6.5 and platelets 54 Sodium 138 potassium 4.2 chloride 109, BUN 34 and creatinine 2.27 and blood sugar is 129. 03/25/2023 Patient is currently in the MICU. Sitting in the chair. Awake alert and oriented x3. On oxygen at 2 L via nasal cannula. Able to tolerate oral diet. Remains on insulin drip for blood sugar control. Chest x-ray showed left basilar airspace opacity/atelectasis. Small left pleural effusion. Laboratory test showed WBC 10.4 hemoglobin 7.8 and platelets 51 sodium 139 potassium 4.0 chloride 110 bicarb is 23 BUN 34 and creatinine 1.47 and albumin 2.8 Patient will be transitioned to subcu insulin tomorrow. 03/26/2023 Patient is seen and evaluated in follow-up today continues to be in the ICU with multiple medical consultations following. Patient is status post extubation on 03/24/2023 currently down to2 L via nasal cannula denying any worsening shortness of breath. Patient reports a dry cough with chest pain most likely chest wall pain and does have heart hugger noted and instructed to continue using. Patient had Cordis catheter removed this morning and scheduled to get up and walk. Patient did have one chest tube removed today continues with one with possible removal tomorrow. Follow-up chest x-ray recommended. Patient was on insulin drip and has been transitioned to consistent carb diet and will adjust insulins and add sliding scale along with long-acting twice daily as blood sugars are above 200. Patient is currently afebrile with no reports of chest pain or palpitations. 03/27/2023 Patient is seen in follow-up this morning currently sitting up in the chair continues to be in the ICU with multiple medical consultations including cardiothoracic and cardiology following. Patient chest x-ray today shows bilateral suspected postoperative atelectasis with mild venous congestion and resolution of the tiny left apical pneumothorax noted on previous exam is not noted. Patient was having some urinary retention started on Flomax requiring straight catheterization. Patient denies any pain or burning with urination. Patient's blood sugars have been slightly elevated and home medications currently on hold Will add tradjenta and also increased long-acting and continue sliding scale with Accu-Cheks before meals and at bedtime. Patient is up and walking and encouraged to increase activity as tolerated. Strongly encouraged incentive spirometer use at least 10 times every hour while awake. 03/28/2023 Patient is seen and evaluated in follow-up today continues to be in the ICU with multiple medical consultations following. Patient did have chest tube removed and chest x-ray today shows a left thoracotomy tube with small pneumothorax and cardiomegaly. Patient is currently maintaining oxygen saturations above 90% on room air and has been receiving breathing treatments as needed. Patient was started on Tradjenta as well as sliding scale and long-acting and will slightly increase the long-acting as blood sugars have been more controlled. Patient is afebrile with no reports of chest pain or shortness of breath. Patient reports chest wall pain with cough and does have heart hugger noted. Hemoglobin is 7.2 with no active bleeding noted. Sodium 133 with a potassium of 4.0 and creatini ne improved at 1.21. Magnesium is 2.1. Encouraged to increase activity as tolerated and patient has been up and walking. Patient currently awaiting a bed on stepdown and transfer out of ICU. 03/29/2023 Patient is seen and evaluated in follow-up this morning currently a downgrade from the ICU although no beds available on 3 S. discussing possible discharge in the next 24 hours. Patient is currently 94% on room air and denies worsening shortness of breath. Chest x-ray shows a 5% left pneumothorax otherwise stable and patient denies any worsening shortness of breath. Patient denies chest pain or palpitations and denies any nausea or vomiting and tolerating diet. Patient is on Accu-Cheks before meals and at bedtime along with sliding scale and long- acting insulin as well as oral diabetic agents. Patient has been up and walking and recommend physical therapy evaluation daily. 03/30/2023 Patient is seen and evaluated in follow-up today currently sitting up in the chair eating lunch awaiting possible discharge this afternoon. Chest x-ray today showed cardiomegaly with bilateral infiltrates and small effusion with some venous congestion and patient was given a dose of Lasix. Patient is afebrile. Blood sugars better controlled and will resume home medications. Patient instructed to follow-up with primary care provider this week as well as cardiothoracic surgery and cardiology as scheduled. Patient is medically stable for discharge. Instructed the patient to take home incentive spirometer and continue using at least 10 times every hour while awake. Review of systems: Constitutional: No reports of fatigue, fever, or chills Cardiovascular: No reports of chest pain or palpitations Respiratory: reports of improvement in shortness of breath GI: No reports of nausea, vomiting, or diarrhea : No reports of dysuria or retention Neurovascular: reports of generalized discomfort although improving All medications have been reviewed Physical exam: Patient is and oriented. Currently sitting up in the chair. . on room air HEENT: Normocephalic. Neck is supple. Pupils reactive. Nostrils clear. Oral cavity is moist. Neck reveals no JVD, carotid bruits, or thyromegaly. CHEST EXAMINATION: Trachea is central. Symmetrical expansion. Bibasilar diminished sounds.. No wheezing or rhonchi. CARDIAC: Normal S1, S2 with no gallops. No murmurs ABDOMEN: Soft. Obese. Bowel sounds present. No organomegaly. No abdominal bruits. Extremities: reveal no edema. No clubbing or cyanosis Neurologically patient is awake alert and oriented.. No gross focal deficits no marquita Skin: No rash or skin lesions. Psychiatric: Cooperative. non suicidal Musculoskeletal: No joint swelling or deformity Assessment: Status post elective aortic valve replacement with bioprosthetic and two-vessel coronary artery bypass graft, LRA to OM and SVG to PDA. On 03/22/2023. Patient is status post successful extubation on 03/24/2023 Postoperative hypotension requiring pressor support. off pressor support now, Acute blood loss anemia from the mediastinal chest tube requiring blood t ransfusion. Hemoglobin at 7 today and is receiving a unit of PRBC 03/29/2023 Acute kidney injury possible ATN due to hemodynamic changes. Improving Severe aortic stenosis Severe two-vessel coronary disease Chronic CHF with preserved ejection fraction Coronary artery disease with history of multiple stent placement Diabetes type 2 cso-fxrzddp-pfynbvwcg, uncontrolled with hyperglycemia Hypertension Hyperlipidemia Obstructive sleep apnea not on CPAP Obesity with BMI 34.7 Currently everyday smoker GI and DVT prophylaxis. On PPI and heparin subcu Full code Plan: Patient is being scheduled for discharge by cardiothoracic surgery team today. Recommend follow-up with primary care provider along with cardiology and follow- up with cardiothoracic as scheduled Continue to encourage incentive spirometer at least 10 times every hour while awake Patient to continue with Accu-Cheks before meals and at bedtime and home medications being resumed. Strongly encouraged heart healthy consistent carb d iet and tight glycemic control. Will continue to follow closely and further recommendations based on clinical course. thank you kindly for this consultation. The impression and plan of care has been dictated by Marjorie Lundberg, Nurse Practitioner as directed. Dr. Sandip MD I have performed a history and examination and MDM of this patient, discussed the same with the dictator, and agree with the dictator's assessment and plan as written ,documented as a scribe. Based on total visit time, I have performed more than 50% of the visit. Objective - Vital Signs Vital signs: Vital Signs Temp 98.5 F 03/30/23 09:20 Pulse 90 03/30/23 09:20 Resp 18 03/30/23 09:20 BP 132/63 03/30/23 09:20 Pulse Ox 92 L 03/30/23 09:20 FiO2 21 03/29/23 08:11 Intake & Output 03/29/23 03/30/23 03/30/23 18:59 06:59 18:59 Intake Total 1604 40 236 Output Total 0 600 Balance 1604 40 -364 Weight 109.7 kg Intake: IV 40 40 Invasive Line 6 40 40 Oral 1254 236 Blood Product 310 Rc As-1 Unit 310 [id number] Output: Urine 0 600 Other: Voiding Method Urinal Urinal Urinal # Voids 250 1 # Bowel Movements 0 ABP, PAP, CO, CI - Last Documented Arterial Blood Pressure 146/55 Pulmonary Artery Pressure 54/22 Cardiac Output 8 Cardiac Index 3.8 - Labs CBC & Chem 7: 03/30/23 06:32 03/30/23 06:32 Labs: Abnormal Lab Results - Last 24 Hours (Table) 03/29/23 03/29/23 03/29/23 Range/Units 08:00 16:06 20:20 RBC (4.30-5.90) m/uL Hgb (13.0-17.5) gm/dL Hct (39.0-53.0) % MCHC (31.0-37.0) g/dL RDW (11.5-15.5) % Sodium (137-145) mmol/L BUN (9-20) mg/dL Glucose (74-99) mg/dL POC Glucose (mg/dL) 141 H 238 H (70-110) mg/dL Calcium (8.4-10.2) mg/dL Crossmatch See Detail 03/30/23 03/30/23 03/30/23 Range/Units 06:05 06:32 06:32 RBC 2.77 L (4.30-5.90) m/uL Hgb 7.9 L (13.0-17.5) gm/dL Hct 25.7 L (39.0-53.0) % MCHC 30.8 L (31.0-37.0) g/dL RDW 18.7 H (11.5-15.5) % Sodium 132 L (137-145) mmol/L BUN 27 H (9-20) mg/dL Glucose 109 H (74-99) mg/dL POC Glucose (mg/dL) 118 H (70-110) mg/dL Calcium 8.0 L (8.4-10.2) mg/dL Crossmatch 03/30/23 Range/Units 11:55 RBC (4.30-5.90) m/uL Hgb (13.0-17.5) gm/dL Hct (39.0-53.0) % MCHC (31.0-37.0) g/dL RDW (11.5-15.5) % Sodium (137-145) mmol/L BUN (9-20) mg/dL Glucose (74-99) mg/dL POC Glucose (mg/dL) 118 H (70-110) mg/dL Calcium (8.4-10.2) mg/dL Crossmatch
== END 2023-03-30 15:40 | disposition home health service (06) | DRG 219 ==
LOC: 2ORMAIN 05:35 → 2SICU 13:35 → 3SCARD 03-29 22:22
PROVIDERS: ADMIT Surgery; ATTEND Surgery
PROC: 03BC4ZZ Excision of Left Radial Artery, Percutaneous Endoscopic Approach (ICD-10-PCS; principal; 2023-03-22 08:00)
PROC: 021109W Bypass Coronary Artery, Two Arteries from Aorta with Autologous Venous Tissue, Open Approach (ICD-10-PCS; principal; 2023-03-22 08:00)
PROC: B246ZZ4 Ultrasonography of Right and Left Heart, Transesophageal (ICD-10-PCS; principal; 2023-03-22 08:00)
PROC: 06BQ4ZZ Excision of Left Saphenous Vein, Percutaneous Endoscopic Approach (ICD-10-PCS; principal; 2023-03-22 08:00)
PROC: 02L70CK Occlusion of Left Atrial Appendage with Extraluminal Device, Open Approach (ICD-10-PCS; principal; 2023-03-22 08:00)
PROC: 02RF0KZ Replacement of Aortic Valve with Nonautologous Tissue Substitute, Open Approach (ICD-10-PCS; principal; 2023-03-22 08:00)
PROC: 30233N1 Transfusion of Nonautologous Red Blood Cells into Peripheral Vein, Percutaneous Approach (ICD-10-PCS; 2023-03-22 08:00)
PROC: 30233M1 Transfusion of Nonautologous Plasma Cryoprecipitate into Peripheral Vein, Percutaneous Approach (ICD-10-PCS; 2023-03-22 08:00)
PROC: 30233R1 Transfusion of Nonautologous Platelets into Peripheral Vein, Percutaneous Approach (ICD-10-PCS; 2023-03-22 08:00)
PROC: 0BH17EZ Insertion of Endotracheal Airway into Trachea, Via Natural or Artificial Opening (ICD-10-PCS; 2023-03-22 08:00)
PROC: 5A1945Z Respiratory Ventilation, 24-96 Consecutive Hours (ICD-10-PCS; 2023-03-22 08:00)
PROC: 3E043XZ Introduction of Vasopressor into Central Vein, Percutaneous Approach (ICD-10-PCS; 2023-03-24)
DX: I25.10 Atherosclerotic heart disease of native coronary artery without angina pectoris (principal); J96.01 Acute respiratory failure with hypoxia; J98.11 Atelectasis; N17.9 Acute kidney failure, unspecified; D62 Acute posthemorrhagic anemia; I50.32 Chronic diastolic (congestive) heart failure; R18.8 Other ascites; Z68.37 Body mass index [BMI] 37.0-37.9, adult; I35.0 Nonrheumatic aortic (valve) stenosis; G47.33 Obstructive sleep apnea (adult) (pediatric); I11.0 Hypertensive heart disease with heart failure; D69.6 Thrombocytopenia, unspecified; I95.81 Postprocedural hypotension; F17.200 Nicotine dependence, unspecified, uncomplicated; I65.23 Occlusion and stenosis of bilateral carotid arteries; Z71.3 Dietary counseling and surveillance; E11.9 Type 2 diabetes mellitus without complications; Z79.84 Long term (current) use of oral hypoglycemic drugs; Z91.148 Patient's other noncompliance with medication regimen for other reason; E66.9 Obesity, unspecified; R79.1 Abnormal coagulation profile; I87.8 Other specified disorders of veins; E78.5 Hyperlipidemia, unspecified; Z79.02 Long term (current) use of antithrombotics/antiplatelets; Z79.82 Long term (current) use of aspirin; Z91.199 Patient's noncompliance with other medical treatment and regimen due to unspecified reason; Z95.5 Presence of coronary angioplasty implant and graft
CPT/HCPCS: 71045; 71046; 80048; 80053; 81001; 82330; 82805; 83735; 85025; 85027; 85384; 85610; 85730; 86022; 86850; 86891; 86900; 86901; 86920; 88305; 94002; 94003; 94640; 94760

== ENCOUNTER → 2023-09-26 | Outpatient (CLI) | payer MEDICARE ==
[2023-09-26 13:12] LABS: Potassium 4.1 mmol/L (3.5-5.1)
[2023-09-26 13:13] LABS: African American GFR (CKD) 85 (>60 ml/min/1.73 sqM); Anion Gap 12 mmol/L; Blood Urea Nitrogen 15 mg/dL (9-20); Calcium 8.9 mg/dL (8.4-10.2); Carbon Dioxide 27 mmol/L (22-30); Chloride 101 mmol/L (98-107); Glucose 239 mg/dL (74-99); NT-Pro-B-Type Natriuretic Pept 3080 pg/mL; Non-African American GFR(CKD) 74 (>60 ml/min/1.73 sqM); Sodium 140 mmol/L (137-145)
== END | disposition home or self-care (01) ==
LOC: LABWHC1 10:20
PROVIDERS: ATTEND Internal Medicine Cardiovascular Disease
DX: I50.22 Chronic systolic (congestive) heart failure (principal)
CPT/HCPCS: 36415; 80048; 83880

== ENCOUNTER → 2023-12-03 | Outpatient (CLI) | payer MEDICARE ==
--- NOTE | 2023-12-03 16:25 | MR ---
EXAMINATION TYPE: MR knee RT wo con DATE OF EXAM: 12/03/2023 COMPARISON: None HISTORY: Rt knee pain TECHNIQUE: Multiplanar, multisequence imaging of the right knee is performed without IV contrast. FINDINGS: There is metallic artifact involving the proximal right tibia presumably from prior surgery. There is a moderate joint effusion with multiple plicae in the suprapatellar joint space. The patella and quadriceps tendons are intact. There is moderate osteoarthritic change of the medial compartment of the knee where there is moderate to marked thinning of the articular cartilage and subchondral bone changes within the mediofemoral c ondyle and medial tibial plateau. There is mild hypertrophic spurring at the margins of the joint spa ce. There is a complex tear of the posterior horn and body of the medial meniscus. The lateral menisc us is intact. The cruciate and collateral ligaments are intact.. IMPRESSION: 1. Moderate osteophytic change of the medial compartment of the knee. 2. Moderate joint effusion with multiple plicae in the suprapatellar patellar joint space. 3. Complex tear of the posterior horn and body of the medial meniscus. 4. No ligamentous injury.
== END | disposition home or self-care (01) ==
LOC: RADMRIMAIN 10:59
PROVIDERS: ATTEND Orthopaedic Surgery
DX: M23.321 Other meniscus derangements, posterior horn of medial meniscus, right knee (principal); M25.461 Effusion, right knee; M25.761 Osteophyte, right knee

== ENCOUNTER → 2023-12-27 | Outpatient (CLI) | payer MEDICARE ==
[2023-12-27 18:46] LABS: Basophils # (A) 0.06 X 10*3/uL (0.00-0.10); Basophils % (A) 0.9 %; Eosinophils # (A) 0.22 X 10*3/uL (0.04-0.35); Eosinophils % (A) 3.3 %; HCT 37.2 % (39.6-50.0); HGB 12.1 g/dL (13.0-17.0); Lymphocytes # (A) 1.42 X 10*3/uL (0.90-5.00); Lymphocytes % (A) 21.5 %; MCH 29.4 pg (27.0-32.0); MCHC 32.5 g/dL (32.0-37.0); MCV 90.3 FL (80.0-97.0); Mean Platelet Volume 10.2 FL (9.5-12.2); Monocytes # (A) 0.63 X 10*3/uL (0.20-1.00); Monocytes % (A) 9.5 %; NRBC Per 100 WBC 0 X 10*3/uL (0.00-0.01); Neutrophils # (A) 4.26 X 10*3/uL (1.80-7.70); Neutrophils % (A) 64.5 %; Platelet Count 225 X 10*3/uL (140-440); RBC 4.12 X 10*6/uL (4.40-5.60); RDW 13.4 % (11.5-14.5); WBC 6.61 X 10*3/uL (4.50-10.00)
[2023-12-27 19:52] LABS: Anion Gap 13.4 mmol/L (4.00-12.00); Carbon Dioxide 22.6 mmol/L (21.6-31.8); Potassium 4.6 mmol/L (3.5-5.5)
== END | disposition home or self-care (01) ==
LOC: LABPAT 14:05
PROVIDERS: ATTEND Orthopaedic Surgery
DX: Z01.812 Encounter for preprocedural laboratory examination (principal); M23.91 Unspecified internal derangement of right knee
CPT/HCPCS: 36415; 80051; 85025

== ENCOUNTER 2024-01-09 07:54 | Day surgery (SDC) | payer MEDICARE ==
[2024-01-08 09:43] VITALS: BMI 34.4
--- NOTE | 2024-01-08 14:03 | HP ---
HISTORY AND PHYSICAL DATE OF SCHEDULED SURGERY: 01/09/2024. HISTORY OF PRESENT ILLNESS: Torin Daily is a 68-year-old gentleman seen with progressive right knee pain. We discussed options regarding treatment, elected to proceed with right knee arthroscopy. Consent obtained. Cardiac clearance per Dr. Singh. PAST MEDICAL HISTORY: Cardiovascular disease, hypertension, hyperlipidemia, and oie-qfdetiw-eybqrwefw diabetes. PAST SURGICAL HISTORY: Cardiac surgery. DAILY MEDICATIONS: 1. Amlodipine. 2. Atorvastatin. 3. Glipizide. 4. Lisinopril. 5. Lopressor. 6. Metformin. 7. Plavix. ALLERGIES: IV dye. SOCIAL HISTORY: Denies tobacco use. PHYSICAL EVALUATION OF RIGHT KNEE: Range of motion is 0 to 120 degrees. Mild to moderate effusion. Tenderness, medial joint line. Positive medial Carlos's. Ligaments stable. Hip rotation without pain. Distal neurovascular exam is intact. IMAGING STUDIES: Radiographs of the right knee revealed evwz-xf-qkutylyl medial compartment osteoarthritis. MRI right knee revealed medial meniscal tear. Moderate arthritis and effusion. IMPRESSION: 1. Internal derangement of right knee with medial meniscal tear. 2. Hypertension. 3. Hyperlipidemia. 4. Cardiovascular disease. PLAN: Right knee arthroscopy with partial medial meniscectomy and debridement. MMODL / IJN: [id number] /
[~2024-01-09 07:54] MED LIST changes: -ALBUMIN HUMAN 25% 50 ML IV ONE; -ALBUMIN HUMAN 5% 500 ML IVPB ONE; -ASPIRIN 325 MG TAB PO ONE; -ATORVASTATIN 10 MG TAB PO ONE; -CALCIUM CHLORIDE 100 MG/ML 10 ML SYRINGE IV ONE; -CHLORHEXIDINE GLUCONATE 15 ML CUP MUCOUS MEM ONE; -CLEVIDIPINE BUTYRATE 25 MG in EMPTY BAG 1 BAG IV ONE; -DILTIAZEM 125 MG in SODIUM CHLORIDE 0.9% 100 ML IV ONE; -ELECTROLYTE-A SOLUTION 1,000 ML with POTASSIUM CHLORIDE 100 MEQ, MAGNESIUM SULFATE 16 M... IV ONE; -ELECTROLYTE-A SOLUTION 1,000 ML with POTASSIUM CHLORIDE 40 MEQ, MAGNESIUM SULFATE 16 ME... IV ONE; -HEPARIN SODIUM 1,000 UN/ML (10ML VL) IV ONE; -HEPARIN SODIUM,PORCINE 5,000 UNIT in SODIUM CHLORIDE 0.9% 500 ML 500 ML IV ONE; +HYDROmorphone 0.5 MG/0.5 ML SYRINGE IVP PRN; -INSULIN REGULAR 100 UNIT in SODIUM CHLORIDE 0.9% 100 ML IV ONE; -LACTATED RINGERS 1,000 ML IV ONE; +LIDOCAINE 1% (10MG/ML) FOR IV START INTRADERMA PRN; -MAGNESIUM SULFATE 16.24 MEQ in EMPTY SYRINGE 1 SYR IV ONE; -MANNITOL 25% 12.5 GM/50 ML VIAL IV ONE; -METOPROLOL TARTRATE 12.5 MG TAB PO ONE; -NITROGLYCERIN SL TABS 0.4 MG TAB SUBLINGUAL ONE; -NITROGLYCERIN-D5W PMX 25 MG/250 ML BTL IV ONE; -NITROGLYCERIN-D5W PMX 50 MG in DEXTROSE/WATER 1 250ML.BAG IV ONE; -NOREPINEPHRINE 4 MG in SODIUM CHLORIDE 0.9% 250 ML IV ONE; -PAPAVERINE 360 MG in SODIUM CHLORIDE 0.9% 90 ML IV ONE; -PHENYLEPHRINE 10 MG/ML VIAL IV ONE; -PHENYLEPHRINE 40 MG in SODIUM CHLORIDE 0.9% 250 ML IV ONE; -PROTAMINE SULFATE 10 MG/ML 25 ML VIAL IV ONE; -PROTAMINE SULFATE 250 MG in EMPTY BAG 1 BAG IV ONE; -SODIUM BICARB 8.4% 50 ML SYR (1 MEQ/ML) IV ONE; -SODIUM CHLORIDE 0.9% 1,000 ML IV ONE; -TRANEXAMIC ACID 2,000 MG in SODIUM CHLORIDE 0.9% 80 ML IV ONE; -ceFAZolin 1,000 MG in SODIUM CHLORIDE 0.9% IRRIGATIO 1,000 ML IRRIGATION ONE; -propofoL 1,000 MG/100 ML VIAL IV ONE
[2024-01-09] MEDS: LACTATED RINGERS 1,000 ML IV SCH (08:34)
[2024-01-09 08:35] LABS: Glucose,Whole Blood 191 mg/dL (70-110)
[2024-01-09] MEDS: ONDANSETRON 4 MG/2 ML VIAL IVP ONE (08:40)
[2024-01-09 08:53] VITALS: RESP 16
[2024-01-09] MEDS ORDERED: PROPOFOL 10 MG/ML 20 ML VIAL IV ONE (09:26)
[2024-01-09] MEDS ORDERED: LIDOCAINE 1% INJ 10MG/ML (20 ML MDV) ONE (09:26)
[2024-01-09] MEDS ORDERED: fentaNYL (PF) 50 MCG/ML 2 ML AMP ONE (09:26)
[2024-01-09] MEDS: BUPIVACAINE (PF) 0.25% 30 ML VIAL SQ ONE ×2 (09:56→10:11)
--- NOTE | 2024-01-09 10:36 | P.OP ---
Date of Procedure: 01/09/24 Preoperative Diagnosis: Internal derangement right knee Postoperative Diagnosis: 1. Tear medial and lateral meniscus right knee 2. Grade IV chondromalacia medial femoral condyle right knee 3. Reactive synovitis medial, lateral and superior compartments right knee 4. Grade III chondromalacia lateral femoral condyle right knee 5. Grade III chondromalacia femoral sulcus right knee Procedure(s) Performed: 1. Arthroscopic partial medial and lateral meniscectomy right knee 2. Arthroscopic microfracture medial femoral condyle right knee 3. Arthroscopic partial synovectomy medial, lateral and suprapatellar compartments right knee 4. Arthroscopic chondroplasty lateral femoral condyle right knee 5. Arthroscopic chondroplasty femoral sulcus right knee Anesthesia: DANAA, local Surgeon: Lance Brito Estimated Blood Loss (ml): 6 Pathology: none sent Condition: stable Disposition: PACU Indications for Procedure: 68-year-old patient seen with progressive right knee pain. After having treatment options discussed, he elected to proceed with arthroscopy. Operative Findings: See description of procedure Description of Procedure: Patient was taken to the operative suite. Patient underwent a general anesthetic by the department of anesthesia. Patient was given preoperative antibiotics. The right lower extremity was placed in a well-padded arthroscopic leg mendez. The right leg was prepped and draped in the normal sterile orthopedic fashion. A lateral parapatellar and suprapatellar incision was made. Trochars were inserted. Arthroscopy was initiated. Suprapatellar pouch revealed diffuse thick reactive synovitis. The patellofemoral joint appeared to articulate congruently. There was grade II chondromalacia of the patella and grade III chondromalacia of the femoral sulcus with some peripheral oste ochondral flap tears. The scope was guided into the medial gutter. No loose bodies or plica were identified. The scope was then guided into the medial compartment. A medial parapatellar incision was made. Trocar inserted followed by probe. Was a complex tear involving the posterior horn and mid bodies of the medial meniscus. There were grade III/IV chondromalacia changes of the medial femoral condyle with some osteochondral flap tears. There were grade III chondromalacia changes of the medial tibial plateau without tears. There was thick reactive synovitis anteriorly. I performed a partial medial meniscectomy getting down to stable meniscal tissue. I performed a chondroplasty of the medial femoral condyle getting down to stable osteochondral tissue. I performed a partial synovectomy decompressing the thick reactive synovitis anteriorly. I did note an area of exposed bone/grade IV chondromalacia medial femoral condyle weightbearing surface measuring just over 1 cm. I introduced a microfracture awl and I performed a microfracture to that area penetrating the bone with resultant bleeding at the microfracture site. The residual meniscus was stable. The residual osteochondral surface was stable. There was good decompression of the synovitis. Scope and probe were then guided into the intercondylar notch. Cruciates were identified, probed and found to be stable. The scope and probe were then guided into lateral compartment. There was a radial tear mid body lateral meniscus. There were grade III chondromalacia changes lateral femoral condyle with some small osteochondral flap tears. There was thick reactive synovitis anteriorly. I performed a partial lateral meniscectomy getting down to stable meniscal tissue. I performed a chondroplasty of the lateral femoral condyle getting down a stable osteochondral tissue. I performed a partial synovectomy decompressing the reactive synovitis. The residual meniscus was probed and was found to be stable. The residual osteochondral surface was stable. There was good decompression of the synovitis. The scope was in guided back into the suprapatellar compartment. I used a motorized shaver into the suprasellar compartment. I performed a chondroplasty of the femoral sulcus getting down to stable osteochondral tissue. I debrided some piecemeal fragments of meniscus that encounter. I performed a partial synovectomy. The shaver was removed. The residual osteochondral surface was stable. There was good decompression of the synovitis. I now took 1 more look around the entire knee, no residual debris. Instruments were now removed from the joint. The joint was infiltrated with .25% Marcaine. Steri-Strips were applied to the portal sites. Sterile dressings were applied. The patient was placed into a ESTEFANI hose. No tourniquet was utilized. The patient was awakened, transferred to a bed and taken to recovery stable satisfactory condition.
[2024-01-09] MEDS: HYDROmorphone 0.5 MG/0.5 ML SYRINGE IVP ONE ×2 (10:38→10:45)
[2024-01-09 11:01] VITALS: TEMP 97
[2024-01-09 11:03] LABS: Glucose,Whole Blood 138 mg/dL (70-110)
[2024-01-09] MEDS: HYDROcodone/APAP 7.5-325MG 1 EACH TAB PO ONE (11:36)
[2024-01-09] MEDS ORDERED: HYDROcodone/APAP 5-325MG 1 EACH TAB ONE (11:52)
[2024-01-09] MEDS: HYDROcodone/APAP 5-325MG 1 EACH TAB PO ONE (11:53)
[2024-01-09 12:26] VITALS: BP 198/83; PULSE 77
== END 2024-01-09 12:34 | disposition home or self-care (01) ==
LOC: OR 07:54
PROVIDERS: ATTEND Orthopaedic Surgery
DX: S83.281A Other tear of lateral meniscus, current injury, right knee, initial encounter (principal); S83.241A Other tear of medial meniscus, current injury, right knee, initial encounter; M94.261 Chondromalacia, right knee; M65.861 Other synovitis and tenosynovitis, right lower leg; M17.11 Unilateral primary osteoarthritis, right knee; I10 Essential (primary) hypertension; E78.5 Hyperlipidemia, unspecified; E11.9 Type 2 diabetes mellitus without complications; I25.10 Atherosclerotic heart disease of native coronary artery without angina pectoris; Z79.84 Long term (current) use of oral hypoglycemic drugs; Z79.899 Other long term (current) drug therapy; Z91.041 Radiographic dye allergy status; Z79.01 Long term (current) use of anticoagulants; X58.XXXA Exposure to other specified factors, initial encounter; Z79.82 Long term (current) use of aspirin; Z98.890 Other specified postprocedural states
CPT/HCPCS: 29880; 29879; J0690; J2405; J1170; J0665

== ENCOUNTER → 2024-03-31 | Outpatient (CLI) | payer MEDICARE ==
[2024-03-31 09:43] LABS: African American GFR (CKD) 89 (>60 ml/min/1.73 sqM); Blood Urea Nitrogen 19 mg/dL (9-20); Non-African American GFR(CKD) 77 (>60 ml/min/1.73 sqM)
--- NOTE | 2024-03-31 13:53 | CT ---
EXAMINATION TYPE: CT urogram wo/w con CT DLP: 4287 mGycm, Automated exposure control for dose reduction was used. DATE OF EXAM: 03/31/2024 10:50 AM COMPARISON: CT abdomen and pelvis 02/20/2023, 02/18/2020. CLINICAL INDICATION:Male, 68 years old with history of R31.1 BENIGN ESSENTIAL MICROSCOPIC HEMATURIA; PHH, Hematuria x 2 months TECHNIQUE: Urogram of the abdomen and pelvis was performed before and after the administration of 100 cc of IV c ontrast Isovue 300 contrast. Delayed imaging was performed. Coronal and sagittal reformats were perfo rmed. One or more CT dose reduction strategies were utilized during this examination. 2D and 3D recon structions are performed to assist visualization of the urinary tract on a separate workstation. FINDINGS: GENITOURINARY: RIGHT KIDNEY AND URETER: No calculi. No hydronephrosis or hydroureter. No renal mass or other lesions . No urothelial lesions: no filling defect, dilation, stricture or wall thickening. Nonspecific perin ephric fat stranding. LEFT KIDNEY AND URETER: No calculi. No hydronephrosis or hydroureter. No renal mass or other lesions. No urothelial lesions: no filling defect, dilation, stricture or wall thickening. Nonspecific perine phric fat stranding. URINARY BLADDER: Normal, no calculi, mass or other lesions. REPRODUCTIVE: Enlarged prostate gland measuring 5.8 cm in transverse dimension. There is indentation upon the urinary bladder base with median lobe hypertrophy. ABDOMEN LIVER: Unremarkable. GALLBLADDER AND BILE DUCTS: Unremarkable PANCREAS: Unremarkable. SPLEEN: Unremarkable. ADRENAL GLANDS: Unremarkable. STOMACH AND BOWEL: Small hiatal hernia. No focal bowel wall thickening or surrounding inflammatory ch anges. No evidence of bowel obstruction. PERITONEUM: No evidence of pneumoperitoneum, free fluid, or adenopathy. VASCULATURE: Mild atherosclerotic calcifications are present throughout the abdominal aorta and its b ranches. Bilateral renal vascular calcifications noted. Right-sided pelvic phlebolith. Portal venous system is patent. MUSCULOSKELETAL: No acute osseous abnormalities. SOFT TISSUE/ABDOMINAL WALL: Unremarkable. LOWER CHEST: Median sternotomy wires. Mitral and aortic valvular changes. Mild cardiomegaly. Linear s carring and/or atelectasis within the lingula. IMPRESSION: 1. No evidence of urolithiasis or renal/urothelial neoplasm. 2. Prostatomegaly. 3. Post cardiac surgical changes.
== END | disposition home or self-care (01) ==
LOC: RADCTMAIN 09:00
PROVIDERS: ATTEND Urology
DX: N40.0 Benign prostatic hyperplasia without lower urinary tract symptoms (principal); R31.1 Benign essential microscopic hematuria
CPT/HCPCS: 82565; 84520; 74178; 36415; 74400; Q9967